=== PATIENT | female | born 1965 | race Caucasian/White ===

== ENCOUNTER → 2017-07-03 09:17 | Outpatient (CLI) | payer MEDICAID, SELFPAY ==
--- NOTE | 2017-07-03 09:23 | EKG12_ITS ---
Test Reason : PREOP Blood Pressure : / mmHG Vent. Rate : 060 BPM Atrial Rate : 060 BPM P-R Int : 128 ms QRS Dur : 088 ms QT Int : 454 ms P-R-T Axes : 060 060 057 degrees QTc Int : 454 ms Normal sinus rhythm Low voltage QRS Borderline ECG Confirmed by JIMENA GRAHAM, COLETTE ([id number]), associate editor JORDYN BAKER ([id number]) on 07/07/2017 2:48:17 PM Referred By: Mateo Caba Confirmed By:COLETTE HESS MD
== END ==
PROVIDERS: Family Provider Family Medicine; PCP Family Medicine; Visit Provider Podiatrist Foot & Ankle Surgery
DX: Z01.818 Encounter for other preprocedural examination (principal); F17.200 Nicotine dependence, unspecified, uncomplicated
CPT/HCPCS: 93005

== ENCOUNTER → 2017-08-28 07:38 | Outpatient (CLI) | payer MEDICAID, SELFPAY ==
--- NOTE | 2017-08-28 07:39 | US_ITS ---
STUDY: ABDOMINAL ULTRASOUND - RIGHT UPPER QUADRANT REASON FOR VISIT: Female, 52 years old. Epigastric pain. TECHNIQUE: Ultrasound evaluation of the right upper quadrant was performed with real-time and static rosas-scale imaging. TECHNICAL QUALITY: Adequate. COMPARISON: None. FINDINGS: Liver: The liver measures 17.6 cm. There is normal echogenicity of the liver. The bile ducts are within normal limits. There is hepatic color flow. The direction of portal flow is hepatopetal. There is no demonstrated mass lesion. Gallbladder: Normal distended gallbladder. The gallbladder wall measures 2.0 mm. There is a negative sonographic Meza's sign. There is no pericholecystic fluid. There are no gallstones. Common Bile Duct (C.B.D.): The common bile duct measures 5.7 mm. Pancreas: Normal size of the head, body and tail of the pancreas. There is normal echogenicity of the pancreas. There is no demonstrated pancreatic mass or cyst. Right Kidney: Normal size of the right kidney. The right kidney measures 10.8 x 5.7 x 4.3 cm. Normal renal cortex. The right cortex measures 1.2 cm. There is no demonstrated renal mass or cyst. There is no right hydronephrosis. US/Abdomen Limited IMPRESSION: Normal right upper quadrant ultrasound examination. Electronically Signed: Jose Peralta MD at 8:56 EDT , Service support ,
== END ==
PROVIDERS: Family Provider Family Medicine; PCP Family Medicine; Visit Provider Family Medicine
DX: R10.13 Epigastric pain (principal); G89.29 Other chronic pain
CPT/HCPCS: 76705

== ENCOUNTER → 2018-03-05 14:24 | Outpatient (CLI) | payer MEDICAID, SELFPAY ==
[2018-03-05 16:13] LABS: Absolute Lymphocyte Count 3.26 X10^3/ul (0.83-4.51); Absolute Neutrophil Count 3.6 X10^3/uL (2.0-7.7); Basophil# 0.04 X10^3/uL; Basophil% 0.5 % (0-1); Eosinophils% 2.7 % (0-5); Hematocrit 46.8 % (37-47); Hemoglobin 15.6 g/dl (12.0-15.0); Lymphocyte # 3.26 X10^3/ul (4.0); Lymphocyte % 44.1 % (19-41); Mean Corp Hgb Conc 33.3 g/gl (32-36); Mean Corpuscular Hgb 30.7 pg (27.0-32.0); Mean Corpuscular Volume 92.1 fL (81-99); Monocyte# 0.33 X10^3/uL; Monocyte% 4.5 % (0-10); Neutrophil # 3.56 X10^3/uL (2.7-7.7); Neutrophil % 48.1 % (47-70); Platelet Count 263 K/mm3 (150-450); RBC Distribution Width CV 14.4 % (11.6-14.6); RBC Distribution Width SD 47.2 fl (35.1-43.9); Red Blood Count 5.08 M/mm3 (4.2-5.4); White Blood Count 7.4 K/mm3 (4.4-11.0)
[2018-03-05 16:16] LABS: POSITIVE COUNT NO; POSITIVE DIFFERENTIAL NO; POSITIVE MORPHOLOGY NO
[2018-03-05 16:36] LABS: Vitamin D,25 Hydroxy 34.4 ng/mL (29.95-100.01)
[2018-03-05 16:44] LABS: ALB/GLOB Ratio 1.1 RATIO (0.9-2.4); AST(SGOT) 19 U/L (15-37); Alanine Aminotransfer ALT/SGPT 29 U/L (13-56); Albumin, Serum 4.1 g/dL (3.2-5.0); Alkaline Phosphatase 90 U/L (45-117); Anion Gap 7 (5-15); BUN 13 mg/dL (7-18); BUN/Creat Ratio 16.7 RATIO (10-20); Calcium,Total 9.1 mg/dL (8.5-10.1); Chloride 102 mmol/L (98-107); Creatinine, Serum 0.78 mg/dL (0.55-1.02); EST Glomerular Filtration Rate 83 mL/min (>60); Est Glom Filt Rate - Afr Amer 100 mL/min (>60); Globulin 3.9 g/dL (2.2-4.2); Glucose 71 mg/dL (74-106); Potassium 3.9 mmol/L (3.5-5.1); Sodium Level 136 mmol/L (136-145); Thyroid Stim Hormone (TSH) 2.82 uIU/mL (0.358-3.74)
[2018-03-08 14:19] LABS: Cholesterol 247 mg/dL (200); High Density Lipoprotein 32 mg/dL; Triglycerides 135 mg/dL; Very Low Density Lipoprotein 27 mg/dL (5-40)
== END ==
PROVIDERS: Family Provider Family Medicine; PCP Family Medicine; Visit Provider Family Medicine
DX: D35.02 Benign neoplasm of left adrenal gland (principal); E55.9 Vitamin D deficiency, unspecified; R10.13 Epigastric pain
CPT/HCPCS: 36415; 80053; 80061; 82306; 84443; 85025

== ENCOUNTER → 2018-07-30 11:33 | Outpatient (CLI) | payer MEDICAID, SELFPAY ==
[2016-11-03 08:01] VITALS: BMI 25.0
--- NOTE | 2018-07-30 11:36 | RAD_ITS ---
STUDY: X-RAY CHEST REASON FOR EXAM: Female, 53 years old. Dyspnea, sternal chest pain TECHNIQUE: PA and lateral views of the chest. COMPARISON: 08/04/2016 FINDINGS: The lungs are clear and expanded. There is no demonstrated pleural abnormality. Normal size heart. Normal mediastinum and wily. Normal visualized pulmonary arteries. Normal visualized aortic arch and descending thoracic aorta. Normal visualized thoracic spine. Normal visualized ribs, clavicles, and shoulders. There is no demonstrated abnormality of the visualized soft tissue structures of the upper abdomen. RAD/Chest PA and Lateral IMPRESSION: Stable, nonacute x-ray examination of the chest. Electronically Signed: Mainor Hernandez MD at 12:09 EDT , Service support ,
== END ==
PROVIDERS: Family Provider Family Medicine; PCP Family Medicine; Referring Provider Family Medicine; Visit Provider Family Medicine
DX: R06.00 Dyspnea, unspecified (principal)
CPT/HCPCS: 71046

== ENCOUNTER → 2019-04-14 09:38 | Outpatient (CLI) | payer MEDICAID, SELFPAY ==
[2016-11-03 08:01] VITALS: BMI 25.0
[2019-04-14 09:45] LABS: Bacteria 0 SEEN /hpf (None Seen); Mucous, Urine 0 SEEN /hpf (<or=2+); Red Blood Cells-Urine 0 SEEN /hpf (0-5); White Blood Cells 0 SEEN /hpf (0-5)
[2019-04-14 10:07] LABS: Color, Urine Yellow (Yellow); Glucose, Dipstick Normal (Normal); Ketone-Dipstick Negative (Negative); Leukocyte Esterase-Dipstick Negative /ul (Negative); Nitrite-Dipstick Negative (Negative); Occult Blood-Urine Negative /ul (Negative); Protein-Dipstick Negative (Negative); Specific Gravity, Urine 1.015 (1.002-1.030); Urine Bilirubin Dipstick Negative (Negative); Urine Clarity Clear (Clear); Urine Urobilinogen Normal (Normal)
[2019-04-14 10:09] LABS: Basophil# 0.04 X10^3/uL; Basophil% 0.5 % (0-1); Eosinophil# 0.17 X10^3/uL; Eosinophils% 2.3 % (0-5); Hemoglobin 15.9 g/dL (12.0-15.0); Lymphocyte % 38.7 % (19-41); Mean Corp Hgb Conc 33.1 g/dL (32-36); Mean Corpuscular Hgb 30.7 pg (27.0-32.0); Mean Corpuscular Volume 92.7 fL (81-99); Mean Platelet Vol. 10.3 fl (6.2-12.0); Monocyte# 0.34 X10^3/uL; Monocyte% 4.5 % (0-10); NRBC Flagged by Analyzer 0 % (0-5); Neutrophil # 4.04 X10^3/uL (2.7-7.7); Neutrophil % 53.9 % (47-70); Platelet Count 305 K/mm3 (150-450); RBC Distribution Width SD 44.5 fl (35.1-43.9); Red Blood Count 5.18 M/mm3 (4.2-5.4); White Blood Count 7.5 K/mm3 (4.4-11.0)
[2019-04-14 10:13] LABS: Squamous Epithelial Cells - UA 0-5 SEEN /hpf (5-10)
[2019-04-14 10:50] LABS: Vitamin B12 725 pg/mL (211-911); Vitamin D,25 Hydroxy 19.2 ng/mL (29.95-100.01)
[2019-04-14 11:04] LABS: ALB/GLOB Ratio 1.1 RATIO (0.9-2.4); AST(SGOT) 14 U/L (15-37); Alanine Aminotransfer ALT/SGPT 27 U/L (13-56); Albumin, Serum 4.3 g/dL (3.2-5.0); Alkaline Phosphatase 95 U/L (45-117); Anion Gap 5 (5-15); BUN 14 mg/dL (7-18); BUN/Creat Ratio 15.7 RATIO (10-20); Calcium,Total 9.4 mg/dL (8.5-10.1); Chloride 105 mmol/L (98-107); Cholesterol 278 mg/dL (200); Creatinine, Serum 0.89 mg/dL (0.55-1.02); EST Glomerular Filtration Rate 71 mL/min (>60); Est Glom Filt Rate - Afr Amer 85 mL/min (>60); Glucose 116 mg/dL (74-106); High Density Lipoprotein 28 mg/dL; Potassium 4.2 mmol/L (3.5-5.1); Protein, Total 8.3 g/dL (6.4-8.2); Sodium Level 138 mmol/L (136-145); Thyroid Stim Hormone (TSH) 2.41 uIU/mL (0.358-3.74); Triglycerides 181 mg/dL; Very Low Density Lipoprotein 36 mg/dL (5-40)
== END ==
PROVIDERS: Family Provider Family Medicine; PCP Family Medicine; Referring Provider Family Medicine; Visit Provider Family Medicine
DX: E78.00 Pure hypercholesterolemia, unspecified (principal); R53.83 Other fatigue; F17.200 Nicotine dependence, unspecified, uncomplicated; E55.9 Vitamin D deficiency, unspecified; E04.1 Nontoxic single thyroid nodule
CPT/HCPCS: 36415; 80053; 80061; 81001; 82306; 82607; 84439; 84443; 85025

== ENCOUNTER → 2019-04-25 16:38 | Outpatient (CLI) | payer MEDICAID, SELFPAY ==
[2016-11-03 08:01] VITALS: BMI 25.0
[2019-04-25 18:00] LABS: ALB/GLOB Ratio 0.9 RATIO (0.9-2.4); AST(SGOT) 20 U/L (15-37); Alanine Aminotransfer ALT/SGPT 23 U/L (13-56); Albumin, Serum 3.9 g/dL (3.2-5.0); Alkaline Phosphatase 87 U/L (45-117); Anion Gap 7 (5-15); BUN 13 mg/dL (7-18); BUN/Creat Ratio 12.4 RATIO (10-20); Calcium,Total 9.4 mg/dL (8.5-10.1); Chloride 102 mmol/L (98-107); Creatinine, Serum 1.05 mg/dL (0.55-1.02); EST Glomerular Filtration Rate 59 mL/min (>60); Est Glom Filt Rate - Afr Amer 71 mL/min (>60); Globulin 4.5 g/dL (2.2-4.2); Glucose 102 mg/dL (74-106); Magnesium 2.3 mg/dL (1.6-2.6); Potassium 3.9 mmol/L (3.5-5.1); Protein, Total 8.4 g/dL (6.4-8.2); Sodium Level 135 mmol/L (136-145)
== END ==
PROVIDERS: Family Provider Family Medicine; PCP Family Medicine; Referring Provider Family Medicine; Visit Provider Family Medicine
DX: R19.7 Diarrhea, unspecified (principal)
CPT/HCPCS: 36415; 80053; 83735; 87493; 87506

== ENCOUNTER 2019-04-26 10:16 | Emergency (ER) | payer MEDICAID, SELFPAY ==
[2019-04-26 10:17] VITALS: BP 103/79; PULSE 90; RESP 18; TEMP 36.6; O2SAT 97; BMI 27.1
--- NOTE | 2019-04-26 10:37 | ED.DCSUM_ITS ---
- ER Visit Summary Date of Service: 04/26/19 Chief Complaint: Nausea, vomiting, diarrhea and abdominal cramping History of Present Illness: The patient is a 53 F history of prior DVT. Patient states she has had nausea, vomiting, diarrhea abdominal cramping since Thursday. Is taking Zofran which is helping some but she still has nausea and intermittent vomiting. States abdominal discomfort is only cramping. She was seen by her primary care physician told she was dehydrated and was told to come to the ER for IV fluids. She is also concerned because she has pain in her distal hamstring and proximal calf and she is concerned she may have developed a DVT because she is in bed in bed and lying around the last several days. She is had a prior DVT in the right after having a child. She denies any chest pain or shortness of breath. She denies any leg swelling. Physical Examination: Middle-aged female no acute distress vital signs stable afebrile. H EENT exam unremarkable except dry mucous members. Neck nontender no lymphadenopathy. Lungs clear to auscultation bilaterally. Heart regular rhythm no murmur. Abdomen soft, nondistended, nontender. No peritoneal signs. Positive bowel sounds. Patient is moving all 4 extremities. Neurovascular intact. She describes discomfort in the proximal calf. There is no redness or warmth. There is no discoloration or bruising. Left foot is neurovascular intact with normal DP pulse. Normal range of motion of sensation. There is no edema. No cord. No swelling. Neurologically she is awake and alert. Test Results: BMP shows no acute acute abnormality. Normal normal. Normal BUN and creatinine. Normal gap. Clinically I do not feel she has a DVT and I think her risk is very low so we will obtain a d-dimer which landed 4.78. For that reason a left lower extremity noninvasive study was done which showed no DVT. Was normal. Emergency Department Course and Treatment: Treated with IV fluids, Zofran and a p.o. fluid challenge. Her history is consistent with viral gastroenteritis. Multiple repeat exams patient is doing well. She is feeling improved after the IV fluids and nausea medication. We went over all of her test results including her negative leg noninvasive study. She is comfortable being discharged home. Treatment Plan: Home nausea medications as needed. Follow-up with your doctor as needed. Disposition: Discharge Impression: Acute viral gastroenteritis Acute dehydration Left calf pain secondary to musculoskeletal etiology This note was generated with [employer] dictation software. It may contain incorrect words, spelling, and punctuation that were not noted in review of the chart prior to signing ED Disposition - Plan for ED Patient: Referrals: Julian Zendejas MD [Primary Care Provider] -
[2019-04-26] MEDS: Ondansetron 4 MG/2 ML Vial IV (10:46)
[2019-04-26] MEDS: 0.9% Normal Saline 1,000 ML 999 ML IV (10:46)
[2019-04-26 11:13] LABS: Anion Gap 6 (5-15); BUN 13 mg/dL (7-18); BUN/Creat Ratio 14.5 RATIO (10-20); Calcium,Total 9.2 mg/dL (8.5-10.1); Chloride 105 mmol/L (98-107); EST Glomerular Filtration Rate 70 mL/min (>60); Est Glom Filt Rate - Afr Amer 85 mL/min (>60); Estimated Creatinine Clearance 63.86 ml/min; Glucose 101 mg/dL (74-106); Potassium 3.6 mmol/L (3.5-5.1); Sodium Level 137 mmol/L (136-145)
[2019-04-26 11:29] LABS: D-Dimer Quantitative (DVT/PE) 4.78 FEU/ug/m (0.27-0.49)
--- NOTE | 2019-04-26 11:29 | ED.RN ---
dr aware of elevated d-dimer called from lab
--- NOTE | 2019-04-26 11:33 | VDLE_ITS ---
Reason For Study: Elevated D-dimer Procedure LEFT Exam performed portable in ED. GSV is normal. A preliminary report was called and/or faxed CFV is compressible, spontaneous, phasic, to Horace. competent, and demonstrates normal augmentation. FV is compressible, spontaneous, phasic, competent and demonstrates normal augmentation. POP V is compressible, spontaneous, phasic, competent and demonstrates normal augmentation. T/P Trunk is compressible. PTV is compressible. LT PerV is compressible. Interpretation Summary There is no evidence of left lower extremity deep vein thrombosis. Left great saphenous vein appears patent and compressible segmentally. Ordering Physician: Cameron Vu Referring Physician: Julian Zendejas Performed By: Kimberli Bedoya RVT
--- NOTE | 2019-04-26 12:21 | ED.DEP ---
ED Disposition - Plan for ED Patient: Disposition: Home or Assisted Living Instructions: GASTROENTERITIS, Viral (8y-Adult) Referrals: Julian Zendejas MD [Primary Care Provider] - 3-5 Days if not improving Additional Instructions: Money of fluids and rest. Home nausea medication as needed. Tylenol and/or Motrin for pain and body aches. Follow-up with your doctor if not improving.
[2019-04-26 12:38] VITALS: BP 106/63; PULSE 62; RESP 16; O2SAT 99
== END 2019-04-26 12:39 | disposition home or self-care (01) ==
PROVIDERS: Emergency Provider Emergency Medicine; Family Provider Family Medicine; PCP Family Medicine
DX: A08.4 Viral intestinal infection, unspecified (principal); E86.0 Dehydration; M79.662 Pain in left lower leg; Z86.718 Personal history of other venous thrombosis and embolism; Z72.0 Tobacco use
CPT/HCPCS: 80048; 85379; 93971; 96361; 96374; 99283; J7030; J2405

== ENCOUNTER → 2019-05-05 13:18 | Outpatient (CLI) | payer MEDICAID, SELFPAY ==
[2019-04-26 10:17] VITALS: BMI 27.1
--- NOTE | 2019-05-05 13:21 | CT_ITS ---
HISTORY: ELEV CORTISOL. Known adrenal mass. TECHNIQUE: CT images of the abdomen were obtained with IV contrast. A radiation dose optimization technique was used for this scan. IV Contrast dosage and agent: 75 mL [id number] Enteric contrast: None Number of images including paperwork: 387. COMPARISON: 09/20/2016 FINDINGS: LOWER THORAX: No consolidation or pleural effusion. Small amount of pericardial fluid, similar to previous. LIVER: Multiple subcentimeter well-defined low-density hepatic lesions compatible with cysts, grossly unchanged. GALLBLADDER AND BILIARY TREE: No calcified gallstones. No significant gallbladder distension or wall thickening. No significant biliary ductal dilation. KIDNEYS AND URETERS: Unremarkable. ADRENAL GLANDS: Unchanged 1.5 cm left adrenal nodule. SPLEEN: Unremarkable. PANCREAS: Unremarkable. BOWEL: No bowel obstruction. No bowel wall thickening. No localized inflammation LYMPH NODES: No pathologic-appearing adenopathy. PERITONEUM, RETROPERITONEUM AND MESENTERY: No free air. No significant free fluid. VESSELS: Mild aortic atherosclerotic plaque. ABDOMINAL WALL: Unremarkable. BONES AND SOFT TISSUES: No acute skeletal abnormality. CT/Abdomen WITH IV Contrast IMPRESSION: Unchanged 1.5 cm left adrenal nodule. Individualized dose optimization techniques were used for this CT. at 2221 Reported and signed by: Carolina Morrow MD Electronically Signed: Carolina Morrow MD at 22:21 EST Tel , Service support ,
--- NOTE | 2019-05-05 13:36 | US_ITS ---
HISTORY: NODULE FELT ON EXAM COMPARISON: None TECHNIQUE: Grayscale and color Doppler sonography of the thyroid gland. FINDINGS: RIGHT LOBE: 4.3 x 1.8 x 1.6 cm LEFT LOBE: 4.1 x 1.3 x 1.5 cm ISTHMUS: 3 mm Homogeneous echogenicity without distinct nodule. Normal vascularity. US/Thyroid IMPRESSION: Unremarkable thyroid ultrasound. at 2222 Reported and signed by: Carolina Morrow MD Electronically Signed: Carolina Morrow MD at 22:22 EST Tel , Service support ,
== END ==
PROVIDERS: Family Provider Family Medicine; PCP Family Medicine; Referring Provider Family Medicine; Visit Provider Family Medicine
DX: E27.8 Other specified disorders of adrenal gland (principal); E04.1 Nontoxic single thyroid nodule
CPT/HCPCS: 74160; 76536; Q9967

== ENCOUNTER → 2019-05-12 08:46 | Outpatient (CLI) | payer MEDICAID, SELFPAY ==
[2019-04-26 10:17] VITALS: BMI 27.1
--- NOTE | 2019-05-13 16:56 | PFTCOMP ---
COMPLETE PULMONARY FUNCTION TEST INTERPRETATION Brief HPI: Patient is a 53 year old female, currently under the care of Dr. Zendejas, who presents to [facility] for complete pulmonary function tests secondary to diagnosis of dyspnea. Respiratory therapist reports good effort and reproducible results. Interpretation: Forced expiration spirometry shows a mild large airways obstructive ventilatory defect with an FEV1 of 87% predicted. There is no significant bronchodilator response by strict ATS criteria. Spirograms are of good quality and plateau slowly, indicating slowly emptying areas of the lungs. The respiratory flow volume loop shows decreased expiratory flow rates at all lung volumes consistent with airway obstruction. Lung volumes by body plethysmography show a total lung capacity at the upper limit of normal at 5.69 L, 115% predicted. All other lung volumes are within normal limits. Diffusion capacity by carbon monoxide is decreased at 61% predicted. The airway resistance is normal. No previous pulmonary function tests were available for review. Impression: Irreversible mild large airways obstructive ventilatory defect with a symmetric reduction diffusing capacity and a pattern consistent with early COPD.
== END ==
PROVIDERS: Family Provider Family Medicine; PCP Family Medicine; Referring Provider Family Medicine; Visit Provider Family Medicine
DX: R06.02 Shortness of breath (principal)
CPT/HCPCS: 94060; 94726; 94729

== ENCOUNTER → 2019-05-13 09:09 | Outpatient (CLI) | payer MEDICAID, SELFPAY ==
[2019-04-26 10:17] VITALS: BMI 27.1
[2019-05-13 10:34] LABS: Absolute Lymphocyte Count 2.54 X10^3/uL (0.83-4.51); Absolute Neutrophil Count 3.1 X10^3/uL (2.0-7.7); Basophil# 0.06 X10^3/uL; Eosinophil# 0.13 X10^3/uL; Eosinophils% 2.1 % (0-5); Hematocrit 43.5 % (37-47); Hemoglobin 14.3 g/dL (12.0-15.0); Lymphocyte # 2.54 X10^3/ul (4.0); Lymphocyte % 40.6 % (19-41); Mean Corp Hgb Conc 32.9 g/dL (32-36); Mean Corpuscular Hgb 30.5 pg (27.0-32.0); Mean Corpuscular Volume 92.8 fL (81-99); Mean Platelet Vol. 10.6 fl (6.2-12.0); Monocyte# 0.39 X10^3/uL; Monocyte% 6.2 % (0-10); NRBC Flagged by Analyzer 0 % (0-5); Neutrophil # 3.13 X10^3/uL (2.7-7.7); Neutrophil % 49.9 % (47-70); Platelet Count 297 K/mm3 (150-450); RBC Distribution Width CV 13.2 % (11.6-14.6); RBC Distribution Width SD 44.9 fl (35.1-43.9); Red Blood Count 4.69 M/mm3 (4.2-5.4); White Blood Count 6.3 K/mm3 (4.4-11.0)
[2019-05-13 11:05] LABS: Hemoglobin A1c 5.9 % (4.2-6.3)
[2019-05-13 11:10] LABS: Anion Gap 5 (5-15); BUN 13 mg/dL (7-18); Calcium,Total 9.6 mg/dL (8.5-10.1); Chloride 107 mmol/L (98-107); Creatinine, Serum 0.87 mg/dL (0.55-1.02); EST Glomerular Filtration Rate 73 mL/min (>60); Est Glom Filt Rate - Afr Amer 88 mL/min (>60); Ferritin 150 ng/mL (8-252); Glucose 100 mg/dL (74-106); Iron 96 ug/dL (50-170); Iron Binding Capacity,Total 359 ug/dL (250-450); Potassium 3.8 mmol/L (3.5-5.1); Sodium Level 140 mmol/L (136-145)
[2019-05-14 15:32] LABS: Transferrin 268 mg/dL (200-370)
== END ==
PROVIDERS: Family Provider Family Medicine; PCP Family Medicine; Referring Provider Family Medicine; Visit Provider Family Medicine
DX: R94.4 Abnormal results of kidney function studies (principal); D75.1 Secondary polycythemia; R73.09 Other abnormal glucose
CPT/HCPCS: 36415; 80048; 82728; 83036; 83540; 83550; 84466; 85025

== ENCOUNTER → 2019-08-11 09:32 | Outpatient (CLI) | payer MEDICAID, SELFPAY ==
[2019-08-11 09:59] LABS: Bacteria 0 SEEN /hpf (None Seen); Mucous, Urine 0 SEEN /hpf (<or=2+); Red Blood Cells-Urine 0 SEEN /hpf (0-5); White Blood Cells 0 SEEN /hpf (0-5)
[2019-08-11 12:01] LABS: Absolute Lymphocyte Count 2.96 X10^3/uL (0.83-4.51); Absolute Neutrophil Count 3.1 X10^3/uL (2.0-7.7); Basophil# 0.06 X10^3/uL; Basophil% 0.9 % (0-1); Eosinophil# 0.19 X10^3/uL; Eosinophils% 2.8 % (0-5); Hematocrit 43.5 % (37-47); Hemoglobin 14.4 g/dL (12.0-15.0); Lymphocyte # 2.96 X10^3/ul (4.0); Lymphocyte % 43.9 % (19-41); Mean Corp Hgb Conc 33.1 g/dL (32-36); Mean Corpuscular Hgb 29.5 pg (27.0-32.0); Mean Corpuscular Volume 89.1 fL (81-99); Mean Platelet Vol. 10.4 fl (6.2-12.0); Monocyte# 0.39 X10^3/uL; Monocyte% 5.8 % (0-10); NRBC Flagged by Analyzer 0 % (0-5); Neutrophil # 3.14 X10^3/uL (2.7-7.7); Neutrophil % 46.5 % (47-70); Platelet Count 258 K/mm3 (150-450); RBC Distribution Width CV 13.2 % (11.6-14.6); RBC Distribution Width SD 43.5 fl (35.1-43.9); Red Blood Count 4.88 M/mm3 (4.2-5.4); White Blood Count 6.8 K/mm3 (4.4-11.0)
[2019-08-11 12:11] LABS: Color, Urine Yellow (Yellow); Glucose, Dipstick Normal (Normal); Ketone-Dipstick Negative (Negative); Leukocyte Esterase-Dipstick Negative /ul (Negative); Nitrite-Dipstick Negative (Negative); Occult Blood-Urine Negative /ul (Negative); Protein-Dipstick Negative (Negative); Urine Bilirubin Dipstick Negative (Negative); Urine Clarity Sl. Cloudy (Clear); Urine Urobilinogen Normal (Normal)
[2019-08-11 12:19] LABS: ALB/GLOB Ratio 1.1 RATIO (0.9-2.4); AST(SGOT) 23 U/L (15-37); Alanine Aminotransfer ALT/SGPT 28 U/L (13-56); Albumin, Serum 3.9 g/dL (3.2-5.0); Alkaline Phosphatase 81 U/L (45-117); Anion Gap 7 (5-15); BUN 15 mg/dL (7-18); BUN/Creat Ratio 16.1 RATIO (10-20); Chloride 106 mmol/L (98-107); Cholesterol 279 mg/dL (200); Creatinine, Serum 0.93 mg/dL (0.55-1.02); EST Glomerular Filtration Rate 67 mL/min (>60); Est Glom Filt Rate - Afr Amer 81 mL/min (>60); Globulin 3.7 g/dL (2.2-4.2); Glucose 104 mg/dL (74-106); High Density Lipoprotein 25 mg/dL; Potassium 3.9 mmol/L (3.5-5.1); Protein, Total 7.6 g/dL (6.4-8.2); Sodium Level 138 mmol/L (136-145); Triglycerides 261 mg/dL; Very Low Density Lipoprotein 52 mg/dL (5-40)
[2019-08-11 12:30] LABS: Hemoglobin A1c 6.4 % (4.2-6.3); Squamous Epithelial Cells - UA 0-5 SEEN /hpf (5-10)
== END ==
PROVIDERS: PCP Family Medicine; Referring Provider Family Medicine; Visit Provider Family Medicine
DX: E78.00 Pure hypercholesterolemia, unspecified (principal); F17.200 Nicotine dependence, unspecified, uncomplicated; R73.09 Other abnormal glucose
CPT/HCPCS: 80053; 80061; 81001; 83036; 85025

== ENCOUNTER → 2019-08-12 | Outpatient (CLI) | payer MEDICAID, SELFPAY ==
--- NOTE | 2019-08-12 09:17 | RAD_ITS ---
STUDY: X-RAY - LEFT KNEE REASON FOR EXAM: Female, 54 years old. Knee pain TECHNIQUE: 4 view(s) of the knee. COMPARISON: None. FINDINGS: Normal visualized distal femur. Normal visualized proximal tibia and fibula. Normal proximal tibiofibular articulation. Normal medial femorotibial compartment. Normal lateral femorotibial compartment. Normal patellofemoral articulation. The soft tissue structures are unremarkable. RAD/Knee 4 or More Views IMPRESSION: Normal x-ray examination of the knee. Electronically Signed: Luigi Atwood, at 9:52 EDT , Service support ,
--- NOTE | 2019-08-12 09:17 | RAD_ITS ---
STUDY: X-RAY - RIGHT KNEE REASON FOR EXAM: Female, 54 years old. Right knee pain TECHNIQUE: 4 view(s) of the knee. COMPARISON: None. FINDINGS: Normal visualized distal femur. Normal visualized proximal tibia and fibula. Normal proximal tibiofibular articulation. Normal medial femorotibial compartment. Normal lateral femorotibial compartment. Normal patellofemoral articulation. The soft tissue structures are unremarkable. RAD/Knee 4 or More Views IMPRESSION: Normal x-ray examination of the knee. Electronically Signed: Luigi Atwood, at 9:52 EDT , Service support ,
== END | disposition home or self-care (01) ==
PROVIDERS: PCP Family Medicine; Referring Provider Family Medicine; Visit Provider Family Medicine
DX: M25.561 Pain in right knee (principal); M25.562 Pain in left knee
CPT/HCPCS: 73564

== ENCOUNTER 2019-08-26 07:30 | Outpatient (RCR) | payer MEDICAID, SELFPAY ==
--- NOTE | 2019-08-17 09:36 | HP.PTEVAL_ITS ---
Patient's Visit Information NOEL PINEDO is a 54 year old F referred to Physical Therapy by Julian Zendejas MD with a diagnosis of R knee pain. Date of Evaluation: 08/17/19 Physical Therapist: Philip Gil, DPT, OCS, CSCS - Visit Plan Frequency: 3x /Week Duration: 4-6 Weeks Plan: 3x/week for 2-6 weeks for.. 1. US nonthermal to R medial knee. 2. IF with ice to R medial knee. 3. R knee ROM to full flexion. 4. NWB to WB strength R hip and knee to tolerance. 5. 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 - Subjective Subjective: R knee started hurting about one months ago. Started walking TM 45- 60 minutes for 3 miles and it gets unbearable. R knee has given problems in the past with dislocations etc. Last weeka dn a half has been hard to sleep. Ordered knee brace which did not help. Started tM due to weight gain. 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 Is off now due to covid19. Watches [employer] and knee holds her back here. 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 Has stopped walking on TM due to this. Getting out of bed in the am is tearful. Has stairs but avoids due to knee pain. - Pain R knee pain anteriorly. Pain Intensity (Out of 10): 5 Pain Intensity Range: 5, 10 - Objective Walks with arge right antalgia today but I. Steps are antalgic on Right side. AROM R knee 0-115 limtied by pain, passively to 128, L knee is 0-132. Tender to palpation R medial knee joint line, not in pes or ligamentous attachments. - bounce home. - patellar grind. - ant drawer and posterior sag. - varus and valgus. No excessive swelling. Patellar movement is symmetrical and without pain. strength R quad 3+ and hip ext and abd 3+ without pain. Others R LE 4 and L LE 4/5. reflexes 2/3 patella and achilles B. sensation WNL to gross light touch in LE. - Goals Goal 1:: Full aROM without pain R knee Goal Time Frame: 2-4 Weeks Goal 2:: Walk and steps without antalgia Goal Time Frame: 2-4 Weeks Goal 3:: Patient sleep without waking due to pain. Goal Time Frame: 4-6 Weeks Goal 4:: Patient I in appropriate calorie burning and LE strength exercises wihtout interruption from knee pain. Goal Time Frame: 4-6 Weeks - Rehabilitation Potential Physical Therapy Diagnosis: R knee pain/inflammation medial joint line. Rehabilitation Potential: Fair - Anticipated Interventions Patient/Client Instruction: Educate patient on: Condition, Plan of Care For the Purpose of:: To decrease pain, To decrease swelling/inflammation, To improve muscle performance and motor function, To increase tolerance to activity/condition/position, To improve ability of physical actions for home/community/work/leisure Therapeutic Exercise to Include: Strength training, Flexibilty training, Gait and locomotor training, Neuromotor development, Passive ROM, Active ROM For the Purpose of:: To decrease pain, To decrease swelling/inflammation, To increase ROM, To improve muscle performance and motor function, To increase tolerance to activity/condition/position, To improve ability of physical actions for home/community/work/leisure, To improve gait and locomotor functions Manual Therapy Techniques to Include: Mobilization, Passive ROM For the Purpose of:: To increase ROM IF ES: Yes Cryotherapy (ice pack, ice massage): Yes Ultrasound (thermal/non thermal): Yes For the Purpose of:: To decrease pain, To decrease swelling/inflammation Thank you for the opportunity to evaluate your patient. For Medicare and Medicare HMO plans, please review the plan of care and approve it. It will need to be FAXED BACK to us at [phone] for Medicare purposes. For Medicare only, by signing this I certify the plan of care. Please let me know if there are questions or concerns regarding this plan of care. Physician Signature: Date:
--- NOTE | 2019-11-16 11:11 | HP.PTDCNRP_ITS ---
NOEL PINEDO was seen in my office for initial evaluation on 08/17/19. The following Plan of Care was established for this patient: Initial Frequency: 3x /Week Initial Duration: 4-6 Weeks Patient/Client Instruction: Educate patient on: Condition, Plan of Care For the Purpose of:: To decrease pain, To decrease swelling/inflammation, To improve muscle performance and motor function, To increase tolerance to activity/condition/position, To improve ability of physical actions for home/community/work/leisure Therapeutic Exercise to Include: Strength training, Flexibilty training, Gait and locomotor training, Neuromotor development, Passive ROM, Active ROM For the Purpose of:: To decrease pain, To decrease swelling/inflammation, To increase ROM, To improve muscle performance and motor function, To increase tolerance to activity/condition/position, To improve ability of physical actions for home/community/work/leisure, To improve gait and locomotor functions Manual Therapy Techniques to Include: Mobilization, Passive ROM For the Purpose of:: To increase ROM IF ES: Yes Cryotherapy (ice pack, ice massage): Yes Ultrasound (thermal/non thermal): Yes For the Purpose of:: To decrease pain, To decrease swelling/inflammation This patient was last seen in our office 08/26/19. Pertinent comments regarding their Physical therapy will appear below: Pt seen 5 visits adn doing a lot better. she neglected to attend any further visits including cancelling her last session recheck. At this point, it has been over two months adn I will discontinue due to nonattendance. At this point I will be discontinuing this patient from physical therapy. I w ould be happy to see this patient again in the future if found appropriate by the physician. Thank you! Philip Gil, DPT, OCS, CSCS
== END 2019-08-26 19:00 | disposition home or self-care (01) ==
LOC: PT 07:30
PROVIDERS: PCP Family Medicine; Referring Provider Family Medicine; Visit Provider Family Medicine
DX: M25.569 Pain in unspecified knee (principal)
CPT/HCPCS: 97014; 97035; 97110; 97161; G0283

== ENCOUNTER 2019-10-19 10:56 | Outpatient (RCR) | payer MEDICAID, SELFPAY | END 2019-11-01 23:59 | LOC: NS 10:56 | PROVIDERS: PCP Family Medicine; Visit Provider Family Medicine | DX: Z71.3 Dietary counseling and surveillance (principal); E66.3 Overweight | CPT/HCPCS: 97802 ==

== ENCOUNTER → 2019-11-02 | Outpatient (CLI) | payer MEDICAID, SELFPAY ==
[2019-11-02 10:16] LABS: Absolute Lymphocyte Count 3.31 X10^3/uL (0.83-4.51); Absolute Neutrophil Count 4.5 X10^3/uL (2.0-7.7); Basophil# 0.07 X10^3/uL; Basophil% 0.8 % (0-1); Eosinophil# 0.24 X10^3/uL; Eosinophils% 2.8 % (0-5); Hematocrit 44.6 % (37-47); Hemoglobin 14.5 g/dL (12.0-15.0); Lymphocyte # 3.31 X10^3/ul (4.0); Lymphocyte % 38.3 % (19-41); Mean Corp Hgb Conc 32.5 g/dL (32-36); Mean Corpuscular Hgb 29.8 pg (27.0-32.0); Mean Corpuscular Volume 91.8 fL (81-99); Mean Platelet Vol. 11.1 fl (6.2-12.0); Monocyte# 0.49 X10^3/uL; Monocyte% 5.7 % (0-10); NRBC Flagged by Analyzer 0 % (0-5); Neutrophil # 4.53 X10^3/uL (2.7-7.7); Neutrophil % 52.3 % (47-70); Platelet Count 314 K/mm3 (150-450); RBC Distribution Width CV 13.2 % (11.6-14.6); RBC Distribution Width SD 44.7 fl (35.1-43.9); Red Blood Count 4.86 M/mm3 (4.2-5.4); White Blood Count 8.7 K/mm3 (4.4-11.0)
[2019-11-02 11:12] LABS: Vitamin D,25 Hydroxy 67.8 ng/mL
[2019-11-02 11:14] LABS: AST(SGOT) 13 U/L (15-37); Alanine Aminotransfer ALT/SGPT 28 U/L (13-56); Alkaline Phosphatase 83 U/L (45-117); Anion Gap 7 (5-15); BUN 14 mg/dL (7-18); BUN/Creat Ratio 15.9 RATIO (10-20); Calcium,Total 9.3 mg/dL (8.5-10.1); Chloride 103 mmol/L (98-107); Cholesterol 257 mg/dL (200); Creatinine, Serum 0.88 mg/dL (0.55-1.02); EST Glomerular Filtration Rate 72 mL/min (>60); Est Glom Filt Rate - Afr Amer 87 mL/min (>60); Glucose 96 mg/dL (74-106); High Density Lipoprotein 25 mg/dL; Potassium 3.9 mmol/L (3.5-5.1); Sodium Level 138 mmol/L (136-145); Triglycerides 170 mg/dL; Very Low Density Lipoprotein 34 mg/dL (5-40)
[2019-11-02 11:33] LABS: Hemoglobin A1c 5.8 % (3.8-5.6)
== END | disposition home or self-care (01) ==
LOC: MFPLAB 08:37
PROVIDERS: PCP Family Medicine; Visit Provider Family Medicine
DX: E55.9 Vitamin D deficiency, unspecified (principal); J44.9 Chronic obstructive pulmonary disease, unspecified; E78.00 Pure hypercholesterolemia, unspecified; R73.02 Impaired glucose tolerance (oral)
CPT/HCPCS: 36415; 80053; 80061; 82306; 83036; 85025; 97803

== ENCOUNTER 2019-11-16 09:30 | Outpatient (RCR) | payer MEDICAID, SELFPAY | END 2019-12-02 23:59 | LOC: NS 09:30 | PROVIDERS: PCP Family Medicine; Visit Provider Family Medicine | DX: Z71.3 Dietary counseling and surveillance (principal); E66.3 Overweight; Z68.29 Body mass index [BMI] 29.0-29.9, adult | CPT/HCPCS: 97803 ==

== ENCOUNTER 2019-12-19 12:17 | Outpatient (RCR) | payer MEDICAID, SELFPAY | END 2019-12-19 23:59 | disposition home or self-care (01) | LOC: NS 12:17 | PROVIDERS: PCP Family Medicine; Visit Provider Family Medicine | DX: Z71.3 Dietary counseling and surveillance (principal); E66.3 Overweight; Z68.29 Body mass index [BMI] 29.0-29.9, adult | CPT/HCPCS: 97803 ==

== ENCOUNTER → 2020-01-13 | Outpatient (CLI) | payer MEDICAID, SELFPAY ==
--- NOTE | 2020-01-13 07:47 | US_ITS ---
STUDY: ABDOMINAL ULTRASOUND - RIGHT UPPER QUADRANT REASON FOR VISIT: Female, 54 years old RUQ PAIN TECHNIQUE: Ultrasound evaluation of the right upper quadrant was performed with real-time and static rosas-scale imaging. TECHNICAL QUALITY: Adequate. COMPARISON: Comparison is made with prior study dated 08/28/2017. FINDINGS: Liver: The liver measures 13.2 cm. There is increased echogenicity consistent with fatty infiltration. The bile ducts are within normal limits. There is hepatic color flow. The direction of portal flow is hepatopetal. There is no demonstrated mass lesion. Gallbladder: Normal distended gallbladder. The gallbladder wall measures 1.6 mm. There is a negative sonographic Meza''s sign. There is no pericholecystic fluid. There are no gallstones. Common Bile Duct (C.B.D.): The common bile duct measures 4.1 mm. Pancreas: Normal size of the head, body and tail of the pancreas. There is normal echogenicity of the pancreas. There is no demonstrated pancreatic mass or cyst. Right Kidney: Normal size of the right kidney. The right kidney measures 9.7 cm x 7.1 cm x 3.9 cm. Normal renal cortex. The right cortex measures 1.0 cm. There is no demonstrated renal mass or cyst. There is no right hydronephrosis. US/Abdomen Limited IMPRESSION: Fatty infiltration of the liver. Electronically Signed: Luigi Atwood, at 12:40 EDT , Service support ,
== END | disposition home or self-care (01) ==
PROVIDERS: PCP Family Medicine; Referring Provider Family Medicine; Visit Provider Family Medicine
DX: R10.11 Right upper quadrant pain (principal)
CPT/HCPCS: 76705

== ENCOUNTER → 2020-01-25 | Outpatient (CLI) | payer MEDICAID, SELFPAY ==
--- NOTE | 2020-01-25 10:32 | NM_ITS ---
CLINICAL: 54-year-old female with reported history of right upper quadrant abdominal pain. RADIONUCLIDE HEPATOBILIARY SCINTIGRAPHY COMPARISON: Abdominal ultrasound report 01/13/2020 FINDINGS: Following the intravenous administration of 5.1 mCi of 99m Tc Mebrofenin, hepatobiliary images reveal: 1. Relatively prompt and homogeneous radiopharmaceutical concentration is noted by a normal sized liver. No parenchymal defects are identified. 2. Gallbladder activity is identified at 15 minutes post radiopharmaceutical administration. 3. Small intestinal tract is observed at 30 minutes following tracer injection. 4. Washout of the radiopharmaceutical by the hepatic parenchyma appears qualitatively normal. 5. There is scintigraphic evidence of pre-CCK duodenal gastric reflux. Cholecystokinin (0.02 ug/kg) was administered intravenously over a 30-minute period. The post CCK gallbladder ejection fraction calculated at 20 minutes following Cholecystokinin administration was noted to be < 5 % (normal greater than 35%). There is scintigraphic evidence of continued post CCK duodenal gastric reflux. NM/Hepatobilliary Img w/Pharm Int IMPRESSION: 1. ABNORMAL 99m Tc Mebrofenin hepatobiliary imaging examination with Cholecystokinin. A. A gallbladder ejection fraction calculated to be less than 35% following the administration of Cholecystokinin is consistent with the presence of functional hepatobiliary disease (gallbladder and/or sphincter of Oddi dyskinesia) and/or organic hepatobiliary disease (chronic acalculous cholecystitis and/or cystic duct syndrome) in patients with intermediate to high pretest likelihoods of hepatobiliary illness. (Benjamín Simon et al, Journal of Nuclear Medicine 32:1695, 1990). B. There is scintigraphic evidence of pre-post CCK duodenal-gastric reflux. (Arelis et al, Nucl Med [employer] pg. 35, 1980). Electronically Signed: Wang Bustos DO at 22:06 EDT Tel , Service support ,
== END | disposition home or self-care (01) ==
LOC: NM 10:28
PROVIDERS: PCP Family Medicine; Referring Provider Family Medicine; Visit Provider Family Medicine
DX: R10.11 Right upper quadrant pain (principal)
CPT/HCPCS: 78227; A9537; J2805

== ENCOUNTER → 2020-01-27 | Outpatient (CLI) | payer MEDICAID, SELFPAY ==
[2020-01-27 13:15] LABS: Absolute Lymphocyte Count 3.89 X10^3/uL (0.83-4.51); Absolute Neutrophil Count 4.4 X10^3/uL (2.0-7.7); Basophil# 0.05 X10^3/uL; Basophil% 0.6 % (0-1); Eosinophil# 0.17 X10^3/uL; Eosinophils% 1.9 % (0-5); Hematocrit 43.3 % (37-47); Hemoglobin 14.1 g/dL (12.0-15.0); Lymphocyte # 3.89 X10^3/ul (4.0); Lymphocyte % 43.6 % (19-41); Mean Corp Hgb Conc 32.6 g/dL (32-36); Mean Corpuscular Volume 92.1 fL (81-99); Mean Platelet Vol. 10.4 fl (6.2-12.0); Monocyte# 0.43 X10^3/uL; Monocyte% 4.8 % (0-10); NRBC Flagged by Analyzer 0 % (0-5); Neutrophil # 4.37 X10^3/uL (2.7-7.7); Neutrophil % 48.9 % (47-70); Platelet Count 291 K/mm3 (150-450); RBC Distribution Width CV 13.2 % (11.6-14.6); RBC Distribution Width SD 44.7 fl (35.1-43.9); White Blood Count 8.9 K/mm3 (4.4-11.0)
[2020-01-27 13:45] LABS: AST(SGOT) 19 U/L (15-37); Alanine Aminotransfer ALT/SGPT 31 U/L (13-56); Albumin, Serum 4.1 g/dL (3.2-5.0); Alkaline Phosphatase 79 U/L (45-117); Anion Gap 6 (5-15); BUN 13 mg/dL (7-18); BUN/Creat Ratio 13.8 RATIO (10-20); Calcium,Total 9.3 mg/dL (8.5-10.1); Chloride 104 mmol/L (98-107); Creatinine, Serum 0.94 mg/dL (0.55-1.02); EST Glomerular Filtration Rate 66 mL/min (>60); Est Glom Filt Rate - Afr Amer 80 mL/min (>60); Glucose 95 mg/dL (74-106); Lipase 86 U/L (73-393); Potassium 3.9 mmol/L (3.5-5.1); Protein, Total 8.1 g/dL (6.4-8.2); Sodium Level 137 mmol/L (136-145)
== END | disposition home or self-care (01) ==
PROVIDERS: PCP Family Medicine; Referring Provider Surgery; Visit Provider Surgery
DX: K82.8 Other specified diseases of gallbladder (principal)
CPT/HCPCS: 36415; 80053; 83690; 85025

== ENCOUNTER 2020-01-30 08:55 | Day surgery (SDC) | payer MEDICAID, SELFPAY ==
[2020-01-27 13:36] VITALS: BMI 27.1
[2020-01-30] VITALS (13 sets, daily range): BP systolic 98–115; BP diastolic 55–88; PULSE 49–76; RESP 16–18; TEMP 36–36.7; O2SAT 95–100; BMI 27.4
--- NOTE | 2020-01-30 09:05 | EKG12_ITS ---
Test Reason : PREOP Blood Pressure : / mmHG Vent. Rate : 063 BPM Atrial Rate : 063 BPM P-R Int : 128 ms QRS Dur : 090 ms QT Int : 442 ms P-R-T Axes : 055 052 056 degrees QTc Int : 452 ms Normal sinus rhythm Low voltage QRS Borderline ECG When compared with ECG of 03-JUL-2017 09:38, No significant change was found Confirmed by JIMENA GRAHAM, COLETTE ([id number]), mapping editor ALINA BYRNES ([id number]) on 01/31/2020 12:58:11 PM Referred By: Reginaldo Yost Confirmed By:COLETTE HESS MD
[2020-01-30 09:31] LABS: International Normalized Ratio 0.9; Partial Thromboplast Time 26.7 Seconds (24.1-36.2); Prothrombin Time (Protime)PT. 11.9 SECONDS (11.7-14.9)
[2020-01-30] MEDS: Lactated Ringers 1,000 ML 100 ML IV ×2 (10:18→13:32)
[2020-01-30 10:20] LABS: Bedside Glucose 120 mg/dL (70-110)
--- NOTE | 2020-01-30 11:05 | HP_ITS ---
Intake Vital Signs 01/27/20 Height 5 ft 4 in 01/27/20 Weight: 158 lb 2 oz 01/27/20 BMI 27.1 01/27/20 BP 118/83 H 01/27/20 Blood Pressure Location Rt brachial 01/27/20 Position Sitting 01/27/20 Respiration 18 01/27/20 Temp 97.5 F L 01/27/20 Temp Source Temporal Intake Visit Reasons: Gall Bladder Issues Chief Complaint: abn hida scan Clock Maker Required: No Is patient in pain?: Yes (epigastric and RUQ) Allergies oxycodone HCl [From Percocet] Allergy (Verified 01/27/20 14:00) Itching Medications albuterol sulfate 90 mcg/actuation aerosol inhaler 1 puff INHALATION PRN PRN 01/27/20 [History Confirmed 01/27/20] atorvastatin 10 mg tablet 10 mg PO DAILY 01/27/20 [History Confirmed 01/27/20] ergocalciferol (vitamin D2) 1,250 mcg (50,000 unit) capsule 1,250 cap PO DAILY 01/27/20 [History Confirmed 01/27/20] metformin 500 mg tablet 500 tab PO BID 01/27/20 [History Confirmed 01/27/20] multivitamin 1 cap PO DAILY 01/27/20 [History Confirmed 01/27/20] omega-3 fatty acids 1,000 mg capsule 1,000 mg PO DAILY 01/27/20 [History Confirmed 01/27/20] valacyclovir 1 gram tablet 1 % PO PRN PRN 01/27/20 [History Confirmed 01/27/20] PFS Medical History Asthma (Acute) High cholesterol (Acute) Pre-diabetes (Acute) Surgical History S/P appendectomy (Acute) S/P bilateral breast implants (Acute) S/P foot surgery (Acute) S/P hysterectomy (Acute) S/P tonsillectomy (Acute) s/p bladder sling (Acute) Family History Mother Asthma Diabetes Cancer skin Thyroid disorder Father CAD (coronary artery disease) Diabetes Social History (Updated 01/29/20 @ 10:[address] Reginaldo Yost MD) Smoking Status: Current every day smoker tobacco type: cigarettes alcohol intake: never HPI HPI Surgical H&P: Yes HPI: NOEL PINEDO, is a 54 F who presents to the office today for Evaluation of right upper quadrant abdominal pain. Patient has had several month history of increasing right upper quadrant abdominal pain. She has had a gallbladder ultrasound which was negative and a HIDA scan which showed an ejection fraction of less than 5%. She presents today for definitive evaluation and treatment. ROS General General: Yes weight change and fatigue; no appetite, colon cancer, breast cancer or weakness HEENT HEENT: No difficulty swallowing, eye injury, eye surgery, swollen glands or hoarseness Endo Endocrine: No thyroid disease, diabetes mellitus, thyroid cancer, Hair loss, heat intolerance or cold intolerance Skin Skin: No rash or changing moles Breast Breast: No left breast lump, right breast lump, nipple discharge, breast pain, abnormal mammogram, abnormal US or breast enlargement Musc Musculoskeletal: No back problems, arthritis, rheumatoid arthritis, gout or joint pain Cardio Cardiovascular: No murmur, pacemaker, heart disease, atrial fibrillation, high blood pressure, heart attack, heart stent, palpitations, shortness of breat with exertion or chest pain Psych Psychiatric: No depression, anxiety or hearing voices Resp Respiratory: No shortness of breath, No sleep apnea, No cough, Yes COPD, No asthma, No emphysema, No wheezing Gastro Gastrointestinal: Yes abdominal pain, Yes nausea or vomiting, No diarrhea, Yes constipation, No blood in stool, No acid reflux, Yes hemorrhoids, No ulcers, No gallbladder problem, No black,tarry stools Jose J Hematologic: No blood thinners, No blood disorders, No bleeding, No anemia, Yes blood clots Neuro Neurologic: No system reviewed and no additional complaints, except as docu, No as per HPI, No abnormal walking, No abnormal hearing, No abnormal movements, No abnormal speech, No behavioral changes, No burning sensations, No confusion, No seizure-like activity, No unsteadiness, No dizziness, No localized weakness, No frequent falls, No headache(s), No lack of coordination, No loss of vision, No memory loss, No numbness, No other visual disturbances, No radiating pain, No restless legs, No sensory deficit, No fainting, No tingling, No tremor(s), No weakness, No other Exam Const General: no acute distress, well developed, well hydrated Orientation: oriented to person, oriented to place, oriented to time [facility] Head: normocephalic, atraumatic Ears: external ears normal Mouth: moist mucous membranes Eyes Sclera: sclerae normal Pupils: normal by confrontation Neck Neck: no lymphadenopathy noted Neck mass: No Thyroid: thyroid normal, symmetrical Chest Chest palpation & inspection: normal inspection of the chest Breast Palpation: No nipple discharge Resp Effort & Inspection: normal respiratory effort Auscultation: clear to auscultation bilaterally Percussion: percussion normal Cardio Rate: regular rate Rhythm: regular rhythm Heart Sounds: no murmurs GI Palpation: soft, no hepatosplenomegaly, no masses, tender Auscultation: normal bowel sounds Rectal Exam: other Other: Rectal exam deferred. Extrem General: normal to inspection, no clubbing, cyanosis or edema Assessment & Plan Problems 1. Biliary dyskinesia K82.8 2. Right upper quadrant abdominal pain R10.11 Plan Reviewed the anatomy with the patient and discussed the procedure: laparoscopic cholecystectomy with possible cholangiograms, possible open. Review risks including but not limited to bleeding, infection, hernia, bile leak, retained gallstones requiring another procedure ERCP- Endoscopic Retrograde Cholangiopancreatography, injury to another organ (bile ducts, common bile duct, small bowel, etc.) and conversion to an open procedure. All questions were answered. Coding Level of Care Code Off vis,new,level 3 Diagnoses Biliary dyskinesia K82.8 Right upper quadrant abdominal pain R10.11 COVID (Procedure Consent) Procedure Criteria Procedure Criteria: Yes Elective The surgeon/proceduralist and patient have discussed in detail the risk of exposure to and/or potential harm posed by the COVID-19 virus with having a surgery/procedure at this time versus the risk of? delaying the surgery/procedure. It is not possible to know either the risk of delaying the surgery or procedure or chance of getting an infection with perfect accuracy, but a joint decision was made between the patient and the surgeon/proceduralist ?to proceed at this time with the scheduled surgery/procedure as indicated on the consent form. I have re-examined the patient. There are no clinical changes since date of exam.
--- NOTE | 2020-01-30 11:25 | GALL_PTH ---
PATIENT: NOEL PINEDO LOC: [facility] [place] U#:[id number] AGE/SX: 54/F ROOM: RE01/30/[address]: Dr. Reginaldo Yost MD : [id number] BED: DIS: 01/30/2020 SPEC #: [id number] RECD: 01/30/20 13:03 STATUS: SHEKHAR EDWIN #: [id number] THOMAS: 01/30/20 11:[address]: Reginaldo Yost DEPT: SURGICAL PATHOLOGY RECD BY: Lucia Mccarty ENTERED: 01/30/20 13:53 SP TYPE: CONCETTA LOCKE DR: Dr. Julian Zendejas MD Tissues: Gallbladder, NOS Procedures: Surgery Specimen Level III HEADER OPERATION: Laparoscopic cholecystectomy with IOC PRE-OP DIAGNOSIS: Biliary dyskinesia; right upper quadrant abdominal pain TISSUE SUBMITTED: Gallbladder MICROSCOPIC DIAGNOSIS Gallbladder, cholecystectomy: Chronic cholecystitis. AM:prem 02/01/20 MICROSCOPIC DESCRIPTION Slides are reviewed. GROSS DESCRIPTION Received is one container labeled with the patient's name and designated gallbladder. The specimen consists of a gallbladder measuring 7.5 x 3 x 3 cm. The external surface is smooth and glistening. Focally, it is granular, hemorrhagic and contains cautery artifact. The lumen of the gallbladder contains green mucoid bile and no calculi are identified. The mucosa is bile-stained and without any mass lesions. The gallbladder wall averages 0.1 cm in thickness and is free of mass lesions. Spray Worker sections of the gallbladder and the cystic duct at margin of resection are submitted in one cassette. / AM:prem 01/31/20 TC:3 CPT: 14019
[2020-01-30] MEDS: Cefazolin 2 GM in 0.9% Normal Saline 100 ML IV (11:33)
--- NOTE | 2020-01-30 11:40 | PCM.OPRPT ---
Problem List (1) Biliary dyskinesia Status: Acute (2) Right upper quadrant abdominal pain Status: Acute Report of Operation Date of Procedure: 01/30/20 Pre-Operative Diagnosis: Biliary dyskinesia. Right upper quadrant abdominal pain Post-Operative Diagnosis: Same Surgery/Procedure Performed:: Laparoscopic cholecystectomy Anesthesiologist: Marco Stroud Specimen's removed: Gallbladder Description of Procedure: Patient was brought into the operating room. Placed in the supine position. Under excellent general tracheal ovation the abdomen was sterilely prepped and draped in usual fashion. Local was injected infraumbilically. Dissection was carried down to the fascia. The fascia was grasped with a [place]. Veress needle was placed inside the abdomen. The abdomen was insufflated 15 torr. A 10/12 trocar was placed without difficulty. Patient was placed in the head up and rotated to the left position. Subxiphoid #5 trocar was placed, inferior to this another #5 trocar was placed, laterally a #5 trocar was placed. The fundus of the gallbladder was grasped and retracted in a cephalad direction.,Moderate amount of adhesions were taken down with electrocautery. There is a significant number of these in the gallbladder itself did not have that normal syeda's egg blue appearance and was more whitish. She is obviously been suffering from chronic gallbladder disease for quite some time. I grab the infundibulum dissected out the cystic duct and dissected out the cystic artery and dissected posteriorly.I placed hemoclips proximally and distally on the duct and ligated the duct I placed clips proximally distally on the artery and ligated the artery. I deliver the gallbladder from the gallbladder bed with the use of electrocautery. I had no spillage of bile. I had excellent hemostasis on the liver bed. I placed the specimen in a specimen bag and delivered through the umbilical port without difficulty.I reinflated the abdomen reinspected the liver bed good and the stasis was noted. I removed all the trochars under direct visualization good pneumostasis was noted. The fascia of the umbilical port was closed with a [id number] stitch of 0 Vicryl. Skin incisions were closed with the particular stitches of 4-0 Monocryl. Steri-Strips were applied sterile dressings were applied and the patient tolerated the procedure well. - Admit VTE Documentation VTE Present on Admission: No VTE Mechan Device Prophylaxis: SCD's VTE Pharm Prophylaxis ordered?: No Reason prophylaxis not ordered:: Treatment Not Indicated [id number]: [id number] Laparoscopic cholecystectomy
--- NOTE | 2020-01-30 11:42 | DCINST_ITS ---
Discharge Diet: Light diet - advance as tolerated Discharge Activity: May Not Drive - for 2-3 days or while taking narcotic pain medications., - - Do not drive, work heavy equipment or sign legal documents for 24 hours. May shower in (days): 1 - with the bandage in place. Additional Activity Instructions:: Pain medication may cause nausea. You should typically eat light foods as you take your pain medications. Pain medication may also cause constipation. If this is a problem for you, please discuss with your doctor. Call your doctor if your incision/area has: Continuous Slow Oozing, Sudden Increased Bleeding, Increased Pain/ Swelling, Increased Redness, Foul Smelling Discharge Call your doctor if you observe: Fever of 101 or Higher Suture Line Care: Avoid Pulling/Pushing, Avoid Pinching/Bending Additional Dressing/Incision Instructions:: Leave operative bandaids on for 2 days. When you remove dressing, leave Steri-Strips on until your follow-up appointment, or until the Steri-Strips fall off on their own. Allergies/Adverse Reactions: Allergies oxycodone HCl [From Percocet] Allergy (Verified 01/27/20 14:00) Itching Medications to take at Discharge albuterol sulfate 90 mcg/actuation aerosol inhaler 1 puff INHALATION PRN PRN 01/27/20 atorvastatin 10 mg tablet 10 mg PO DAILY 01/27/20 ergocalciferol (vitamin D2) 1,250 mcg (50,000 unit) capsule 1,250 cap PO DAILY 01/27/20 metformin 500 mg tablet 500 tab PO BID 01/27/20 multivitamin 1 cap PO DAILY 01/27/20 omega-3 fatty acids 1,000 mg capsule 1,000 mg PO DAILY 01/27/20 valacyclovir 1 gram tablet 1 % PO PRN PRN 01/27/20 Hydrocodone Bitart/Apap 5-325 [[place] 5MG-325MG] 1 - 2 tablet PO Q4H PRN PRN 6 Days #30 tablet 01/30/20 The following prescriptions were given: Hydrocodone Bitart/Apap 5-325 [[place] 5MG-325MG] 1 - 2 tablet PO Q4H PRN PRN 6 Days #30 tablet PRN Reason: Pain Transmission Status: Sent to [facility] Primary Care Physician: Julian Zendejas MD [Primary Care Provider] - Test Results: Test results from this visit will be discussed in further detail at your follow- up appointment, if applicable. Please Follow Up With: Reginaldo Yost MD - Please call [phone] to schedule an appointment. When: 7 days after your surgery.
[2020-01-30] MEDS: Bupivacaine Mpf 0.5% 30 ML VIAL (12:04)
--- NOTE | 2020-01-30 13:07 | EKG12_ITS ---
Test Reason : POST OP Blood Pressure : / mmHG Vent. Rate : 052 BPM Atrial Rate : 052 BPM P-R Int : 132 ms QRS Dur : 088 ms QT Int : 504 ms P-R-T Axes : 033 060 062 degrees QTc Int : 468 ms Sinus bradycardia Low voltage QRS Borderline ECG When compared with ECG of 30-JAN-2020 09:13, No significant change was found Confirmed by MISTY GRAHAM, ARI ([id number]), multimedia editor ALINA BYRNES ([id number]) on 02/07/2020 9:21:31 AM Referred By: Reginaldo Yost Confirmed By:GREGORIO JAY MD
== END 2020-01-30 15:52 | disposition home or self-care (01) ==
LOC: SDC 08:55 → AC 08:56
PROVIDERS: Anesthesiology; PCP Family Medicine; Referring Provider Surgery; Visit Provider Surgery
PROC: (CPT 47610; principal; 2020-01-30 11:05)
DX: K81.1 Chronic cholecystitis (principal); J45.909 Unspecified asthma, uncomplicated; E78.00 Pure hypercholesterolemia, unspecified; R73.03 Prediabetes; F17.210 Nicotine dependence, cigarettes, uncomplicated; Z86.718 Personal history of other venous thrombosis and embolism; Z79.84 Long term (current) use of oral hypoglycemic drugs; Z79.51 Long term (current) use of inhaled steroids; Z79.899 Other long term (current) drug therapy
CPT/HCPCS: 00790; 47562; 82962; 84484; 85610; 85730; 88304; 93005; J7120; J2405

== ENCOUNTER → 2020-03-12 10:30 | Outpatient (CLI) | payer MEDICAID, SELFPAY ==
[2020-01-30 10:05] VITALS: BMI 27.4
[2020-03-12 12:21] LABS: Absolute Lymphocyte Count 2.81 X10^3/uL (0.83-4.51); Absolute Neutrophil Count 6.2 X10^3/uL (2.0-7.7); Basophil# 0.06 X10^3/uL; Basophil% 0.6 % (0-1); Eosinophil# 0.03 X10^3/uL; Eosinophils% 0.3 % (0-5); Hematocrit 41.3 % (37-47); Hemoglobin 13.7 g/dL (12.0-15.0); Lymphocyte # 2.81 X10^3/ul (4.0); Lymphocyte % 29.6 % (19-41); Mean Corp Hgb Conc 33.2 g/dL (32-36); Mean Corpuscular Hgb 29.9 pg (27.0-32.0); Mean Corpuscular Volume 90.2 fL (81-99); Mean Platelet Vol. 10.9 fl (6.2-12.0); Monocyte# 0.41 X10^3/uL; Monocyte% 4.3 % (0-10); NRBC Flagged by Analyzer 0 % (0-5); Neutrophil # 6.16 X10^3/uL (2.7-7.7); Neutrophil % 64.9 % (47-70); Platelet Count 285 K/mm3 (150-450); RBC Distribution Width CV 13.2 % (11.6-14.6); RBC Distribution Width SD 43.9 fl (35.1-43.9); Red Blood Count 4.58 M/mm3 (4.2-5.4); White Blood Count 9.5 K/mm3 (4.4-11.0)
[2020-03-12 12:42] LABS: ALB/GLOB Ratio 1.1 RATIO (0.9-2.4); AST(SGOT) 23 U/L (15-37); Alanine Aminotransfer ALT/SGPT 30 U/L (13-56); Albumin, Serum 3.9 g/dL (3.2-5.0); Alkaline Phosphatase 79 U/L (45-117); Anion Gap 8 (5-15); BUN 7 mg/dL (7-18); BUN/Creat Ratio 9.3 RATIO (10-20); Calcium,Total 9.1 mg/dL (8.5-10.1); Chloride 108 mmol/L (98-107); Cholesterol 117 mg/dL (200); Creatinine, Serum 0.75 mg/dL (0.55-1.02); EST Glomerular Filtration Rate 86 mL/min (>60); Est Glom Filt Rate - Afr Amer 104 mL/min (>60); Globulin 3.6 g/dL (2.2-4.2); Glucose 100 mg/dL (74-106); High Density Lipoprotein 36 mg/dL; Potassium 3.7 mmol/L (3.5-5.1); Protein, Total 7.5 g/dL (6.4-8.2); Sodium Level 140 mmol/L (136-145); Triglycerides 83 mg/dL; Very Low Density Lipoprotein 17 mg/dL (5-40)
[2020-03-12 12:49] LABS: Hemoglobin A1c 5.7 % (3.8-5.6)
== END ==
PROVIDERS: PCP Family Medicine; Referring Provider Family Medicine; Visit Provider Family Medicine
DX: E78.00 Pure hypercholesterolemia, unspecified (principal); E55.9 Vitamin D deficiency, unspecified; F17.200 Nicotine dependence, unspecified, uncomplicated; R73.02 Impaired glucose tolerance (oral)
CPT/HCPCS: 36415; 80053; 80061; 82306; 83036; 85025

== ENCOUNTER → 2020-03-27 07:58 | Outpatient (CLI) | payer MEDICAID, SELFPAY ==
[2020-01-30 10:05] VITALS: BMI 27.4
--- NOTE | 2020-03-27 08:00 | CT_ITS ---
EXAMINATION: CT ABDOMEN AND PELVIS WITH CONTRAST - CT Abdomen And Pelvis W/ Contrast Injection CLINICAL HISTORY: 54 years Female, PAIN UNDERNEATH RIBS BILATERAL. PRIOR BREAST IMPLANTS. PRIOR HYSTERECTOMY (STILL HAS ONE OVARY),APPY,CARTER AND BLADDER SUSPENSION. KNOWN ADRENAL LESION COMPARISON: Previous CT scan of the abdomen and pelvis obtained on 05/05/2019 TECHNIQUE: A CT scan of the abdomen and pelvis was performed initially without than with IV contrast contrast administration. Oral contrast was also administered. Coronal and sagittal reconstruction images were reviewed. This exam was performed according to our departmental dose-optimization program, which includes automated exposure control, adjustment of the mA and/or kV according to patient size and/or use of iterative reconstruction technique. FINDINGS: The lung bases and the base of the heart are normal. The liver contains some tiny cyst which were previously identified and unchanged in the liver is otherwise normal..The spleen is normal. Again seen is 1.5 cm left adrenal adenoma which was previously noted and is unchanged. The right adrenal gland appears to be normal..The head, body, and tail of the pancreas are normal. The right and left kidneys were examined and appear to be normal. Both ureters appear to be normal, and no obstructive uropathy is identified. The abdominal aortal is normal along its course and distribution. No paraortic lymphadenopathy is seen. No abdominal masses or lesions are seen. The CT scan of the pelvis was then reviewed. The common iliac vessels, external iliac vessels, and common femoral vessels are normal along their course and distribution the patient has had a hysterectomy and appendectomy No pericecal inflammatory reaction is seen. Bone scanning windows of the lumbar spine and pelvis were reviewed in the coronal and sagittal planes and appear to be normal. CT/Abdomen/Pelvis WITH Contrast IMPRESSION: 1.Unchanged left 1.5 cm adrenal adenoma. 2. Status post hysterectomy and appendectomy and cholecystectomy, otherwise a CT scan of the abdomen and pelvis shows no acute pathology. Electronically Signed: Julian Mckeon, at 11:12 EST Tel , Service support ,
== END ==
PROVIDERS: PCP Family Medicine; Referring Provider Surgery; Visit Provider Surgery
DX: D35.02 Benign neoplasm of left adrenal gland (principal); Z90.710 Acquired absence of both cervix and uterus; Z90.49 Acquired absence of other specified parts of digestive tract
CPT/HCPCS: 74177; Q9967; A4216

== ENCOUNTER → 2020-05-18 08:47 | Outpatient (CLI) | payer MEDICAID, SELFPAY ==
--- NOTE | 2020-05-18 08:51 | US_ITS ---
STUDY: ULTRASOUND BREAST - RIGHT REASON FOR EXAM: Female, 54 years old. Pain in the right breast. TECHNIQUE: Axial and longitudinal images of the RIGHT breast were performed with a high resolution ultrasound transducer. # OF IMAGES: 93 COMPARISON: Comparison is made with prior mammogram done earlier in the day. FINDINGS: RIGHT Breast: A right-sided breast implant is seen. The implant is unremarkable. No mass lesions present. IMPRESSION: Unremarkable examination of the breast implant. ASSESSMENT CATEGORY: BIRADS Category 1: Negative. A letter regarding these results will be sent to the patient by the facility within 30 days. Electronically Signed: Luigi Atwood, at 10:53 EST , Service support , STUDY: ULTRASOUND BREAST - LEFT REASON FOR EXAM: Female, 54 years old. Pain in the left breast. TECHNIQUE: Axial and longitudinal images of the LEFT breast were performed with a high resolution ultrasound transducer. # OF IMAGES: 93 COMPARISON: Comparison is made with prior mammogram done earlier in the day. FINDINGS: LEFT Breast: A breast implant is seen. Along the anterior surface of the left breast implant, there is a thick layer of the increased echotexture. There is deformity of the left breast implant. US/Breast Limited Unilateral IMPRESSION: Deformity of the left breast implant with a thick layer of echogenic material along the anterior aspect of the left breast implant. Correlation with MRI is recommended. ASSESSMENT CATEGORY: BIRADS Category 2: Benign. A letter regarding these results will be sent to the patient by the facility within 30 days. Electronically Signed: Luigi Atwood, at 10:55 EST , Service support ,
--- NOTE | 2020-05-18 08:51 | BI_ITS ---
MAMMOGRAPHY - BILATERAL DIAGNOSTIC REASON FOR EXAM: Female, 54 years old. One-year history of bilateral breast pain. Bilateral breast implants. PERTINENT HISTORY: Personal history of breast cancer. TECHNIQUE: Digital bilateral breast ceasar (3D mammographic acquisition) in the CC and MLO projections. 2-D mediolateral oblique (MLO) and craniocaudad (CC) views of both breasts were obtained. CAD: Full Field Digital Mammography with Computer Added Detection was performed. COMPARISON: Comparison is made with prior outside examination dated 06/15/2019. FINDINGS: Breast Composition: There are scattered areas of fibroglandular density. There are no dominant masses or suspicious calcifications. Stable appearance of the bilateral breast implants. No other significant abnormalities are identified. There has been no significant change since the prior study. BI/DIAG MAMM W/CAD, BILAT IMPRESSION: Stable bilateral diagnostic mammogram. With the patient''s history of bilateral breast pain, correlation with ultrasound is recommended. ASSESSMENT CATEGORY: BIRADS Category 0: Incomplete. Need additional imaging evaluation. A letter regarding these results will be sent to the patient by the facility within 30 days. Approximately 10% of breast cancers are not detected by mammography. A normal mammogram should not delay biopsy of a clinically suspicious abnormality. Electronically Signed: Luigi Atwood, at 10:24 EST , Service support ,
== END ==
PROVIDERS: PCP Family Medicine; Referring Provider Family Medicine; Visit Provider Family Medicine
DX: N64.4 Mastodynia (principal)
CPT/HCPCS: 76642; 77062; 77066; G0279

== ENCOUNTER → 2020-06-11 15:54 | Outpatient (CLI) | payer MEDICAID, SELFPAY ==
[2020-06-11 18:50] LABS: Vitamin B12 565 pg/mL (211-911)
== END ==
PROVIDERS: PCP Family Medicine; Visit Provider Nurse Practitioner Adult Health
DX: K14.6 Glossodynia (principal)
CPT/HCPCS: 36415; 82607

== ENCOUNTER → 2020-08-09 08:56 | Outpatient (CLI) | payer MEDICAID, SELFPAY ==
[2020-08-09 10:09] LABS: Absolute Lymphocyte Count 2.88 X10^3/uL (0.83-4.51); Absolute Neutrophil Count 4.7 X10^3/uL (2.0-7.7); Basophil# 0.06 X10^3/uL; Basophil% 0.7 % (0-1); Eosinophil# 0.15 X10^3/uL; Eosinophils% 1.8 % (0-5); Hematocrit 44.1 % (37-47); Hemoglobin 14.5 g/dL (12.0-15.0); Lymphocyte # 2.88 X10^3/ul (4.0); Lymphocyte % 34.8 % (19-41); Mean Corp Hgb Conc 32.9 g/dL (32-36); Mean Corpuscular Hgb 30.1 pg (27.0-32.0); Mean Corpuscular Volume 91.7 fL (81-99); Mean Platelet Vol. 10.7 fl (6.2-12.0); Monocyte# 0.42 X10^3/uL; Monocyte% 5.1 % (0-10); NRBC Flagged by Analyzer 0 % (0-5); Neutrophil # 4.74 X10^3/uL (2.7-7.7); Neutrophil % 57.4 % (47-70); Platelet Count 297 K/mm3 (150-450); RBC Distribution Width CV 13.2 % (11.6-14.6); RBC Distribution Width SD 44.9 fl (35.1-43.9); Red Blood Count 4.81 M/mm3 (4.2-5.4); White Blood Count 8.3 K/mm3 (4.4-11.0)
[2020-08-09 10:33] LABS: Hemoglobin A1c 5.7 % (3.8-5.6)
[2020-08-09 10:38] LABS: ALB/GLOB Ratio 1.1 RATIO (0.9-2.4); AST(SGOT) 14 U/L (15-37); Alanine Aminotransfer ALT/SGPT 27 U/L (13-56); Albumin, Serum 4.1 g/dL (3.2-5.0); Alkaline Phosphatase 79 U/L (45-117); Anion Gap 4 (5-15); BUN 12 mg/dL (7-18); BUN/Creat Ratio 13.4 RATIO (10-20); Calcium,Total 9.4 mg/dL (8.5-10.1); Chloride 105 mmol/L (98-107); Cholesterol 136 mg/dL (200); Creatinine, Serum 0.89 mg/dL (0.55-1.02); EST Glomerular Filtration Rate 70 mL/min (>60); Est Glom Filt Rate - Afr Amer 85 mL/min (>60); Globulin 3.7 g/dL (2.2-4.2); Glucose 99 mg/dL (74-106); High Density Lipoprotein 38 mg/dL; Potassium 4.3 mmol/L (3.5-5.1); Protein, Total 7.8 g/dL (6.4-8.2); Sodium Level 135 mmol/L (136-145); Triglycerides 124 mg/dL; Very Low Density Lipoprotein 25 mg/dL (5-40)
[2020-08-09 10:46] LABS: Vitamin D,25 Hydroxy 50.9 ng/mL
== END ==
PROVIDERS: PCP Family Medicine; Referring Provider Family Medicine; Visit Provider Family Medicine
DX: E78.00 Pure hypercholesterolemia, unspecified (principal); R73.02 Impaired glucose tolerance (oral); E55.9 Vitamin D deficiency, unspecified; F17.200 Nicotine dependence, unspecified, uncomplicated
CPT/HCPCS: 36415; 80053; 80061; 82306; 83036; 85025

== ENCOUNTER → 2020-11-09 10:13 | Outpatient (CLI) | payer MEDICAID, SELFPAY ==
[2020-11-09 12:25] LABS: Hematocrit 46.8 % (37-47); Hemoglobin 15.7 g/dL (12.0-15.0); Mean Corp Hgb Conc 33.5 g/dL (32-36); Mean Corpuscular Hgb 29.7 pg (27.0-32.0); Mean Corpuscular Volume 88.5 fL (81-99); Mean Platelet Vol. 10.5 fl (6.2-12.0); Platelet Count 280 K/mm3 (150-450); RBC Distribution Width CV 13.2 % (11.6-14.6); RBC Distribution Width SD 43.1 fl (35.1-43.9); Red Blood Count 5.29 M/mm3 (4.2-5.4); White Blood Count 6.5 K/mm3 (4.4-11.0)
[2020-11-09 12:41] LABS: BUN 14 mg/dL (7-18); Creatinine, Serum 0.83 mg/dL (0.55-1.02); Glucose 120 mg/dL (74-106)
[2020-11-09 12:42] LABS: AST(SGOT) 16 U/L (15-37); Alanine Aminotransfer ALT/SGPT 25 U/L (13-56); Albumin, Serum 3.8 g/dL (3.2-5.0); Alkaline Phosphatase 101 U/L (45-117); Anion Gap 6 (5-15); BUN/Creat Ratio 16.8 RATIO (10-20); Calcium,Total 8.9 mg/dL (8.5-10.1); Chloride 106 mmol/L (98-107); EST Glomerular Filtration Rate 76 mL/min (>60); Est Glom Filt Rate - Afr Amer 92 mL/min (>60); Potassium 3.9 mmol/L (3.5-5.1); Protein, Total 7.8 g/dL (6.4-8.2); Sodium Level 137 mmol/L (136-145)
[2020-11-09 12:44] LABS: Vitamin B12 431 pg/mL (211-911)
[2020-11-12 13:44] LABS: Ferritin 136 ng/mL (8-252); Iron 96 ug/dL (50-170)
[2020-11-18 07:35] LABS: Vitamin B1, Thiamine 196.7 nmol/L (66.5-200.0)
== END ==
PROVIDERS: PCP Family Medicine; Visit Provider Family Medicine
DX: G62.9 Polyneuropathy, unspecified (principal); D75.1 Secondary polycythemia
CPT/HCPCS: 36415; 80053; 82607; 82728; 83540; 84207; 84425; 84466; 85027

== ENCOUNTER → 2020-11-12 15:53 | Outpatient (CLI) | payer MEDICAID, SELFPAY ==
--- NOTE | 2020-11-12 15:54 | VDLE_ITS ---
Reason For Study: RLE RIGHT GSV is normal. CFV is compressible, spontaneous, phasic, competent and demonstrates normal augmentation. FV is compressible, spontaneous, phasic, competent and demonstrates normal augmentation. POP V is compressible, spontaneous, phasic, competent and demonstrates normal augmentation. T/P Trunk is compressible. PTV is compressible. RT PerV is compressible. Procedure This is a venous duplex using B-mode, color flow and spectral Doppler. Exam performed in department. The exam was diagnostic. A preliminary report was called and/or faxed to Dr. Michaels @ [phone] @ 4:25 pm. VL/Venous Duplex US, Unilateral Interpretation Summary Deep veins of the right lower extremity are patent and compressible segmentally . There is no evidence of right lower extremity deep vein thrombosis. Valvular competence rob ears intact within the proximal deep venous system on the right . The right great saphenous vein a ppears patent and compressible segmentally. Ordering Physician: Tiffany Michaels Referring Physician: Julian Zendejas Performed By: Jada Jimenez RVT, RDCS and Student
== END ==
PROVIDERS: PCP Family Medicine; Referring Provider Family Medicine; Visit Provider Family Medicine
DX: M79.604 Pain in right leg (principal)
CPT/HCPCS: 93971

== ENCOUNTER → 2020-12-06 10:54 | Outpatient (CLI) | payer MEDICAID, SELFPAY ==
--- NOTE | 2020-12-06 11:00 | ART_ITS ---
Reason For Study: Decreased pedal pulses Procedure A bilateral lower extremity continuous wave Doppler with analog waveform analysis,segmental pressures,and ankle brachial indexes with exercise. Left Segmental Pressures Left brachial= 112mmHg. Left posterior tibial artery = 120mmHg. Left dorsalis pedis artery = 118mmHg. Left digit = 109 mmHg. The left dorsalis pedis waveforms are triphasic. The left posterior tibial artery waveforms are triphasic. Right Segmental Pressures Right brachial= 113mmHg. Right posterior tibial artery = 129mmHg. Right dorsalis pedis artery = 133mmHg. Right digit = 98 mmHg. The right dorsalis pedis waveforms are triphasic. The right posterior tibial artery waveforms are triphasic. Indices The right ankle brachial index by the dorsalis pedis is 1.18. The right ankle brachial index by the posterior tibial artery is 1.14. The right digital-brachial index is 0.87. The right post exercise ankle brachial index is 1.12. The left ankle brachial index by the dorsalis pedis is 1.04. The left ankle brachial index by the posterior tibial artery is 1.06. The left digital-brachial index is 0.96. The left post exercise ankle brachial index is 1.03. VL/Lower Ext Art Exam w/ Exercise Interpretation Summary Normal bilateral lower extremity resting ankle-brachial indices and digital bra chial indices. Normal bilateral posterior tibial and dorsalis pedis triphasic Doppler waveform s at rest Essentially normal bilateral extremity exercise ankle-brachial index response f rom a resting right DEMIAN at 1.18 to immediately after exercise at 1.12 in the left at rest from 1.06 to immediate after exercise at 1.03. Not clinically significant. Ordering Physician: Julian Zendejas Referring Physician: Julian Zendejas Performed By: Kimberli Bedoya RVT and Student
== END ==
PROVIDERS: PCP Family Medicine; Referring Provider Family Medicine; Visit Provider Family Medicine
DX: R09.89 Other specified symptoms and signs involving the circulatory and respiratory systems (principal)
CPT/HCPCS: 93924

== ENCOUNTER 2021-01-02 17:41 | Outpatient (RCR) | payer MEDICAID, SELFPAY ==
--- NOTE | 2021-01-02 18:53 | HP.PTEVAL_ITS ---
Patient's Visit Information NOEL PINEDO is a 55 year old F referred to Physical Therapy by Dr. Mateo Caba DPM with a diagnosis of R Tarsal Tunnel. Date of Evaluation: 01/02/21 Physical Therapist: Rex Limon DPT - Visit Plan Frequency: 2x /Week Duration: 4 Weeks Plan: At this point in time I believe this patient would benefit from an MRI to rule out/in tarsal tunnel. Pt. has signs of tarsal tunnel with median branch involvement/entrapment. Pt. has high amounts of pain and is not tolerating much interventions at this point in time. I would recommend an MRI with physician follow up. I will ask for some PT visits incase of denial of MRI, with focus on nerve glides, Post tib activation, desensitization techniques, plantar arch taping, and US. If she progresses with reduction of symptoms we can progress to further post tib strengthening. Recommending MRI at this point in time. - Subjective Pt. is here today for her initial evaluation with diagnosis of Tarsal Tunnel syndrome. Pt. reports having increased pain in R foot/ankle for ~6 weeks with no SONIA. Pt. reports. having multiple test done to rule out blood clots, and EMG study as well. Pt. ended up seeing stringed instrument repairer who wants to do surgery to improve. Pt. reports being denied an MRI and has to do PT prior. 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 Pt. reports having to skip vacation due to pain. Sleeping is also painful. Pt. reports having some N/T and pain at medial aspect of her foot that radiates up into her calf. Pt. does have orthotics, but is having too much pain to wear them. Pt. is used to walking recreationally 2 miles per day, but is unable to do so. She is mostly sitting at home and off loading. Pt. is hopeful to reduce symptoms to walk with increased tolerance and get back to all recreational activities without limitations. - Pain R ankle/foot Pain Intensity (Out of 10): 8 Pain Intensity Range: 4, 9 - Objective POSTURE: Pt. has decent arch height in sitting bilaterally, but has a large navicular drop bilaterally in stance resulting in pes planus positioning. PALPATION: Pt. has tenderness posterior to medial malleolus and along post tib tendon, nerve distribution to longitudinal arch and plantar surface of foot. Pt. pain at plantar fascia origin. Pt. pain with post tib muscle belly palpation. NEURO: Pt. has decreased sensation posterior to medial malleolus and to longitudinal arch region (plantar surface). Pt. reports tingling in same region. ROM: L ankle: DF 18deg, PF 48deg, INV 20deg, EVR 20deg. R ankle: DF 4deg, PF 32deg, INV 4deg, EVR 4 deg. Pt. reports pain limiting further ROM. Pt. has normal knee and hip ROM bilaterally. MMT: L foot: 5/5 foot flexor intrinsics, 5/5 flexor hallux longus, 5/5 throughout L ankle. R foot: 4+/5 foor flexor intrinsics, 4/5 flexor hallux longus. R ankle: PF 5-/5 increase NW, DF 5/5 NE, INV 4/5 increase NE, EVR 5-/5 NE. GAIT: Pt. ambulates without AD, but has i ncreased R hip ER positioning resulting in increased everted foot. Pt. walk with increased knee ext during stance to pre swing phase. She ambulates without any rocker moment throughout R foot. Pt. hikes her R hip as well to clear to floor. SPECIAL TESTING: + tinel's sign. Pt. did not tolerance dorsiflexion- everison testing secondary to pain. - Goals Goal 1:: LTG: Pt. to be I with HEP. Goal Time Frame: 2 Weeks Goal 2:: LTG: Pt. to be able to walk with normal gait pattern without increase in symptoms for 2 miles. Goal Time Frame: 6-8 Weeks Goal 3:: STG: Pt. to be educated in desensitization techniques and nerve glide techniques. Goal Time Frame: 2 Weeks Goal 4:: STG: Pt. to be able to walk throughout home with normal gait pattern and 0-1/10 pain in R foot/ankle. Goal 5:: LTG: Pt. to have increased dorsiflexion ROM to at least 15deg without increase in symptoms. Goal Time Frame: 2-4 Weeks Goal 6:: LTG: Pt. to have 5/5 strength throughout R ankle/foot. Goal Time Frame: 4-6 Weeks - Rehabilitation Potential Physical Therapy Diagnosis: Pt. has signs consistent with R tarsal Tunnel Syndrome. Pt. has marked paranesthesia of R medial ankle and medial aspect of her foot along medial branch of tibial nerve. Pt. has high amount of symptoms that are very irritable as well. She has been having pain for ~6 weeks making her issue sub acute in nature approaching chronic at this point in time. She could benefit from tibial nerve glides, desensitization techniques, but due to her high levels of pain and lack of tolerance to most movements, activities an MRI would be warranted at this point in time. Rehabilitation Potential: Fair - Anticipated Interventions Patient/Client Instruction: Educate patient on: Condition, Plan of Care, Risk Factors, Benefits of Fitness Program For the Purpose of:: To improve decision making, To facilitate caregiver knowledge, To improve self management, To prevent re-injury, To improve ability to perform tasks related to life management Therapeutic Exercise to Include: Strength training, Endurance training, Coordination, Postural training, Flexibilty training, Gait and locomotor training, Passive ROM, Active ROM For the Purpose of:: To decrease pain, To decrease swelling/inflammation, To increase ROM, To improve nutrient delivery to tissue, To increase oxygenation perfusion, To improve muscle performance and motor function, To improve ability to perform ADL's, To improve health of tissue, To decrease soft tissue restriction, To increase flexibility/ROM Ultrasound (thermal/non thermal): Yes For the Purpose of:: To decrease pain, To decrease swelling/inflammation, To increase ROM, To improve nutrient delivery to tissue, To increase oxygenation perfusion Thank you for the opportunity to evaluate your patient. For Medicare and Medicare HMO plans, please review the plan of care and approve it. It will need to be FAXED BACK to us at [phone] for Medicare purposes. For Medicare only, by signing this I certify the plan of care. Please let me know if there are questions or concerns regarding this plan of care. Physician Signature: Date:
--- NOTE | 2021-04-16 12:42 | HP.PT.NRP ---
NOEL PINEDO was seen in my office for initial evaluation on 01/02/21. The following Plan of Care was established for this patient: Initial Frequency: 2x /Week Initial Duration: 4 Weeks Patient/Client Instruction: Educate patient on: Condition, Plan of Care, Risk Factors, Benefits of Fitness Program For the Purpose of:: To improve decision making, To facilitate caregiver knowledge, To improve self management, To prevent re-injury, To improve ability to perform tasks related to life management Therapeutic Exercise to Include: Strength training, Endurance training, Coordination, Postural training, Flexibilty training, Gait and locomotor training, Passive ROM, Active ROM For the Purpose of:: To decrease pain, To decrease swelling/inflammation, To increase ROM, To improve nutrient delivery to tissue, To increase oxygenation perfusion, To improve muscle performance and motor function, To improve ability to perform ADL's, To improve health of tissue, To decrease soft tissue restriction, To increase flexibility/ROM Ultrasound (thermal/non thermal): Yes For the Purpose of:: To decrease pain, To decrease swelling/inflammation, To increase ROM, To improve nutrient delivery to tissue, To increase oxygenation perfusion This patient was last seen in our office 01/02/21. Pertinent comments regarding their Physical therapy will appear below: Pt. was seen for her tarsal tunnel syndrome. Pt. was evaluated, but never returned. Pt. has not been seen in several months and will be DC from PT at this point in time. At this point I will be discontinuing this patient from physical therapy. I would be happy to see this patient again in the future if found appropriate by the physician. Thank you! Rex Limon, DPT Balance/Gait/Functional tests - Balance/Special Test Scores Lower Extremity Functional Score: 0
== END 2021-01-02 19:00 | disposition home or self-care (01) ==
LOC: PT 17:41
PROVIDERS: PCP Family Medicine; Referring Provider Podiatrist Foot & Ankle Surgery; Visit Provider Podiatrist Foot & Ankle Surgery
DX: G57.51 Tarsal tunnel syndrome, right lower limb (principal)
CPT/HCPCS: 97161

== ENCOUNTER → 2021-03-06 09:43 | Outpatient (CLI) | payer MEDICAID, SELFPAY ==
--- NOTE | 2021-03-06 09:45 | RAD_ITS ---
STUDY: X-RAY CHEST REASON FOR EXAM: Female, 55 years old. CHEST PAIN TECHNIQUE: PA and lateral COMPARISON: 07/30/2018. FINDINGS: The lungs are clear and expanded. There is no demonstrated pleural abnormality. Normal size heart. Normal mediastinum and wily. Normal visualized pulmonary arteries. Normal visualized aortic arch and descending thoracic aorta. Normal visualized thoracic spine. Normal visualized ribs, clavicles, and shoulders. There is no demonstrated abnormality of the visualized soft tissue structures of the upper abdomen. No significant change since prior exam RAD/Chest PA and Lateral IMPRESSION: Normal x-ray examination of the chest. Electronically Signed: Nishant Nath MD at 16:47 EDT , Service support ,
[2021-03-06 12:25] LABS: Absolute Lymphocyte Count 2.79 X10^3/uL (0.83-4.51); Absolute Neutrophil Count 3.3 X10^3/uL (2.0-7.7); Basophil# 0.05 X10^3/uL; Basophil% 0.8 % (0-1); Eosinophil# 0.12 X10^3/uL; Eosinophils% 1.8 % (0-5); Hematocrit 44.3 % (37-47); Hemoglobin 14.6 g/dL (12.0-15.0); Lymphocyte # 2.79 X10^3/ul (0.83-4.51); Lymphocyte % 42.1 % (19-41); Mean Corpuscular Hgb 29.5 pg (27.0-32.0); Mean Corpuscular Volume 89.5 fL (81-99); Mean Platelet Vol. 10.7 fl (6.2-12.0); Monocyte# 0.39 X10^3/uL; Monocyte% 5.9 % (0-10); NRBC Flagged by Analyzer 0 % (0-5); Neutrophil # 3.27 X10^3/uL (2.7-7.7); Neutrophil % 49.2 % (47-70); Platelet Count 296 K/mm3 (150-450); RBC Distribution Width CV 13.1 % (11.6-14.6); RBC Distribution Width SD 42.9 fl (35.1-43.9); Red Blood Count 4.95 M/mm3 (4.2-5.4); White Blood Count 6.6 K/mm3 (4.4-11.0)
[2021-03-06 12:30] LABS: ALB/GLOB Ratio 0.9 RATIO (0.9-2.4); AST(SGOT) 15 U/L (15-37); Alanine Aminotransfer ALT/SGPT 24 U/L (13-56); Albumin, Serum 3.8 g/dL (3.2-5.0); Alkaline Phosphatase 102 U/L (45-117); Anion Gap 6 (5-15); BUN 14 mg/dL (7-18); BUN/Creat Ratio 16.8 RATIO (10-20); Calcium,Total 9.6 mg/dL (8.5-10.1); Chloride 105 mmol/L (98-107); Cholesterol 299 mg/dL (200); Creatinine, Serum 0.83 mg/dL (0.55-1.02); EST Glomerular Filtration Rate 76 mL/min (>60); Est Glom Filt Rate - Afr Amer 92 mL/min (>60); Globulin 4.1 g/dL (2.2-4.2); Glucose 100 mg/dL (74-106); High Density Lipoprotein 28 mg/dL; Protein, Total 7.9 g/dL (6.4-8.2); Sodium Level 137 mmol/L (136-145); Triglycerides 214 mg/dL; Very Low Density Lipoprotein 43 mg/dL (5-40)
== END ==
PROVIDERS: PCP Family Medicine; Referring Provider Family Medicine; Visit Provider Family Medicine
DX: R07.9 Chest pain, unspecified (principal)
CPT/HCPCS: 36415; 71046; 80053; 80061; 85025

== ENCOUNTER → 2021-03-08 | Outpatient (CLI) | payer MEDICAID, SELFPAY ==
--- NOTE | 2021-03-08 10:00 | LES_PTH ---
PATIENT: NOEL PINEDO [facility] U#:[id number] AGE/SX: 55/F ROOM: RE03/08/[address]: Dr. Tiffany Michaels MD : 1965 BED: DIS: 03/08/2021 SPEC #: [id number] RECD: 03/11/21 08:16 STATUS: SHEKHAR REQsaim #: [id number] THOMAS: 03/08/21 10:[address]: Tiffany Michaels DEPT: SURGICAL PATHOLOGY RECD BY: Karlee Prater ENTERED: 03/11/21 08:16 SP TYPE: Lesion OTHR DR: Dr. 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 See comment. AM:prem 03/12/2021 COMMENT The lesion extends to the deep margin of excision. Case has been reviewed in consultation with Dr. Coronel who concurs with the above diagnosis. IDC:SJ MICROSCOPIC DESCRIPTION Slides are reviewed. GROSS DESCRIPTION Received is one container labeled with the patient's name and not further designated. The specimen consists of a light flores shaved biopsy of skin measuring 1.5 x 1.2 x 0.2 cm. The specimen is inked, serially sectioned and totally submitted in one cassette. / AM:prem 03/11/21 TC:0 CPT: 88710
== END | disposition home or self-care (01) ==
LOC: LABSPEC 16:12
PROVIDERS: PCP Family Medicine; Visit Provider Family Medicine
DX: D48.7 Neoplasm of uncertain behavior of other specified sites (principal)
CPT/HCPCS: 88305

== ENCOUNTER → 2021-03-25 10:53 | Outpatient (CLI) | payer MEDICAID, SELFPAY ==
--- NOTE | 2021-03-25 13:51 | STRESSREP ---
Stress Test Report Exercise stress test. 55-year-old lady with a history of chest pain. Stress protocol: Resting EKG demonstrates normal sinus rhythm with rate of 60 bpm normal intervals are noted resting blood pressure is 102/80 mmHg. The patient exercised according to regular Tulio protocol for a total duration of 6 minutes and 15 seconds. The maximum heart rate attained was 150 bpm which was 89% of max impact at heart rate the maximum workload was 7.7 metabolic equivalents. At rest there were no ST or T wave changes noted suggest ischemia and at peak exercise upsloping ST changes were noted with did not meet the criteria for ischemia. No clinical angina was noted the test was terminated due to the target heart rate being achieved. The peak blood pressure was 130/84 mmHg. No arrhythmias were noted. Conclusion: Stress test with no EKG criteria for ischemia at a moderate workload. Good functional capacity. No clinical angina noted.
== END ==
PROVIDERS: PCP Family Medicine; Referring Provider Family Medicine; Visit Provider Family Medicine
DX: R07.9 Chest pain, unspecified (principal)
CPT/HCPCS: 93017

== ENCOUNTER 2021-06-19 09:04 | Outpatient (CLI) | payer MEDICAID, SELFPAY ==
[2021-06-19 09:08] LABS: Bacteria 0 SEEN /hpf (None Seen); Mucous, Urine 0 SEEN /hpf (<or=2+); Red Blood Cells-Urine 0 SEEN /hpf (0-5); White Blood Cells 0 SEEN /hpf (0-5)
[2021-06-19 10:34] LABS: Absolute Lymphocyte Count 2.93 X10^3/uL (0.83-4.51); Absolute Neutrophil Count 4.6 X10^3/uL (2.0-7.7); Basophil# 0.04 X10^3/uL; Basophil% 0.5 % (0-1); Color, Urine Yellow (Yellow); Eosinophil# 0.21 X10^3/uL; Eosinophils% 2.6 % (0-5); Glucose, Dipstick Normal (Normal); Hemoglobin 15.2 g/dL (12.0-15.0); Ketone-Dipstick Negative (Negative); Leukocyte Esterase-Dipstick Negative /ul (Negative); Lymphocyte # 2.93 X10^3/ul (0.83-4.51); Lymphocyte % 35.9 % (19-41); Mean Corp Hgb Conc 34.5 g/dL (32-36); Mean Corpuscular Volume 89.6 fL (81-99); Mean Platelet Vol. 10.7 fl (6.2-12.0); Monocyte# 0.41 X10^3/uL; NRBC Flagged by Analyzer 0 % (0-5); Neutrophil # 4.55 X10^3/uL (2.7-7.7); Neutrophil % 55.6 % (47-70); Nitrite-Dipstick Negative (Negative); Occult Blood-Urine Negative /ul (Negative); Platelet Count 294 K/mm3 (150-450); Protein-Dipstick Negative (Negative); RBC Distribution Width CV 13.2 % (11.6-14.6); RBC Distribution Width SD 43.2 fl (35.1-43.9); Red Blood Count 4.91 M/mm3 (4.2-5.4); Urine Bilirubin Dipstick Negative (Negative); Urine Clarity Clear (Clear); Urine Urobilinogen Normal (Normal); White Blood Count 8.2 K/mm3 (4.4-11.0)
[2021-06-19 10:48] LABS: Hemoglobin A1c 5.8 % (3.8-5.6)
[2021-06-19 10:51] LABS: Squamous Epithelial Cells - UA 0-5 SEEN /hpf (5-10)
[2021-06-19 11:05] LABS: AST(SGOT) 25 U/L (15-37); Alanine Aminotransfer ALT/SGPT 30 U/L (13-56); Alkaline Phosphatase 86 U/L (45-117); Anion Gap 7 (5-15); BUN 12 mg/dL (7-18); BUN/Creat Ratio 15.4 RATIO (10-20); Calcium,Total 9.3 mg/dL (8.5-10.1); Chloride 104 mmol/L (98-107); Cholesterol 149 mg/dL (200); Creatinine, Serum 0.78 mg/dL (0.55-1.02); EST Glomerular Filtration Rate 82 mL/min (>60); Est Glom Filt Rate - Afr Amer 99 mL/min (>60); Glucose 92 mg/dL (74-106); High Density Lipoprotein 31 mg/dL; Potassium 4.2 mmol/L (3.5-5.1); Sodium Level 136 mmol/L (136-145); Triglycerides 146 mg/dL; Very Low Density Lipoprotein 29 mg/dL (5-40)
[2021-06-19 11:07] LABS: Vitamin D,25 Hydroxy 60.1 ng/mL
== END 2021-06-19 23:59 | disposition home or self-care (01) ==
LOC: MFPLAB 09:05
PROVIDERS: PCP Family Medicine; Referring Provider Family Medicine; Visit Provider Family Medicine
DX: F17.200 Nicotine dependence, unspecified, uncomplicated (principal); E78.00 Pure hypercholesterolemia, unspecified; R73.02 Impaired glucose tolerance (oral); E55.9 Vitamin D deficiency, unspecified
CPT/HCPCS: 36415; 80053; 80061; 81001; 82306; 83036; 85025

== ENCOUNTER 2021-07-10 17:37 | Outpatient (CLI) | payer MEDICAID, SELFPAY ==
--- NOTE | 2021-07-10 17:40 | CT_ITS ---
EXAM: CT ABDOMEN WITH INTRAVENOUS CONTRAST : 1965 CLINICAL INDICATION: DISORDERS OF ADRENAL GLAND TECHNIQUE: Helically acquired images were obtained of the abdomen with intravenous contrast. This CT exam was performed using one or more of the following dose reduction techniques: automated exposure control, adjustment of the mA and/or kV according to patient size, and/or use of iterative reconstruction technique. This report was created using [employer] report generation technology. CONTRAST: IV 100mL Isovue-300 COMPARISON: 03/27/2020 FINDINGS: LOWER THORAX: Unremarkable. Lung bases are clear. No cardiomegaly. No significant pericardial effusion. LIVER: Unremarkable. Homogeneous. No focal mass. GALLBLADDER AND BILE DUCTS: Unremarkable. No calcified gallstones. No gallbladder distention or wall edema. No intra- or extrahepatic biliary ductal dilation. PANCREAS: Unremarkable. No focal cystic or solid mass. SPLEEN: Unremarkable. Normal size without focal cystic or solid mass. ADRENALS: There is again a stable mass in the left adrenal gland that measures 1.4 x 1.6 cm compatible with an adenoma. This is unchanged from the reference exam. KIDNEYS AND URETERS: Unremarkable. Normal renal size and position. No hydronephrosis. STOMACH AND BOWEL: Unremarkable. No stomach or bowel distention. No focal inflammatory change. INTRAPERITONEAL SPACE: Unremarkable. No ascites or other fluid collection. No free air. BONES/JOINTS: Unremarkable. No suspicious lytic or blastic abnormality. SOFT TISSUES: Unremarkable. No discrete abdominal wall hernia. VASCULATURE: Unremarkable. Abdominal aorta is non-dilated. LYMPH NODES: No enlarged lymph nodes. CT/Abdomen WITH IV Contrast IMPRESSION: Stable mass lesion in the left adrenal gland likely representing an adenoma. No acute abnormalities are identified. Individualized dose optimization techniques were used for this CT. at 0303 Reported and signed by: Nazario Powell MD Electronically Signed: Nazario Powell MD at 3:02 EST ,
== END 2021-07-10 23:59 | disposition home or self-care (01) ==
LOC: CT 17:38
PROVIDERS: PCP Family Medicine; Visit Provider Family Medicine
DX: E27.8 Other specified disorders of adrenal gland (principal)
CPT/HCPCS: 74160; Q9967

== ENCOUNTER → 2021-10-21 | Outpatient (CLI) | payer MEDICAID, SELFPAY ==
[2021-10-21 12:11] LABS: Mucous, Urine 0 SEEN /hpf (<or=2+); Red Blood Cells-Urine 0 SEEN /hpf (0-5)
[2021-10-21 15:20] LABS: Absolute Lymphocyte Count 2.98 X10^3/uL (0.83-4.51); Absolute Neutrophil Count 5.7 X10^3/uL (2.0-7.7); Basophil# 0.06 X10^3/uL; Basophil% 0.6 % (0-1); Eosinophil# 0.14 X10^3/uL; Eosinophils% 1.5 % (0-5); Hematocrit 41.8 % (37-47); Hemoglobin 13.9 g/dL (12.0-15.0); Lymphocyte # 2.98 X10^3/ul (0.83-4.51); Lymphocyte % 31.7 % (19-41); Mean Corp Hgb Conc 33.3 g/dL (32-36); Mean Corpuscular Hgb 30.8 pg (27.0-32.0); Mean Corpuscular Volume 92.7 fL (81-99); Mean Platelet Vol. 10.9 fl (6.2-12.0); Monocyte# 0.45 X10^3/uL; Monocyte% 4.8 % (0-10); NRBC Flagged by Analyzer 0 % (0-5); Neutrophil # 5.74 X10^3/uL (2.7-7.7); Platelet Count 278 K/mm3 (150-450); RBC Distribution Width CV 13.6 % (11.6-14.6); RBC Distribution Width SD 46.5 fl (35.1-43.9); Red Blood Count 4.51 M/mm3 (4.2-5.4); White Blood Count 9.4 K/mm3 (4.4-11.0)
[2021-10-21 16:01] LABS: ALB/GLOB Ratio 1.1 RATIO (0.9-2.4); AST(SGOT) 14 U/L (15-37); Alanine Aminotransfer ALT/SGPT 28 U/L (13-56); Albumin, Serum 3.8 g/dL (3.2-5.0); Alkaline Phosphatase 81 U/L (45-117); Anion Gap 4 (5-15); BUN 11 mg/dL (7-18); Calcium,Total 9.2 mg/dL (8.5-10.1); Chloride 107 mmol/L (98-107); Cholesterol 124 mg/dL (200); Creatinine, Serum 0.79 mg/dL (0.55-1.02); EST Glomerular Filtration Rate 81 mL/min (>60); Est Glom Filt Rate - Afr Amer 98 mL/min (>60); Globulin 3.6 g/dL (2.2-4.2); Glucose 107 mg/dL (74-106); High Density Lipoprotein 31 mg/dL; Potassium 3.8 mmol/L (3.5-5.1); Protein, Total 7.4 g/dL (6.4-8.2); Sodium Level 138 mmol/L (136-145); Triglycerides 117 mg/dL; Very Low Density Lipoprotein 23 mg/dL (5-40)
[2021-10-21 16:03] LABS: Hemoglobin A1c 5.7 % (3.8-5.6)
[2021-10-21 17:53] LABS: Color, Urine Straw (Yellow); Glucose, Dipstick Normal (Normal); Ketone-Dipstick Negative (Negative); Leukocyte Esterase-Dipstick Negative /ul (Negative); Nitrite-Dipstick Negative (Negative); Occult Blood-Urine Negative /ul (Negative); Protein-Dipstick Negative (Negative); Urine Bilirubin Dipstick Negative (Negative); Urine Clarity Sl. Cloudy (Clear); Urine Urobilinogen Normal (Normal)
[2021-10-21 18:12] LABS: Bacteria 3+ /hpf (None Seen); Squamous Epithelial Cells - UA 5-10 SEEN /hpf (5-10); White Blood Cells 0-5 SEEN /hpf (0-5)
[2021-10-21 22:32] LABS: Vitamin D,25 Hydroxy 58.8 ng/mL
== END | disposition home or self-care (01) ==
LOC: MFPLAB 12:07
PROVIDERS: PCP Family Medicine; Visit Provider Family Medicine
DX: F17.200 Nicotine dependence, unspecified, uncomplicated (principal); E78.00 Pure hypercholesterolemia, unspecified; R73.02 Impaired glucose tolerance (oral); E55.9 Vitamin D deficiency, unspecified
CPT/HCPCS: 36415; 80053; 80061; 81001; 82306; 83036; 85025

== ENCOUNTER 2021-12-27 10:07 | Emergency (ER) | payer MEDICAID, SELFPAY ==
[2021-12-27 10:09] VITALS: BP 111/74; PULSE 76; RESP 18; TEMP 36.2; O2SAT 98; BMI 26.4
--- NOTE | 2021-12-27 10:26 | EDS_ITS ---
HPI History of Present Illness Chief Complaint: Chest Pain Detail of Chief Complaint: Right-sided chest pain Informant: patient Onset/Context/Timing Onset: Today (Onset 0400 while sitting in bed) Activity at onset: sudden Timing: Continuous Quality: Positive for Aching Location: Right Chest (Behind right breast) Current Severity: Mild Maximum Severity: Moderate Worsened By: Movement of Arm, Movement of Torso, Breathing and Coughing Relieved By: Nothing Associated Symptoms: Positive for Nausea, Cough, Fever and Lightheadedness; Negative for Vomiting, Diaphoresis, Dyspnea, Acid Reflux or Palpitations Narrative Narrative: Patient is a 56-year-old woman with history of prediabetes, hypercholesterolemia, mild COPD who developed myalgias and arthralgias Thursday night. She also had sweats. She performed a COVID test Thursday morning that was positive. Patient had aches night with night sweats. This morning she developed the chest discomfort. There is a remote history of superficial DVT after bladder surgery. Patient appetite has been poor. She states has been drinking as much fluids as possible. Her cough is nonproductive. The cough started Thursday late morning. She states last evening she had bilateral leg pain which has resolved. Presently there is no pain. She denies swelling or discoloration. Prior Similar Symptoms: No Recent Illness/Hospitalization: No CVD Risk Factors: Positive for Diabetes, Hypercholesterolemia and Smoking; Negative for Hypertension or Family History 1' </=55 PE Risk Factors: Negative for Recent Travel/Surgery, Recent Immobilization, Prior DVT or PE, Cancer or OCP + Smoking + >/=35 TAD Risk Factors: Negative for Marfan's Syndrome, Hypertension or Family History [facility] Medical History Asthma High cholesterol Pre-diabetes Home Medications albuterol sulfate 90 mcg/actuation aerosol inhaler 1 puff inhalation PRN PRN Sob &/Or Wheezing 01/27/20 [History Last Taken Unknown] atorvastatin 10 mg tablet 10 mg PO DAILY 01/27/20 [History Last Taken Unknown] ergocalciferol (vitamin D2) 1,250 mcg (50,000 unit) capsule 1,250 cap PO DAILY 01/27/20 [History Last Taken Unknown] metformin 500 mg tablet 500 tab PO BID 01/27/20 [History Last Taken Unknown] multivitamin 1 cap PO DAILY 01/27/20 [History Last Taken Unknown] omega-3 fatty acids 1,000 mg capsule (Fish Oil Concentrate) 1,000 mg PO DAILY 01/27/20 [History Last Taken Unknown] valacyclovir 1 gram tablet 1 % PO PRN PRN cold sores 01/27/20 [History Last Taken Unknown] naproxen 500 mg tablet 500 mg PO BID #10 tabs 12/27/21 [Rx Last Taken Unknown] Allergy/AdvReac Type Severity Reaction Status Date / Time oxycodone HCl [From Percocet] Allergy Itching Verified 12/27/21 10:08 Family History Mother Asthma Diabetes Cancer skin Thyroid disorder Father CAD (coronary artery disease) Diabetes Surgical History S/P appendectomy S/P bilateral breast implants s/p bladder sling S/P foot surgery S/P hysterectomy S/P laparoscopic cholecystectomy S/P tonsillectomy Social History (Updated 12/27/21 @ 10:[address] Wyatt Motta MD) household members: spouse Smoking Status: Current every day smoker tobacco type: cigarettes alcohol intake: never substance use type: does not use ROS ROS ED Constitutional Constitutional ED: Reports chills, fever(s), subjective and sweats; Denies weight loss Eyes Eyes: Reports none ENT ENT ED: Reports rhinorrhea and sore throat; Denies ear pain Cardiovascular Cardiovascular: Reports as per HPI; Denies orthopnea or paroxysmal nocturnal dyspnea Respiratory/Chest Respiratory/Chest: Reports cough; Denies dyspnea, dyspnea on exertion, orthopnea, paroxysmal nocturnal dyspnea or sputum Gastrointestinal Gastrointestinal: Reports nausea; Denies abdominal pain, diarrhea or vomiting Genitourinary Genitourinary ED: Denies dysuria or hematuria Musculoskeletal Musculoskeletal: Reports arthralgias and myalgias; Denies back pain or neck pain Neurologic Neurologic: Reports headache(s); Denies paresthesias or weakness Hematologic/Lymphatic Hematologic/Lymphatic: Denies easy bleeding or easy bruising EXAM Physical Exam Const Vital Signs: 12/27/21 10:09 Temperature 97.2 F L Temperature Source Temporal Pulse Rate 76 Respiratory Rate 18 Blood Pressure 111/74 Blood Pressure Mean 86 Pulse Ox 98 Oxygen Delivery Method Room Air Positive well nourished and well developed; Negative for obese, cachectic, contractures or unkempt General Appearance ED: well developed and NAD; Negative for unkempt, cachectic, contractures or pallor Nutritional Appearance: Negative for cachectic or obese HEENT Reports TM's clear and moist mucous membranes HEENT Narrative: There is slight erythema the posterior pharynx. Uvula is midline. There is no angioedema. There is no exudate. There is no dysphonia. There is no tenderness with palpation over the frontal, ethmoid or maxillary sinuses. normocephalic and atraumatic Tympanic Membrane ED: Yes TM's clear Eyes PERRL and EOMs intact bilaterally General Eye ED: Negative for pale conjunctiva or scleral icterus Neck no lymphadenopathy, supple and no JVD Chest Wall inspection of chest normal and palpation of chest normal Chest Narrative: Patient complained of pain right costal margin fourth, fifth and sixth intercostal space. Resp normal respiratory effort and No clear to auscultation bilaterally Effort and Inspection: pain with movement; Negative for respiratory distress Auscultation: rales right base Cardio regular rate, regular rhythm, S1 normal heart sound, S2 normal heart sound and no murmurs Peripheral Pulses: pulses 2+ throughout GI normal to inspection, nondistended, normoactive bowel sounds, soft to palpation, non-tender and non-distended Extremity normal to inspection Extremity Narrative: There is no asymmetry, swelling, discoloration, leg vein distention, palpable cords or tenderness along the distribution of the deep venous system. Neuro oriented x3 and CN's II-XII intact bilaterally Sensorium / Orientation: awake and alert Psych mental status grossly normal Appearance: Negative for unkempt Skin no rashes or lesions noted and no wounds General Skin Exam: Negative for jaundice or pallor MDM MDM MDM Narrative Medical decision making narrative: With patient complaint of right-sided pain and rales concern patient has pleurisy due to COVID-pneumonia. Chest x-ray was ordered. Since patient is hemodynamically stable and not tachycardic or tachypneic or hypoxic no further studies were obtained. Patient's last creatinine and GFR were normal on October 2021. Patient was treated with NSAID for her pleuritic pain. She is presently on Paxlovid. Steroids are not indicated since she is not hypoxic. Radiography Chest X-Ray - ED: 1 View and Read by ED Physician (View chest x-ray was independently viewed and interpreted by me at 1058 as negative. Cardiac silhouette and size normal. There is no infiltrate noted. Osseous trucks unremarkable. Perihilar region/mediastinum is unremarkable.) Discharge Plan Triage Chief Complaint: Chest Pain ED Provider: Wyatt Motta Dx/Rx/DC Orders Clinical Impression: COVID-19 virus infection, Acute pleurisy without pleural effusion, Respiratory crackles at right lung base Instructions: Coronavirus Disease 2019 (COVID-19): Caring for Yourself or Others, ED Pleurisy Prescriptions: New naproxen 500 mg tablet 500 mg PO BID Qty: 10 0RF No Action atorvastatin 10 mg tablet 10 mg PO DAILY Label Comments: TAKE 1 TABLET BY MOUTH EVERY EVENING metformin 500 mg tablet 500 tab PO BID valacyclovir 1 gram tablet 1 % PO PRN PRN (Reason: cold sores) Label Comments: TAKE 1 TABLET TWICE DAILY ergocalciferol (vitamin D2) 1,250 mcg (50,000 unit) capsule 1,250 cap PO DAILY albuterol sulfate 90 mcg/actuation HFA aerosol inhaler 1 puff INHALATION PRN PRN (Reason: Sob &/Or Wheezing) Label Comments: inhale 1 to 2 Puffs every 4 to 6 hours as needed for wheeze/cough omega-3 fatty acids [Fish Oil Concentrate] 1,000 mg capsule 1,000 mg PO DAILY multivitamin capsule 1 cap PO DAILY Primary Care Provider: Julian Zendejas Referrals: Julian Zendejas MD [Primary Care Provider] - 1 Week if not improving Disposition Disposition: Home, Self Care
--- NOTE | 2021-12-27 10:35 | RAD_ITS ---
STUDY: X-RAY CHEST REASON FOR EXAM: Female, 56 years old. Right-sided chest pain, rales, positive COVID TECHNIQUE: Single AP portable view of the chest. COMPARISON: Comparison is made with prior study dated 03/06/2021. FINDINGS: Hyperinflation. The lungs are clear. There is no demonstrated pleural abnormality. Normal size heart. Normal mediastinum and wily. Normal visualized pulmonary arteries. Normal visualized aortic arch and descending thoracic aorta. Normal visualized thoracic spine. Normal visualized ribs, clavicles, and shoulders. There is no demonstrated abnormality of the visualized soft tissue structures of the upper abdomen. RAD/Chest 1 View (Portable) IMPRESSION: Hyperinflation. The lungs are clear. Electronically Signed: Luigi Atwood MD at 10:59 EDT ,
== END 2021-12-27 11:15 | disposition home or self-care (01) ==
PROVIDERS: Emergency Provider Emergency Medicine; PCP Family Medicine; Visit Provider Emergency Medicine
DX: U07.1 COVID-19 (principal); J44.9 Chronic obstructive pulmonary disease, unspecified; R73.03 Prediabetes; R07.81 Pleurodynia; R09.1 Pleurisy; E78.00 Pure hypercholesterolemia, unspecified; J12.82 Pneumonia due to coronavirus disease 2019; F17.210 Nicotine dependence, cigarettes, uncomplicated; Z79.84 Long term (current) use of oral hypoglycemic drugs; Z79.899 Other long term (current) drug therapy
CPT/HCPCS: 71045; 99281

== ENCOUNTER → 2022-02-21 | Outpatient (CLI) | payer MEDICAID, SELFPAY ==
[2022-02-21 09:57] LABS: Absolute Lymphocyte Count 2.72 X10^3/uL (0.83-4.51); Absolute Neutrophil Count 6.4 X10^3/uL (2.0-7.7); Basophil# 0.05 X10^3/uL; Basophil% 0.5 % (0-1); Eosinophil# 0.14 X10^3/uL; Eosinophils% 1.4 % (0-5); Hematocrit 43.5 % (37-47); Hemoglobin 14.6 g/dL (12.0-15.0); Lymphocyte # 2.72 X10^3/ul (0.83-4.51); Lymphocyte % 27.8 % (19-41); Mean Corp Hgb Conc 33.6 g/dL (32-36); Mean Corpuscular Hgb 30.7 pg (27.0-32.0); Mean Corpuscular Volume 91.6 fL (81-99); Mean Platelet Vol. 10.7 fl (6.2-12.0); Monocyte# 0.41 X10^3/uL; Monocyte% 4.2 % (0-10); NRBC Flagged by Analyzer 0 % (0-5); Neutrophil # 6.44 X10^3/uL (2.7-7.7); Neutrophil % 65.8 % (47-70); Platelet Count 293 K/mm3 (150-450); RBC Distribution Width CV 13.2 % (11.6-14.6); RBC Distribution Width SD 44.9 fl (35.1-43.9); Red Blood Count 4.75 M/mm3 (4.2-5.4); White Blood Count 9.8 K/mm3 (4.4-11.0)
[2022-02-21 10:27] LABS: Vitamin D,25 Hydroxy 47.3 ng/mL
[2022-02-21 10:35] LABS: ALB/GLOB Ratio 1.1 RATIO (0.9-2.4); AST(SGOT) 20 U/L (15-37); Alanine Aminotransfer ALT/SGPT 29 U/L (13-56); Albumin, Serum 4.1 g/dL (3.2-5.0); Alkaline Phosphatase 80 U/L (45-117); Anion Gap 8 (5-15); BUN 11 mg/dL (7-18); BUN/Creat Ratio 13.1 RATIO (10-20); Calcium,Total 9.3 mg/dL (8.5-10.1); Chloride 107 mmol/L (98-107); Cholesterol 165 mg/dL (200); Creatinine, Serum 0.84 mg/dL (0.55-1.02); EST Glomerular Filtration Rate 75 mL/min (>60); Est Glom Filt Rate - Afr Amer 91 mL/min (>60); Globulin 3.6 g/dL (2.2-4.2); Glucose 104 mg/dL (74-106); High Density Lipoprotein 29 mg/dL; Protein, Total 7.7 g/dL (6.4-8.2); Sodium Level 140 mmol/L (136-145); Triglycerides 167 mg/dL; Very Low Density Lipoprotein 33 mg/dL (5-40)
== END | disposition home or self-care (01) ==
LOC: MFPLAB 08:41
PROVIDERS: PCP Family Medicine; Referring Provider Family Medicine; Visit Provider Family Medicine
DX: R73.02 Impaired glucose tolerance (oral) (principal); F17.200 Nicotine dependence, unspecified, uncomplicated; E78.00 Pure hypercholesterolemia, unspecified; E55.9 Vitamin D deficiency, unspecified
CPT/HCPCS: 36415; 80053; 80061; 82306; 83036; 85025

== ENCOUNTER → 2022-04-18 | Outpatient (CLI) | payer MEDICAID, SELFPAY ==
--- NOTE | 2022-04-18 10:33 | RAD_ITS ---
STUDY: X-RAY CHEST REASON FOR EXAM: Female, 56 years old. COUGH TECHNIQUE: PA and lateral views of the chest. COMPARISON: 12/27/2021 FINDINGS: The lungs are clear and expanded. There is no demonstrated pleural abnormality. Normal size heart. Normal mediastinum and wliy. Normal visualized pulmonary arteries. Normal visualized aortic arch and descending thoracic aorta. Normal visualized thoracic spine. Normal visualized ribs, clavicles, and shoulders. There is no demonstrated abnormality of the visualized soft tissue structures of the upper abdomen. RAD/Chest PA and Lateral IMPRESSION: Normal x-ray examination of the chest. Electronically Signed: Damir Meadows MD at 11:34 EST ,
== END | disposition home or self-care (01) ==
LOC: MTRAD 10:29
PROVIDERS: PCP Family Medicine; Referring Provider Nurse Practitioner Family; Visit Provider Nurse Practitioner Family
DX: R05.9 Cough, unspecified (principal)
CPT/HCPCS: 71046

== ENCOUNTER → 2022-05-19 | Outpatient (CLI) | payer MEDICAID, SELFPAY ==
--- NOTE | 2022-05-19 09:40 | BI_ITS ---
MAMMOGRAPHY - BILATERAL SCREENING REASON FOR EXAM: Female, 56 years old. Routine annual screening examination. PERTINENT HISTORY: Non-contributory. Bilateral breast implants. TECHNIQUE: Digital bilateral breast romulo (3D mammographic acquisition) in the CC and MLO projections. 2-D mediolateral oblique (MLO) and craniocaudad (CC) views of both breasts were obtained. CAD: Full Field Digital Mammography with Computer Added Detection was performed. COMPARISON: Comparison is made with prior study dated 11/15/2020. FINDINGS: Breast Composition: There are scattered areas of fibroglandular density. There are no dominant masses or suspicious calcifications. Stable appearance of the bilateral breast implants. No other significant abnormalities are identified. There has been no significant change since the prior study. BI/SCRN MAMM (CAD)W/ROMULO BILAT IMPRESSION: Stable bilateral screening mammogram. Yearly follow-up mammogram recommended. (A) ASSESSMENT CATEGORY: BIRADS Category 2: Benign. A letter regarding these results will be sent to the patient by the facility within 30 days. Approximately 10% of breast cancers are not detected by mammography. A normal mammogram should not delay biopsy of a clinically suspicious abnormality. [id number] Electronically Signed: Luigi Atwood MD at 12:35 EST ,
== END | disposition home or self-care (01) ==
LOC: OPBI 09:38
PROVIDERS: PCP Family Medicine; Visit Provider Family Medicine
DX: Z12.31 Encounter for screening mammogram for malignant neoplasm of breast (principal); Z98.82 Breast implant status
CPT/HCPCS: 77063; 77067

== ENCOUNTER → 2022-07-24 | Outpatient (CLI) | payer MEDICAID, SELFPAY ==
[2022-07-24 08:50] LABS: Bacteria 0 SEEN /hpf (None Seen); Mucous, Urine 0 SEEN /hpf (<or=2+); Red Blood Cells-Urine 0 SEEN /hpf (0-5); White Blood Cells 0 SEEN /hpf (0-5)
[2022-07-24 09:52] LABS: Absolute Lymphocyte Count 2.51 X10^3/uL (0.83-4.51); Basophil# 0.05 X10^3/uL; Basophil% 0.5 % (0-1); Color, Urine Yellow (Yellow); Eosinophil# 0.13 X10^3/uL; Eosinophils% 1.4 % (0-5); Glucose, Dipstick Normal (Normal); Hematocrit 43.3 % (37-47); Hemoglobin 14.4 g/dL (12.0-15.0); Ketone-Dipstick Negative (Negative); Leukocyte Esterase-Dipstick Negative /ul (Negative); Lymphocyte # 2.51 X10^3/ul (0.83-4.51); Lymphocyte % 27.3 % (19-41); Mean Corp Hgb Conc 33.3 g/dL (32-36); Mean Corpuscular Hgb 30.4 pg (27.0-32.0); Mean Corpuscular Volume 91.5 fL (81-99); Mean Platelet Vol. 10.2 fl (6.2-12.0); Monocyte# 0.49 X10^3/uL; Monocyte% 5.3 % (0-10); NRBC Flagged by Analyzer 0 % (0-5); Neutrophil # 5.97 X10^3/uL (2.7-7.7); Neutrophil % 65.2 % (47-70); Nitrite-Dipstick Negative (Negative); Occult Blood-Urine Negative /ul (Negative); Platelet Count 290 K/mm3 (150-450); Protein-Dipstick Negative (Negative); RBC Distribution Width CV 13.8 % (11.6-14.6); RBC Distribution Width SD 46.7 fl (35.1-43.9); Red Blood Count 4.73 M/mm3 (4.2-5.4); Urine Bilirubin Dipstick Negative (Negative); Urine Clarity Clear (Clear); Urine Urobilinogen Normal (Normal); White Blood Count 9.2 K/mm3 (4.4-11.0)
[2022-07-24 10:12] LABS: Squamous Epithelial Cells - UA 0-5 SEEN /hpf (5-10)
[2022-07-24 10:30] LABS: Vitamin D,25 Hydroxy 55.6 ng/mL
[2022-07-24 10:31] LABS: ALB/GLOB Ratio 1.1 RATIO (0.9-2.4); AST(SGOT) 26 U/L (15-37); Alanine Aminotransfer ALT/SGPT 40 U/L (13-56); Albumin, Serum 3.8 g/dL (3.2-5.0); Alkaline Phosphatase 87 U/L (45-117); Anion Gap 8 (5-15); BUN 12 mg/dL (7-18); BUN/Creat Ratio 16.6 RATIO (10-20); Chloride 103 mmol/L (98-107); Cholesterol 155 mg/dL (200); Creatinine, Serum 0.72 mg/dL (0.55-1.02); EST Glomerular Filtration Rate 89 mL/min (>60); Est Glom Filt Rate - Afr Amer 107 mL/min (>60); Globulin 3.5 g/dL (2.2-4.2); Glucose 91 mg/dL (74-106); High Density Lipoprotein 27 mg/dL; Potassium 4.1 mmol/L (3.5-5.1); Protein, Total 7.3 g/dL (6.4-8.2); Sodium Level 137 mmol/L (136-145); Triglycerides 166 mg/dL; Very Low Density Lipoprotein 33 mg/dL (5-40)
[2022-07-24 16:40] LABS: Hemoglobin A1c 5.8 % (3.8-5.6)
== END | disposition home or self-care (01) ==
LOC: MFPLAB 08:45
PROVIDERS: PCP Family Medicine; Referring Provider Family Medicine; Visit Provider Family Medicine
DX: Z00.00 Encounter for general adult medical examination without abnormal findings (principal)
CPT/HCPCS: 36415; 80053; 80061; 81001; 82306; 83036; 85025

== ENCOUNTER → 2022-08-05 | Outpatient (CLI) | payer MEDICAID, SELFPAY ==
--- NOTE | 2022-08-06 10:05 | PFT ---
INTRODUCTION: The patient is a 57-year-old female that presents for pulmonary function studies secondary to a diagnosis of COPD. Respiratory therapy reported good patient effort. Bronchodilators were used during testing. INTERPRETATION: Forced expiration spirometry demonstrates the presence of a mild large airways obstructive ventilatory defect. There was a significant response to aerosolized bronchodilators noted. Spirograms are of good quality but do not plateau indicating slow emptying of the lungs. Body plethysmography was performed and revealed a decreased TLC to 4.16 L, 84% of predicted, indicative of a mild restrictive ventilatory impairment. Diffusing capacity by single breath CO was within normal limits. IMPRESSION: Partially reversible mild mixed ventilatory defect with preserved diffusing capacity.
== END | disposition home or self-care (01) ==
LOC: PSN 06:46
PROVIDERS: PCP Family Medicine; Referring Provider Family Medicine; Visit Provider Family Medicine
DX: J44.9 Chronic obstructive pulmonary disease, unspecified (principal)
CPT/HCPCS: 94060; 94726; 94729

== ENCOUNTER → 2022-08-14 | Outpatient (CLI) | payer MEDICAID, SELFPAY ==
--- NOTE | 2022-08-14 08:12 | CT_ITS ---
STUDY: LOW DOSE CT LUNG CANCER SCREENING REASON FOR EXAM: Female, 57 years old. One half pack per day smoker x25 years. RADIATION DOSAGE (If Supplied By Facility): CTDIvol = ( 2.39 ) mGy, DLP = ( 84.29 ) mGycm TECHNIQUE: No contrast was administered. Low dose technique was utilized (average mAS-38 and kVp 120). 1.25 mm axial source images with a slice interval of 1.25-mm were reconstructed in lung windows. 2.5 mm axial source images with a slice interval of 2.5-mm were reconstructed in lung windows. 5.0 mm axial source images with a slice interval of 5.0-mm were reconstructed in soft tissue windows. COMPARISON: Previous plain films Findings: Lung windows show underlying emphysema with bleb formation throughout both lung chatman and nonspecific pleural thickening in the apices. There is no organized infiltrate, or effusion. No suspicious noncalcified mass or nodule. Soft tissue windows show normal-appearing thyroid gland. Subpectoral breast implants free of complication. No pericardial effusion or calcified coronary vessels noted. Limited cuts through the upper abdomen do not show a suspicious abnormality. Bony structures show degenerative change CT/Low Dose CT Lung Screening IMPRESSION: Lung-RADS category 2 - Continue annual screening with LDCT in 12 months. IMPORTANT NOTES FOR USE: ACR Lung-RADS Version 1.1 Assessment Categories Release Date: 2018 Category: Coded 0-4 bases on nodule(s) with highest degree of suspicion. Negative screen is defined as categories 1 and 2; a positive screen is defined as categories 3 and 4. Category 3 and 4A nodules that are unchanged on interval CT should be coded as category 2, and individuals returned to screening in 12 months. Category 4X: Category 3 or 4 nodules with additional imaging findings that increase the suspicion of lung cancer, such as spiculation, GGN that doubles in size in 1 year, enlarged lymph notes, etc. Category Modifiers: S (significant finding unrelated to lung cancer) Electronically Signed: Damir Meadows MD at 8:59 EDT ,
== END | disposition home or self-care (01) ==
LOC: CT 08:05
PROVIDERS: PCP Family Medicine; Referring Provider Family Medicine; Visit Provider Family Medicine
DX: F17.200 Nicotine dependence, unspecified, uncomplicated (principal)
CPT/HCPCS: 71271

== ENCOUNTER → 2022-11-07 | Outpatient (CLI) | payer MEDICAID, SELFPAY ==
[2022-11-07 12:35] LABS: Absolute Lymphocyte Count 2.43 X10^3/uL (0.83-4.51); Absolute Neutrophil Count 5.1 X10^3/uL (2.0-7.7); Basophil# 0.05 X10^3/uL; Basophil% 0.6 % (0-1); Eosinophil# 0.07 X10^3/uL; Eosinophils% 0.9 % (0-5); Hematocrit 50.9 % (37-47); Hemoglobin 16.7 g/dL (12.0-15.0); Lymphocyte # 2.43 X10^3/ul (0.83-4.51); Lymphocyte % 30.4 % (19-41); Mean Corp Hgb Conc 32.8 g/dL (32-36); Mean Corpuscular Hgb 29.9 pg (27.0-32.0); Mean Corpuscular Volume 91.1 fL (81-99); Mean Platelet Vol. 10.4 fl (6.2-12.0); Monocyte# 0.34 X10^3/uL; Monocyte% 4.3 % (0-10); NRBC Flagged by Analyzer 0 % (0-5); Neutrophil % 63.7 % (47-70); Platelet Count 295 K/mm3 (150-450); RBC Distribution Width CV 13.3 % (11.6-14.6); RBC Distribution Width SD 45.4 fl (35.1-43.9); Red Blood Count 5.59 M/mm3 (4.2-5.4)
[2022-11-07 12:46] LABS: Hemoglobin A1c 5.6 % (3.8-5.6)
[2022-11-07 13:01] LABS: Vitamin D,25 Hydroxy 69.3 ng/mL
[2022-11-07 13:09] LABS: ALB/GLOB Ratio 1.1 RATIO (0.9-2.4); AST(SGOT) 19 U/L (15-37); Alanine Aminotransfer ALT/SGPT 25 U/L (13-56); Albumin, Serum 4.1 g/dL (3.2-5.0); Alkaline Phosphatase 77 U/L (45-117); Anion Gap 4 (5-15); BUN 10 mg/dL (7-18); BUN/Creat Ratio 12.1 RATIO (10-20); Chloride 108 mmol/L (98-107); Cholesterol 135 mg/dL (200); Creatinine, Serum 0.83 mg/dL (0.55-1.02); EST Glomerular Filtration Rate 76 mL/min (>60); Est Glom Filt Rate - Afr Amer 92 mL/min (>60); Globulin 3.7 g/dL (2.2-4.2); Glucose 88 mg/dL (74-106); High Density Lipoprotein 27 mg/dL; Magnesium 2.1 mg/dL (1.6-2.6); Protein, Total 7.8 g/dL (6.4-8.2); Sodium Level 138 mmol/L (136-145); Thyroid Stim Hormone (TSH) 1.92 uIU/mL (0.358-3.74); Triglycerides 175 mg/dL; Very Low Density Lipoprotein 35 mg/dL (5-40)
[2022-11-11 17:17] LABS: Ferritin 54 ng/mL (8-252); Iron 80 ug/dL (50-170); Iron Binding Capacity,Total 398 ug/dL (250-450); PERCENT IRON SATURATION 20.1 % (15.0-55.0)
[2022-11-13 04:07] LABS: Transferrin 292 mg/dL (192-364)
== END | disposition home or self-care (01) ==
LOC: MTLAB 11:10
PROVIDERS: PCP Family Medicine; Referring Provider Family Medicine; Visit Provider Family Medicine
DX: E78.00 Pure hypercholesterolemia, unspecified (principal); J44.9 Chronic obstructive pulmonary disease, unspecified; R00.2 Palpitations
CPT/HCPCS: 36415; 80053; 80061; 82306; 82728; 83036; 83540; 83550; 83735; 84443; 84466; 85025

== ENCOUNTER → 2022-12-03 | Outpatient (CLI) | payer MEDICAID, SELFPAY ==
[2022-12-03 12:24] LABS: Absolute Lymphocyte Count 2.16 X10^3/uL (0.83-4.51); Absolute Neutrophil Count 4.9 X10^3/uL (2.0-7.7); Basophil# 0.06 X10^3/uL; Basophil% 0.8 % (0-1); Eosinophil# 0.03 X10^3/uL; Eosinophils% 0.4 % (0-5); Hematocrit 48.5 % (37-47); Lymphocyte # 2.16 X10^3/ul (0.83-4.51); Lymphocyte % 28.4 % (19-41); Mean Corpuscular Hgb 30.4 pg (27.0-32.0); Mean Corpuscular Volume 92.2 fL (81-99); Mean Platelet Vol. 10.4 fl (6.2-12.0); Monocyte# 0.42 X10^3/uL; Monocyte% 5.5 % (0-10); NRBC Flagged by Analyzer 0 % (0-5); Neutrophil # 4.92 X10^3/uL (2.7-7.7); Neutrophil % 64.6 % (47-70); Platelet Count 323 K/mm3 (150-450); RBC Distribution Width CV 14.1 % (11.6-14.6); Red Blood Count 5.26 M/mm3 (4.2-5.4); White Blood Count 7.6 K/mm3 (4.4-11.0)
[2022-12-03 12:55] LABS: Vitamin D,25 Hydroxy 71.3 ng/mL
[2022-12-03 12:59] LABS: ALB/GLOB Ratio 1.1 RATIO (0.9-2.4); AST(SGOT) 20 U/L (15-37); Alanine Aminotransfer ALT/SGPT 24 U/L (13-56); Albumin, Serum 3.9 g/dL (3.2-5.0); Alkaline Phosphatase 70 U/L (45-117); Anion Gap 6 (5-15); BUN 8 mg/dL (7-18); Calcium,Total 8.9 mg/dL (8.5-10.1); Chloride 105 mmol/L (98-107); Cholesterol 126 mg/dL (200); Creatinine, Serum 0.89 mg/dL (0.55-1.02); EST Glomerular Filtration Rate 70 mL/min (>60); Est Glom Filt Rate - Afr Amer 85 mL/min (>60); Globulin 3.6 g/dL (2.2-4.2); Glucose 95 mg/dL (74-106); High Density Lipoprotein 31 mg/dL; Protein, Total 7.5 g/dL (6.4-8.2); Sodium Level 135 mmol/L (136-145); Triglycerides 124 mg/dL; Very Low Density Lipoprotein 25 mg/dL (5-40)
[2022-12-03 13:01] LABS: Hemoglobin A1c 5.6 % (3.8-5.6)
[2022-12-04 15:54] LABS: Magnesium 2.1 mg/dL (1.6-2.6)
== END | disposition home or self-care (01) ==
LOC: MFPLAB 10:07
PROVIDERS: PCP Family Medicine; Visit Provider Family Medicine
DX: R00.2 Palpitations (principal); E55.9 Vitamin D deficiency, unspecified
CPT/HCPCS: 36415; 80053; 80061; 82306; 83036; 83735; 85025

== ENCOUNTER → 2023-04-07 | Outpatient (CLI) | payer MEDICAID, SELFPAY ==
[2023-04-07 09:51] LABS: Bacteria 0 SEEN /hpf (None Seen); Mucous, Urine 0 SEEN /hpf (<or=2+); Red Blood Cells-Urine 0 SEEN /hpf (0-5); Squamous Epithelial Cells - UA 0 SEEN /hpf (5-10); White Blood Cells 0 SEEN /hpf (0-5)
[2023-04-07 12:04] LABS: Color, Urine Yellow (Yellow); Glucose, Dipstick Normal (Normal); Ketone-Dipstick Negative (Negative); Leukocyte Esterase-Dipstick Negative /ul (Negative); Nitrite-Dipstick Negative (Negative); Occult Blood-Urine Negative /ul (Negative); Protein-Dipstick Negative (Negative); Urine Bilirubin Dipstick Negative (Negative); Urine Clarity Clear (Clear); Urine Urobilinogen Normal (Normal); Urine pH 6.5 (5.0 - 8.0)
[2023-04-07 12:13] LABS: Absolute Lymphocyte Count 2.41 X10^3/uL (0.83-4.51); Absolute Neutrophil Count 4.6 X10^3/uL (2.0-7.7); Basophil# 0.05 X10^3/uL; Basophil% 0.7 % (0-1); Eosinophil# 0.02 X10^3/uL; Eosinophils% 0.3 % (0-5); Lymphocyte # 2.41 X10^3/ul (0.83-4.51); Lymphocyte % 31.9 % (19-41); Mean Corp Hgb Conc 32.7 g/dL (32-36); Mean Corpuscular Hgb 30.4 pg (27.0-32.0); Mean Platelet Vol. 10.2 fl (6.2-12.0); Monocyte# 0.44 X10^3/uL; Monocyte% 5.8 % (0-10); NRBC Flagged by Analyzer 0 % (0-5); Neutrophil # 4.62 X10^3/uL (2.7-7.7); Neutrophil % 61.2 % (47-70); Platelet Count 316 K/mm3 (150-450); RBC Distribution Width CV 13.2 % (11.6-14.6); RBC Distribution Width SD 45.9 fl (35.1-43.9); Red Blood Count 5.27 M/mm3 (4.2-5.4); White Blood Count 7.6 K/mm3 (4.4-11.0)
[2023-04-07 12:48] LABS: Vitamin D,25 Hydroxy 36.9 ng/mL
[2023-04-07 12:51] LABS: AST(SGOT) 16 U/L (15-37); Alanine Aminotransfer ALT/SGPT 25 U/L (13-56); Alkaline Phosphatase 71 U/L (45-117); Anion Gap 6 (5-15); BUN 11 mg/dL (7-18); BUN/Creat Ratio 11.9 RATIO (10-20); Calcium,Total 8.8 mg/dL (8.5-10.1); Chloride 104 mmol/L (98-107); Cholesterol 142 mg/dL (200); Creatinine, Serum 0.92 mg/dL (0.55-1.02); EST Glomerular Filtration Rate 67 mL/min (>60); Est Glom Filt Rate - Afr Amer 81 mL/min (>60); Globulin 3.9 g/dL (2.2-4.2); Glucose 86 mg/dL (74-106); High Density Lipoprotein 32 mg/dL; Potassium 4.3 mmol/L (3.5-5.1); Protein, Total 7.9 g/dL (6.4-8.2); Sodium Level 137 mmol/L (136-145); Triglycerides 131 mg/dL; Very Low Density Lipoprotein 26 mg/dL (5-40)
[2023-04-07 14:02] LABS: Erythrocyte Sedimentation Rate 18 mm/hr (0-30)
[2023-04-07 14:04] LABS: Hemoglobin A1c 5.6 % (3.8-5.6)
== END | disposition home or self-care (01) ==
LOC: MFPLAB 09:50
PROVIDERS: PCP Family Medicine; Visit Provider Family Medicine
DX: E55.9 Vitamin D deficiency, unspecified (principal); E78.00 Pure hypercholesterolemia, unspecified; R73.02 Impaired glucose tolerance (oral)
CPT/HCPCS: 36415; 80053; 80061; 81001; 82306; 83036; 85025; 85652

== ENCOUNTER → 2023-05-06 | Outpatient (CLI) | payer MEDICAID, SELFPAY ==
--- NOTE | 2023-05-06 07:56 | CT_ITS ---
INDICATION: adrenal mass EXAMINATION: CT ABDOMEN WITH IV CONTRAST CT Abdomen W/ Contrast Injection TECHNIQUE: Helically acquired images were obtained of the abdomen following IV contrast. A radiation dose optimization technique was used for this scan. IV Contrast dosage and agent: 100 cc of Isovue-370 Oral contrast: None. RADIATION DOSAGE (If Supplied By Facility): CTDIvol = ( 16.04 ) mGy, DLP = ( 278.05 ) mGycm COMPARISON: March 27, 2020 and September 09, 2021 FINDINGS: LOWER CHEST: Lung bases are clear. There is a stable small pericardial effusion. There are bilateral breast implants in place. LIVER: There are few stable too small to characterize low-attenuation foci within the liver which may reflect cysts and/or hemangiomas. GALLBLADDER AND BILIARY TREE: There is nonvisualization of the gallbladder. No intra- or extrahepatic biliary ductal dilation. PANCREAS: No focal cystic or solid mass. SPLEEN: Normal size without focal cystic or solid mass. ADRENAL GLANDS: There is a 2.3 x 3.2 x 1.9 cm mildly low in attenuation solid left adrenal nodule that has increased in size since the prior examination previously measuring 1.9 x 2.9 x 1.5 cm by my measurements. KIDNEYS AND URETERS: Normal renal size and position. No hydronephrosis. PERITONEUM: No ascites or free air. No other fluid collection. BOWEL: No stomach or bowel distension. No focal inflammatory change. There is nonvisualization of the appendix. LYMPH NODES: No enlarged mesenteric or retroperitoneal lymph nodes. VESSELS: Aorta is non-dilated. There are peripheral calcifications of the abdominal aorta. ABDOMINAL WALL: There is a fat-containing umbilical hernia. BONES: There is a stable sclerotic focus within the L1 vertebral body which may reflect a bone island. There are mild degenerative changes of the lumbar spine. CT/Abdomen WITH IV Contrast IMPRESSION: Interval enlargement of left adrenal mass may reflect an adenoma however cannot exclude a neoplastic process, recommend hormonal workup and/or endocrinology consult. Atherosclerosis. Electronically Signed: Irina Araujo MD at 10:52 EST ,
== END | disposition home or self-care (01) ==
LOC: CT 07:53
PROVIDERS: PCP Family Medicine; Referring Provider Family Medicine; Visit Provider Family Medicine
DX: E27.8 Other specified disorders of adrenal gland (principal)
CPT/HCPCS: 74160; Q9967

== ENCOUNTER → 2023-06-09 | Outpatient (CLI) | payer MEDICAID, SELFPAY ==
--- OUTSIDE RECORDS SUMMARY | 2023-06-09 08:10 | XMS RPT_ITS | CCD ---
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 Name Role Phone Nereida LUBIN, Lynette Guerrero Unavailable [phone] Unavailable Primary Care Provider UnavailLala Mathew MD Primary Care Provider CECY BRAXTON Admitting Unavailable LALA NOLEN Primary Care Unavailable CECY BRAXTON Referring Unavailable CECY BRAXTON Attending Unavailable LALA NOLEN Primary Care Unavailable CECY BRAXTON Referring Unavailable LALA NOLEN Primary Care Unavailable CECY BRAXTON Referring Unavailable LALA NOLEN Primary Care Unavailable LALA NOLEN Primary Care Unavailable TIFFANY GRAVES Attending Unavailable CECY BRAXTON Attending Unavailable LALA NOLEN Primary Care Unavailable Allergies Allergy Classification Reported Allergen(s) Allergy Type Date of Onset Reaction(s) Facility (4 sources) Acetaminophen / oxyCODONE; Translations: [OXYCODONE-ACETAMI NOPHEN] Drug Allergy 6 Itching, Swelling [facility] (3 sources) Amoxicillin / Clavulanate; Translations: [AMOXICILLIN-POT CLAVULANATE] Drug Allergy 3 Swelling [facility] Work Phone: Medications Current Medications Medication Drug Class(es) Dates Sig (Normalized) Sig (Original) acetaminophen 500 mg oral tablet (2 sources) Start: 12-10-2021 take 1 tablet by mouth four times daily as needed for pain acetaminophen (TYLENOL) 500 MG tablet Take 1 tablet by mouth 4 times daily as needed for Pain 120 tablet 1 12/10/2021 Active Completed/Discontinued Medications Medication Drug Class(es) Dates Sig (Normalized) Sig (Original) [id number] 200 actuat albuterol 0.09 mg/actuat metered dose inhaler (1 source) beta2-Adrenergic Agonist Start: 01-27-2020 albuterol HFA (PROVENTIL HFA, VENTOLIN HFA) 90 mcg/actuation inhaler Inhale as instructed. 0 01/27/2020 Active Problems Active Problems Problem Classification Problem Date Documented Date Episodic/Chronic Administrative/social admission (1 source) Problems related to education and literacy, unspecified; Translations: [Educational circumstances] Onset: 04-21-2023 Episodic Chronic obstructive pulmonary disease and bronchiectasis (1 source) Chronic obstructive pulmonary disease, unspecified; Translations: [Chronic obstructive pulmonary disease, unspecified COPD type (HCC)] Onset: 05-07-2023 Chronic Diabetes mellitus without complication (1 source) Prediabetes; Translations: [Prediabetes] Onset: 05-11-2023 Episodic Disorders of lipid metabolism (1 source) Hyperlipidemia, unspecified; Translations: [Hyperlipidemia, unspecified hyperlipidemia type] Onset: 05-07-2023 Chronic Immunizations and screening for infectious disease (2 sources) Patient encounter status; Translations: [Encounter for screening for infections with a predominantly sexual mode of transmission] 03-19-2023 Episodic Mood disorders (2 sources) Major depressive disorder, recurrent, moderate; Translations: [Major depressive disorder, recurrent, moderate] Onset: 07-21-2016 07-21-2016 Chronic Nutritional deficiencies (2 sources) Vitamin D deficiency; Translations: [Vitamin D deficiency, unspecified] Onset: 07-26-2016 07-26-2016 Chronic Other diseases of bladder and urethra (1 source) Overactive bladder; Translations: [Overactive bladder] Onset: 12-06-2014 12-06-2014 Chronic Other nervous system disorders (1 source) Other acute postprocedural pain; Translations: [Post-operative pain] Onset: 05-18-2023 Episodic Prolapse of female genital organs (6 sources) Midline cystocele; Translations: [Cystocele, midline] Onset: 04-13-2023 03-19-2023 Chronic Substance-related disorders (1 source) Nicotine dependence, cigarettes, uncomplicated; Translations: [Cigarette nicotine dependence without complication] Onset: 05-07-2023 Chronic Past or Other Problems Problem Classification Problem Date Documented Da te Episodic/Chronic Abdominal hernia (1 source) Umbilical hernia; Translations: [Umbilical hernia without obstruction or gangrene] Onset: 10-02-2014 10-02-2014 Episodic Abdominal pain (1 source) Left lower quadrant pain; Translations: [Left lower quadrant pain] Onset: 10-02-2014 10-02-2014 Episodic Malaise and fatigue (2 sources) Malaise and fatigue; Translations: [Other fatigue] Onset: 07-21-2016 07-21-2016 Episodic Other and unspecified benign neoplasm (2 sources) Benign neoplasm of unspecified adrenal gland; Translations: [Benign neoplasm of unspecified adrenal gland] Onset: 08-25-2016 08-25-2016 Episodic Other circulatory disease (2 sources) Vascular disorder; Translations: [Unspecified disorder of circulatory system] Onset: 07-26-2016 07-26-2016 Episodic Other female genital disorders (1 source) Pelvic congestion syndrome; Translations: [Other specified conditions associated with female genital organs and menstrual cycle] Onset: 12-06-2014 12-06-2014 Episodic Other nutritional; endocrine; and metabolic disorders (2 sources) Body mass index (BMI) 26.0-26.9, adult; Translations: [Body mass index (BMI) 26.0-26.9, adult] Onset: 07-21-2016 07-21-2016 Episodic Results Test Name Value Interpretation Reference Range Facil ity Vital Signs Date Time Vital Sign Value Performing Clinician Facility 03-19-2023 13:46-0500 Body height 162.6 cm Tiffany Graves APRN.CNP Work Phone: [facility] 03-19-2023 13:46-0500 Body weight 67.13 kg Tiffany Graves APRN.CNP Work Phone: [facility] 03-19-2023 13:46-0500 Diastolic blood pressure 62 mm[Hg] Tiffany Graves APRN.CNP Work Phone: [facility] 03-19-2023 13:46-0500 Systolic blood pressure 108 mm[Hg] Tiffany Graves APRN.CNP Work Phone: [facility] 12-10-2021 13:30-0400 Body temperature 97.2 [degF] Shb 6 [facility] 12-10-2021 13:30-0400 Diastolic blood pressure 70 mm[Hg] [address] 12-10-2021 13:30-0400 Heart rate 65 /min [address] 12-10-2021 13:30-0400 Respiratory rate 16 /min [address] 12-10-2021 13:30-0400 SaO2% (BldA) [Mass fraction] 98 % [address] 12-10-2021 13:30-0400 Systolic blood pressure 120 mm[Hg] [address] 12-10-2021 10:30-0400 Body height [address] 12-10-2021 10:30-0400 Body mass index (BMI) [Ratio] 28.34 kg/m2 [address] 12-10-2021 10:300400 Body weight 72.[address] 10-22-2016 10:01-0400 BMI (Body Mass Index) 24.89 kg/m2 Lynette Padron NP [facility] Work Phone: 10-22-2016 10:01-0400 Body Temperature 98 [degF] Lynette Padron NP [facility] Work Phone: 10-22-2016 10:01-0400 Body Temperature 98.01 [degF] Lynette Nereida LUBIN [facility] Work Phone: 10-22-2016 10:01-0400 BP Diastolic 83 mm[Hg] Lynette Padron NP [facility] Work Phone: 10-22-2016 10:01-0400 BP Systolic 130 mm[Hg] Lynette Padron NP [facility] Work Phone: 10-22-2016 10:01-0400 BSA (Body Surface Area) 1.71 m2 Lynette Padron NP [facility] Work Phone: 10-22-2016 10:01-0400 Height 162.56 cm Lynette Padron NP [facility] Work Phone: 10-22-2016 10:01-0400 Pulse (Heart Rate) 78 /min Lynette Padron NP [facility] Work Phone: 10-22-2016 10:0400 Pulse Oximetry 97 % Lynette Nereida LUBIN [facility] Work Phone: 10-22-2016 10:010400 Respiratory Rate 16 /min Lynette Botellomagdalena LUBIN [facility] Work Phone: 10-22-2016 10:040 Weight 65.77 kg Lynette Botellomagdalena LUBIN [facility] Work Phone: Encounters Encounter Date Encounter Type Care Provider Facility Start: 05-18-2023 End: 05-18-2023 ambulatory [facility] Facility:[facility] Start: 05-11-2023 End: 05-12-2023 ambulatory [facility] Facility:[facility] Start: 05-07-2023 Encounter for other preprocedural examination [facility] Start: 04-21-2023 End: 04-21-2023 ambulatory [facility] Facility:[facility] Start: 04-13-2023 End: 04-14-2023 ambulatory [facility] Facility:[facility] Start: 03-19-2023 End: 03-19-2023 ambulatory [facility] Facility:[facility] Start: 03-19-2023 End: 03-19-2023 Patient encounter procedure Tiffany Graves APRN.CALL OR CONTACT CENTRE TEAM LEADER Work Phone: OB/Gynecology Procedures Date Procedure Procedure Detail Performing Clinician Start: 12-10-2021 OPERATIVE REPORT Physic pablito Generic Start: 03-07-2021 Colonoscopy Tiffany yeh APRN.CALL OR CONTACT CENTRE TEAM LEADER Work Phone: Start: 10-22-2016 End: 11-03-2016 Acth stimulation panel Lynette Padron NP Work Phone: Start: 07-21-2016 End: 2016 Thyroid stimulating hormone (TSH) Lynette Padron NP Work Phone: Start: 07-21-2016 End: 07-24-2016 Thyroperoxidase antibody Lynette Padron NP Work Phone: Start: 07-21-2016 End: 2016 Thyroxine (T4) free Lynette Padron SOFT SHOE DANCER Work Phone: Start: 07-21-2016 End: 2016 Triiodothyronine (T3) free Lynette calixto SOFT SHOE DANCER Work Phone: Plan of Treatment Date Care Activity Detail Author Start: 03-07-2026 Colonoscopy Colonoscopy [facility] Start: 03-07-2026 Colorectal Cancer Screening Colorectal Cancer Screening [facility] Start: 10-24-2023 DTaP/Tdap/Td vaccine (3 - Td or Tdap) DTaP/Tdap/Td vaccine (3 - Td or Tdap) [facility] Start: 10-24-2023 Urine microalbumin profile DTaP,Tdap,Td Vaccine (3 - Td or Tdap) [facility] Start: 01-02-2023 Covid-19 Vaccine () Covid-19 Vaccine () [facility] Start: 01-02-2023 Influenza vaccination Influenza Vaccine (#1) [facility] Start: 05-04-2022 Depression Assessment Depression Assessment [facility] Start: 01-02-2022 Influenza vaccination Flu vaccine (#1) [facility] Start: 07-05-2021 COVID-19 Vaccine (3 - Booster for Pfizer series) COVID-19 Vaccine (3 - Booster for Pfizer series) [facility] Start: 06-15-2020 Mammography Mammogram Screening [facility] Start: 07-22-2017 Screening for malignant neoplasm of breast Breast cancer screen [facility] Start: 07-22-2017 Shingles vaccine (1 of 2) Shingles vaccine (1 of 2) [facility] Start: 07-22-2017 Shingrix Vaccine (1 of 2) Shingrix Vaccine (1 of 2) [facility] Start: 10-22-2016 End: 11-03-2016 Acth stimulation panel ACTH stimulation panel; for adrenal insufficiency. [facility] Work Phone: Start: 08-25-2016 End: 08-25-2016 Ct abdomen w/o & w/dye CT Abdomen [facility] Work Phone: Start: 07-21-2016 End: 2016 Thyroid stimulating hormone (TSH) *TSH [facility] Work Phone: Start: 07-21-2016 End: 07-24-2016 Thyroperoxidase antibody *TPO Thyroid Peroxidase Antibodies [facility] Work Phone: Start: 07-21-2016 End: 2016 Thyroxine (T4) free *T4 free [facility] Work Phone: Start: 07-21-2016 End: 2016 Triiodothyronine (T3) free *T3-Free [facility] Work Phone: Start: 01-01-2014 HPV Testing HPV Testing [facility] Start: 01-01-2014 Pap Testing Pap Testing [facility] Start: 07-22-2012 Cologuard (FIT-DNA) Cologuard (FIT-DNA) [facility] Start: 07-22-[address] Colonography [facility] Start: 07-22-2012 Diabetes Screening Diabetes Screening [facility] Start: 07-22-2012 Fecal Occult Blood Fecal Occult Blood [facility] Start: 07-22-2012 Lipid 1996 panel - Serum or Plasma Lipid Screening [facility] Start: 07-22-2012 Screening for malignant neoplasm of colon [facility] Start: 07-22-2012 Sigmoidoscopy Sigmoidoscopy [facility] Start: 07-22-2002 Diabetes screen Diabetes screen [facility] Start: 07-22-1985 Hepatitis C screening Hepatitis C screen [facility] Start: 07-22-1985 Hepatitis C Screening Hepatitis C Screening [facility] Start: 07-22-1985 HIV Screening HIV Screening [facility] Start: 07-22-1982 HIV screening HIV screen [facility] Start: 1979 Depression Screen Depression Screen [facility] Start: 07-22-1977 Lipid panel Lipids [facility] Start: 07-22-1973 Pneumococcal 0-64 years Vaccine (1 - PCV) Pneumococcal 0-64 years Vaccine (1 - PCV) [facility] Start: 07-22-1973 Pneumococcal vaccination Pneumococcal Vaccine (1 - PCV) [facility] Start: 1967 Hepatitis B Vaccine (1 of 3 - 3-dose series) Hepatitis B Vaccine (1 of 3 - 3-dose series) [facility] Chlamydia trachomatis+Neisseria gonorrhoeae DNA [Presence] in Unspecified specimen by JAMIE with probe detection GONORRHEA/CHLAMYDIA NAAT Lab Routine Screen for STD (sexually transmitted disease) 03/19/2023 2:55 PM EST [facility] Work Phone: End: 12-10-2021 INITIATE PACU OXYGEN THERAPY PROTOCOL Initiate PACU Oxygen Therapy Protocol Respiratory Care Routine Continuous until discontinued starting 12/10/2021 [facility] Work Phone: Immunizations Immunization Date Immunization Notes Care Provider Marely dubon 03-21-2021 influenza virus vacc ine, unspecified formulation Tiffany Graves APRN.CALL OR CONTACT CENTRE TEAM LEADER Work Phone: [facility] Payers Date Payer Category Payer Medicaid [employer] [facility] [id number] 2022-Present [phone] [address] [place] [address] Medicaid [id number] 2022 Medicaid [id number] 2021 Unknown [employer] [facility] MEDICAID [id number] 2021-Present [phone] [address] [place] [address] [id number] Social History Date Type Detail Facility Start: 12-10-2021 End: 03-19-2023 Tobacco smoking status MSIS Smokes tobacco daily [facility] Start: 05-04-2001 History of tobacco use Cigarette Smo ker [facility] Work Phone: Start: 12-10-2021 End: 03-04-2023 Cigarettes smoked current (pack per day) - Reported 0.5 [facility] Work Phone: Start: 12-10-2021 End: 03-19-2023 Tobacco use and exposure Smokeless tobacco non-user [facility] Work Phone: Start: 12-10-2021 Alcohol intake Ex-drinker (finding) [facility] Work Phone: Start: 12-10-2021 Tobacco Comment working on quitting [facility] Work Phone: Start: 1965 Sex Assigned At Not on file [facility] Work Phone: Start: 11-30-2021 End: 12-10-2021 Exposure to SARS-CoV-2 (event) Not sure [facility] Work Phone: Start: 03-19-2023 Alcohol intake Current drinke r of alcohol (finding) [facility] Start: 03-04-2023 End: 03-19-2023 Tobacco use panel [facility] National Score (1-10 0), lower number is lower risk 71 [facility] Start: 12-06-2014 Alcohol Comment Socially [facility] Start: 1965 Sex Assigned At Female [facility] Start: 03-21-2021 Gender identity Identifies as female gender (finding) [facility] Start: 03-21-2021 Sexual orientation Heterosexual (fin ding) [facility] Clinical Note 05-18-2023 Note Date & Type Note Facility 05-18-2023 Note HNO ID: [id number] Author: SABINO RABAGO APRN.DEMOGRAPHIC ANALYST Service: Anesthesiology Author Type: Nurse Machine I Trimmer Type: Anesthesia Procedure Notes Filed: 05/18/2023 09:08 Note Text: ANESTHESIOLOGY PROCEDURE NOTE Airway General Information Procedure Start Time/Medication Administration: 05/18/2023 8:16 AM Procedure End Time: 05/18/2023 8:17 AM Patient location during procedure: OR Timeout Performed Pre-procedure: timeout performed Consent Obtained: Yes Patient identity confirmed: arm band and patient Staffing Anesthesiologist: Dinh Jernigan MD DEMOGRAPHIC ANALYST: Sabino Rabago APRN.DEMOGRAPHIC ANALYST Performed by: other anesthesia staff Indications and Patient Condition Indications for airway management: anesthesia and airway protection Preoxygenated: yes anesthesia circuit Patient position: sniffing Method: asleep Cricoid Pressure: No Manual In-Line Stabilization: No Difficult Mask: No Final Airway Details Final airway type: endotracheal airway Final Endotracheal Airway: ETT Cuffed: yes Successful intubation technique: video laryngoscopy Devices used: Ingram and intubating stylet Endotracheal tube insertion site: oral Blade: Agustín Blade size: #3 ETT size (mm): 7.0 Measured from: lips Measurement (cm): 22 Placement verified by: chest auscultation and capnometry Cormack-Lehane Classification: grade I - full view of glottis Number of attempts at approach: 1 Failed airway: no Unrecognized esophageal intubation: no Airway not difficult Comments Sabino, medical student successfully intubated patient x1 attempt, atraumatic, lips and teeth intact SIGNATURE: Sabino Rabago APRN.CRNA PATIENT NAME: Noel Alegre DATE: May 18, 2023 TIME: 9:05 AM CSN: [id number] [facility] Progress note 04-15-2023 Note Date & Type Note Facility 04-15-2023 Note HNO ID: [id number] Author: Kristal Toth LPN Service: ? Author Type: LICENSED NURSE Type: Progress Notes Filed: 04/21/2023 2:11 PM Note Text: DATE OF SERVICE: 04/21/2023 PROBLEM: Noel Alegre presents for pre-op teaching. PRE-OP DIAGNOSIS: vaginal vault prolapse SCHEDULED SURGERY AND DATE: 05-18-23 [place] COLPOPEXY LAPAROSCOPIC, POSTERIOR COLPORRHAPHY W/ REPAIR RECTOCELE AND PERINEORRHAPHY, and INSERTION STENT URETERAL PRIMARY SURGEON: Dr. Cecy Braxton NURSING PREOP ASSESSMENT: Fevers, chills, cough, or nasal congestion: No Vaginal itching, burning, discharge, or odor: No Pain with urination, frequency, urgency, cloudy or foul smelling urine: No If yes to any of the above then MD notified: Not Applicable ADVANCED CARE PLANNING: Does the patient have an advanced directive: No Does [facility] have a copy of the patient's advanced directive: No Was advanced directive given to the patient: No PATIENT LEARNING ASSESSMENT: Individual patient/family learning needs evaluated and addressed: Yes Cognitive ability: Alert and oriented Motivation to learn: Interested Factors affecting learning: None Physical limitations affecting learning: None Patient learns best by: Multiple Methods Method of instruction: Individual instruction Instructions provided to: Patient via telephone. Written material provided prior to education appointment. Family support: High - Very involved in pt care PRE- AND POST-OPERATIVE TEACHING Pre-operative teaching and supplemental material provided and reviewed with patient: Written pre-op and post-op instructions Antibacterial soap: patient will buy Pre-operative instructions provided and reviewed with patient/family: No eating, drinking, or smoking after midnight prior to surgery unless otherwise directed No alcohol the day before surgery Medications as prescribed by anesthesia, internal medicine, surgeon, or SOFT SHOE DANCER Stop NSAIDs, Aspirin (ASA), vitamins, herbal supplements, herbal teas, and diet pills 7-10 days prior to surgery OK to take tylenol prn pain unless otherwise directed by physician Call surgery coordinators if any other questions about surgery date or pre-op appointments Bowel prep instructions: NPO after midnight Day of surgery instructions provided and reviewed with patient/family: Arrival time (call surgical coordinators on the office day prior to surgery for verification) No jewelry, body piercing, makeup, contacts, lotions, nail greek on fingers, or anything in hair on arrival to surgery Wear low healed shoes and loose fitting clothing Leave all valuables at home or with a family member Directions to [facility] [place] Parking/parking validation on the day prior to surgery Admission/check in Holding area Placement of IV Surgical positioning Family waiting area Surgical recovery room Post-operative instructions provided and reviewed with patient/family: SEE PATIENT INSTRUCTION SECTION FOR DETAILS. SYMPTOMS TO NOTIFY MD - Fever, chills, nausea, vomiting, increased or severe pain, heavy vaginal bleeding, foul smelling vaginal drainage, pain or swelling in extremities. URGENT SYMPTOMS - Call 911 or go to ER if any shortness of breath, difficulty breathing, or chest pain. HOW TO CONTACT PHYSICIAN - Physician's office phone number given to patient, if after hours patient instructed to call lead shop operator and ask for automation qa analyst wash mill operator resident. MELIV program offered to patient: Yes Additional teaching as indicated by patient/family learning needs. PATIENT LEARNING EVALUATION AND FOLLOW UP PLAN: Patient and/or family express understanding of upcoming surgery, pre-operative preparation, the operative process, and post-operative instructions. Follow up plan: Patient instructed to call with any further issues Patient has a post-op appointment scheduled: Yes 07-01-[address] Braxton Referral (recommentation): None Educator: Kristal Toth LPN [facility] Progress note 03-19-2023 Note Date & Type Note Facility 03-19-2023 Note HNO ID: [id number] Author: Tiffany Graves APRN.CALL OR CONTACT CENTRE TEAM LEADER Service: ? Author Type: Nurse Practitioner Type: Progress Notes Filed: 03/19/2023 2:34 PM Note Text: Psychiatric Technician offered: Patient declines. Noel is a 57 year old who presents for an annual gynecologic exam without complaints. Scheduled 05/15/2022 for repair of prolapse. Postmenopausal: Hysterectomy 2014 with LSO benign cause HRT use: Just started vaginal estrogen for surgery preparation. Had been using estrogen and testosterone pellet with last insertion 09/2022 History of abnormal pap: Yes LEEP 1997 Last mammogram: 2022 normal at [facility] History of abnormal mammogram: Sexually active: Yes History of STDS: HPV Patient concerns for STD exposure: No. 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 Pap smear (cervix) Adenoma of left adrenal gland Colon polyps COPD (chronic obstructive pulmonary disease) (HCC) Other and unspecified hyperlipidemia 05/04/2006 not on medication Skin cancer PAST SURGICAL HISTORY Procedure Laterality Date ABDOMINAL SURGERY HX APPENDECTOMY 11/2006 BREAST AUGMENTATION WITH IMPLANT 2006 BREAST SURGERY HX COLONOSCOPY 10/06/2014 COLONOSCOPY FLX DX W/COLLJ SPEC WHEN PFRMD 03/07/2021 nl biopsies. repeat in 5 years per DP based on family history COLPOSCOPY CERVIX UPPER/ADJACENT VAGINA 2000 Colposcopy CONIZATION CERVIX W/WO DANDC RPR ELTRD EXC 1997 [facility] LEEP-Cervix DILATION AND CURETTAGE DXAND/THER NONOBSTETRIC 1989 Dilation AND curettage LIG/TRNSXJ FLP TUBE ABDL/VAG APPR UNI/BI 1989 Tubal ligation PAST SURGICAL HISTORY OF 12/01/2006 Novasure PAST SURGICAL HISTORY OF 2007 bladder repair mesh [facility] COSMETIC SURGERY 2022 skin cancer removed SKIN BIOPSY HX TONSILLECTOMY PRIMARY/SECONDARY Tonsillectomy VAGINAL HYSTERECTOMY UTERUS 250 GM/< 02/01/2015 LSO VASCULAR SURGERY PROCEDURE 1993 vein stripping RLE, X 2 procedures FAMILY HISTORY Problem Relation Age of Onset other (graves disease) Mother other (rheumatoid arthritis) Mother Diabetes Father No Known Problems Sister No Known Problems Maternal Grandmother Lung Cancer Maternal Grandfather Dementia Paternal Grandmother No Known Problems Daughter No Known Problems Son Diabetes Maternal Aunt Diabetes Maternal Aunt Diabetes Maternal Uncle Diabetes Maternal Uncle Diabetes Maternal Uncle Diabetes Maternal Uncle SOCIAL HISTORY Social History Tobacco Use Smoking status: Every Day Packs/day: 0.50 Years: 18.00 Additional pack years: 0.00 Total pack years: 9.00 Types: Cigarettes Smokeless tobacco: Never Vaping Use Vaping Use: Never used Substance Use Topics Alcohol use: Yes Comment: Socially Drug use: No REVIEW OF SYSTEMS Abdomen: No abdominal pain, nausea, vomiting, diarrhea, or constipation. No bloating, early satiety, indigestion, or increased flatulence. Bladder: No dysuria, gross hematuria, urinary frequency, urinary urgency. Positive for stress incontinence Breast: No breast lumps, nipple d/c, overlying skin changes, redness or skin retraction Allergies and current medication updated:Yes EXAM: BP 108/62 Ht 5' 4 (1.63m) Wt 148 lb (67.1kg) LMP 11/30/2006 BMI 25.39 kg/(m2). GENERAL: pleasant, female in no apparent distress HEENT: Normocephalic, atraumatic, mucus membranes moist, and no lesions NECK: Supple, full range of motion, no adenopathy, and thyroid normal DERMATOLOGY: Normal, without lesions, non-icteric, and non-hirsute BREAST: soft, non-tender, symmetric, no dominant mass, normal nipple-areolar complex, no lymphadenopathy, no nipple discharge, +Bilateral implants CHEST: Normal inspiratory effort ABDOMEN: soft, non-tender, and no masses PELVIC: external genitalia normal, normal Bartholin's glands, urethra, [place]'s glands, no vulvar lesions, physiologic discharge present, normal appearing perineal body and perianal region, cystocele, rectocele BIMANUAL: no adnexal masses, non-tender, and uterus surgically absent RECTOVAGINAL: deferred. NEURO: alert and oriented x3,exam grossly non-focal EXTREMITIES: normal ASSESSMENT/PLAN: 1) Health maintenance: Pap/HPV screening no longer needed Mammogram up to date Nutrition, exercise and routine health maintenance exams reviewed. Calcium/Vitamin D supplementation information provided. Smoking cessation: Benefits of smoking cessation reviewed. Patient encouraged to avoid smoking. Colon cancer screeni (more content not included)... [facility] History of Present illness Narrative 03-19-2023 Tiffany Graves APRN.CALL OR CONTACT CENTRE TEAM LEADER - 03/19/2023 1:41 PM EST Note Date & Type Note Facility 03-19-2023 History of Presen t illness Narrative Psychiatric Technician offered: Patient declines. Noel is a 57 year old who presents for an annual gynecologic exam without complaints. Scheduled 05/15/2022 for repair of prolapse. Postmenopausal: Hysterectomy 2014 with LSO benign cause HRT use: Just started vaginal estrogen for surgery preparation. Had been using estrogen and testosterone pellet with last insertion 09/2022 History of abnormal pap: Yes LEEP 1997 Last mammogram: 2022 normal at [facility] History of abnormal mammogram: Sexually active: Yes History of STDS: HPV Patient concerns for STD exposure: No. 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 Pap smear (cervix) Adenoma of left adrenal gland Colon polyps COPD (chronic obstructive pulmonary disease) (HCC) Other and unspecified hyperlipidemia 05/04/2006 not on medication Skin cancer PAST SURGICAL HISTORY Procedure Laterality Date ABDOMINAL SURGERY HX APPENDECTOMY 11/2006 BREAST AUGMENTATION WITH IMPLANT 2006 BREAST SURGERY HX COLONOSCOPY 10/06/2014 COLONOSCOPY FLX DX W/COLLJ SPEC WHEN PFRMD 03/07/2021 nl biopsies. repeat in 5 years per DP based on family history COLPOSCOPY CERVIX UPPER/ADJACENT VAGINA 2000 Colposcopy CONIZATION CERVIX W/WO D&C RPR ELTRD EXC 1997 [facility] LEEP-Cervix DILATION & CURETTAGE DX&/THER NONOBSTETRIC 1989 Dilation & curettage LIG/TRNSXJ FLP TUBE ABDL/VAG APPR UNI/BI 1988 Tubal ligation PAST SURGICAL HISTORY OF 12/01/2006 [place] PAST SURGICAL HISTORY OF 2007 bladder repair mesh SHX COSMETIC SURGERY 2022 skin cancer removed SKIN BIOPSY HX TONSILLECTOMY PRIMARY/SECONDARY <AGE 14 Tonsillectomy VAGINAL HYSTERECTOMY UTERUS 250 GM/< 02/01/2015 LSO VASCULAR SURGERY PROCEDURE 1993 vein stripping RLE, X 2 procedures FAMILY HISTORY Problem Relation Age of Onset other (graves disease) Mother other (rheumatoid arthritis) Mother Diabetes Father No Known Problems Sister No Known Problems Maternal Grandmother Lung Cancer Maternal Grandfather Dementia Paternal Grandmother No Known Problems Daughter No Known Problems Son Diabetes Maternal Aunt Diabetes Maternal Aunt Diabetes Maternal Uncle Diabetes Maternal Uncle Diabetes Maternal Uncle Diabetes Maternal Uncle SOCIAL HISTORY Social History Tobacco Use Smoking status: Every Day Packs/day: 0.50 Years: 18.00 Additional pack years: 0.00 Total pack years: 9.00 Types: Cigarettes Smokeless tobacco: Never Vaping Use Vaping Use: Never used Substance Use Topics Alcohol use: Yes Comment: Socially Drug use: No REVIEW OF SYSTEMS Abdomen: No abdominal pain, nausea, vomiting, diarrhea, or constipation. No bloating, early satiety, indigestion, or increased flatulence. Bladder: No dysuria, gross hematuria, urinary frequency, urinary urgency. Positive for stress incontinence Breast: No breast lumps, nipple d/c, overlying skin changes, redness or skin retraction Allergies and current medication updated:Yes EXAM: BP 108/62 Ht 5' 4 (1.63m) Wt 148 lb (67.1kg) LMP 11/30/2006 BMI 25.39 kg/(m^2). GENERAL: pleasant, female in no apparent distress HEENT: Normocephalic, atraumatic, mucus membranes moist, and no lesions NECK: Supple, full range of motion, no adenopathy, and thyroid normal DERMATOLOGY: Normal, without lesions, non-icteric, and non-hirsute BREAST: soft, non-tender, symmetric, no dominant mass, normal nipple-areolar complex, no lymphadenopathy, no nipple discharge, +Bilateral implants CHEST: Normal inspiratory effort ABDOMEN: soft, non-tender, and no masses PELVIC: external genitalia normal, normal Bartholin's glands, urethra, [place]'s glands, no vulvar lesions, physiologic discharge present, normal appearing perineal body and perianal region, cystocele, rectocele BIMANUAL: no adnexal masses, non-tender, and uterus surgically absent RECTOVAGINAL: deferred. NEURO: alert and oriented x3,exam grossly non-focal EXTREMITIES: normal ASSESSMENT/PLAN: 1) Health maintenance: Pap/HPV screening no longer needed Mammogram up to date Nutrition, exercise and routine health maintenance exams reviewed. Calcium/Vitamin D supplementation information provided. Smoking cessation: Benefits of smoking cessation reviewed. Patient encouraged to avoid smoking. Colon cancer screening: up to date with screening Cystocele - rectocele - scheduled for repair 05/15/2023. Continue vaginal estrogen. 2) Follow up one year or sooner as needed Tiffany Graves APRN.CALL OR CONTACT CENTRE TEAM LEADER documented in this encounter [facility] Progress note 03-04-2023 Note Date & Type Note Facility 03-04-2023 Note HNO ID: [id number] Author: Cecy Braxton MD Service: ? Author Type: Physician Type: Progress Notes Filed: 03/04/2023 1:17 PM Note Text: Female Pelvic Medicine AND Reconstructive Surgery Consult CHIEF COMPLAINT: Noel Alegre is a 57 year old referred for consultation regarding prolapse. S/p anterior and posterior colporrhaphies, site specific rectocele repair, [place] [address] [place]. She has had a hysterectomy for prolapse years later for prolapse HISTORY OF PRESENT ILLNESS: She reports prolapse symptoms for at least 2 years. She denies noticed a vaginal bulge that she could see and feel. She denies having pelvic pressure symptoms. She does not manually reduce the bulge. She has not tried a pessary. She reports RICHAR with coughing, laughing, and sneezing. She reports UUI, UUI more bothersome. She does have symptoms of urinary urgency and frequency. She does feel that she empties her bladder completely. She has not tried overactive bladder medications . Daytime frequency: every hour Nocturia: 2-3 Fluid intake: 6-8 cups of coffee, and 5-6 bottles of water daily. She reports a history of UTIs. Once, just a few months ago. Today she denies any dysuria or hematuria. She denies constipation overactive bowel movements due to metformin. She denies fecal incontinence of gas/stool. She does not take fiber supplements to help with her constipation. She reports vaginal dryness better now with hormone pellets. She does not use vaginal estrogen. She is sexually active. She reports pain with intercourse. She denies a strong family history of breast and ovarian cancer. 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 Yes, somewhat bothersome (2) Usually experience heaviness or dullness in the pelvic area? Yes, moderately bothersome (3) Usually have a bulge or something falling out that you can see or feel in your vaginal area? Yes, not at all bothersome (1) Ever have to push on the vagina or around the rectum to have or complete a bowel movement? Yes, not at all bothersome (1) Usually experience a feeling of incomplete bladder emptying? Yes, moderately bothersome (3) Ever have to push up on a bulge in the vaginal area with your fingers to start or complete urination? Yes, not at all bothersome (1) Feel you need to strain too hard to have a bowel movement? No (0) Feel you have not completely emptied your bowels at the end of a bowel movement? Yes, not at all bothersome (1) Usually lose stool beyond your control if your stool is well formed? No (0) Usually lose stool beyond your control if your stool is loose? Yes, not at all bothersome (1) Usually lose gas from the rectum beyond your control? Yes, not at all bothersome (1) Usually have pain when you pass your stool? No (0) Experience a strong sense of urgency and have to dillon to the bathroom to have a bowel movement? Yes, somewhat bothersome (2) Does part of your bowel ever pass through the rectum and bulge outside during or after a bowel movement? No (0) Usually experience frequent urination? Yes, quite a bit bothersome (4) Usually experience urine leakage associated with a feeling of urgency, that is, a strong sensation of needing to go to the bathroom? Yes, quite a bit bothersome (4) Usually experience urine leakage related to coughing, sneezing or laughing? Yes, quite a bit bothersome (4) Usually experience small amounts of urine leakage (that is, drops)? Yes, quite a bit bothersome (4) Usually experience difficulty emptying your bladder? Yes, not at all bothersome (1) Usually experience pain or discomfort in the lower abdomen or genital region? No (0) PAST MEDICAL HISTORY Diagnosis Date Abnormal glandular Papanicolaou smear of cervix 05/04/2005 Abn. Pap smear (cervix) Adenoma of left adrenal gland Colon polyps COPD (chronic obstructive pulmonary disease) (HCC) Other and unspecified hyperlipidemia 05/04/2006 not on medication Skin cancer PAST SURGICAL HISTORY Procedure Laterality Date ABDOMINAL SURGERY HX APPENDECTOMY 11/2006 APPENDECTOMY HX BREAST SURGERY HX CERVIX UTERI CONIZA LP ELCTRO EXCI 1997 [facility] LEEP-Cervix COLONOSCOP W/ OR W/O [facility] SPEC 03/07/2021 nl biopsies. repeat in 5 years per DP based on family history COLONOSCOPY 10/06/2014 COLPOSCOPY (VAGINOSCOPY) 2000 Colposcopy DANDC, DIAG AND/OR THERAPEUTIC 1989 Dilation AND curettage LIGATE FALLOPIAN TUBE 1988 Tubal ligation PAST SURGICAL HISTORY OF 1992 vein stripping RLE PAST SURGICAL HISTORY OF 12/01/2006 Novasure PAST SURGICAL HISTORY OF 2006 Breast augmentation PAST SURGICAL HISTORY OF 2007 bladder repair mesh REMOVAL OF (more content not included)... [facility] History of Present illness Narrative 12-10-2021 Isabel Peterson RN - 12/10/2021 1:25 PM Frank Peterson RN - 12/10/2021 1:15 PM Frank Peterson RN - 12/10/2021 12:22 PM EDT Note Date & Type Note Facility 12-10-2021 History of Present illness Narrative Sister at bedside. Patient and sister state they do not want to wait to talk to Dr Lindsey who is in surgery. Patient and sister provided with discharge instructions including application of nitrobid, to wash hands and use gloves to avoid contact with other skin and to use amount shown by Dr Lindsey. Also instructed to wipe off prior to application and to continue aquaphor. Provided with supplies. Questions answered and she verbalizes understanding and states ready to go home. Nitrobid ointment applied to nasal flap by Dr Lindsey. Received patient from OR sleeping on oxygen.. Assessment completed. Belongings with her. documented in this encounter [facility] Work Phone: Hospital Discharge instructions 12-10-2021 Discharge Instructions Note Date & Type Note Facility 12-10-2021 Hospital Discharg e instructions María Elena Lindsey MD - 12/10/2021 12:23 PM EDT Please take 500 mg of Tylenol together with 400 mg of ibuprofen simultaneously every 6 hours for the first 24 hours. Take them regardless of your pain situation. Please apply Aquaphor to the incision every 4 hours. He can start taking a shower tomorrow. Please gently pat dry it. Kindly take your antibiotics as prescribed. documented in this encounter [facility] Work Phone: History of Past illness Narrative 03-07-2021 Note Date & Type Note Facility documented as of this encounter (statuses as of 03/19/2023) [facility] Evaluation note Note Date & Type Note Facility documented in this encounter [facility] Summary Purpose Family History No Family History Records FoundNo Family History Records FoundNo Family History Records Found Advance Directives No Advanced Directives Records FoundLatest Code Status on File Code Status Date Activated Date Inactivated Comments Full Code 12/10/2021 10:25 AM Additional Source Comments INFORMATION SOURCE (unrecogn ized section and content) DATE CREATED AUTHOR AUTHOR'S ORGANIZ ATION 05/19/2023 [facility] DATE CREATED AUTHOR AUTHOR'S ORGANIZ ATION 05/20/2023 [facility] Ordered Prescriptions (unrec ognized section and content) Scheduled Active and Recently Administ ered Medications (unrecognized section and content) Continuous Medication Order 12/08/2021 12/09/2021 12/10/2021 lactated ringers infusion IntraVENous, at 50 mL/hr, CONTINUOUS, Starting on Thu12/10/21 at 1045, Upon admission to sameday - please start iv if patient does not have iv access. Use 500ml NS for patients on dialysis., Pre-op (day of surgery) 1045 (Due) lactated ringers infusion IntraVENous, at 50 mL/hr, CONTINUOUS, Starting on Thu12/10/21 at 1245, PACU only 1245 (Due) PRN Medication Order 12/08/2021 12/09/2021 12/10/2021 0.9 % sodium chloride bolus 500 mL (6.89 mL/kg), IntraVENous, at 1,000 mL/hr, Administer over 0.5 Hours, PRN, Anti-nausea, Starting on Thu12/10/21 at 1227, PACU only 0.9 % sodium chloride infusion IntraVENous, at 5-250 mL/hr, PRN, if patient receiving piggyback infusions and maintenance fluids are not ordered OR KVO fluids to protect IV site / prevent frequent line interruptions/ long duration, Starting on Thu12/10/21 at 1025, For piggyback infusion, administer at same rate as piggyback for a total of 25 mL. Enter 25 mL into dose field and piggyback rate into rate field of order. If piggyback is infusing at a rate less than 100 mL/hr, enter 25 mL into dose field and 100 mL/hr into rate field of order. For KVO fluids, enter rate of 20 mL/hr or less into rate field of order., Pre-op (day of surgery) diphenhydrAMINE (BENADRYL) injection 12.5 mg 12.5 mg, IntraVENous, ONCE PRN, 1 dose, Starting on Thu12/10/21 at 1227, Until Thu12/10/21 at 2359, Itching, PACU only hydrALAZINE (APRESOLINE) injection 5 mg(Linked Group 1) 5 mg, IntraVENous, EVERY 10 MIN PRN, 2 doses, Starting on Thu12/10/21 at 1227, Until Discontinued, High Blood Pressure, for SBP greater than 160 mmHg for 2 consecutive measurements taken from different sites, PRN for SBP > 160 for 2 consecutive measurements, and if one of the following conditions is met: 1) If IV labetolol is ineffective. 2) If HR is under 60. 3) If patient has heart block, COPD or asthma. If both labetalol and hydralazine ineffective, notify 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, PACU only HYDROcodone-acetaminophen (NORCO) 5-325 MG per tablet 1 tablet 1 tablet, Oral, ONCE PRN, 1 dose, Starting on Thu12/10/21 at 1059, Until Thu12/10/21 at 2359, Pain Moderate (4-6), Maximum dose of acetaminophen is 4000 mg from all sources in 24 hours., PACU & Post-op HYDROmorphone (DILAUDID) injection 0.25 mg 0.25 mg, IntraVENous, EVERY 5 MIN PRN, 2 doses, Starting on Thu12/10/21 at 1227, Until Discontinued, Pain Moderate (4-6), For Phase I. If Phase II oral narcotics have been administered in the last 60 minutes, do not administer IV narcotics unless specifically approved by provider., PACU only HYDROmorphone (DILAUDID) injection 0.5 mg 0.5 mg, IntraVENous, EVERY 5 MIN PRN, 2 doses, Starting on Thu12/10/21 at 1227, Until Discontinued, Pain Severe (7-10), For Phase I. If Phase II oral narcotics have been administered in the last 60 minutes, do not administer IV narcotics unless specifically approved by provider., PACU only labetalol (NORMODYNE;TRANDATE) injection 5 mg(Linked Group 1) 5 mg, IntraVENous, EVERY 10 MIN PRN, 2 doses, Starting on Thu12/10/21 at 1227, Until Discontinued, High Blood Pressure, for SBP greater than 160 mmHg for 2 consecutive measurements taken from different sites., PRN for SBP >160 for 2 consecutive measurements, if HR is 60 or greater. If beta samantha is contraindicated (HR less than 60, heart block, COPD or asthma) use hydralazine IV order. for use Sameday and, PACU only lidocaine PF 1 % injection 1 mL 1 mL, IntraDERmal, ONCE PRN, 1 dose, Starting on Thu12/10/21 at 1025, Until Thu12/10/21 at 2359, IV start, Pre-op (day of surgery) LORazepam (ATIVAN) injection 0.5 mg 0.5 mg, IntraVENous, ONCE PRN, 1 dose, Starting on Thu12/10/21 at 1227, Until Thu12/10/21 at 2359, for anxiety or muscle spasm., PACU only ondansetron (ZOFRAN) injection 4 mg 4 mg, IntraVENous, ONCE PRN, 1 dose, Starting on Thu12/10/21 at 1227, Until Thu12/10/21 at 2359, Nausea, Initial antiemetic therapy., PACU only sodium chloride flush 0.9 % injection 5-40 mL 5-40 mL, IntraVENous, PRN, Starting on Thu12/10/21 at 1025, Until Discontinued, Line Care, After every IV line use, For Line Patency: Peripheral IV = 5 mL; Midline or Central Line = 10 mL/lumen. If following IV push medication, administer flush at same rate as the IV push. Flush volume is determined by type of infusion therapy being given. For non-viscous solutions use: Peripheral IV = 5 mL Midline or Central Line = 10 mL/lumen For viscous solutions (i.e. blood components, parenteral nutrition, contrast media, or after obtaining blood sample) use: Peripheral IV = 10 mL Midline or Central Line = 20 mL/lumen, Pre-op (day of surgery) sodium chloride flush 0.9 % injection 5-40 mL 5-40 mL, IntraVENous, PRN, Starting on Thu12/10/21 at 1227, Until Discontinued, Line Care, After every IV line use, For Line Patency: Peripheral IV = 5 mL; Midline or Central Line = 10 mL/lumen. If following IV push medication, administer flush at same rate as the IV push. Flush volume is determined by type of infusion therapy being given. For non-viscous solutions use: Peripheral IV = 5 mL Midline or Central Line = 10 mL/lumen For viscous solutions (i.e. blood components, parenteral nutrition, contrast media, or after obtaining blood sample) use: Peripheral IV = 10 mL Midline or Central Line = 20 mL/lumen, PACU only Linked Groups Order Group 1: labetalol (NORMODYNE;TRANDATE) injection 5 mgJump to med 5 mg, IntraVENous, EVERY 10 MIN PRN, 2 doses, Starting on Thu12/10/21 at 1227, Until Discontinued, High Blood Pressure, for SBP greater than 160 mmHg for 2 consecutive measurements taken from different sites.
PRN for SBP >160 for 2 consecutive measurements, if HR is 60 or greater. If beta samantha is contraindicated (HR less than 60, heart block, COPD or asthma) use hydralazine IV order. for use Sameday and
PACU only Or hydrALAZINE (APRESOLINE) injection 5 mgJump to med 5 mg, IntraVENous, EVERY 10 MIN PRN, 2 doses, Starting on Thu12/10/21 at 1227, Until Discontinued, High Blood Pressure, for SBP greater than 160 mmHg for 2 consecutive measurements taken from different sites
PRN for SBP > 160 for 2 consecutive measurements, and if one of the following conditions is met: 1) If IV labetolol is ineffective. 2) If HR is under 60. 3) If patient has heart block, COPD or asthma. If both labetalol and hydralazine ineffective, notify 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
PACU only Source Comments (unrecognize d section and content) In the event this informatio n is protected by the Federal Confidentiality of Alcohol and Drug Abuse Patient Records regulations: The Federal rules restrict any use of the information to criminally investigate or prosecute any alcohol or drug abuse patient.[facility] Reason for Visit (unrecogniz ed section and content) Care Teams (unrecognized sec tion and content) FOR RECORDS PERTAINING TO PATIENTS WHO ARE OR HAVE BEEN ENROLLED IN A CHEMICAL DEPENDENCY/SUBSTANCEABUSE PROGRAM, SOME INFORMATION MAY BE OMITTED. This clinical summary was aggregated from multiple sources. Caution should be exercised in using it in the provision of clinical care. This summary normalizes information from multiple sources, and as a consequence, information in this document may materially change the coding, format and clinical context of patient data. In addition, data may be omitted in some cases. CLINICAL DECISIONS SHOULD BE BASED ON THE PRIMARY CLINICAL RECORDS. [facility]. provides no warranty or guarantee of the accuracy or completeness of information in this document.
--- NOTE | 2023-06-09 08:23 | MRI_ITS ---
HISTORY: worse headache of life. TECHNIQUE: Multiplanar and multisequence MR images of the brain were obtained before and after the intravenous administration of 12 cc Clariscan. 338 images. COMPARISON: None. FINDINGS: BRAIN PARENCHYMA: No significant signal abnormality or enhancing mass in the brain parenchyma. Small developmental venous anomaly in the left occipital lobe. No abnormal focus of restricted diffusion. No acute intracranial hemorrhage identified. CSF SPACES: Cerebral ventricles, cortical sulci, and other extra-axial CSF spaces within normal limits in size for age. No significant midline shift or other mass effect.No extra-axial fluid collection. VASCULAR SYSTEM: Major intracranial flow voids are maintained. PARANASAL SINUSES AND MASTOID AIR CELLS: No significant air fluid levels. ORBITS: Symmetric contents. MRI/Brain W/WO Contrast IMPRESSION: No evidence for enhancing intracranial mass, acute infarct, or other significant signal abnormality in the brain. Small left occipital developmental venous anomaly. Electronically Signed: Savana Germain MD at 14:36 EST ,
== END | disposition home or self-care (01) ==
LOC: MRI 07:47
PROVIDERS: PCP Family Medicine; Referring Provider Family Medicine; Visit Provider Family Medicine
DX: R51.9 Headache, unspecified (principal)
CPT/HCPCS: 70553; A9575

== ENCOUNTER → 2023-07-14 | Outpatient (CLI) | payer MEDICAID, SELFPAY ==
--- OUTSIDE RECORDS SUMMARY | 2023-07-14 22:02 | XMS RPT_ITS | CCD ---
Author Name Unknown Address [address] [facility] [address] [place] [address] Organization [facility] Care Team Providers Care Repair Clerk Name Role Phone Nereida LUBIN, Lynette Guerrero Unavailable Unavailable Primary Care Provider UnavailLala Mathew MD [...] Allergy Type Date of Onset Reaction(s) Facility (5 sources) Acetaminophen / oxyCODONE; Translations: [OXYCODONE-ACETAMI NOPHEN] Drug Allergy 6 Itching, Swelling [facility] (4 sources) Amoxicillin / Clavulanate; Translations: [AMOXICILLIN-POT CLAVULANATE] Drug Allergy 3 Swelling [facility] Work Phone: Medications Current Medications Medication Drug [...] Drug Class(es) Dates Sig (Normalized) Sig (Original) [id number] 200 actuat albuterol 0.09 mg/actuat metered dose inhaler (2 sources) beta2-Adrenergic Agonist Start: 01-27-2020 take 2 puff(s) by inhalation every four hours as needed albuterol HFA (PROVENTIL HFA, VENTOLIN HFA) 90 mcg/actuation inhaler Inhale 2 Puffs as instructed every 4 hours as needed. 0 01/27/2020 Active Problems Active Problems Problem Classification Problem Date Documented Date Episodic/Chronic Administrative/social admission (1 source) Problems related to education and literacy, unspecified; Translations: [Educational circumstances] Onset: 04-21-2023 Episodic Chronic obstructive pulmonary disease and bronchiectasis (2 sources) Chronic obstructive pulmonary disease, unspecified; Translations: [Chronic obstructive lung disease] Onset: 08-12-2022 05-07-2023 Chronic Diabetes mellitus without complication (2 sources) Prediabetes; Translations: [Prediabetes] Onset: 05-11-2023 05-11-2023 Episodic Disorders of lipid metabolism (2 sources) Hyperlipidemia, unspecified; Translations: [Hyperlipidemia] Onset: 11-13-2022 05-07-2023 Chronic Genitourinary symptoms and ill-defined conditions (1 source) Mixed urinary incontinence; Translations: [Mixed incontinence] 07-01-2023 Chronic Immunizations and screening for infectious disease (2 sources) Patient encounter status; Translations: [Encounter for screening for infections with a predominantly sexual mode of transmission] 03-19-2023 Episodic Menopausal disorders (1 source) Atrophy of vagina; Translations: [Postmenopausal atrophic vaginitis] 07-01-2023 Chronic Mood disorders (2 sources) Major depressive disorder, recurrent, moderate; Translations: [Major depressive disorder, recurrent, moderate] Onset: 07-21-2016 07-21-2016 Chronic Nutritional deficiencies (2 sources) Vitamin D deficiency; Translations: [Vitamin D deficiency, unspecified] Onset: 07-26-2016 07-26-2016 Chronic Other diseases of bladder and urethra (2 sources) Overactive bladder; Translations: [Overactive bladder] Onset: 12-06-2014 12-06-2014 Chronic Other nervous system disorders (1 source) Other acute postprocedural pain; Translations: [Post-operative pain] Onset: 05-18-2023 Episodic Prolapse of female genital organs (10 sources) Midline cystocele; Translations: [Cystocele, midline] Onset: 04-13-2023 03-19-2023 Chronic Substance-related disorders (2 sources) Nicotine dependence, cigarettes, uncomplicated; Translations: [Nicotine dependence] Onset: 10-13-2022 05-07-2023 Chronic Past or Other Problems Problem Classification Problem Date Documented Da te Episodic/Chronic Abdominal hernia (2 sources) Umbilical hernia; Translations: [Umbilical hernia without obstruction or gangrene] Onset: 10-02-2014 10-02-2014 Episodic Abdominal pain (2 sources) Left lower quadrant pain; Translations: [Left lower quadrant pain] Onset: 10-02-2014 10-02-2014 Episodic Cardiac dysrhythmias (1 source) Palpitations; Translations: [Palpitations] Onset: 12-09-2022 05-07-2023 Episodic Malaise and fatigue (2 sources) Malaise and fatigue; Translations: [Other fatigue] Onset: 07-21-2016 07-21-2016 Episodic Other and unspecified benign neoplasm (2 sources) Benign neoplasm of unspecified adrenal gland; Translations: [Benign neoplasm of unspecified adrenal gland] Onset: 08-25-2016 08-25-2016 Episodic Other circulatory disease (2 sources) Vascular disorder; Translations: [Unspecified disorder of circulatory system] Onset: 07-26-2016 07-26-2016 Episodic Other female genital disorders (2 sources) Pelvic congestion syndrome; Translations: [Other specified conditions associated with female genital organs and menstrual cycle] Onset: 12-06-2014 12-06-2014 Episodic Other nutritional; endocrine; and metabolic disorders (2 sources) Body mass index (BMI) 26.0-26.9, adult; Translations: [Body mass index (BMI) 26.0-26.9, adult] Onset: 07-21-2016 07-21-2016 Episodic Results Test Name Value Interpretation Reference Range Facil ity Vital Signs Date Time Vital Sign Value Performing Clinician Facility 07-01-2023 10:42-0500 Body temperature 97.5 [degF] Cecy Braxton MD Work Phone: [facility] 07-01-2023 10:42-0500 Body weight 66.2 kg Cecy Braxton MD Work Phone: [facility] 07-01-2023 10:42-0500 Diastolic blood pressure 68 mm[Hg] Cecy Braxton MD Work Phone: [facility] 07-01-2023 10:42-0500 Heart rate 69 /min Cecy Braxton MD Work Phone: [facility] 07-01-2023 10:42-0500 SaO2% (BldA) [Mass fraction] 99 % Cecy Braxton MD Work Phone: [facility] 07-01-2023 10:42-0500 Systolic blood pressure 111 mm[Hg] Cecy Braxton MD Work Phone: [facility] 03-19-2023 13:46-0500 Body height 162.6 cm Tiffany Graevs APRN.RESIDENT SERVICES COORDINATOR Work Phone: [facility] 03-19-2023 13:46-0500 Body weight 67.13 kg Tiffany Graves APRN.RESIDENT SERVICES COORDINATOR Work Phone: [facility] 03-19-2023 13:46-0500 Diastolic blood pressure 62 mm[Hg] Tiffany Graves APRN.RESIDENT SERVICES COORDINATOR Work Phone: [facility] 03-19-2023 13:46-0500 Systolic blood pressure 108 mm[Hg] Tiffany Graves APRN.RESIDENT SERVICES COORDINATOR Work Phone: [facility] 12-10-2021 13:30-0400 Body temperature 97.2 [degF] b [address] [place] [address] 12-10-2021 13:30-0400 Diastolic blood pressure 70 mm[Hg] b 6 [facility] 12-10-2021 13:30-0400 Heart rate 65 /min b 6 [facility] 12-10-2021 13:30-0400 Respiratory rate 16 /min b [address] [place] [address] 12-10-2021 13:30-0400 SaO2% (BldA) [Mass fraction] 98 % b 6 [facility] 12-10-2021 13:30-0400 Systolic blood pressure 120 mm[Hg] b 6 [facility] 08-09-2022 10:30-0400 Body height 160 cm [facility] 6 [facility] 12-10-2021 10:30-0400 Body mass index (BMI) [Ratio] 28.34 kg/m2 [facility] 6 [facility] 12-10-2021 10:30-0400 Body weight 72.58 kg [facility] 6 [facility] 10-22-2016 10:01-0400 BMI (Body Mass Index) 24.89 kg/m2 Lynette Padron FISH TENDER [facility] Work Phone: 10-22-2016 10:01-0400 Body Temperature 98 [degF] Lynette Padron FISH TENDER [facility] Work Phone: 10-22-2016 10:01-0400 Body Temperature 98.01 [degF] Lynette Padron FISH TENDER [facility] Work Phone: 10-22-2016 10:01-0400 BP Diastolic 83 mm[Hg] Lynette Padron FISH TENDER [facility] Work Phone: 10-22-2016 10:01-0400 BP Systolic 130 mm[Hg] Lynette Padron FISH TENDER [facility] Work Phone: 10-22-2016 10:01-0400 BSA (Body Surface Area) 1.71 m2 Lynette Padron FISH TENDER [facility] Work Phone: 10-22-2016 10:01-0400 Height 162.56 cm Lynette Padron NP [facility] Work Phone: 10-22-2016 10:01-0400 Pulse (Heart Rate) 78 /min Lynette Padron FISH TENDER [facility] Work Phone: 10-22-2016 10:01-0400 Pulse Oximetry 97 % Lynette Padron NP [facility] Work Phone: 10-22-2016 10:01-0400 Respiratory Rate 16 /min Lynette Padron FISH TENDER [facility] Work Phone: 10-22-2016 10:01-0400 Weight 65.77 kg Lynette Padron FISH TENDER [facility] Work Phone: Encounters Encounter Date Encounter Type Care Provider Facility Start: 07-01-2023 End: 07-01-2023 Patient encounter procedure Cecy Braxton MD Work Phone: [facility] Procedures Date Procedure Procedure Detail Performing Clinician Start: 12-10-2021 OPERATIVE REPORT Physic pablito Generic Start: 03-07-2021 Colonoscopy Tiffany yeh APRN.RESIDENT SERVICES COORDINATOR Work Phone: Start: 10-22-2016 End: 11-03-2016 Acth stimulation panel Lynette Padron NP Work Phone: Start: 07-21-2016 End: 2016 Thyroid stimulating hormone (TSH) Lynette Padron NP Work Phone: Start: 07-21-2016 End: 07-24-2016 Thyroperoxidase antibody Lynette Padron NP Work Phone: Start: 07-21-2016 End: 2016 Thyroxine (T4) free Lynette Padron NP Work Phone: Start: 07-21-2016 End: 2016 Triiodothyronine (T3) free Lynette calixto FISH TENDER Work Phone: Plan of Treatment Date Care Activity Detail Author Start: 03-07-2026 Colonoscopy Colonoscopy [facility] Start: 03-07-2026 Colorectal Cancer Screening Colorectal Cancer Screening [facility] Start: 03-07-2026 Screening for malignant neoplasm of colon [facility] Start: 10-24-2023 DTaP/Tdap/Td vaccine (3 - Td or Tdap) DTaP/Tdap/Td vaccine (3 - Td or Tdap) [facility] Start: 10-24-2023 Urine microalbumin profile DTaP,Tdap,Td Vaccine (3 - Td or Tdap) [facility] Start: 05-04-2023 Depression Assessment Depression Assessment [facility] Start: 01-02-2023 Covid-19 Vaccine () Covid-19 Vaccine () [facility] Start: 01-02-2023 Influenza vaccination Influenza Vaccine (#1) [facility] Start: 05-04-2022 Depression Assessment Depression Assessment [facility] Start: 01-02-2022 Influenza vaccination Flu vaccine (#1) [facility] Start: 07-05-2021 COVID-19 Vaccine (3 - Booster for Pfizer series) COVID-19 Vaccine (3 - Booster for Pfizer series) [facility] Start: 06-15-2020 Mammography Mammogram Screening [facility] Start: 06-15-2020 Screening for malignant neoplasm of breast Mammogram Screening [facility] Start: 07-22-2017 Screening for malignant neoplasm of breast Breast cancer screen [facility] Start: 07-22-2017 Shingles vaccine (1 of 2) Shingles vaccine (1 of 2) [facility] Start: 07-22-2017 Shingrix Vaccine (1 of 2) Shingrix Vaccine (1 of 2) [facility] Start: 10-22-2016 End: 11-03-2016 Acth stimulation panel ACTH stimulation panel; for adrenal insufficiency. [facility] Work Phone: Start: 08-25-2016 End: 08-25-2016 Ct abdomen w/o & w/dye CT Abdomen [facility] Work Phone: Start: 07-21-2016 End: 2016 Thyroid stimulating hormone (TSH) *TSH [facility] Work Phone: Start: 07-21-2016 End: 07-24-2016 Thyroperoxidase antibody *TPO Thyroid Peroxidase Antibodies [facility] Work Phone: Start: 07-21-2016 End: 2016 Thyroxine (T4) free *T4 free [facility] Work Phone: Start: 07-21-2016 End: 2016 Triiodothyronine (T3) free *T3-Free [facility] Work Phone: Start: 01-01-2014 HPV Testing HPV Testing [facility] Start: 01-01-2014 Pap Testing Pap Testing [facility] Start: 01-01-2014 Screening for malignant neoplasm of cervix [facility] Start: 07-22-2012 Cologuard (FIT-DNA) Cologuard (FIT-DNA) [facility] Start: 07-22-[address] Colonography [facility] Start: 07-22-2012 Diabetes Screening Diabetes Screening [facility] Start: 07-22-2012 Fecal Occult Blood Fecal Occult Blood [facility] Start: 07-22-2012 Lipid 1996 panel - Serum or Plasma Lipid Screening [facility] Start: 07-22-2012 Lipid panel Lipid Screening [facility] Start: 07-22-2012 Screening for malignant neoplasm of colon [facility] Start: 07-22-2012 Sigmoidoscopy Sigmoidoscopy [facility] Start: 07-22-2002 Diabetes screen Diabetes screen [facility] Start: 07-22-1997 Zoledronic acid therapy Alpha-1 Antitrypsin Deficiency Screening [facility] Start: 07-22-1985 Annual PCP Team Chronic Disease Visit Annual PCP Team Chronic Disease Visit [facility] Start: 07-22-1985 Hepatitis C screening [facility] Start: 07-22-1985 Hepatitis C Screening Hepatitis C Screening [facility] Start: 07-22-1985 HIV Screening HIV Screening [facility] Start: 07-22-1985 HIV screening HIV Screening [facility] Start: 07-22-1985 Spirometry Spirometry [facility] Start: 07-22-1982 HIV screening HIV screen [facility] Start: 1979 Depression Screen Depression Screen [facility] Start: 07-22-1977 Lipid panel Lipids [facility] Start: 07-22-1973 Pneumococcal 0-64 years Vaccine (1 - PCV) Pneumococcal 0-64 years Vaccine (1 - PCV) [facility] Start: 07-22-1973 Pneumococcal vaccination [facility] Start: 1967 Hepatitis B Vaccine (1 of 3 - 3-dose series) Hepatitis B Vaccine (1 of 3 - 3-dose series) [facility] Chlamydia trachomatis+Neisseria gonorrhoeae DNA [Presence] in Unspecified specimen by JAMIE with probe detection GONORRHEA/CHLAMYDIA NAAT Lab Routine Screen for STD (sexually transmitted disease) 03/19/2023 2:55 PM EST [facility] Work Phone: End: 12-10-2021 INITIATE PACU OXYGEN THERAPY PROTOCOL Initiate PACU Oxygen Therapy Protocol Respiratory Care Routine Continuous until discontinued starting 12/10/2021 [facility] Work Phone: Immunizations Immunization Date Immunization Notes Care Provider Marely dubon 03-21-2021 influenza virus vacc ine, unspecified formulation Tiffany Graves APRN.CNP Work Phone: [facility] Payers Date Payer Category Payer Medicaid [employer] [id number] 2022-Present [phone] [address] [place] [address] Medicaid [id number] 2022 Medicaid [id number] 2021 Unknown [employer] [facility] MEDICAID [id number] 2021-Present [phone] [address] [place] [address] [id number] Social History Date Type Detail Facility Start: 12-10-2021 End: 05-11-2023 Tobacco smoking status COIS Smokes tobacco daily [facility] Start: 05-04-2001 History of tobacco use Cigarette Smo ker [facility] Work Phone: Start: 12-10-2021 End: 03-04-2023 Cigarettes smoked current (pack per day) - Reported 0.5 [facility] Work Phone: Start: 12-10-2021 End: 05-11-2023 Tobacco use and exposure Smokeless tobacco non-user [employer] Work Phone: Start: 12-10-2021 Alcohol intake Ex-drinker (finding) [employer] Work Phone: Start: 12-10-2021 Tobacco Comment working on quitting [facility] Work Phone: Start: 1965 Sex Assigned At Not on file [facility] [employer] Work Phone: Start: 11-30-2021 End: 12-10-2021 Exposure to SARS-CoV-2 (event) Not sure [employer] Work Phone: Start: 03-19-2023 End: 05-18-2023 Alcohol intake Current drinker of alcohol (finding) [facility] Start: 03-04-2023 End: 03-19-2023 Tobacco use panel [facility] National Score (1-10 0), lower number is lower risk 71 [facility] Start: 12-06-2014 Alcohol Comment Socially [facility] Start: 1965 Sex Assigned At Female C [facility] Start: 03-21-2021 Gender identity Identifies as female gender (finding) [facility] Start: 03-21-2021 Sexual orientation Heterosexual (ammy seymour) [facility] Start: 05-11-2023 Tobacco Comment Cut back to 1/ 2 to 1/4 packs per day [facility] Start: 05-08-2023 Alcohol Comment rare occassion [facility] Medical Equipment Procedure Code Equipment Code Equipment Origin al Text Equipment Identifier Dates Mesh Restorelle Y Smartmesh 1.8mm 24x4cm Surgical Large [employer] T[employer]ore - [id number] Start: 05-18-2023 Clinical Notes 03-07-2021 to 07-01-2023 Cecy Braxton MD - 07/01/2023 11:00 AM Tiffany Davis APRN.RESIDENT SERVICES COORDINATOR - 03/19/2023 1:41 PM Antwan Peterson RN - 12/10/2021 1:25 PM Frank Peterson RN - 12/10/2021 1:15 PM EDTDischarge Instructions Note Date & Type Note Facility 07-01-2023 History of Presen t illness Narrative Female Pelvic Medicine & Reconstructive Surgery Post-Op Visit Jessy Alegre is a 57 year old female who presents for a 6 Week post-op check s/p SURGERY/PROCEDURE(S): Laparoscopic Sacrocolpopexy with mesh Cystoscopy Lysis of adhesions Urethral dilation . Post-op complications: no Bleeding: no Pain: no If you had pain related to your prolapse before surgery, has your pain resolved? Not Applicable Abnormal vaginal discharge: no Pathology: n/a Patient states Vicodin caused constipation so she switched to leftover Tramadol. Her bowels are regular now. Overall doing very well! Excited to work out again. Did lots of walking during her recovery. Denies RICHAR or UUI. Bladder urgency significantly improved since prior to surgery. Does endorse drinking too much coffee, tea, and soda - reports she knows she does it, does it to herself. PFDI-20 Do you: Usually experience pressure in the lower abdomen? No (0) Usually experience heaviness or dullness in the pelvic area? No (0) Usually have a bulge or something falling out that you can see or feel in your vaginal area? No (0) Ever have to push on the vagina or around the rectum to have or complete a bowel movement? No (0) Usually experience a feeling of incomplete bladder emptying? No (0) Ever have to push up on a bulge in the vaginal area with your fingers to start or complete urination? No (0) Feel you need to strain too hard to have a bowel movement? No (0) Feel you have not completely emptied your bowels at the end of a bowel movement? Yes, not at all bothersome (1) Usually lose stool beyond your control if your stool is well formed? No (0) Usually lose stool beyond your control if your stool is loose? No (0) Usually lose gas from the rectum beyond your control? No (0) Usually have pain when you pass your stool? No (0) Experience a strong sense of urgency and have to dillon to the bathroom to have a bowel movement? Yes, somewhat bothersome (2) Does part of your bowel ever pass through the rectum and bulge outside during or after a bowel movement? No (0) Usually experience frequent urination? Yes, moderately bothersome (3) Usually experience urine leakage associated with a feeling of urgency, that is, a strong sensation of needing to go to the bathroom? No (0) Usually experience urine leakage related to coughing, sneezing or laughing? No (0) Usually experience small amounts of urine leakage (that is, drops)? No (0) Usually experience difficulty emptying your bladder? No (0) Usually experience pain or discomfort in the lower abdomen or genital region? No (0) Overall, how satisfied were you with your postoperative pain medication? Neither satisfied nor dissatisfied With regard to your expectations before surgery, did you have the amount of pain you expected, more pain, or less pain? About the amount of pain I expected Was the preoperative teaching you had about pain expectations helpful? Yes Were the discharge instructions you received about pain medications helpful? Yes Funeral Service Practitioner/Embalmer offered:Patient accepts, visit chaperoned by Kathleen Hansen RN OBJECTIVE: BP 111/68 Pulse 69 Temp (Src) 97.5 (Oral) Wt 145 lb 15.1 oz (66.2kg) SpO2 99% LMP 11/30/2006 General: Well appearing, alert, in no acute distress, well-hydrated, well nourished. Abdomen: Abdomen soft, non-tender, incisions healing well Pelvic: Ext. Genitalia, No lesions or other abnormalities Vagina: Good vaginal support Cervix: Absent Urethra: Normal Bimanual: No tenderness, No masses Rectovaginal: Deferred ASSESMENT: Jessy Alegre is a 57 year old female who is post-op; stable and doing well post-operative course uncomplicated PLAN: May resume normal activities. May resume intercourse. Follow up 3 months, then at 1 year. Then can return to primary OBGYN for exams annually for at least 5 years, then every 1-2 years after that. Continue vaginal estrogen. Cecy Braxton MD documented in this encounter [facility] 05-18-2023 Note HNO ID: [id number] Author: SABINO RABAGO APRN.CURTAINS AND DRAPERIES SALESPERSON Service: Anesthesiology Author Type: Nurse Forestry Farm Laborer Type: Anesthesia Procedure Notes Filed: 05/18/2023 09:08 Note Text: ANESTHESIOLOGY PROCEDURE NOTE Airway General Information Procedure Start Time/Medication Administration: 05/18/2023 8:16 AM Procedure End Time: 05/18/2023 8:17 AM Patient location during procedure: OR Timeout Performed Pre-procedure: timeout performed Consent Obtained: Yes Patient identity confirmed: arm band and patient Staffing Anesthesiologist: Dinh Jernigan MD CURTAINS AND DRAPERIES SALESPERSON: Sabion Rabago APRN.CURTAINS AND DRAPERIES SALESPERSON Performed by: other anesthesia staff Indications and [...] intact SIGNATURE: Sabino Rabago APRN.CRNA PATIENT NAME: Jessy Alegre DATE: May 18, 2023 TIME: 9:05 AM CSN: [id number] [facility] 04-15-2023 Note HNO ID: [id number] Author: Kristal Toth LPN Service: ? Author Type: LICENSED NURSE Type: Progress Notes Filed: 04/21/2023 2:11 PM Note Text: DATE OF SERVICE: 04/21/2023 PROBLEM: Jessy Alegre presents for pre-op teaching. PRE-OP DIAGNOSIS: vaginal vault prolapse SCHEDULED SURGERY AND DATE: 05-18-23 [place] COLPOPEXY LAPAROSCOPIC, POSTERIOR COLPORRHAPHY W/ REPAIR RECTOCELE [...] patient have an advanced directive: No Does [facility] have a copy of the patient's advanced [...] prescribed by anesthesia, internal medicine, surgeon, or FISH TENDER Stop NSAIDs, Aspirin (ASA), vitamins, herbal supplements, [...] jewelry, body piercing, makeup, contacts, lotions, nail serbian on fingers, or anything in hair on arrival to surgery Wear low healed shoes and loose fitting clothing Leave all valuables at home or with a family member Directions to [facility] Parking/parking validation on the day prior to [...] if after hours patient instructed to call maintainer operator and ask for concrete finishing machine operator holter technician resident. MELVI program offered to patient: Yes Additional teaching [...] None Educator: Kristal Toth LPN [facility] [facility] 03-19-2023 Note HNO ID: [id number] Author: Tiffnay Graves APRN.RESIDENT SERVICES COORDINATOR Service: ? Author Type: Nurse Practitioner Type: Progress Notes Filed: 03/19/2023 2:34 PM Note Text: Funeral Service Practitioner/Embalmer offered: Patient declines. Jessy is a 57 year old who presents for an annual gynecologic exam without complaints. Scheduled 05/15/2022 for repair of prolapse. Postmenopausal: Hysterectomy 2014 with LSO benign cause HRT use: Just started vaginal estrogen for surgery preparation. Had been using estrogen and testosterone pellet with last insertion 09/2022 History of abnormal pap: Yes LEEP 1997 Last mammogram: 2022 normal at [facility] History of abnormal mammogram: Sexually active: Yes History of STDS: HPV Patient concerns for STD exposure: No. Time with current partner: 4.5 years Pain with intercourse: No Postcoital bleeding: No Hot flashes: No Night sweats: No OB History T0 L2 SAB0 IAB0 Ectopic0 Multiple0 Live Births0 Electronic Bench Technician History LMP: 11/30/2006, Hysterectomy Age at Menarche: Age at First : Age at Menopause: Electronic Bench Technician History Comments: Sexual Activity: Never; No partner [...] CERVIX W/WO DANDC RPR ELTRD EXC 1997 [facility] LEEP-Cervix DILATION AND CURETTAGE DXAND/THER NONOBSTETRIC [...] external genitalia normal, normal Bartholin's glands, urethra, Cana's glands, no vulvar lesions, physiologic discharge present, [...] Colon cancer screeni (more content not included)... [facility] 03-19-2023 History of Presen t illness Narrative Funeral Service Practitioner/Embalmer offered: Patient declines. Jessy is a 57 year old who presents for an annual gynecologic exam without complaints. Scheduled 05/15/2022 for repair of prolapse. Postmenopausal: Hysterectomy 2014 with LSO benign cause HRT use: Just started vaginal estrogen for surgery preparation. Had been using estrogen and testosterone pellet with last insertion 09/2022 History of abnormal pap: Yes LEEP 1997 Last mammogram: 2022 normal at [facility] History of abnormal mammogram: Sexually active: Yes History of STDS: HPV Patient concerns for STD exposure: No. Time with current partner: 4.5 years Pain with intercourse: No Postcoital bleeding: No Hot flashes: No Night sweats: No OB History T0 L2 SAB0 IAB0 Ectopic0 Multiple0 Live Births0 Electronic Bench Technician History LMP: 11/30/2006, Hysterectomy Age at Menarche: Age at First : Age at Menopause: Electronic Bench Technician History Comments: Sexual Activity: Never; No partner [...] CERVIX W/WO D&C RPR ELTRD EXC 1997 [facility] LEEP-Cervix DILATION & CURETTAGE DX&/THER NONOBSTETRIC [...] external genitalia normal, normal Bartholin's glands, urethra, Cana's glands, no vulvar lesions, physiologic discharge present, [...] year or sooner as needed Tiffany Graves APRN.RESIDENT SERVICES COORDINATOR documented in this encounter [facility] 03-04-2023 Note HNO ID: [id number] Author: Cecy Braxton MD Service: ? Author Type: Physician Type: Progress Notes Filed: 03/04/2023 1:17 PM Note Text: Female Pelvic Medicine AND Reconstructive Surgery Consult CHIEF COMPLAINT: Jessy Alegre is a 57 year old referred for consultation regarding prolapse. S/p anterior and posterior colporrhaphies, site specific rectocele repair, [place] sling [place] [address] Gonzaels. She has had a hysterectomy for prolapse [...] and ovarian cancer. 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 repeat in 5 [...] mesh REMOVAL OF (more content not included)... [facility] 12-10-2021 History of Presen t illness Narrative Sister at bedside. Patient and [...] documented in this encounter [facility] Work Phone: 12-10-2021 Hospital Discharg e instructions María Elena [...] antibiotics as prescribed. documented in this encounter [employer] Work Phone: documented as of this encounter (statuses as of 03/19/2023) [facility] History of Past illness Narrative* Problem Noted Date Diagnosed Date Resolved Date Family history of colon cancer 03/07/2021 03/07/2021 Diarrhea 03/07/2021 03/07/2021 documented as of this encounter (statuses as of 07/01/2023) [facility] Encounter for gynecological examination with abnormal finding- Primary Routine gynecological examination Encounter for screening mammogram for breast cancer Screen for STD (sexually transmitted disease) Screening examination for venereal disease Cystocele, midline Rectocele Vaginal vault prolapse Unspecified prolapse of vaginal guerra Cystocele, midline Rectocele [facility] Cystocele, midline- Primary Rectocele Vaginal vault prolapse Unspecified prolapse of vaginal guerra Mixed stress and urge urinary incontinence Mixed incontinence urge and stress (male)(female) Vaginal atrophy Postmenopausal atrophic vaginitis documented in this encounter [facility] Summary Purpose Family History No Family History Records FoundNo Family History Records FoundNo Family History Records Found Advance Directives Latest Code Status on File Code Status Date Activated Date Inactivated Comments Full Code 12/10/2021 10:25 AM Additional Source Comments INFORMATION SOURCE (unrecogn ized section and content) DATE CREATED AUTHOR AUTHOR'S ORGANIZ ATION 05/19/2023 [facility] DATE CREATED AUTHOR AUTHOR'S ORGANIZ ATION 05/20/2023 [facility] Ordered Prescriptions (unrec ognized section and content) [...] or prosecute any alcohol or drug abuse patient.[facility] the event this information is protected by the Federal Confidentiality of Alcohol and Drug Abuse Patient Records regulations: The Federal rules restrict any use of the information to criminally investigate or prosecute any alcohol or drug abuse patient.[facility] Reason for Visit (unrecogniz ed section and content) Reason Comments Pre-Op Visit Care Teams (unrecognized sec tion and content) Repair Clerk Relationship Specialty Start Date End Date Lala Nolen MD [address] [facility] [address] [place] [address] PCP - General Family Medicine 01/09/21 FOR RECORDS PERTAINING TO PATIENTS WHO ARE [...] BE BASED ON THE PRIMARY CLINICAL RECORDS. [facility] [employer] [facility]. provides no warranty or guarantee of the accuracy or completeness of information in this document.
[2023-07-15 04:07] LABS: DHEA Sulfate 31.6 ug/dL (29.4-220.5)
== END | disposition home or self-care (01) ==
LOC: LAB 09:33
PROVIDERS: PCP Family Medicine; Referring Provider Internal Medicine Endocrinology, Diabetes & Metabolism; Visit Provider Internal Medicine Endocrinology, Diabetes & Metabolism
DX: D35.00 Benign neoplasm of unspecified adrenal gland (principal)
CPT/HCPCS: 36415; 82627; 82626

== ENCOUNTER → 2023-07-16 | Outpatient (CLI) | payer MEDICAID, SELFPAY ==
--- OUTSIDE RECORDS SUMMARY | 2023-07-16 12:00 | XMS RPT_ITS | CCD ---
Author Name Unknown Address [address] [place] [address] Organization [facility] Care Team Providers Care Closet Builder Name Role Phone Nereida LUBIN, Lynette Guerrero Unavailable [phone] Unavailable Primary Care Provider UnavailLala Mathew MD Primary Care Provider CECY BRAXTON Admitting Unavailable LALA NOLEN Primary Care Unavailable CECY BRAXTON Referring Unavailable CECY BRAXTON Attending Unavailable LALA NOLEN Primary Care Unavailable CECY BRAXTNO Referring Unavailable LALA NOLEN Primary Care Unavailable [...] Translations: [AMOXICILLIN-POT CLAVULANATE] Drug Allergy 3 Swelling [facility] Work Phone: Medications Current Medications Medication Drug [...] Drug Class(es) Dates Sig (Normalized) Sig (Original) [id number] 200 actuat albuterol 0.09 mg/actuat metered dose [...] 97.5 [degF] Cecy Braxton MD Work Phone: [facility] 07-01-2023 10:42-0500 Body weight 66.2 kg Cecy Braxton MD Work Phone: [facility] 07-01-2023 10:42-0500 Diastolic blood pressure 68 mm[Hg] Cecy Braxton MD Work Phone: [facility] 07-01-2023 10:42-0500 Heart rate 69 /min Cecy Braxton MD Work Phone: [facility] 07-01-2023 10:42-0500 SaO2% (BldA) [Mass fraction] 99 % Cecy Braxton MD Work Phone: [facility] 07-01-2023 10:42-0500 Systolic blood pressure 111 mm[Hg] Cecy Braxton MD Work Phone: [facility] 03-19-2023 13:46-0500 Body height 162.6 cm Tiffany Graves APRN.OPTOMETRIC TECHNICIAN Work Phone: [facility] 03-19-2023 13:46-0500 Body weight 67.13 kg Tiffany Graves APRN.OPTOMETRIC TECHNICIAN Work Phone: [facility] 03-19-2023 13:46-0500 Diastolic blood pressure 62 mm[Hg] Tiffany Graves APRN.OPTOMETRIC TECHNICIAN Work Phone: [facility] 03-19-2023 13:46-0500 Systolic blood pressure 108 mm[Hg] Tiffany Graves APRN.OPTOMETRIC TECHNICIAN Work Phone: [facility] 12-10-2021 13:30-0400 Body temperature 97.2 [degF] b [address] [place] [address] 12-10-2021 13:30-0400 Diastolic blood pressure 70 mm[Hg] b 6 [facility] 12-10-2021 13:30-0400 Heart rate 65 /min b 6 [facility] 12-10-2021 13:30-0400 Respiratory rate 16 /min b [address] [place] [address] 12-10-2021 13:30-0400 SaO2% (BldA) [Mass fraction] 98 % b 6 [facility] 12-10-2021 13:30-0400 Systolic blood pressure 120 mm[Hg] b 6 [facility] 08-09-2022 10:30-0400 Body height 160 cm [facility] 6 [facility] 12-10-2021 10:30-0400 Body mass index (BMI) [Ratio] 28.34 kg/m2 [facility] 6 [facility] 12-10-2021 10:30-0400 Body weight 72.58 kg [facility] 6 [facility] 10-22-2016 10:01-0400 BMI (Body Mass Index) 24.89 kg/m2 Lynette Padron ADMINISTRATIVE UNDERWRITER [facility] Work Phone: 10-22-2016 10:01-0400 Body Temperature 98 [degF] Lynette Padron ADMINISTRATIVE UNDERWRITER [facility] Work Phone: 10-22-2016 10:01-0400 Body Temperature 98.01 [degF] Lynette Padron ADMINISTRATIVE UNDERWRITER [facility] Work Phone: 10-22-2016 10:01-0400 BP Diastolic 83 mm[Hg] Lynette Padron ADMINISTRATIVE UNDERWRITER [facility] Work Phone: 10-22-2016 10:01-0400 BP Systolic 130 mm[Hg] Lynette Padron ADMINISTRATIVE UNDERWRITER [facility] Work Phone: 10-22-2016 10:01-0400 BSA (Body Surface Area) 1.71 m2 Lynette Padron ADMINISTRATIVE UNDERWRITER [facility] Work Phone: 10-22-2016 10:01-0400 Height 162.56 cm Lynette Padron NP [facility] Work Phone: 10-22-2016 10:01-0400 Pulse (Heart Rate) 78 /min Lynette Padron ADMINISTRATIVE UNDERWRITER [facility] Work Phone: 10-22-2016 10:01-0400 Pulse Oximetry 97 % Lynette Padron NP [facility] Work Phone: 10-22-2016 10:01-0400 Respiratory Rate 16 /min Lynette Padron ADMINISTRATIVE UNDERWRITER [facility] Work Phone: 10-22-2016 10:01-0400 Weight 65.77 kg Lynette Padron ADMINISTRATIVE UNDERWRITER [facility] Work Phone: Encounters Encounter Date Encounter Type Care Provider Facility Start: 07-01-2023 End: 07-01-2023 Patient encounter procedure Cecy Braxton MD Work Phone: SENIOR STATISTICAL PROGRAMMER [facility] Procedures Date Procedure Procedure Detail Performing Clinician Start: 12-10-2021 OPERATIVE REPORT Physic pablito Generic Start: 03-07-2021 Colonoscopy Tiffany yeh APRN.OPTOMETRIC TECHNICIAN Work Phone: Start: 10-22-2016 End: 11-03-2016 Acth stimulation panel Lynette Padron NP Work Phone: Start: 07-21-2016 End: 2016 Thyroid stimulating hormone (TSH) Lynette Padron NP Work Phone: Start: 07-21-2016 End: 07-24-2016 Thyroperoxidase antibody Lynette Padron NP Work Phone: Start: 07-21-2016 End: 2016 Thyroxine (T4) free Lynette Padron NP Work Phone: Start: 07-21-2016 End: 2016 Triiodothyronine (T3) free Lynette calixto ADMINISTRATIVE UNDERWRITER Work Phone: Plan of Treatment Date Care Activity Detail Author Start: 03-07-2026 Colonoscopy Colonoscopy [facility] Start: 03-07-2026 Colorectal Cancer Screening Colorectal Cancer Screening [facility] Start: 03-07-2026 Screening for malignant neoplasm of colon [facility] Start: 10-24-2023 DTaP/Tdap/Td vaccine (3 - Td or Tdap) DTaP/Tdap/Td vaccine (3 - Td or Tdap) [facility] Start: 10-24-2023 Urine microalbumin profile DTaP,Tdap,Td Vaccine (3 - Td or Tdap) [facility] Start: 05-04-2023 Depression Assessment Depression Assessment [facility] Start: 01-02-2023 Covid-19 Vaccine () Covid-19 Vaccine () [facility] Start: 01-02-2023 Influenza vaccination Influenza Vaccine (#1) [facility] Start: 05-04-2022 Depression Assessment Depression Assessment [facility] Start: 01-02-2022 Influenza vaccination Flu vaccine (#1) [facility] Start: 07-05-2021 COVID-19 Vaccine (3 - Booster for Pfizer series) COVID-19 Vaccine (3 - Booster for Pfizer series) [facility] Start: 06-15-2020 Mammography Mammogram Screening [facility] Start: 06-15-2020 Screening for malignant neoplasm of breast Mammogram Screening [facility] Start: 07-22-2017 Screening for malignant neoplasm of breast Breast cancer screen [facility] Start: 07-22-2017 Shingles vaccine (1 of 2) Shingles vaccine (1 of 2) [facility] Start: 07-22-2017 Shingrix Vaccine (1 of 2) Shingrix Vaccine (1 of 2) [facility] Start: 10-22-2016 End: 11-03-2016 Acth stimulation panel ACTH stimulation panel; for adrenal insufficiency. [facility] Work Phone: Start: 08-25-2016 End: 08-25-2016 Ct abdomen w/o & w/dye CT Abdomen [facility] Work Phone: Start: 07-21-2016 End: 2016 Thyroid stimulating hormone (TSH) *TSH [facility] Work Phone: Start: 07-21-2016 End: 07-24-2016 Thyroperoxidase antibody *TPO Thyroid Peroxidase Antibodies [facility] Work Phone: Start: 07-21-2016 End: 2016 Thyroxine (T4) free *T4 free [facility] Work Phone: Start: 07-21-2016 End: 2016 Triiodothyronine (T3) free *T3-Free [facility] Work Phone: Start: 01-01-2014 HPV Testing HPV Testing [facility] Start: 01-01-2014 Pap Testing Pap Testing [facility] Start: 01-01-2014 Screening for malignant neoplasm of cervix [facility] Start: 07-22-2012 Cologuard (FIT-DNA) Cologuard (FIT-DNA) [facility] Start: 07-22-[address] Colonography [facility] Start: 07-22-2012 Diabetes Screening Diabetes Screening [facility] Start: 07-22-2012 Fecal Occult Blood Fecal Occult Blood [facility] Start: 07-22-2012 Lipid 1996 panel - Serum or Plasma Lipid Screening [facility] Start: 07-22-2012 Lipid panel Lipid Screening [facility] Start: 07-22-2012 Screening for malignant neoplasm of colon [facility] Start: 07-22-2012 Sigmoidoscopy Sigmoidoscopy [facility] Start: 07-22-2002 Diabetes screen Diabetes screen [facility] Start: 07-22-1997 Zoledronic acid therapy Alpha-1 Antitrypsin Deficiency Screening [facility] Start: 07-22-1985 Annual PCP Team Chronic Disease Visit Annual PCP Team Chronic Disease Visit [facility] Start: 07-22-1985 Hepatitis C screening [facility] Start: 07-22-1985 Hepatitis C Screening Hepatitis C Screening [facility] Start: 07-22-1985 HIV Screening HIV Screening [facility] Start: 07-22-1985 HIV screening HIV Screening [facility] Start: 07-22-1985 Spirometry Spirometry [facility] Start: 07-22-1982 HIV screening HIV screen [facility] Start: 1979 Depression Screen Depression Screen [facility] Start: 07-22-1977 Lipid panel Lipids [facility] Start: 07-22-1973 Pneumococcal 0-64 years Vaccine (1 - PCV) Pneumococcal 0-64 years Vaccine (1 - PCV) [facility] Start: 07-22-1973 Pneumococcal vaccination [facility] Start: 1967 Hepatitis B Vaccine (1 of 3 - 3-dose series) Hepatitis B Vaccine (1 of 3 - 3-dose series) [facility] Chlamydia trachomatis+Neisseria gonorrhoeae DNA [Presence] in Unspecified specimen by JAMIE with probe detection GONORRHEA/CHLAMYDIA NAAT Lab Routine Screen for STD (sexually transmitted disease) 03/19/2023 2:55 PM EST [facility] Work Phone: End: 12-10-2021 INITIATE PACU OXYGEN THERAPY PROTOCOL Initiate PACU Oxygen Therapy Protocol Respiratory Care Routine Continuous until discontinued starting 12/10/2021 [facility] Work Phone: Immunizations Immunization Date Immunization Notes Care Provider Marely dubon 03-21-2021 influenza virus vacc ine, unspecified formulation Tiffany Graves APRN.CNP Work Phone: [facility] Payers Date Payer Category Payer Medicaid [employer] [id number] 2022-Present [phone] [address] [place] [address] Medicaid [id number] 2022 Medicaid [id number] 2021 Unknown [employer] [facility] MEDICAID [id number] 2021-Present [phone] [address] [place] [address] [id number] Social History Date Type Detail Facility Start: 12-10-2021 End: 05-11-2023 Tobacco smoking status OHIS Smokes tobacco daily [employer] Start: 05-04-2001 History of tobacco use Cigarette Smo ker [employer] Work Phone: Start: 12-10-2021 End: 03-04-2023 Cigarettes smoked current (pack per day) - Reported 0.5 [employer] Work Phone: Start: 12-10-2021 End: 05-11-2023 Tobacco use and exposure Smokeless tobacco non-user [employer] Work Phone: Start: 12-10-2021 Alcohol intake Ex-drinker (finding) [employer] Work Phone: Start: 12-10-2021 Tobacco Comment working on quitting [employer] Work Phone: Start: 1965 Sex Assigned At Not on file S [facility] Work Phone: Start: 11-30-2021 End: 12-10-2021 Exposure to SARS-CoV-2 (event) Not sure [employer] Work Phone: Start: 03-19-2023 End: 05-18-2023 Alcohol intake Current drinker of alcohol (finding) [facility] Start: 03-04-2023 End: 03-19-2023 Tobacco use panel [facility] National Score (1-10 0), lower number is lower risk 71 [facility] Start: 12-06-2014 Alcohol Comment Socially [facility] Start: 1965 Sex Assigned At Female [facility] Start: 03-21-2021 Gender identity Identifies as female gender (finding) [facility] Start: 03-21-2021 Sexual orientation Heterosexual (ammy seymour) [facility] Start: 05-11-2023 Tobacco Comment Cut back to 1/ 2 to 1/4 packs per day [facility] Start: 05-08-2023 Alcohol Comment rare occassion [facility] Medical Equipment Procedure Code Equipment Code Equipment Origin al Text Equipment Identifier Dates Mesh Restorelle Y Smartmesh 1.8mm 24x4cm Surgical Large Macropore Tailore - [id number] Start: 05-18-2023 Clinical Notes 03-07-2021 to 07-01-2023 Cecy Braxton MD - 07/01/2023 11:00 AM Tiffany Davis APRN.OPTOMETRIC TECHNICIAN - 03/19/2023 1:41 PM Antwan Peterson RN [...] you received about pain medications helpful? Yes Co Supervisor Grounds And Landscape offered:Patient accepts, visit chaperoned by Kathleen Hansen [...] Cecy Braxton MD documented in this encounter [facility] 05-18-2023 Note HNO ID: [id number] Author: SABINO RABAGO APRN.PROCESS EXCELLENCE MANAGER Service: Anesthesiology Author Type: Nurse Iridologist Type: Anesthesia Procedure Notes Filed: 05/18/2023 09:08 Note Text: ANESTHESIOLOGY PROCEDURE NOTE Airway General Information Procedure Start Time/Medication Administration: 05/18/2023 8:16 AM Procedure End Time: 05/18/2023 8:17 AM Patient location during procedure: OR Timeout Performed Pre-procedure: timeout performed Consent Obtained: Yes Patient identity confirmed: arm band and patient Staffing Anesthesiologist: Dinh Jernigan MD PROCESS EXCELLENCE MANAGER: Sabino Rabago APRN.PROCESS EXCELLENCE MANAGER Performed by: other anesthesia staff Indications and [...] May 18, 2023 TIME: 9:05 AM CSN: [id number] [facility] 04-15-2023 Note HNO ID: [id number] Author: Kristal Toth LPN Service: ? Author Type: LICENSED NURSE Type: Progress Notes Filed: 04/21/2023 2:11 PM Note Text: DATE OF SERVICE: 04/21/2023 PROBLEM: Jessy Alegre presents for pre-op teaching. PRE-OP DIAGNOSIS: vaginal vault prolapse SCHEDULED SURGERY AND DATE: 05-18-23 [place] COLPOPEXY LAPAROSCOPIC, POSTERIOR COLPORRHAPHY W/ REPAIR RECTOCELE [...] patient have an advanced directive: No Does [facility] have a copy of the patient's advanced [...] prescribed by anesthesia, internal medicine, surgeon, or ADMINISTRATIVE UNDERWRITER Stop NSAIDs, Aspirin (ASA), vitamins, herbal supplements, [...] jewelry, body piercing, makeup, contacts, lotions, nail cayman islander on fingers, or anything in hair on arrival to surgery Wear low healed shoes and loose fitting clothing Leave all valuables at home or with a family member Directions to [facility] [place] Parking/parking validation on the day prior to [...] if after hours patient instructed to call band saw operator and ask for mortuary operations manager audit clerk resident. MELVI program offered to patient: Yes [...] None Educator: Kristal Toth LPN [facility] 03-19-2023 Note HNO ID: [id number] Author: Tiffany Graves APRN.OPTOMETRIC TECHNICIAN Service: ? Author Type: Nurse Practitioner Type: Progress Notes Filed: 03/19/2023 2:34 PM Note Text: Co Supervisor Grounds And Landscape offered: Patient declines. Jessy is a 57 year old who presents for an annual gynecologic exam without complaints. Scheduled 05/15/2022 for repair of prolapse. Postmenopausal: Hysterectomy 2014 with LSO benign cause HRT use: Just started vaginal estrogen for surgery preparation. Had been using estrogen and testosterone pellet with last insertion 09/2022 History of abnormal pap: Yes LEEP 1997 Last mammogram: 2022 normal at [facility] History of abnormal mammogram: Sexually active: Yes History of STDS: HPV Patient concerns for STD exposure: No. Time with current partner: 4.5 years Pain with intercourse: No Postcoital bleeding: No Hot flashes: No Night sweats: No OB History T0 L2 SAB0 IAB0 Ectopic0 Multiple0 Live Births0 Watch Assembly Inspector History LMP: 11/30/2006, Hysterectomy Age at Menarche: Age at First : Age at Menopause: Watch Assembly Inspector History Comments: Sexual Activity: Never; No partner [...] CERVIX W/WO DANDC RPR ELTRD EXC 1997 [facility] LEEP-Cervix DILATION AND CURETTAGE DXAND/THER NONOBSTETRIC 1989 [...] external genitalia normal, normal Bartholin's glands, urethra, Brainards's glands, no vulvar lesions, physiologic discharge present, [...] Colon cancer screeni (more content not included)... [facility] 03-19-2023 History of Presen t illness Narrative Co Supervisor Grounds And Landscape offered: Patient declines. Jessy is a 57 year old who presents for an annual gynecologic exam without complaints. Scheduled 05/15/2022 for repair of prolapse. Postmenopausal: Hysterectomy 2014 with LSO benign cause HRT use: Just started vaginal estrogen for surgery preparation. Had been using estrogen and testosterone pellet with last insertion 09/2022 History of abnormal pap: Yes LEEP 1997 Last mammogram: 2022 normal at [facility] History of abnormal mammogram: Sexually active: Yes History of STDS: HPV Patient concerns for STD exposure: No. Time with current partner: 4.5 years Pain with intercourse: No Postcoital bleeding: No Hot flashes: No Night sweats: No OB History T0 L2 SAB0 IAB0 Ectopic0 Multiple0 Live Births0 Watch Assembly Inspector History LMP: 11/30/2006, Hysterectomy Age at Menarche: Age at First : Age at Menopause: Watch Assembly Inspector History Comments: Sexual Activity: Never; No partner [...] CERVIX W/WO D&C RPR ELTRD EXC 1997 [facility] LEEP-Cervix DILATION & CURETTAGE DX&/THER NONOBSTETRIC 1989 [...] external genitalia normal, normal Bartholin's glands, urethra, Brainards's glands, no vulvar lesions, physiologic discharge present, [...] year or sooner as needed Tiffany Graves APRN.OPTOMETRIC TECHNICIAN documented in this encounter [facility] 03-04-2023 Note HNO ID: [id number] Author: Cecy Braxton MD Service: ? Author Type: Physician Type: Progress Notes Filed: 03/04/2023 1:17 PM Note Text: Female Pelvic Medicine AND Reconstructive Surgery Consult CHIEF COMPLAINT: Jessy Alegre is a 57 year old referred for consultation regarding prolapse. S/p anterior and posterior colporrhaphies, site specific rectocele repair, [place] sling [place] [address] [place]. She [...] and ovarian cancer. 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 repeat in 5 [...] mesh REMOVAL OF (more content not included)... [facility] 12-10-2021 History of Presen t illness Narrative [...] antibiotics as prescribed. documented in this encounter [employer] Work Phone: documented as of this encounter (statuses as of 03/19/2023) [facility]11-04-[facility] History of Past illness Narrative* Problem Noted Date Diagnosed Date Resolved Date Family history of colon cancer 03/07/2021 03/07/2021 Diarrhea 03/07/2021 03/07/2021 documented as of this encounter (statuses as of 07/01/2023) [facility] Encounter for gynecological examination with abnormal finding- Primary Routine gynecological examination Encounter for screening mammogram for breast cancer Screen for STD (sexually transmitted disease) Screening examination for venereal disease Cystocele, midline Rectocele Vaginal vault prolapse Unspecified prolapse of vaginal guerra Cystocele, midline Rectocele documented [facility] Cystocele, midline- Primary Rectocele Vaginal vault prolapse Unspecified prolapse of vaginal guerra Mixed stress and urge urinary incontinence Mixed incontinence urge and stress (male)(female) Vaginal atrophy Postmenopausal atrophic vaginitis documented in this encounter [facility] Summary Purpose Family History No Family History Records FoundNo Family History Records FoundNo Family History Records Found Advance Directives Latest Code Status on File Code Status Date Activated Date Inactivated Comments Full Code 12/10/2021 10:25 AM Additional Source Comments INFORMATION SOURCE (unrecogn ized section and content) DATE CREATED AUTHOR AUTHOR'S ORGANIZ ATION 05/19/2023 [facility] DATE CREATED AUTHOR AUTHOR'S ORGANIZ ATION 05/20/2023 [facility] Ordered Prescriptions (unrec ognized section and content) [...] or prosecute any alcohol or drug abuse patient.[facility] the event this information is protected by the Federal Confidentiality of Alcohol and Drug Abuse Patient Records regulations: The Federal rules restrict any use of the information to criminally investigate or prosecute any alcohol or drug abuse patient.[facility] Reason for Visit (unrecogniz ed section and content) Reason Comments Pre-Op Visit Care Teams (unrecognized sec tion and content) Closet Builder Relationship Specialty Start Date End Date Lala Nolen MD [address] [facility] [facility] [address] [place] [address] PCP - General Family Medicine 01/09/21 FOR [...] BE BASED ON THE PRIMARY CLINICAL RECORDS. [facility] [employer] [facility]. provides no warranty or guarantee of the accuracy or completeness of information in this document.
[2023-07-24 17:07] LABS: Cortisol, Free 24Ur 25 ug/24 hr (6-42); Cortisol, Urinary Free 10 ug/L (Undefined); Dopamine, 24Ur 223 ug/24 hr (0-510); Dopamine, UR 89 ug/L (Undefined); Epinephrine, 24Ur < 8 ug/24 hr (0-20); Epinephrine, Ur < 3 ug/L (Undefined); Metanephrine, Ur 56 ug/L (Undefined); Metanephrines, 24Ur 140 ug/24 hr (36-209); Norepinephrine, 24Ur 60 ug/24 hr (0-135); Norepinephrine, Ur 24 ug/L (Undefined); Normetanephrines, 24Ur 365 ug/24 hr (131-612); Normetanephrines, Ur 146 ug/L (Undefined)
== END | disposition home or self-care (01) ==
LOC: LABSPEC 09:33
PROVIDERS: PCP Family Medicine; Visit Provider Internal Medicine Endocrinology, Diabetes & Metabolism
DX: D35.00 Benign neoplasm of unspecified adrenal gland (principal)
CPT/HCPCS: 81050; 82384; 82530; 83835

== ENCOUNTER → 2023-09-09 | Outpatient (CLI) | payer MEDICAID, SELFPAY ==
[2023-09-09 12:33] LABS: Absolute Lymphocyte Count 2.26 X10^3/uL (0.83-4.51); Basophil# 0.05 X10^3/uL; Basophil% 0.7 % (0-1); Eosinophil# 0.07 X10^3/uL; Hematocrit 45.8 % (37-47); Lymphocyte # 2.26 X10^3/ul (0.83-4.51); Lymphocyte % 33.2 % (19-41); Mean Corp Hgb Conc 32.8 g/dL (32-36); Mean Corpuscular Hgb 30.3 pg (27.0-32.0); Mean Corpuscular Volume 92.5 fL (81-99); Mean Platelet Vol. 10.8 fl (6.2-12.0); Monocyte# 0.37 X10^3/uL; Monocyte% 5.4 % (0-10); NRBC Flagged by Analyzer 0 % (0-5); Neutrophil # 4.04 X10^3/uL (2.7-7.7); Neutrophil % 59.4 % (47-70); Platelet Count 298 K/mm3 (150-450); RBC Distribution Width CV 13.5 % (11.6-14.6); RBC Distribution Width SD 45.9 fl (35.1-43.9); Red Blood Count 4.95 M/mm3 (4.2-5.4); White Blood Count 6.8 K/mm3 (4.4-11.0)
[2023-09-09 13:10] LABS: ALB/GLOB Ratio 1.1 RATIO (0.9-2.4); AST(SGOT) 17 U/L (15-37); Alanine Aminotransfer ALT/SGPT 24 U/L (13-56); Albumin, Serum 3.9 g/dL (3.2-5.0); Alkaline Phosphatase 57 U/L (45-117); Anion Gap 6 (5-15); BUN 12 mg/dL (7-18); Calcium,Total 9.5 mg/dL (8.5-10.1); Chloride 104 mmol/L (98-107); Cholesterol 121 mg/dL (200); Creatinine, Serum 0.93 mg/dL (0.55-1.02); EST Glomerular Filtration Rate 67 mL/min (>60); Est Glom Filt Rate - Afr Amer 81 mL/min (>60); Globulin 3.7 g/dL (2.2-4.2); Glucose 104 mg/dL (74-106); High Density Lipoprotein 31 mg/dL; Potassium 4.3 mmol/L (3.5-5.1); Protein, Total 7.6 g/dL (6.4-8.2); Sodium Level 137 mmol/L (136-145); Triglycerides 129 mg/dL; Very Low Density Lipoprotein 26 mg/dL (5-40)
[2023-09-09 14:35] LABS: Vitamin D,25 Hydroxy 62.1 ng/mL
[2023-09-09 14:40] LABS: Hemoglobin A1c 5.5 % (3.8-5.6)
== END | disposition home or self-care (01) ==
LOC: MFPLAB 09:39
PROVIDERS: PCP Family Medicine; Visit Provider Family Medicine
DX: E55.9 Vitamin D deficiency, unspecified (principal); R73.02 Impaired glucose tolerance (oral)
CPT/HCPCS: 36415; 80053; 80061; 82306; 83036; 85025

== ENCOUNTER → 2023-10-13 | Outpatient (CLI) | payer MEDICAID, SELFPAY ==
[2023-10-13 15:57] LABS: Absolute Lymphocyte Count 3.01 X10^3/uL (0.83-4.51); Absolute Neutrophil Count 5.2 X10^3/uL (2.0-7.7); Basophil# 0.05 X10^3/uL; Basophil% 0.6 % (0-1); Eosinophil# 0.07 X10^3/uL; Eosinophils% 0.8 % (0-5); Hematocrit 49.1 % (37-47); Hemoglobin 16.2 g/dL (12.0-15.0); Lymphocyte # 3.01 X10^3/ul (0.83-4.51); Lymphocyte % 34.3 % (19-41); Mean Corpuscular Hgb 30.3 pg (27.0-32.0); Mean Corpuscular Volume 91.8 fL (81-99); Mean Platelet Vol. 10.9 fl (6.2-12.0); Monocyte% 4.6 % (0-10); NRBC Flagged by Analyzer 0 % (0-5); Neutrophil # 5.22 X10^3/uL (2.7-7.7); Neutrophil % 59.5 % (47-70); Platelet Count 301 K/mm3 (150-450); RBC Distribution Width CV 13.2 % (11.6-14.6); RBC Distribution Width SD 44.2 fl (35.1-43.9); Red Blood Count 5.35 M/mm3 (4.2-5.4); White Blood Count 8.8 K/mm3 (4.4-11.0)
[2023-10-13 16:16] LABS: Vitamin D,25 Hydroxy 55.8 ng/mL
[2023-10-13 16:23] LABS: AST(SGOT) 20 U/L (15-37); Alanine Aminotransfer ALT/SGPT 20 U/L (13-56); Albumin, Serum 4.2 g/dL (3.2-5.0); Alkaline Phosphatase 72 U/L (45-117); Anion Gap 5 (5-15); BUN 14 mg/dL (7-18); BUN/Creat Ratio 14.6 RATIO (10-20); Calcium,Total 9.5 mg/dL (8.5-10.1); Chloride 105 mmol/L (98-107); Cholesterol 140 mg/dL (200); Creatinine, Serum 0.96 mg/dL (0.55-1.02); EST Glomerular Filtration Rate 64 mL/min (>60); Est Glom Filt Rate - Afr Amer 77 mL/min (>60); Globulin 4.2 g/dL (2.2-4.2); Glucose 89 mg/dL (74-106); High Density Lipoprotein 32 mg/dL; Potassium 4.1 mmol/L (3.5-5.1); Protein, Total 8.4 g/dL (6.4-8.2); Sodium Level 135 mmol/L (136-145); Triglycerides 137 mg/dL; Very Low Density Lipoprotein 27 mg/dL (5-40)
[2023-10-13 17:53] LABS: Hemoglobin A1c 5.6 % (3.8-5.6)
== END | disposition home or self-care (01) ==
LOC: MTLAB 12:36
PROVIDERS: PCP Family Medicine; Referring Provider Family Medicine; Visit Provider Family Medicine
DX: R73.02 Impaired glucose tolerance (oral) (principal); E78.00 Pure hypercholesterolemia, unspecified; E55.9 Vitamin D deficiency, unspecified
CPT/HCPCS: 36415; 80053; 80061; 82306; 83036; 85025

== ENCOUNTER 2023-11-07 19:53 | Emergency (ER) | payer MEDICAID, SELFPAY ==
[2023-11-07 19:54] VITALS: BP 126/83; PULSE 87; RESP 16; TEMP 36.1; O2SAT 96; BMI 24.5
--- NOTE | 2023-11-07 20:13 | ED.VIS.GI ---
HPI HPI - GI History of Present Illness Chief Complaint: Wound Check Informant: patient Abdominal Pain/Flank Pain Onset: Days Context: Gradual Onset Timing: Continuous Location: Left Flank Current Severity: Mild Maximum Severity: Mild Worsened by: Nothing Relieved by: Nothing Nausea/Vomiting/Emesis GI Symptom: Negative for Nausea or Vomiting Diarrhea/Melena/Hematochezia GI Symptom: Positive for Diarrhea (Chronic.) Stool Quality: Positive for Loose Severity: Mild Associated Symptoms Associated Symptoms: Negative for Dysuria, Frequency, Hematuria or Urgency Narrative Narrative: 58-year-old female history of prediabetes. Had recent surgery for an adrenal gland benign tumor done on October 29 at [facility]. Patient had surgery on a Thursday and was discharged on Thursday. Had been doing well send there are some mild discoloration left side of her abdomen and she is having discomfort. Denies any dysuria or trouble urinating. No hematuria. Denies any fever. She has chronic loose stools it is not new. Denies any fever or vomiting. Called the surgeon on-call for who did her case. They want her to come in to be evaluated. Prior similar symptoms: No Recent Illness/Hospitalization: [facility] Medical History Adrenal adenoma Asthma High cholesterol Pre-diabetes Home Medications ?Medication ?Instructions ?Recorded ?Last Taken ?Type ergocalciferol (vitamin D2) 1,250 1,250 cap PO DAILY 01/27/20 Unknown History mcg (50,000 unit) capsule multivitamin 1 cap PO DAILY 01/27/20 Unknown History ascorbic acid (vitamin C) 500 mg 500 mg PO DAILY 06/25/23 Unknown History capsule rosuvastatin 10 mg tablet 10 mg PO DAILY 06/25/23 Unknown History metformin 500 mg tablet 500 mg PO BID 07/14/23 Unknown History Allergy/AdvReac Type Severity Reaction Status Date / Time amoxicillin (From Augmentin) Allergy Intermediate Rash Verified 11/07/23 19:53 clavulanic acid (From Allergy Intermediate Rash Verified 11/07/23 19:53 Augmentin) oxycodone HCl (From Percocet) Allergy Itching Verified 11/07/23 19:53 Family History Mother Asthma Diabetes Cancer skin Thyroid disorder Father CAD (coronary artery disease) Diabetes Surgical History S/P laparoscopic cholecystectomy S/P tonsillectomy S/P bilateral breast implants S/P hysterectomy s/p bladder sling S/P appendectomy S/P foot surgery Social History household members: spouse Smoking Status: Current every day smoker tobacco type: cigarettes alcohol intake: never substance use type: does not use what type of physical activity do you participate in: walking ROS ROS ED ROS Narrative Left-sided abdominal pain postop. No fever. No vomiting. No dysuria. Chronic loose stool Review of Systems ROS Unobtainable: Denies due to encephalopathy Constitutional Constitutional ED: Denies chills or fever(s) ENT ENT ED: Denies ear pain Cardiovascular Cardiovascular: Denies chest pain Respiratory/Chest Respiratory/Chest: Denies cough or dyspnea Gastrointestinal Gastrointestinal: Reports abdominal pain and diarrhea; Denies constipation, melena, nausea or vomiting Genitourinary Genitourinary ED: Denies dysuria, hematuria or urinary frequency Musculoskeletal Musculoskeletal: Denies arthralgias or back pain Integumentary Denies abscess or Abrasions Neurologic Neurologic: Denies headache(s) Psychiatric Psychiatric: Denies anxiety or depression Endocrine Endocrinology: Denies polydipsia or polyphagia Hematologic/Lymphatic Hematologic/Lymphatic: Denies easy bleeding Allergic/Immunologic Allergic/Immunologic ED: Denies mouth swelling, tongue swelling or urticaria EXAM Physical Exam Narrative Exam Narrative: Well-appearing 58-year-old female. Vital signs stable afebrile. Blood pressure 126/83. H EENT exam unremarkable. Moist extremities. Neck nontender. Lungs clear to auscultation bilaterally. Heart regular rhythm rate about 85 no murmur. Chest wall and ribs nontender. Abdomen soft nondistended normal bowel sounds no peritoneal signs. Well-healing laparoscopic incisions. There is minimal discoloration left side of her abdomen just lateral to her umbilicus. Not warm to touch really does not look cellulitic. There is a small bruise to the left about 1 inch in circumference by one of the left upper lateral laparoscopic incisions. There is no large hematomas. She does have tenderness primarily in the left side of her abdomen. No peritoneal signs. No distention. No obstruction or hernia. Back nontender. Moving all 4 extremities. Nontender no edema. Neurologically she is awake and alert no focal motor deficits. Const Vital Signs: 11/07/23 19:54 11/07/23 21:53 Temperature 97 F L Temperature Source Temporal Pulse Rate 87 68 Respiratory Rate 16 17 Blood Pressure 126/83 H 104/64 Blood Pressure Mean 97 77 Pulse Ox 96 95 Oxygen Delivery Method Room Air Room Air Positive well nourished and well developed; Negative for cachectic, contractures or unkempt General Appearance ED: well developed and NAD; Negative for unkempt, cachectic, contractures or pallor Nutritional Appearance: Negative for cachectic HEENT Reports moist mucous membranes normocephalic and atraumatic; Negative for trauma or tenderness Eyes PERRL and EOMs intact bilaterally General Eye ED: Negative for pale conjunctiva or scleral icterus Neck no lymphadenopathy, supple and no JVD General: Negative for tenderness Carotids: Negative for other Lymph Lymphatic: Negative for other Resp normal respiratory effort and clear to auscultation bilaterally Effort and Inspection: Negative for respiratory distress Auscultation: Negative for rales, rhonchi, wheezes or diminished lung sounds Cardio regular rate, regular rhythm, S1 normal heart sound, S2 normal heart sound and no murmurs Rate: Negative for tachycardic Rhythm: Negative for abnormal rhythm GI non-distended and no masses; Negative for non-tender Inspection: Negative for abdominal distention Auscultation: normoactive bowel sounds Palpation: soft and tender; Negative for guarding or rebound tenderness present Back/Spine no CVA tenderness Extremity full ROM General Extremety ED: Negative for edema or tenderness General Extremity: Negative for edema Neuro moves all extremities Sensorium / Orientation: alert, oriented to person, oriented to place and oriented to time; Negative for orientation impaired, confused, lethargic or stuporous Motor Exam: strength 5/5 throughout Psych mental status grossly normal and thought process normal Appearance: Negative for unkempt Attitude: No agitated Mood & Affect: Negative for depressed, anxious or tearful Skin no wounds Skin Narrative: Very mild discoloration just to the left side of her umbilicus. It is not warm is nontender to touch. General Skin Exam: Negative for jaundice or pallor Lesions: no lesions Rashes: rashes noted Trauma: Negative for abrasion MDM MDM MDM Narrative Medical decision making narrative: 58-year-old female status post adrenal adenoma surgery at [facility] on October 29. Presents with abdominal discomfort and discoloration of her left side of her abdomen. CAT scan labs are being obtained. Repeat exam patient is doing well at 10 PM. Abdomen is benign. The discoloration of her abdomen is very benign appearing. At best it is slightly red. Is not warm to the touch does not look infected. Incisions are dry and clean. I told her so far her blood work looks good. We are awaiting the CT of the abdomen pelvis read by the radiologist. I have reviewed the film. Repeat exam patient doing well at 1050. Again no change in her exam. No change in the discoloration of her abdominal wall. We discussed her CAT scan results. I did speak to the radiologist and he and I both think these are normal postop changes. She is Benji being discharged home with follow-up with her surgeon this coming week. She knows return if worse. History & Record Review Discussion w/independent historian: Patient and Family Additional record(s) reviewed:: Prior inpatient record, Prior outpatient record and Prior labs Lab Data Attestation: I reviewed the patient's lab results. Lab results narrative: CBC shows white count 8 H&H of 15 and 47. Electrolytes are unremarkable. Gap 7. Normal BUN and creatinine 17 and 0.8. Liver enzymes normal. Lipase normal at 31. Labs are unremarkable. Labs: Laboratory Results - last 24 hr 11/07/23 20:40 WBC 8.7 RBC 5.23 Hgb 15.8 H Hct 47.4 H MCV 90.6 MCH 30.2 MCHC 33.3 RDW Std Deviation 43.5 RDW Coeff of Colton 13.2 Plt Count 278 MPV 9.7 Immature Gran % (Auto) 0.300 Neut % (Auto) 52.6 Lymph % (Auto) 36.2 Sauk % (Auto) 6.4 Eos % (Auto) 3.8 Baso % (Auto) 0.7 Absolute Neuts (auto) 4.6 Absolute Lymphs (auto) 3.15 Nucleated RBC % 0 Sodium 136 Potassium 4.1 Chloride 104 Carbon Dioxide 25.0 Anion Gap 7 BUN 17 Creatinine 0.86 Estim Creat Clear Calc 63.07 Est GFR (MDRD) Af Amer 88 Est GFR (MDRD) Non-Af 73 BUN/Creatinine Ratio 19.9 Glucose 86 Calcium 9.6 Total Bilirubin 0.30 AST 27 ALT 38 Alkaline Phosphatase 87 Total Protein 7.8 Albumin 3.6 Globulin 4.2 Albumin/Globulin Ratio 0.9 Lipase 31 Radiography Diagnostic Testing: Clinical Impression(s) from Imaging Studies Abdomen/Pelvis CT 11/07/23 21:10 IMPRESSION: 1. Postoperative changes involving the LEFT adrenal, and postoperative subcutaneous/soft tissue emphysema along the LEFT lateral aspect of the abdominal wall and lower chest. No fluid collections or abscess. 2. Mild soft tissue stranding adjacent to the descending colon in the region of the soft tissue emphysema. 3. No bowel obstruction abscess or free air. No evidence of griselda diverticulitis. 4. Status post hysterectomy, appendectomy, and cholecystectomy. 5. No evidence of obstructive uropathy. 6. Small pericardial effusion. Electronically Signed: Wang Chaney MD at 22:17 EDT , Discharge Plan Triage Chief Complaint: Wound Check ED Provider: Cameron Vu Dx/Rx/DC Orders Clinical Impression: Abdominal pain, History of adrenal surgery Instructions: Abdominal Pain Prescriptions: No Action ergocalciferol (vitamin D2) 1,250 mcg (50,000 unit) capsule 1,250 cap PO DAILY multivitamin Capsule 1 cap PO DAILY metformin 500 mg tablet 500 mg PO BID rosuvastatin 10 mg tablet 10 mg PO DAILY ascorbic acid (vitamin C) 500 mg capsule 500 mg PO DAILY Primary Care Provider: Julian Zendejas Referrals: Julian Zendejas MD [Primary Care Provider] - Activity Restrictions/Additional Instructions: Keep your scheduled appointment with your surgeon this coming week. Tylenol and or Motrin for pain. Return if feeling a lot worse or develop a fever. Print Language: Portuguese Disposition Disposition: Home, Self Care
[2023-11-07 20:50] LABS: Absolute Lymphocyte Count 3.15 X10^3/uL (0.83-4.51); Absolute Neutrophil Count 4.6 X10^3/uL (2.0-7.7); Basophil# 0.06 X10^3/uL; Basophil% 0.7 % (0-1); Eosinophil# 0.33 X10^3/uL; Eosinophils% 3.8 % (0-5); Hematocrit 47.4 % (37-47); Hemoglobin 15.8 g/dL (12.0-15.0); Lymphocyte # 3.15 X10^3/ul (0.83-4.51); Lymphocyte % 36.2 % (19-41); Mean Corp Hgb Conc 33.3 g/dL (32-36); Mean Corpuscular Hgb 30.2 pg (27.0-32.0); Mean Corpuscular Volume 90.6 fL (81-99); Mean Platelet Vol. 9.7 fl (6.2-12.0); Monocyte# 0.56 X10^3/uL; Monocyte% 6.4 % (0-10); NRBC Flagged by Analyzer 0 % (0-5); Neutrophil # 4.56 X10^3/uL (2.7-7.7); Neutrophil % 52.6 % (47-70); POSITIVE COUNT YES; Platelet Count 278 K/mm3 (150-450); RBC Distribution Width CV 13.2 % (11.6-14.6); RBC Distribution Width SD 43.5 fl (35.1-43.9); Red Blood Count 5.23 M/mm3 (4.2-5.4); White Blood Count 8.7 K/mm3 (4.4-11.0)
[2023-11-07 21:08] LABS: ALB/GLOB Ratio 0.9 RATIO (0.9-2.4); AST(SGOT) 27 U/L (15-37); Alanine Aminotransfer ALT/SGPT 38 U/L (13-56); Albumin, Serum 3.6 g/dL (3.2-5.0); Alkaline Phosphatase 87 U/L (45-117); Anion Gap 7 (5-15); BUN 17 mg/dL (7-18); BUN/Creat Ratio 19.9 RATIO (10-20); Calcium,Total 9.6 mg/dL (8.5-10.1); Chloride 104 mmol/L (98-107); Creatinine, Serum 0.86 mg/dL (0.55-1.02); EST Glomerular Filtration Rate 73 mL/min (>60); Est Glom Filt Rate - Afr Amer 88 mL/min (>60); Estimated Creatinine Clearance 63.07 ml/min; Globulin 4.2 g/dL (2.2-4.2); Glucose 86 mg/dL (74-106); Lipase 31 U/L (13-75); Potassium 4.1 mmol/L (3.5-5.1); Protein, Total 7.8 g/dL (6.4-8.2); Sodium Level 136 mmol/L (136-145)
--- NOTE | 2023-11-07 21:10 | CT_ITS ---
INDICATION: left sided abd pain post op adrenal surgery. Additional history:Post Op Lt Adrenal Surgery 10-30-23,Increased Pain Hx:Asthma,Hld Surg:Appy,Homa,Hysterectomy,Bladder Sling,Breast Implants EXAMINATION: CT ABDOMEN AND PELVIS with CONTRAST - CT Abdomen And Pelvis W/ Contrast Injection TECHNIQUE: Multiple axial images were obtained of the abdomen and pelvis following administration of IV contrast. Planar reconstructions obtained. A radiation dose optimization technique was used for this scan. RADIATION DOSAGE (If Supplied By Facility): CTDIvol = ( 10.51 ) mGy, DLP = ( 521.82 ) mGycm IV Contrast dosage and agent: 100 mL Isovue-370 Oral contrast: None. COMPARISON: 05/06/2023 FINDINGS: LOWER THORAX: Lungs are clear. Cardiac contour is normal, there is a small pericardial effusion. No coronary vascular calcifications noted. HEPATOBILIARY: Liver: The liver is homogeneous and shows no evidence of focal lesion. Gallbladder: Surgically absent. No ductal dilatation. Pancreas: Pancreas is normal size configuration and density. No mass is noted. Spleen: The spleen is homogeneous and normal in size. . BOWEL: Stomach: The stomach is normal in size configuration, no evidence of focal masses, abnormal calcifications. No hiatal hernia noted. Bowel: Small and large have normal configuration, no masses or bowel obstruction noted. Mild soft tissue stranding along the lateral aspect of the descending colon. Postoperative subcutaneous emphysema is also present within the overlying muscular abdominal wall. No abscess collection noted. No free intraperitoneal air. Appendix: Surgically absent, no ductal dilatation. GENITOURINARY: Adrenals: Postoperative changes in the region of the LEFT adrenal. RIGHT adrenal has normal appearance.. Kidneys: Kidneys appear symmetric in size. No calcifications are seen in the collecting system. There is no hydronephrosis or surrounding fluid. Bladder: Normal Pelvic organs: Postoperative changes of prior hysterectomy. RETROPERITONEUM: There is normal appearance of the abdominal aorta and inferior vena cava. LYMPH NODES: No evidence of retroperitoneal or para-aortic masses fluid collections or adenopathy. PERITONEAL CAVITY: Trace nonspecific fluid is present in the cul-de-sac. ANTERIOR ABDOMINAL WALL: Normal, no hernia identified. Trace soft tissue emphysema extending along lateral aspect of the abdominal wall and lower chest. No abscess collection noted. BONES AND SOFT TISSUES: The skeleton shows no evidence for fractures or destructive lesions. OTHER: None CT/Abdomen/Pelvis W IV Cont ONLY IMPRESSION: 1. Postoperative changes involving the LEFT adrenal, and postoperative subcutaneous/soft tissue emphysema along the LEFT lateral aspect of the abdominal wall and lower chest. No fluid collections or abscess. 2. Mild soft tissue stranding adjacent to the descending colon in the region of the soft tissue emphysema. 3. No bowel obstruction abscess or free air. No evidence of griselda diverticulitis. 4. Status post hysterectomy, appendectomy, and cholecystectomy. 5. No evidence of obstructive uropathy. 6. Small pericardial effusion. Electronically Signed: Wang Chaney MD at 22:17 EDT ,
[2023-11-07 21:53] VITALS: BP 104/64; PULSE 68; RESP 17; O2SAT 95
[2023-11-07 23:00] VITALS: BP 112/80; PULSE 69; RESP 18; TEMP 36.6; O2SAT 99
== END 2023-11-07 23:06 | disposition home or self-care (01) ==
PROVIDERS: Emergency Provider Emergency Medicine; PCP Family Medicine; Visit Provider Emergency Medicine
DX: R10.9 Unspecified abdominal pain (principal); E78.00 Pure hypercholesterolemia, unspecified; K52.9 Noninfective gastroenteritis and colitis, unspecified; J45.909 Unspecified asthma, uncomplicated; F17.210 Nicotine dependence, cigarettes, uncomplicated; Z98.890 Other specified postprocedural states
CPT/HCPCS: 74177; 80053; 83690; 85025; 99282; Q9967; A4216

== ENCOUNTER → 2024-01-21 | Outpatient (CLI) | payer MEDICAID, SELFPAY ==
--- NOTE | 2024-01-21 08:21 | BI_ITS ---
MAMMOGRAPHY - BILATERAL SCREENING REASON FOR EXAM: Female, 58 years old. Routine annual screening examination. PERTINENT HISTORY: Non-contributory. Bilateral breast implants. TECHNIQUE: Digital bilateral breast romulo (3D mammographic acquisition) in the CC and MLO projections. 2-D mediolateral oblique (MLO) and craniocaudad (CC) views of both breasts were obtained. CAD: Full Field Digital Mammography with Computer Added Detection was performed. COMPARISON: Comparison is made with prior study dated May 19, 2022 and May 18, 2020. FINDINGS: Breast Composition: There are scattered areas of fibroglandular density. There are no dominant masses or suspicious calcifications. Stable bilateral appearance of the breast implants. No other significant abnormalities are identified. There has been no significant change since the prior study. BI/SCRN MAMM (CAD)W/ROMULO BILAT IMPRESSION: Stable bilateral screening mammogram. Yearly follow-up mammogram recommended. (A) ASSESSMENT CATEGORY: BIRADS Category 2: Benign. A letter regarding these results will be sent to the patient by the facility within 30 days. Approximately 10% of breast cancers are not detected by mammography. A normal mammogram should not delay biopsy of a clinically suspicious abnormality. [id number] Electronically Signed: Luigi Atwood MD at 9:28 EDT ,
== END | disposition home or self-care (01) ==
LOC: OPBI 08:21
PROVIDERS: PCP Family Medicine; Referring Provider Family Medicine; Visit Provider Family Medicine
DX: Z12.31 Encounter for screening mammogram for malignant neoplasm of breast (principal)
CPT/HCPCS: 77063; 77067

== ENCOUNTER → 2024-01-30 | Outpatient (CLI) | payer MEDICAID, SELFPAY ==
--- NOTE | 2024-01-30 07:40 | CT_ITS ---
HISTORY: SMOKER. TECHNIQUE: Helically acquired images were obtained of the chest without contrast. A radiation dose optimization technique was used for this scan. 799 images. COMPARISON: 08/14/2022. FINDINGS: LARGE AIRWAYS: Patent. LUNGS: Mild emphysema with chronic very mild biapical scarring. No new suspicious nodule or acute alveolar consolidation. PLEURA: No pneumothorax or significant pleural effusion. HEART/PERICARDIUM: Heart within normal limits in size. No significant coronary artery calcification. No pericardial effusion. VESSELS: Thoracic aorta nondilated. Mild atherosclerosis. MEDIASTINUM/PACO: No pathologically enlarged adenopathy. CHEST WALL: Intact osseous structures. Breast implants again seen. CT/Low Dose CT Lung Screening IMPRESSION: Lung-RADS category 1: Continue annual screening with low dose CT. Electronically Signed: Savana Germain MD at 8:38 EDT ,
== END | disposition home or self-care (01) ==
LOC: CT 07:38
PROVIDERS: PCP Family Medicine; Referring Provider Family Medicine; Visit Provider Family Medicine
DX: R13.10 Dysphagia, unspecified (principal); F17.200 Nicotine dependence, unspecified, uncomplicated
CPT/HCPCS: 71271

== ENCOUNTER → 2024-02-02 | Outpatient (CLI) | payer MEDICAID, SELFPAY ==
--- NOTE | 2024-02-02 08:44 | RAD_ITS ---
STUDY: X-RAY - ESOPHAGUS (BARIUM SWALLOW) WITH FLUOROSCOPY REASON FOR EXAM: Female, 58 years old. Dysphagia TECHNIQUE: 63 fluoroscopic view(s) of the esophagus were obtained following swallowing of barium. FLUOROSCOPY TIME (if supplied): (31 seconds) minutes/seconds. 2.8 mGy. COMPARISON: None. FINDINGS: There is no demonstrated esophageal foreign body. There is no demonstrated stricture or mucosal abnormality. Normal gastroesophageal junction, without a demonstrated hiatal hernia. The patient ingested a 12 mm tablet of barium without any difficulty. Normal visualized aortic arch and descending thoracic aorta. Normal visualized pulmonary parenchyma. Normal visualized osseous structures of the thorax. RAD/Esophagus Dual Contrast IMPRESSION: Normal plain film x-ray examination (barium swallow) of the esophagus. Electronically Signed: Luigi Atwood MD at 13:43 EDT ,
== END | disposition home or self-care (01) ==
LOC: RAD 08:42
PROVIDERS: PCP Family Medicine; Referring Provider Family Medicine; Visit Provider Family Medicine
DX: R13.10 Dysphagia, unspecified (principal); F17.200 Nicotine dependence, unspecified, uncomplicated
CPT/HCPCS: 74221

== ENCOUNTER → 2024-05-11 | Outpatient (CLI) | payer MEDICAID, SELFPAY ==
[2024-05-11 13:09] LABS: Absolute Lymphocyte Count 2.82 X10^3/uL (0.83-4.51); Basophil# 0.06 X10^3/uL; Basophil% 0.8 % (0-1); Eosinophil# 0.12 X10^3/uL; Eosinophils% 1.6 % (0-5); Hematocrit 43.3 % (37-47); Hemoglobin 13.9 g/dL (12.0-15.0); Lymphocyte # 2.82 X10^3/ul (0.83-4.51); Lymphocyte % 37.9 % (19-41); Mean Corp Hgb Conc 32.1 g/dL (32-36); Mean Corpuscular Hgb 29.4 pg (27.0-32.0); Mean Corpuscular Volume 91.5 fL (81-99); Mean Platelet Vol. 10.6 fl (6.2-12.0); Monocyte# 0.44 X10^3/uL; Monocyte% 5.9 % (0-10); NRBC Flagged by Analyzer 0 % (0-5); Neutrophil # 3.99 X10^3/uL (2.7-7.7); Neutrophil % 53.7 % (47-70); Platelet Count 292 K/mm3 (150-450); RBC Distribution Width CV 13.3 % (11.6-14.6); RBC Distribution Width SD 45.5 fl (35.1-43.9); Red Blood Count 4.73 M/mm3 (4.2-5.4); White Blood Count 7.4 K/mm3 (4.4-11.0)
[2024-05-11 13:16] LABS: AST(SGOT) 18 U/L (15-37); Alanine Aminotransfer ALT/SGPT 25 U/L (13-56); Albumin, Serum 3.9 g/dL (3.2-5.0); Alkaline Phosphatase 67 U/L (45-117); Anion Gap 6 (5-15); BUN 14 mg/dL (7-18); Calcium,Total 9.6 mg/dL (8.5-10.1); Chloride 104 mmol/L (98-107); Cholesterol 155 mg/dL (200); Creatinine, Serum 0.93 mg/dL (0.55-1.02); EST Glomerular Filtration Rate 66 mL/min (>60); Est Glom Filt Rate - Afr Amer 80 mL/min (>60); Globulin 3.8 g/dL (2.2-4.2); Glucose 77 mg/dL (74-106); High Density Lipoprotein 36 mg/dL; Potassium 4.1 mmol/L (3.5-5.1); Protein, Total 7.7 g/dL (6.4-8.2); Sodium Level 138 mmol/L (136-145); Triglycerides 153 mg/dL; Very Low Density Lipoprotein 31 mg/dL (5-40)
[2024-05-11 13:53] LABS: Hemoglobin A1c 5.6 % (3.8-5.6)
== END | disposition home or self-care (01) ==
LOC: MFPLAB 09:50
PROVIDERS: PCP Family Medicine; Referring Provider Family Medicine; Visit Provider Family Medicine
DX: R73.02 Impaired glucose tolerance (oral) (principal); E78.00 Pure hypercholesterolemia, unspecified
CPT/HCPCS: 36415; 80053; 80061; 83036; 85025

== ENCOUNTER → 2024-05-12 | Outpatient (CLI) | payer MEDICAID, SELFPAY ==
[2024-05-12 12:52] LABS: AST(SGOT) 16 U/L (15-37); Alanine Aminotransfer ALT/SGPT 23 U/L (13-56); Alkaline Phosphatase 67 U/L (45-117); Bilirubin, Direct 0.12 mg/dL (0.00-0.30); Globulin 3.7 g/dL (2.2-4.2); Protein, Total 7.7 g/dL (6.4-8.2)
== END | disposition home or self-care (01) ==
LOC: MFPLAB 09:13
PROVIDERS: PCP Family Medicine; Referring Provider Family Medicine; Visit Provider Family Medicine
DX: E80.6 Other disorders of bilirubin metabolism (principal)
CPT/HCPCS: 36415; 80076

== ENCOUNTER → 2024-09-07 | Outpatient (CLI) | payer MEDICAID, SELFPAY ==
--- NOTE | 2024-09-07 14:19 | VDLE_ITS ---
Reason For Study Reason For Study: Leg Swelling RIGHT LEFT HX of GSV Ablation. Acute superficial vein thrombosis is noted in the GSV. CFV is compressible, spontaneous, phasic, competent It is dilated and NONCOMPRESSIBLE. and demonstrates normal augmentation. CFV is compressible, spontaneous, phasic, competent, FV is compressible, spontaneous, phasic, competent and demonstrates normal augmentation. and demonstrates normal augmentation. FV is compressible, spontaneous, phasic, competent and POP V is compressible, spontaneous, phasic, competent demonstrates normal augmentation. and demonstrates normal augmentation. POP V is compressible, spontaneous, phasic, competent T/P Trunk is compressible. and demonstrates normal augmentation. PTV is compressible. T/P Trunk is compressible. RT PerV is compressible. PTV is compressible. Procedure LT PerV is compressible. This is a venous duplex using B-mode, color flow and spectral Doppler. Exam performed in department. A preliminary report was called and/or faxed to Shashi Kimbrough NP. VL/Venous Duplex US - Wenceslao Extrem Interpretation Summary Acute superficial vein thrombosis noted in the left great saphenous vein. Deep veins of the bilateral lower extremities are patent and compressible segme ntally. There is no evidence of bilateral lower extremity deep vein thrombosis. Ordering Physician: Shashi Kimbrough Referring Physician: Julian Zendejas Performed By: Mali Devlin RVT
== END | disposition home or self-care (01) ==
PROVIDERS: PCP Family Medicine
DX: M79.89 Other specified soft tissue disorders (principal)
CPT/HCPCS: 93970

== ENCOUNTER 2024-10-25 13:00 | Outpatient (RCR) | payer MEDICAID, SELFPAY ==
--- NOTE | 2024-09-27 09:33 | HP.PTEVAL ---
Patient's Visit Information Visit Information Visit Information: NOEL PINEDO is a 59 year old F referred to Physical Therapy by CLOTILDE Johnson with a diagnosis of Mixed incontinence urge and stress N39.46, Cystocele, midline N81.11. Date of Evaluation: 09/27/24 Physical Therapist: Page Vargas Visit Plan Frequency: 1x/Week Duration: 2 Months Plan: Continue 1 x week. Add week 2 next visit. Please continue pelvic floor releases 1-2 sessions to address mild tightness left side layer 1-2 and superiorly at urethral sphincter. Gave her list of bladder irritants. Has she tried to lessen coffee intake in mornings (she was doing 2-3 cups in morning). May need to do bladder diary at some point if frequency continues? Currently voiding once an hour. Check low back, pelvic alignment next visit. Subjective Subjective: She has had 2 bladder surgeries and after the last surgery (2023) her leaking worsened. She can't walk to the bathroom without urinating. First bladder surgery worked great. The OB that said the bladder was slanted and prescribed pelvic floor PT. She panics going anywhere as her whole life is surrounding being close to the restroom. She drinks a lot of water and 2-3 cups of coffee a day. When she knows she has to go somewhere she will dehydrate herself. She leaks with a cough or sneeze. She can have urge incontinence. She doesn't wear pads. She has to change her clothes 2-3 x day. She can experience a sudden urge and cannot make it to the bathroom. She cannot wait when she feels the urge or she will leak. The moment she feels a slight pressure she is in the bathroom. No other symptoms. No bulging. No pelvic pain. No low back pain. She wakes up 1-2 x night. She feels like she is urinating once an hour during the day. She drinks 2-3 cups of coffee in the morning. 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 Objective Objective: POPDI-6 6, CRAD-8 11 DELGADO-6 16 LAYCOCK 3/5/3/3- DIFFICULTY RELAXING BETWEEN CONTRACTIONS MILD PELVIC FLOOR TIGHTNESS LEFT SIDE LAYER 1-2 AND RIGHT SIDE SUPERIORLY AT URETHRAL SPHINCTER Cystocele 1, Rectocele 1 Goals Goal 1:: Noel will be able to delay using the restroom by 5 minutes to avoid any incontinence episodes. Goal Time Frame: 8-12 Weeks Goal 2:: Noel will be on a more normal voiding schedule of voiding 5-7 times a day to allow for less disruption during day to day activities. Goal Time Frame: 8-12 Weeks Goal 3:: Noel will be able to cough or sneeze without leaking. Rehabilitation Potential Physical Therapy Diagnosis: N39.46, N81.11, frequency of micturition Rehabilitation Potential: Good Anticipated Interventions Patient/Client Instruction: Educate patient on: Condition and Plan of Care For the Purpose of:: To improve muscle performance and motor function, To improve health and function and To improve self management Therapeutic Exercise to Include: Strength training, Coordination and Neuromotor development For the Purpose of:: To improve muscle performance and motor function and To improve self management Manual Therapy Techniques to Include: Trigger point massage For the Purpose of:: To improve muscle performance and motor function, To improve health and function and To improve self management Text: Thank you for the opportunity to evaluate your patient. For Medicare and Medicare HMO plans, please review the plan of care and approve it. It will need to be FAXED BACK to us at [phone] for Medicare purposes. For Medicare only, by signing this I certify the plan of care. Please let me know if there are questions or concerns regarding this plan of care. Physician Signature: Date:
--- NOTE | 2024-12-14 12:36 | HP.PT.NRP ---
Patient Information Patient Information: NOEL PINEDO was seen in my office for initial evaluation on 09/27/24. The following Plan of Care was established for this patient: POC Established Initial Frequency: 1x/Week Initial Duration: 2 Months Anticipated Interventions Patient/Client Instruction: Educate patient on: Condition and Plan of Care For the Purpose of:: To improve muscle performance and motor function, To improve health and function and To improve self management Therapeutic Exercise to Include: Strength training, Coordination and Neuromotor development For the Purpose of:: To improve muscle performance and motor function and To improve self management Manual Therapy Techniques to Include: Trigger point massage For the Purpose of:: To improve muscle performance and motor function, To improve health and function and To improve self management Last Seen Last Seen: This patient was last seen in our office 10/25/24. Pertinent comments regarding their Physical therapy will appear below: Spoke with patient by phone. She was was last seen 10/25/24. She has a lot going on now and unable to continue with PT services. She states she is still noticing improvement and is able to hold her urine better than before. She is being discharged from PT. At this point I will be discontinuing this patient from physical therapy. I would be happy to see this patient again in the future if found appropriate by the physician. Thank you! Page Vargas
== END 2024-10-25 19:00 | disposition home or self-care (01) ==
LOC: PT 13:00
PROVIDERS: PCP Family Medicine; Referring Provider Nurse Practitioner Family; Visit Provider Nurse Practitioner Family
DX: N39.46 Mixed incontinence (principal); N81.11 Cystocele, midline; Z98.890 Other specified postprocedural states; Z87.448 Personal history of other diseases of urinary system
CPT/HCPCS: 97112; 97140; 97162; 97530

== ENCOUNTER → 2024-11-08 | Outpatient (CLI) | payer MEDICAID, SELFPAY ==
[2024-11-08 09:54] LABS: Hematocrit 43.2 % (37-47); Hemoglobin 14.4 g/dL (12.0-15.0); Immature Granulocytes Count 0.030 X10^3/uL (0.0-0.0); Mean Corp Hgb Conc 33.3 g/dL (32-36); Mean Corpuscular Volume 92.3 fL (81-99); Mean Platelet Vol. 10.4 fl (6.2-12.0); NRBC Flagged by Analyzer 0 % (0-5); Platelet Count 269 K/mm3 (150-450); RBC Distribution Width CV 13.3 % (11.6-14.6); RBC Distribution Width SD 45.2 fl (35.1-43.9); Red Blood Count 4.68 M/mm3 (4.2-5.4); White Blood Count 8.3 K/mm3 (4.4-11.0)
[2024-11-08 12:56] LABS: AST(SGOT) 22 U/L (<=31); Alanine Aminotransfer ALT/SGPT 20 U/L (<=34); Albumin, Serum 4.4 g/dL (3.5-5.0); Alkaline Phosphatase 64 U/L (35-104); Anion Gap 12 (5-15); BUN 14 mg/dL (4-19); BUN/Creat Ratio 17.1 RATIO (10-20); Calcium,Total 9.5 mg/dL (7.6-11.0); Carbon Dioxide 22.4 mmol/L (21.0-32.0); Chloride 103 mmol/L (98-108); Cholesterol 133 mg/dL (<=200); Globulin 3.0 g/dL (2.2-4.2); Glucose 94 mg/dL (70-99); Low Density Lipoprotein Calc. 76 mg/dL; Potassium 4.5 mmol/L (3.3-5.1); Triglycerides 135 mg/dL; Very Low Density Lipoprotein 27 mg/dL (5-40); Vitamin D,25 Hydroxy 53.1 ng/mL (30-100); cholesterol:hdl ratio screen 4.49
== END | disposition home or self-care (01) ==
LOC: MFPLAB 08:32
PROVIDERS: PCP Family Medicine; Referring Provider Family Medicine; Visit Provider Family Medicine
DX: R73.02 Impaired glucose tolerance (oral) (principal); E78.00 Pure hypercholesterolemia, unspecified
CPT/HCPCS: 36415; 80053; 80061; 82306; 83036; 85025

== ENCOUNTER → 2024-12-02 | Outpatient (CLI) | payer MEDICAID, SELFPAY | END | disposition home or self-care (01) | LOC: CT 08:32 | PROVIDERS: PCP Family Medicine; Referring Provider Surgery; Visit Provider Surgery | DX: R10.9 Unspecified abdominal pain (principal) | CPT/HCPCS: 74176 ==

== ENCOUNTER → 2025-02-24 | Outpatient (CLI) | payer MEDICAID, SELFPAY ==
--- NOTE | 2025-02-24 06:21 | CT_ITS ---
PROCEDURE: LOW DOSE CT LUNG SCREENING 02/24/2025 REASON FOR EXAM: TOBACCO ABUSE TECHNIQUE: Procedure Code: [id number] Modality: CT Procedure: LOW DOSE CT LUNG SCREENING Coronal and Sagittal reconstruction series were provided. One or more dose reduction techniques were used (e.g., Automated exposure control, adjustment of the mA and/or kV according to patient size, use of iterative reconstruction technique). REFERENCE LINK: [facility] Lung-RADS RADIATION DOSE SUMMARY: CTDlvol: 2.01 mGy DLP: 74.74 mGycm COMPARISON: CT lung screening, 01/30/2024. FINDINGS: PULMONARY NODULES: (Only nodules >3mm are reported) Lower neck:The thyroid gland is grossly unremarkable. There is no supraclavicular lymphadenopathy. Mediastinum:No abnormal masses or lymphadenopathy. Heart and Aorta:The heart size is normal. There is a small pericardial effusion. There is no calcific vascular disease of the coronary arteries identified. There is mild calcific vascular disease of the thoracic aorta. Esophagus:Normal. Upper Abdomen:There is calcific vascular disease of the visualized abdominal aorta. Chest wall:There are bilateral breast prostheses. There is no axillary lymphadenopathy. There are no significant bony abnormalities of the chest. Lungs, airways and pleura: There is pleural-parenchymal scarring in both lung apices. There is moderate upper lobe predominant emphysema with both centrilobular and paraseptal components. There are no pulmonary nodules or masses. There is a left lower lobe pulmonary lymph node in the interlobar fissure (image 140). There are no pleural effusions. CT/Low Dose CT Lung Screening IMPRESSION: 1. Emphysema. 2. There are no new pulmonary nodules. 3. Mild calcific vascular disease. 4. Other findings as noted. No significant change. Lung-RADS Category: 1 S: Negative. Emphysema. Calcific vascular disease. Recommendation: Follow up low-dose chest CT in 12 months. Reading Location: [id number]
--- OUTSIDE RECORDS SUMMARY | 2025-02-24 06:24 | XMS RPT_ITS | CCD ---
Author Organization [facility] Care Team Providers Care Band Singer Name Role Phone Nereida LUBIN, Lynette Cesar Unavailable Unavailable Primary Care Provider UnavailDr. Lala Mathew Primary Care Provider [phone] Dr. Lala Zendejas Referring Provider Dr. Lala Zendejas Other Provider Dr. Ramón Berger Attending Provider Lala Zendejas MD Primary Care Provider Dr. Lala Zendejas Primary Care Provider Dr. Lala eZndejas Referring Provider BARBRA Calvin Attending Provider Dr. Lala Zendejas Primary Care Provider Dr. Lala Zendejas Referring Provider Dr. Bar Mendoza Attending Provider Lala Zendejas MD Primary Care Provider Bar Mendoza MD Unavailable Cecy Braxton MD Unavailable LALA ZENDEJAS Primary Care Unavailable TRAN PORTER Referring Unavailable LALA ZENDEJAS Primary Care Unavailable ALLIE BRAXTONNDRA Admitting Unavailable FOX CECY Attending Unavailable FOX CECY Referring Unavailable TRAN PORTER Admitting Unavailable DIANNE TORIBIO Consulting Unavail able TRAN PORTER Attending Unavailable TRAN PORTER Referring Unavailable SCHINNER, LALA E Primary Care Unavailable TRAN PORTER Referring Unavailable SCHINNER, LALA E Primary Care Unavailable TRAN PORTER Attending Unavailable SCHINNER, LALA E Primary Care Unavailable SCHINNER, LALA E Primary Care Unavailable CECY BRAXTON Referring Unavailable BAR MENDOZA Referring Unavailable SCHINNER, LALA E Primary Care Unavailable TRAN PORTER Attending Unavailable Aashish GRAHAM, Dr. Llaa Shepard Primary Care Provider [phone] [facility] GEOSPATIAL SYSTEMS INTEGRATOR-C, Shashi Attending Provider [phone] Isidroorrow GEOSPATIAL SYSTEMS INTEGRATOR-C, Shashi Referring Provider [phone] Kassy GRAHAM, Dr. Palacios Attending Provider Star GEOSPATIAL SYSTEMS INTEGRATOR-C, Tiffany Attending Provider Star GEOSPATIAL SYSTEMS INTEGRATOR-C, Tiffany Referring Provider Aashish GRAHAM, Dr. Lala Shepard Attending Provider Dr. Lala Zendejas MD Referring Provider Dr. Joan Bass MD Attending Provider REGINALDO ESPAÑA Attending Unavailable AASHISH, LALA E Primary Care Unavailable REGINALDO ESPAÑA Attending Unavailable REGINALDO ESPAÑA Referring Unavailable SCHAAKASH, LALA E Primary Care Unavailable TIFFANY OWUSU Attending Unavailable LALA ZENDEJAS E Primary Care Unavailable Kali GRAHAM, Dr. Franco Referring Provider Aashish, Lala E Primary Care Unavailable Joan Bass Attending Unavailable Joan Bass Referring Unavailable SchLala alvarenga Referring Unavailable Schinner, Lala E Primary Care Unavailable Schinner, Lala E Attending Unavailable Schindeysi, Lala E Primary Care Unavailable Schaakash, Lala E Attending Unavailable Schaakash, Lala E Referring Unavailable Schnellaner, Lala E Primary Care Unavailable Star GEOSPATIAL SYSTEMS INTEGRATORTiffany Attending Unavailable Star GEOSPATIAL SYSTEMS INTEGRATORTiffany Referring Unavailable Isidroorrow GEOSPATIAL SYSTEMS INTEGRATOR, Shashi Attending Unavailable Isidroorrow GEOSPATIAL SYSTEMS INTEGRATOR, Shashi Referring Unavailable Schinner, Lala E Primary Care Unavailable Schinner, Lala E Primary Care Unavailable Schnellaner, Lala E Attending Unavailable Lala Zendejas E Referring Unavailable SchLala alvarenga E Primary Care Unavailable McMorrow GEOSPATIAL SYSTEMS INTEGRATORShashi Referring Unavailable McMorrow GEOSPATIAL SYSTEMS INTEGRATORShashi Attending Unavailable McMorrow GEOSPATIAL SYSTEMS INTEGRATORShashi Referring Unavailable Schinner, Lala E Primary Care Unavailable Philip Elena Attending Unavailable Lala Zendejas Primary Care Unavailable Joan Bass Attending Unavailable Lala Zendejas Referring Unavailable Laal Zendejas Primary Care Unavailable Lala Zendejas Attending Unavailable Lala Zendejas Referring Unavailable Allergies Allergy Classification Reported Allergen(s) Allergy Type Date of Onset Reaction(s) Facility Acetaminophen / oxyCODONE (2 sources) Acetaminophen / oxyCODONE Drug Allergy 6 Swelling, Itching [facility] Amoxicillin / Clavulanate (2 sources) Amoxicillin / Clavulanate Drug Allergy 3 Swelling [facility] (15 sources) oxyCODONE; Translations: [oxycodone HCl] Drug Allergy 0 Itching [facility] (15 sources) Acetaminophen / oxyCODONE; Translations: [OXYCODONE-ACETAM INOPHEN] Drug Allergy 6 Itching, Swelling [facility] (14 sources) Amoxicillin / Clavulanate; Translations: [AMOXICILLIN-POT CLAVULANATE] Drug Allergy 3 Swelling [facility] Work Phone: (7 sources) Amoxicillin Drug Allergy 4 Rash [facility] Comment on above: And Swelling (7 sources) Clavulanate Drug Allergy 4 [facility] Comment on above: And Swelling (4 sources) Adhesive agent; Translations: [adhesive] Allergy to substance 5 [facility] Comment on above: swelling redness due to holtor monitor adhesive (3 sources) Citalopram Drug Allergy 5 Other [facility] Comment on above: mood swings (1 source) Amoxicillin Drug Allergy 5 [facility] (1 source) Citalopram Drug Allergy 5 [facility] (1 source) Clavulanate Drug Allergy 5 [facility] Medications Current Medications Medication Drug Class(es) Dates Sig (Normalized) Sig (Original) acetaminophen 500 mg oral tablet (2 sources) Start: 12-10-2021 take 1 tablet by mouth four times daily as needed for pain acetaminophen (TYLENOL) 500 MG tablet Take 1 tablet by mouth 4 times daily as needed for Pain 120 tablet 1 12/10/2021 Active Start: 12-10-2021 acetaminophen (TYLENOL) tablet 1,000 mg acetaminophen 325 mg / HYDROcodone bitartrate 5 mg oral tablet (19 sources) Opioid Agonist Start: 12-10-2021 End: 12-10-2021 HYDROcodone-acetaminophen (NORCO) 5-325 MG per tablet 1 tablet Start: 01-30-2020 End: 02-05-2020 Hydrocodone-Acetaminophen 1 TABLET tablet Discontinued 1 - 2 {tbl} PO EVERY 4 HOURS NEEDED as needed for Pain 30 6 0 January 30, 2020 February 04, 2020 12:00am February 05, 2020 12:02am Biliary dyskinesia Other specified diseases of gallbladder Start: 01-30-2020 End: 02-05-2020 take 1 tablet by mouth every four hours as needed Hydrocodone-Acetaminophen Discontinued 1 - 2 TABLET PO EVERY 4 HOURS NEEDED 30 6 January 30, 2020 February 04, 2020 11:02pm [id number] 200 actuat albuterol 0.09 mg/actuat metered dose inhaler (20 sources) beta2-Adrenergic Agonist Start: 11-16-2024 Albut jason Sulfate (Ventolin Hfa) 90 mcg/actuation HFA aerosol inhaler Active 2 NMA INHALATION EVERY 6 HOURS as needed November 16, 2024 12:00am Start: 01-27-2020 take 2 puff(s) by in halation every four hours as needed albuterol HFA (PROVENTIL HFA, VENTOLIN HFA) 90 mcg/actuation inhaler Inhale 2 Puffs as instructed every 4 hours as needed. 01/27/2020 Active Start: 01-27-2020 albuterol HFA (PROVENTIL HFA, VENTOLIN HFA) 90 mcg/actuation inhaler Inhale as instructed. 0 01/27/2020 Active Start: 01-27-2020 End: 06-25-2023 Albuterol Sulfate 90 mcg/act uation HFA aerosol inhaler Discontinued 1 NMA INHALATION NEEDED as needed for Sob &/Or Wheezing January 27, 2020 12:00am June 25, 2023 12:26pm Start: 01-27-2020 End: 06-25-2023 Albuterol Sulfate Discontinu ed 1 PUFF INHALATION NEEDED January 27, 2020 12:00am June 25, 2023 12:26pm Comment on above: Inhale as instructed . Inhale 2 Puffs as in structed every 4 hours as needed. ascorbic acid 500 mg oral capsule (20 sources) Vitamin C Start: 06-25-2023 take 1 capsule by mouth once daily Ascorbic Acid (Vitamin C) 500 mg capsule Active 500 mg PO DAILY June 25, 2023 1:00am Start: 05-29-2020 take 1 tablet by dayana th once daily Ascorbic Acid (VITAMIN C) 1,000 mg tablet Take 1,000 mg by mouth once daily. 05/29/2020 Active Comment on above: qDay, 0 Refill(s) Take 1,000 mg by dayana th once daily. BIOTIN, BULK, MISC (14 sources) take 1 tablet by mouth once daily BIOTIN, BULK, MISC Take 1 tablet by mouth once daily. Active take 1 tablet by mouth once diana y BIOTIN, BULK, MISC Take 1 tablet by mouth once daily. 0 Suspended take 1 tablet by mouth once diana y BIOTIN, BULK, MISC Take 1 tablet by mouth once daily. 0 Active BIOTIN, BULK, [place] Comment on above: Take 1 tablet by dayana th once daily. cholecalciferol 0.05 mg oral capsule (17 sources) Vitamin D Cholecalciferol, Vitamin D3, 2,000 unit cap EQL VITAMIN D3 2000 UNIT CAPS Active Cholecalciferol 50 MCG (2000 UT) CAPS EQL VITAMIN D3 2000 UNIT CAPS 0 Active take 1 tablet by mouth once diana y EQL VITAMIN D3 2000 UNIT CAPS One tablet by mouth daily CHOLECALCIFEROL [id number] Lynette Padron NP Comment on above: EQL VITAMIN D3 2000 UNIT CAPS cyclobenzaprine hydrochloride 5 mg oral tablet (1 source) Muscle Relaxant Start: 11-13-19 End: 11-28-19 take 1 tablet by mouth every twenty-four hours as needed cyclobenzaprine (FLEXERIL) 5 mg tablet Take 1 tablet by mouth at bedtime as needed for up to 15 days. 15 tablet 0 11/13/2023 11/28/2023 Active doxycycline hyclate 100 mg oral tablet (1 source) Tetracycline-class Drug Start: 12-11-19 End: 12-16-19 22 take 1 tablet by mouth in the morning doxycycline hyclate (VIBRA-TABS) 100 MG tablet Take 1 tablet by mouth in the morning and 1 tablet before bedtime. Do all this for 5 days. 10 tablet 0 12/10/2021 12/15/2021 Active ergocalciferol 1.25 mg oral capsule (18 sources) Provitamin D2 Compound Start: 01-27-20 Ergocalciferol (Vitamin D2) 1,250 mcg (50,000 unit) capsule Active 1250 NMA PO DAILY January 27, 2020 12:00am Start: 01-27-2020 take 1 capsule by mo [facility] once daily Ergocalciferol (Vitamin D2) Active 1250 CAP PO DAILY January 27, 2020 12:00am estradiol 0.1 mg/ml vaginal cream (15 sources) Estrogen Start: 01-03-2024 estradiol (EST RACE) 0.01 % (0.1 mg/gram) vaginal cream Use 1 (ONE) gram vaginally TWICE A WEEK 42.5 g 3 01/03/2024 Active Start: 03-04-2023 End: 01-03-2024 estradiol (ESTRACE) 0.01 % ( 0.1 mg/gram) vaginal cream Use 1 g vaginally two times a week. Apply twice weekly to the vaginal opening. 42.5 g 3 03/04/2023 01/03/2024 Discontinued Comment on above: Use 1 g vaginally tw o times a week. Apply twice weekly to the vaginal opening. fluticasone propionate 0.05 mg/actuat metered dose nasal spray (3 sources) Corticosteroid Start: 11-16-2024 Fluticasone Propionate 50 mcg/actuation spray,suspension Active 1 NMA INTRANASAL TWICE A DAY as needed November 16, 2024 12:00am 1 ml HYDROmorphone hydrochloride 1 mg/ml cartridge (2 sources) Opioid Agonist Start: 12-10-2021 HYDROmorphone (DILAUDID) injection 0.5 mg Start: 12-10-2021 HYDROmorphone (DILAUDID) injection 0.25 mg ibuprofen 600 mg oral tablet (14 sources) Nonsteroidal Anti-inflammatory Drug Start: 05-18-2023 take 1 tablet by mouth every six hours as needed ibuprofen (MOTRIN) 600 mg tablet Take 1 tablet by mouth every 6 hours as needed for pain. 30 tablet 1 05/18/2023 Active Start: 12-10-2021 take 1 tablet by dayana th every six hours as needed for pain ibuprofen (ADVIL;MOTRIN) 400 MG tablet Take 1 tablet by mouth every 6 hours as needed for Pain 60 tablet 1 12/10/2021 Active Comment on above: Take 1 tablet by dayana th every 6 hours as needed for pain. labetalol (NORMODYNE;TRANDATE) injection 5 mg (1 source) Start: 2 labetalol (NORMODYNE;TRANDA TE) injection 5 mg 10 ml lidocaine hydrochloride 10 mg/ml injection (1 source) Antiarrhythmic, Amide Local Anesthetic Start: 2 End: 2 lidocaine PF 1 % injection 1 mL 1 ml LORazepam 2 mg/ml injection (1 source) Benzodiazepine Start: 2 End: 2 LORazepam (ATIVAN) injection 0.5 mg metFORMIN hydrochloride 500 mg oral tablet (20 sources) Biguanide Start: 0 End: 4 take 1 tablet by mouth twice daily Metformin 500 mg tablet Active 500 mg PO TWICE A DAY July 14, 2023 9:03am Start: 01-27-2020 End: 07-14-2023 Metformin 500 mg tablet Disc ontinued 500 {tbl} PO TWICE A DAY January 27, 2020 12:00am July 14, 2023 9:03am Comment on above: Take 500 mg by mouth twice daily with meals. Multiple Vitamins-Minerals (HAIR SKIN AND NAILS FORMULA PO) (1 source) Multiple Vitamins-Minerals (HAIR SKIN AND NAILS FORMULA PO) Take by mouth 0 Active multivit with minerals/lutein (MULTIVITAMIN 50 PLUS ORAL) (14 sources) Start: 01-27-2020 take 1 tablet by mouth once daily multivit with minerals/lutein (MULTIVITAMIN 50 PLUS ORAL) Take 1 tablet by mouth once daily. 01/27/2020 Active Start: 01-27-2020 take 1 tablet by dayana th once daily multivit with minerals/lutein (MULTIVITAMIN 50 PLUS ORAL) Take 1 tablet by mouth once daily. 0 01/27/2020 Suspended Start: 01-27-2020 take 1 tablet by dayana th once daily multivit with minerals/lutein (MULTIVITAMIN 50 PLUS ORAL) Take 1 tablet by mouth once daily. 0 01/27/2020 Active Start: 01-27-2020 multivit with minerals/lutein (MULTIVITAMIN 50 PLUS ORAL) Take by mouth. 0 01/27/2020 Active Comment on above: Take by mouth. [facility] Multivitamin capsule (5 sources) Start: 01-27-2020 Multivitamin capsule Active 1 NMA PO DAILY January 27, 2020 12:00am Multivitamin preparation (13 sources) Start: 01-27-2020 take 1 capsule by mouth once daily multivitamin Active 1 CAP PO DAILY January 27, 2020 1:36pm Start: 01-27-2020 take 1 capsule by [facility] once daily multivitamin Active 1 CAP PO DAILY January 26, 2020 11:00pm Start: 01-27-2020 take 1 capsule by [facility] once daily multivitamin Active 1 CAP PO DAILY January 27, 2020 12:00am nitroglycerin 0.02 mg/mg topical ointment (3 sources) Nitrate Vasodilator Start: 12-10-2021 nitroglyce rin (NITRO-BID) 2 % ointment Place 0.5 inches onto the skin in the morning and 0.5 inches at noon and 0.5 inches in the evening and 0.5 inches before bedtime. 30 g 3 12/10/2021 Active Start: 12-10-2021 nitroglycerin (NITRO-BID) 2 % ointment 0.5 inch Start: 12-10-2021 nitroglycerin (NITRO-BID) 2 % ointment [place]-3 Fatty Acids (Fish Oil Concentrate) 1,000 mg capsule (18 sources) Start: 01-27-2020 take 1 capsule by mouth once daily [place]-3 Fatty Acids (Fish Oil Concentrate) 1,000 mg capsule Active 1000 MG PO DAILY January 27, 2020 1:36pm Start: 01-27-2020 End: 06-25-2023 take 1 capsule by mouth once daily [place]-3 Fatty Acids (Fish Oil Concentrate) 1,000 mg capsule Discontinued 1000 mg PO DAILY January 27, 2020 12:00am June 25, 2023 12:26pm Start: 01-27-2020 End: 06-25-2023 take 1 capsule by mouth once daily [place]-3 Fatty Acids (Fish Oil Concentrate) 1,000 mg capsule Discontinued 1000 MG PO DAILY January 27, 2020 12:00am June 25, 2023 12:26pm Start: 01-27-2020 take 1 capsule by [facility] once daily [place]-3 Fatty Acids (Fish Oil Concentrate) 1,000 mg capsule Active 1000 MG PO DAILY January 26, 2020 11:00pm Start: 01-27-2020 take 1 capsule by [facility] once daily [place]-3 Fatty Acids (Fish Oil Concentrate) 1,000 mg capsule Active 1000 MG PO DAILY January 27, 2020 12:00am omeprazole 20 mg delayed release oral capsule (4 sources) Proton Pump Inhibitor Start: 01-12-2024 take 1 capsule by mouth once daily omeprazole (PRILOSEC) 20 mg capsule Take 20 mg by mouth once daily. 01/12/2024 Active 2 ml ondansetron 2 mg/ml injection (1 source) Serotonin-3 Receptor Antagonist Start: 12-10-2021 End: 12-10-2021 ondansetron (ZOFRAN) injection 4 mg rosuvastatin calcium 5 mg oral tablet (20 sources) HMG-CoA Reductase Inhibitor Start: 01-12-2024 take 1 tablet by mouth once daily rosuvastatin (CRESTOR) 5 mg tablet Take 5 mg by mouth once daily. 01/12/2024 Active Start: 06-25-2023 take 1 tablet by dayana once daily Rosuvastatin 10 mg tablet Active 10 mg PO DAILY June 25, 2023 1:00am Start: 10-07-2021 take 1 tablet by dayana once daily rosuvastatin (CRESTOR) 5 MG tablet Take 1 tablet by mouth daily 0 10/07/2021 Active End: 01-13-2024 take 5 mg by mouth once daily at bedtime rosuvastatin calcium (CRESTOR ORAL) Take 5 mg by mouth daily at bedtime. 01/13/2024 Discontinued (Course of therapy completed) rosuvastatin nilesh cium (CRESTOR ORAL) Take by mouth. 1 tablet every 3 days 0 Active Comment on above: Take by mouth. 1 tab let every 3 days Take 5 mg by mouth d aily at bedtime. 5 ml sodium chloride 9 mg/ml injection (9 sources) Start: 12-10-2021 sodium chloride flush 0.9 % injection 5-40 mL Start: 12-10-2021 0.9 % sodium c hloride bolus Start: 12-10-2021 0.9 % sodium c hloride infusion Start: 12-10-2021 sodium chlorid e flush 0.9 % injection 5-40 mL valACYclovir 500 mg oral tablet (20 sources) Herpesvirus Nucleoside Analog DNA Polymerase Inhibitor, Herpes Simplex Virus Nucleoside Analog DNA Polymerase Inhibitor, Herpes Zoster Virus Nucleoside Analog DNA Polymerase Inhibitor Start: 11-16-2024 take 1 tablet by mouth once daily as needed Valacyclovir 500 mg tablet Active 500 mg PO daily as needed November 16, 2024 12:00am Start: 09-19-2021 take 2 tablets by mo uth every twelve hours valACYclovir (VALTREX) 1 g tablet take 2 tablets by mouth every 12 hours for 1 day 0 09/19/2021 Active Start: 01-27-2020 End: 06-25-2023 Valacyclovir 1 gram tablet Discontinued 1 % PO NEEDED as needed for cold sores January 27, 2020 12:00am June 25, 2023 12:26pm Start: 01-27-2020 End: 06-25-2023 Valacyclovir Discontinued 1 % PO NEEDED January 27, 2020 12:00am June 25, 2023 12:26pm Completed/Discontinued Medications Medication Drug Class(es) Dates Sig (Normalized) Sig (Original) albuterol 0.833 mg/ml / ipratropium bromide 0.167 mg/ml inhalation solution (10 sources) Anticholinergic, beta2-Adrenergic Agonist Start: 02-27-2023 End: 03-04-2023 take 1 mL by inhalation every four hours Ipratropium-Albuter ol 0.5 mg-3 mg(2.5 mg base)/3 mL solution for nebulization Discontinued 3 mL INHALATION Q4H 90 5 0 February 27, 2023 12:00am March 03, 2023 12:00am March 04, 2023 12:05am Start: 02-27-2023 End: 03-04-2023 take 1 mL by inhalation every four hours Ipratropium-Albuterol Discontinued 3 ML INHALATION Q4H 90 5 February 27, 2023 12:00am March 04, 2023 12:05am ALBUTEROL, BULK, MISC (1 source) Start: 01-27-2020 ALBUTEROL, BULK, MISC Inhale as instructed. 0 01/27/2020 Active Comment on above: Inhale as instructed . amitriptyline hydrochloride 25 mg oral tablet (1 source) Tricyclic Antidepressant Start: 05-07-2023 End: 07-01-2023 take 1 tablet by mouth once daily at bedtime amitriptyline (ELAVIL) 25 mg tablet Take 25 mg by mouth daily at bedtime. 0 05/07/2023 07/01/2023 Discontinued (Course of therapy completed) Comment on above: Take 25 mg by mouth daily at bedtime. amoxicillin 875 mg / clavulanate 125 mg oral tablet (10 sources) Penicillin-class Antibacterial Start: 02-27-2023 End: 03-09-2023 Amoxicillin-Pot Clavulanate 875-125 mg tablet Discontinued 1 {tbl} PO Q12H 20 10 February 27, 2023 12:00am March 08, 2023 12:00am March 09, 2023 1:04am Acute sinusitis, unspecified Start: 02-27-2023 End: 03-09-2023 take 1 tablet by mouth every twelve hours Amoxicillin-Pot Clavulanate Discontinued 1 TABLET PO Q12H 20 02February 27, 2023 12:00am March 09, 2023 1:04am atorvastatin 10 mg oral tablet (18 sources) HMG-CoA Reductase Inhibitor Start: 01-27-2020 End: 06-25-2023 take 1 tablet by mouth once daily Atorvastatin 10 mg tablet Discontinued 10 mg PO DAILY January 27, 2020 12:00am June 25, 2023 12:25pm Benzocaine (1 source) Standardized Chemical Allergen Start: 01-18-2024 End: 01-18-2024 1 Sassafras, TOPICAL, DIRECTED, Starting on Thu01/18/24 at 1100, Until Thu01/18/24 at 1459, Dosing as directed for intraprocedural use only - Pharmaceutical Waste: Aerosol -, Intraprocedure calcium chloride 0.0014 meq/ml / potassium chloride 0.004 meq/ml / sodium chloride 0.103 meq/ml / sodium lactate 0.028 meq/ml injectable solution (3 sources) Start: 01-18-2024 End: 01-18-2024 take 30 mL intravenously every hour 30 mL/hr, INTRAVENOUS, CONTINUOUS, Starting on Thu01/18/24 at 1000, Until Thu01/18/24 at 1101, Preprocedure Start: 12-10-2021 lactated valeriae rs infusion ceFAZolin 2000 mg injection (1 source) Cephalosporin Antibacterial Start: 12-10-2021 End: 12-10-2021 ceFAZolin (ANCEF) 2000 mg in dextrose 4 % 100 mL IVPB (premix) Creatine (1 source) take 1 scoop(s) by mouth once daily creatine monohydrate (CREATINE ORAL) Take 1 Scoop by mouth once daily. powder 0 Active Comment on above: Take 1 Scoop by mout h once daily. powder Creatinine, Bulk, 100 % powd (1 source) Creatinine, Bulk , 100 % powd Take by mouth once daily. 1 scoop once daily 0 Active Comment on above: Take by mouth once d aily. 1 scoop once daily diphenhydrAMINE (2 sources) Histamine-1 Receptor Antagonist Start: 01-18-2024 End: 01-18-2024 12.5-50 mg, INTRAVENOUS, DIRECTED, Starting on Thu01/18/24 at 1100, Until Thu01/18/24 at 1459, DOSING DIRECTED BY PHYSICIAN FOR PROCEDURAL SEDATION ONLY, Intraprocedure Start: 12-10-2021 End: 12-10-2021 diphenhydrAMINE (BENADRYL) i njection 12.5 mg famotidine 20 mg oral tablet (1 source) Histamine-2 Receptor Antagonist Start: 12-10-2021 End: 12-10-2021 famotidine (PEPCID) tablet 20 mg Start: 12-10-2021 End: 12-10-2021 famotidine (PEPCID) tablet 2 0 mg 1 ml fentaNYL 0.05 mg/ml injection (1 source) Opioid Agonist Start: 01-18-2024 End: 01-18-2024 25-100 mcg, INTRAVENOUS, DIRECTED, Starting on Thu01/18/24 at 1100, Until Thu01/18/24 at 1459, DOSING DIRECTED BY PHYSICIAN FOR PROCEDURAL SEDATION ONLY, Intraprocedure hydrocortisone 10 mg oral tablet (5 sources) Corticosteroid Start: 11-01-2023 End: 01-13-2024 hydrocortisone (CORTEF) 10 mg tablet Indications: Adrenal insufficiency (HCC) Take 20 mg (two tablets) BID for 2 days then reduce to 10 mg (one tablet) BID after that 60 tablet 1 11/01/2023 01/13/2024 Discontinued (Course of therapy completed) imiquimod 50 mg/ml topical cream (8 sources) Start: 09-23-2023 End: 03-22-2024 imiquimod (ALDARA) 5 % cream Apply to affected areas twice daily for 4 weeks 09/23/2023 03/22/2024 Discontinued methylPREDNISolone 4 mg oral tablet (10 sources) Corticosteroid Start: 02-27-2023 End: 03-05-2023 take 1 tablet by mouth once Methylprednisolone (Medrol (Richard)) 4 mg tablets,dose pack Discontinued 4 mg PO per package directions 21 6 February 27, 2023 12:00am March 04, 2023 12:00am March 05, 2023 12:05am 5 ml midazolam 1 mg/ml injection (1 source) Benzodiazepine Start: 01-18-2024 End: 01-18-2024 1-5 mg, INTRAVENOUS, DIRECTED, Starting on Thu01/18/24 at 1100, Until Thu01/18/24 at 1459, DOSING DIRECTED BY PHYSICIAN FOR PROCEDURAL SEDATION ONLY, Intraprocedure naproxen 500 mg oral tablet (16 sources) Nonsteroidal Anti-inflammatory Drug Start: 12-27-2021 End: 06-25-2023 take 1 tablet by mouth twice daily Naproxen 500 mg tablet Discontinued 500 mg PO TWICE A DAY December 27, 2021 12:00am June 25, 2023 12:26pm 24 hr nicotine 0.875 mg/hr transdermal system (1 source) Cholinergic Nicotinic Agonist End: 07-01-2023 apply 1 dose transdermal route every twenty-four hours nicotine (NICODERM) 21 mg/24 hr apply 1 (ONE) patch EVERY 24 HOURS, do not smoke with the patch 0 07/01/2023 Discontinued (Course of therapy completed) Comment on above: apply 1 (ONE) patch EVERY 24 HOURS, do not smoke with the patch omega-3 DHA-EPA (FISH OIL) 1,200 (144-216) mg capsule (1 source) End: 03-19-2023 take 1 capsule by mouth once daily at breakfast omega-3 DHA-EPA (FISH OIL) 1,200 (144-216) mg capsule Take 1 capsule by mouth daily with breakfast. 0 03/19/2023 Discontinued Comment on above: Take 1 capsule by [facility] daily with breakfast. polyethylene glycol 3350 02595 mg powder for oral solution (1 source) Osmotic Laxative Start: 05-18-2023 End: 07-01-2023 polyethylene glycol 3350 (MIRALAX) 17 gram/dose powder Take 17 g by mouth as directed. Dissolve dose in 4 - 8 ounces of liquid and take as directed. 289 g 0 05/18/2023 07/01/2023 Discontinued (Course of therapy completed) Comment on above: Take 17 g by mouth a s directed. Dissolve dose in 4 - 8 ounces of liquid and take as directed. bemsqly-twze-wabxu-or eg-capryl 100 mg-150 mg- 50 mg-150 mg cap (1 source) Start: 05-29-2020 End: 03-19-2023 hvlqrpp-cyxe-lbebg-o reg-capryl 100 mg-150 mg- 50 mg-150 mg cap 0 Refill(s) 0 05/29/2020 03/19/2023 Discontinued Comment on above: 0 Refill(s) Zinc Acetate (1 source) End: 03-19-2023 ZINC ACETATE ORAL Take by mouth. 0 03/19/2023 Discontinued Comment on above: Take by mouth. Problems Active Problems Problem Classification Problem Date Documented Da te Episodic/Chronic Abdominal pain (20 sources) Right upper quadrant pain; Translations: [Right upper quadrant pain] Onset: 10-02-2014 01-30-2020 Episodic Biliary tract disease (18 sources) Biliary dyskinesia; Translations: [Other specified diseases of gallbladder] 01-30-2020 Episodic Chronic obstructive pulmonary disease and bronchiectasis (20 sources) Acute exacerbation of chronic obstructive airways disease with asthma; Translations: [Chronic obstructive pulmonary disease with (acute) exacerbation] Onset: 08-12-2022 02-27-2023 Chronic Disorders of lipid metabolism (15 sources) Hyperlipidemia; Translations: [Hyperlipidemia, unspecified] Onset: 11-13-2022 05-07-2023 Chronic Genitourinary symptoms and ill-defined conditions (4 sources) Mixed urinary incontinence; Translations: [Mixed incontinence] Onset: 12-15-2024 07-01-2023 Chronic Genitourinary symptoms and ill-defined conditions (2 sources) Retention of urine, unspecified; Translations: [Personal history of other diseases of urinary system] Onset: 11-10-2024 Episodic Headache; including migraine (11 sources) Migraine without aura, not refractory ; Translations: [Migraine without aura, not intractable, without status migrainosus] Onset: 06-23-2023 10-23-2023 Chronic Immunizations and screening for infectious disease [...] deficiency, unspecified] Onset: 07-26-2016 07-26-2016 Chronic Other and unspecified benign neoplasm (11 sources) Benign neoplasm of unspecified adrenal gland; Translations: [Adrenal adenoma] Onset: 08-25-2016 08-25-2016 Episodic Other and unspecified benign neoplasm (1 source) Benign neoplasm of left adrenal gland; Translations: [Adrenal adenoma, left] Onset: 10-30-2023 Episodic Other circulatory disease (16 sources) Respiratory crackles; Translations: [Other specified symptoms and signs involving the circulatory and respiratory systems] 01-04-2022 Episodic Other diseases of bladder and urethra (14 sources) Overactive bladder; Translations: [Overactive bladder] Onset: 12-06-2014 12-06-2014 Chronic Other endocrine disorders (1 source) Disorder of adrenal gland; Translations: [Disorder of adrenal gland, unspecified] 09-07-2023 Chronic Other endocrine disorders (14 sources) Adrenal mass; Translations: [Other specified disorders of adrenal gland] Onset: 10-30-2023 09-07-2023 Chronic Comment on above: benign Other endocrine disorders (1 source) Hypoadrenalism; Translations: [Unspecified adrenocortical insufficiency] 11-01-2023 Chronic Other endocrine disorders (1 source) Other specified disorders of adrenal gland; Translations: [Adrenal mass (HCC)] Onset: 11-01-2023 Chronic Other endocrine disorders (1 source) Disorder of adrenal gland, unspecified; Translations: [Disorder of adrenal gland (HCC)] Onset: 08-28-2023 Chronic Other gastrointestinal disorders (1 source) Heartburn; Translations: [Heartburn] 01-18-2024 Episodic Other lower respiratory disease (10 sources) Dyspnea; Translations: [Shortness of breath] 02-27-2023 Episodic Other nutritional; endocrine; and metabolic disorders (1 source) Other disorders of bilirubin metabolism; Translations: [Other disorders of bilirubin metabolism] Onset: 06-02-2024 Chronic Other screening for suspected conditions (not mental disorders or infectious disease) (1 source) Encounter for screening mammogram for malignant neoplasm of breast; Translations: [Encounter for screening mammogram for malignant neoplasm of breast] Onset: 02-15-2025 Episodic Pleurisy; pneumothorax; pulmonary collapse (16 sources) Acute dry pleurisy; Translations: [Pleurisy] 01-04-2022 Episodic Prolapse of female genital organs (20 sources) Midline cystocele; Translations: [Cystocele, midline] Onset: 05-07-2023 03-19-2023 Chronic Residual codes; unclassified (1 source) Other specified postprocedural states; Translations: [Other specified postprocedural states] Onset: 12-15-2024 Episodic Substance-related disorders (16 sources) Nicotine dependence; Translations: [Nicotine dependence, unspecified, uncomplicated] Onset: 10-13-2022 05-07-2023 Chronic Unclassified (1 source) Post Op Onset: 11-13-2023 Viral infection (16 sources) Disease caused by 2019-nCoV; Translations: [COVID-19] 12-27-2021 Episodic Past or Other Problems Problem Classification Problem Date Documented Da te Episodic/Chronic Abdominal hernia (14 sources) Umbilical hernia; Translations: [Umbilical hernia without obstruction or gangrene] Onset: 10-02-2014 10-02-2014 Episodic Allergic reactions (11 sources) Contact dermatitis due to poison cordelia; Translations: [Allergic contact dermatitis due to plants, except food] Onset: 10-23-2023 10-23-2023 Episodic Cardiac dysrhythmias (13 sources) Palpitations; Translations: [Palpitations] Onset: 12-09-2022 05-07-2023 Episodic Diabetes mellitus without complication (16 sources) Prediabetes; Translations: [Prediabetes] Onset: 05-11-2023 05-11-2023 Episodic Malaise and fatigue (2 sources) Malaise and fatigue; Translations: [Other fatigue] Onset: 07-21-2016 07-21-2016 Episodic Other and unspecified benign neoplasm (8 sources) Adenoma of left adrenal gland; Translations: [Benign neoplasm of left adrenal gland] Onset: 10-30-2023 10-30-2023 Episodic Other circulatory disease (2 sources) Vascular disorder; Translations: [Unspecified disorder of circulatory system] Onset: 07-26-2016 07-26-2016 Episodic Other circulatory disease (8 sources) Low blood pressure; Translations: [Hypotension, unspecified] Onset: 11-01-2023 11-01-2023 Episodic Other connective tissue disease (1 source) Other specified soft tissue disorders; Translations: [Other specified soft tissue disorders] Onset: 09-13-2024 Episodic Other female genital disorders (14 sources) Pelvic congestion syndrome; Translations: [Other specified conditions associated with female genital organs and menstrual cycle] Onset: 12-06-2014 12-06-2014 Episodic Other gastrointestinal disorders (12 sources) Diarrhea; Translations: [Diarrhea, unspecified] Onset: 03-07-2021 Resolved: 03-07-2021 03-07-2021 Episodic Other gastrointestinal disorders (5 sources) Esophageal dysphagia; Translations: [Other dysphagia] Onset: 01-18-2024 01-13-2024 Episodic Other gastrointestinal disorders (1 source) Heartburn; Translations: [Heartburn] Onset: 01-18-2024 Episodic Other gastrointestinal disorders (1 source) Other dysphagia; Translations: [Esophageal dysphagia] Onset: 01-18-2024 Episodic Other lower respiratory disease (3 sources) Shortness of breath; Translations: [Shortness of breath] 02-27-2023 Episodic Other nervous system disorders (1 source) Other acute postprocedural pain; Translations: [Post-operative pain] Onset: 05-18-2023 Episodic Other nutritional; endocrine; and metabolic disorders (2 sources) Body mass index (BMI) 26.0-26.9, adult; Translations: [Body mass index (BMI) 26.0-26.9, adult] Onset: 07-21-2016 07-21-2016 Episodic Residual codes; unclassified (12 sources) Family history of cancer of colon; Translations: [Family history of malignant neoplasm of digestive organs] Onset: 03-07-2021 Resolved: 03-07-2021 03-07-2021 Episodic Unclassified (16 sources) s/p bladder sling 11-21-2021 Results Test Name Value Interpretation Reference Range Facility Abdomen/Pelvis without Conto n 12-02-2024 Abdomen/Pelvis without Cont [facility] [address] [place] [address] Abdomen/Pelvis without Cont MR#: [id number] Acct: [id number] Name: JESSY ALEGRE Rep #: [id number] : 1965 F 59 From: Luigi kruse MD PCP: Dr. Lala Zendejas MD Status: REG CLI Study: Abdomen/Pelvis without Cont Date of Exam: 05/28 Exam# [id number] Ordering Dr: Joan Bass MD PROCEDURE: ABDOMEN/PELVIS WITHOUT CONT 12/02/2024 REASON FOR EXAM: LEFT SIDE ABDOMINAL PAIN Prior cholecystectomy and appendectomy. Prior adrenal resection. TECHNIQUE: ABDOMEN/PELVIS WITHOUT CONT Noncontrast technique limits evaluation of the abdominal and pelvic viscera. Coronal and Sagittal reconstruction series were provided. One or more dose reduction techniques were used (e.g., Automated exposure control, adjustment of the mA and/or kV according to patient size, use of iterative reconstruction technique). RADIATION DOSE SUMMARY: CTDlvol: 6.33 mGy DLP: 299.09 mGycm COMPARISON: Prior study dated November 07, 2023. FINDINGS: Lung bases: Unremarkable. Bilateral breast implants. Minimal anterior pericardial thickening. Liver: Normal size. No obvious mass. Gallbladder: Surgically absent. Spleen: Normal size. Pancreas: Normal size. No surrounding inflammation. Adrenals: Prior left adrenal resection. Kidneys: No urolithiasis. No hydronephrosis. Bladder: Unremarkable Reproductive Organs: Prior hysterectomy. Adnexal regions are unremarkable. Bowel: Unremarkable Appendix: Prior appendectomy. Lymph nodes: Unremarkable. Vasculature: Mild diffuse atherosclerotic calcifications are noted. Peritoneum / Retroperitoneum: Unremarkable Bones: No acute abnormality is seen. CT/Abdomen/Pelvis without Cont IMPRESSION: Stable examination. No acute abnormality is present. Minimal anterior pericardial thickening. Reading Location: [id number] CC: Dr. Lala Zendejas MD; Dr. 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 [place] [address] OFFICE VISIT Date of Service: 11/16/24 MR#: [id number] Acct: [id number] Name: JESSY ALEGRE Rep #: [id number] : 1965 Provider: Dr. Joan christensen MD Age/Sex: 59/F Location: [facility] Status: Signed Intake Vital Signs 11/07/23 19:54 11/16/24 13:45 Height 5 ft 4 in 5 ft 4 in Weight: 135 lb BMI 23.1 BP 112/69 Blood Pressure Location Rt brachial Position Sitting Respiration 16 Intake Visit Reasons: SPIGELIAN HERNIA Chief Complaint: spigelian hernia Fence Repairman Required: No Is patient in pain?: Yes (left side) Allergies amoxicillin (From Augmentin) Allergy (Intermediate, Verified 11/16/24 13:47) Rash clavulanic acid (From Augmentin) Allergy (Intermediate, Verified 11/16/24 13:47) Rash adhesive Allergy (Mild, Verified 11/16/24 13:47) Rash citalopram Allergy (Mild, Verified 11/16/24 13:47) Other oxycodone HCl (From Percocet) Allergy (Verified 11/16/24 13:47) Itching Medications ???Medication ???Instructions ???Recorded ???Confirmed ???Type ergocalciferol (vitamin D2) 1,250 1,250 cap PO DAILY 01/27/2011/16 History mcg (50,000 unit) capsule multivitamin 1 cap PO DAILY 01/27/20 11/16/24 H istory ascorbic acid (vitamin C) 500 mg 500 mg PO DAILY 06/25/23 11/16/24 History capsule rosuvastatin 10 mg tablet 10 mg PO DAILY 06/25/23 11/16/24 H istory metformin 500 mg tablet 500 mg PO BID 07/14/23 11/16/24 Hi story albuterol sulfate 90 mcg/actuation 2 puff inhalation Q6H PRN 11/16/24 History aerosol inhaler (Ventolin HFA) fluticasone propionate 50 1 spray intranasal BID PRN 2 5 11/16/24 History mcg/actuation nasal spray,suspension valacyclovir 500 mg tablet 500 mg PO QDAY PRN 11/16/24 History Have you fallen in the past year?: No PFSH Medical History (Updated 11/16/24 @ 14:11 by Sabino Hdz) Left sided abdominal pain Adrenal adenoma Asthma High cholesterol Pre-diabetes Surgical History (Updated 11/21/24 @ 12:[address] Joan Bass MD) History of bladder surgery Mass of adrenal gland S/P laparoscopic cholecystectomy S/P tonsillectomy S/P bilateral breast implants S/P hysterectomy s/p bladder sling S/P appendectomy S/P foot surgery Family History (Updated 11/16/24 @ 13:45 by Sabino Hdz) Mother Asthma Diabetes Cancer skin Thyroid disorder Father CAD (coronary artery disease) Diabetes CVA (cerebral vascular accident) Uncle Colon cancer Aunt Colon cancer Social History household members: spouse Smoking Status: Current every day smoker tobacco type: cigarettes alcohol intake: never substance use type: does not use what type of physical activity do you participate in: walking HPI HPI HPI: 59-year-old female presents due to left-sided bulge and pain. Patient states she had an episode about 3 months ago she was doing sit ups but did not go away. Patient states last week had another episode but had been doing sit ups in the meantime without any issues as well as lifting weights. Patient saw her PCP and she was referred over for spigelian hernia. Patient did have adrenalectomy done in June 2024 [facility]. Patient is unable to localize exactly where the pain or bulge was at. ROS General General: No weight change, appetite, fatigue, colon cancer, breast cancer or weakness HEENT HEENT: No difficulty swallowing, eye injury, eye surgery, swollen glands or hoarseness Endo Endocrine: No thyroid disease, diabetes mellitus, thyroid cancer, Hair loss, heat intolerance or cold intolerance Skin Skin: No rash or changing moles Breast Breast: No left breast lump, right breast lump, nipple discharge, breast pain, abnormal mammogram, abnormal US or breast enlargement Musc Musculoskeletal: No back problems, arthritis, rheumatoid arthritis, gout or joint pain Cardio Cardiovascular: No murmur, pacemaker, heart disease, atrial fibrillation, high blood pressure, heart attack, heart stent, palpitations, shortness of breath with exertion or chest pain Psych Psychiatric: No depression, anxiety or hearing voices Resp Respiratory: No shortness of breath, No sleep apnea, No cough, Yes COPD, No asthma, No emphysema and No wheezing Gastro Gastrointestinal: No abdominal pain, No nausea or vomiting, No diarrhea, No constipation, No blood in stool, No acid reflux, No hemorrhoids, No ulcers, No gallbladder problem and No black,tarry stool s Jose J Hematologic: No blood thinners, No blood disorders, No bleeding, No anemia and No blood clots Neuro Neurologic: No system reviewed and no additional complaints, except as documented, No as per HPI, No abnormal gait (more content not included)... Normal [facility] Pathology biopsy report Jcarlos (Tiss)on 11-10-2024 AP DISCLAIMER Normal [facility] Comment on above: Order Comment: Speci men Type: TISSUE SPECIMEN Ordering Facility: [facility] Address: [address] [place], [place] [id number] Result Comment: Cristiana sethi Developed Test (LDT) Disclaimer: Performance characteristics of immunohistochemical, immunofluorescent, and chromogenic in-situ hybridization tests have been determined by the performing laboratory within [facility] Pathology and Laboratory Medicine Department ([facility], [facility], [facility], [facility], [facility], [facility], [facility], or [facility]) in a manner consistent with CLIA requirements. One or more of these tests may not have been cleared or approved by the FDA. [facility] is regulated under CLIA as qualified to perform high-complexity testing. These tests are used for clinical purposes. These should not be regarded as investigational or for research. Positive and negative controls stain appropriately. Performed By: #### 6 6121-5 #### [facility] CLIA [id number] [address] [place] [address] [place] CASE REPORT Normal [facility] Comment on above: Order Comment: Speci men Type: TISSUE SPECIMEN Ordering Facility: [facility] Address: [address] [place], [place] [id number] Result Comment: Surg ical Pathology Report Case: [id number] Authorizing Provider: Magdalena Bryant PA-C Collected: 11/10/2024 12:00 PM Ordering Location: [facility] Received: 11/14/2024 11:19 PM [facility] Pathologist: Lauryn Galvan MD Specimen: Skin, Shave Biopsy, LEFT DISTAL CALF Performed By: #### 6 6121-5 #### [facility] CLIA [id number] [address] [place] [address] CLINICAL HISTORY MORPHOLOGY: SMOOTH PINK PAPULE. DDX: NEOPLASM OF UNCERTAIN BEHAVIOR VS. BASAL CELL CARCINOMA VS. VERRUCA VULGARIS Normal [facility] Comment on above: Order Comment: Speci men Type: TISSUE SPECIMEN Ordering Facility: [facility] Address: [address] [place] [address] Performed By: #### 6 6121-5 #### [facility] CLIA [id number] [address] [place] [address] FINAL DIAGNOSIS Normal [facility] Comment on above: Order Comment: Speci men Type: TISSUE SPECIMEN Ordering Facility: [facility] Address: [address] [place] [address] Result Comment: Skin , left distal calf, shave biopsy: - Squamous cell carcinoma in situ. at 1405 EDT Performed By: #### 6 6121-5 #### [facility] CLIA [id number] [address] [place] [address] FIN[address]FORMING LAB Normal [facility] Comment on above: Order Comment: Speci men Type: TISSUE SPECIMEN Ordering Facility: [facility] Address: [address] [place] [address] Result Comment: Diag nostic interpretation performed at: [facility], [address] [place] [address] [place] [address] CLIA# [id number] [employer] Operator: Ceferino Bae MD Performed By: #### 6 6121-5 #### [facility] CLIA [id number] [address] [place] [address] [place] GROSS DESCRIPTION Normal [facility] Comment on above: Order Comment: Speci men Type: TISSUE SPECIMEN Ordering Facility: [facility] Address: [address] [place] [address], [place] [address] Result Comment: A. S kin, Shave Biopsy Received in formalin is a 0.7 x 0.5 x <0.1 cm shave of skin. The specimen is bisected. Totally submitted in one cassette. MLG 11/15/24 8:36 AM Gross examination performed at [facility], [address] [place] [address] Performed By: #### 6 6121-5 #### [facility] [place] [id number] [address] [place] [address] [place] Absolute lymphocyte countOrd ered By: Lala Zendejas on 11-08-2024 Lymphocytes Auto (Unsp spec) [#/Vol] 2.46 10*3/uL 0.83-4.51 [facility] Absolute neutrophil countOrd ered By: Lala Zendejas on 11-08-2024 Neutrophils (Bld) [#/Vol] 5.1 10*3/uL 2.0-7.7 [facility] Anion gap in Serum or Plasma Ordered By: Lala Zendejas on 11-08-2024 Anion gap [Moles/Vol] 12 mmol/L 5-15 [facility] Automated lymphocyte count a s percentage of total leukocytesOrdered By: Lala Zendejas on 11-08-2024 Lymphocytes/100 WBC Auto (Unsp spec) 29.8 % 19-41 [facility] BUN/creatinine ratioOrdered By: Lala Zendejas on 11-08-2024 Urea nitrogen/Creatinine [Mass ratio] 17.1 mg/mg 10-20 [facility] Basophil percentageOrdered B y: Lala Zendejas on 11-08-2024 Basophils/100 WBC (Bld) 0.8 % 0-1 [facility] Bilirubin, totalOrdered By: Lala Zendejas on 11-08-2024 Bilirubin [Mass/Vol] 0.51 mg/dL 0.00-1.30 [facility] CBC W/Diff, Automatedon 07-0 8-2025 Absolute Lymph 2.46 X10 3/uL Normal 0.83-4.51 [facility] Comment on above: Order Comment: Order Date: 05/12/24 Order Info: 0184-1 - CBCD Performed By: #### L 501.9985, L100.0100, L500.4050, L500.4100 #### [facility] [address] [place], [address] Absolute Neut 5.1 X10 3/uL Normal 2.0-7.7 [facility] Comment on above: Order Comment: Order Date: 05/12/24 Order Info: 0184-1 - CBCD Performed By: #### L 501.9985, L100.0100, L500.4050, L500.4100 #### [facility] [address] [place], [address] Basophils/100 WBC (Bld) 0.8 % Normal 0-1 [facility] Comment on above: Order Comment: Order Date: 05/12/24 Order Info: 0184-1 - CBCD Performed By: #### L 501.9985, L100.0100, L500.4050, L500.4100 #### [facility] [address] [place], [address] Eosinophils/100 WBC (Bld) 1.3 % Normal 0-5 [facility] Comment on above: Order Comment: Order Date: 05/12/24 Order Info: 0184-1 - CBCD Performed By: #### L 501.9985, L100.0100, L500.4050, L500.4100 #### [facility] [address] [place], [address] Erythrocyte distribution width (RBC) [Ratio] 13.3 % Normal 11.6-14.6 [facility] Comment on above: Order Comment: Order Date: 05/12/24 Order Info: 0184-1 - CBCD Performed By: #### L 501.9985, L100.0100, L500.4050, L500.4100 #### [facility] [address] [place], [address] Hematocrit (Bld) [Volume fraction] 43.2 % Normal 37-47 [facility] Comment on above: Order Comment: Order Date: 05/12/24 Order Info: 0184-1 - CBCD Performed By: #### L 501.9985, L100.0100, L500.4050, L500.4100 #### [facility] [address] [place], [address] Hemoglobin (Bld) [Mass/Vol] 14.4 g/dL Normal 12.0-15.0 [facility] Comment on above: Order Comment: Order Date: 05/12/24 Order Info: 0184-1 - CBCD Performed By: #### L 501.9985, L100.0100, L500.4050, L500.4100 #### [facility] [address] [place], [address] IG% 0.400 Normal 0.0-0.9 [facility] Comment on above: Order Comment: Order Date: 05/12/24 Order Info: 0184-1 - CBCD Result Comment: IG% - Immature Granulocytes (promyelocytes, myelocytes and metamyelocytes) > 1% indicates that a LEFT SHIFT is Present. Performed By: #### L 501.9985, L100.0100, L500.4050, L500.4100 #### [facility] [address] [place], [address] Lymphocytes/100 WBC (Bld) 29.8 % Normal 19-41 [facility] Comment on above: Order Comment: Order Date: 05/12/24 Order Info: 0184-1 - CBCD Performed By: #### L 501.9985, L100.0100, L500.4050, L500.4100 #### [facility] [address] [place], [address] MCH (RBC) [Entitic mass] 30.8 pg Normal 27.0-32.0 [facility] Comment on above: Order Comment: Order Date: 05/12/24 Order Info: 0184-1 - CBCD Performed By: #### L 501.9985, L100.0100, L500.4050, L500.4100 #### [facility] [address] [place], [address] MCHC (RBC) [Mass/Vol] 33.3 g/dL Normal 32-36 [facility] Comment on above: Order Comment: Order Date: 05/12/24 Order Info: 0184-1 - CBCD Performed By: #### L 501.9985, L100.0100, L500.4050, L500.4100 #### [facility] [address] [place], [address] MCV (RBC) [Entitic vol] 92.3 fL Normal 81-99 [facility] Comment on above: Order Comment: Order Date: 05/12/24 Order Info: 0184-1 - CBCD Performed By: #### L 501.9985, L100.0100, L500.4050, L500.4100 #### [facility] [address] [place], [address] Monocytes/100 WBC (Bld) 6.2 % Normal 0-10 [facility] Comment on above: Order Comment: Order Date: 05/12/24 Order Info: 0184-1 - CBCD Performed By: #### L 501.9985, L100.0100, L500.4050, L500.4100 #### [facility] [address] [place], [address] Neutrophils/100 WBC (Bld) 61.5 % Normal 47-70 [facility] Comment on above: Order Comment: Order Date: 05/12/24 Order Info: 0184-1 - CBCD Performed By: #### L 501.9985, L100.0100, L500.4050, L500.4100 #### [facility] [address] [place], [address] Nucleated RBC (Bld) [#/Vol] 0 10*3/uL Normal 0-5 [facility] Comment on above: Order Comment: Order Date: 05/12/24 Order Info: 0184-1 - CBCD Performed By: #### L 501.9985, L100.0100, L500.4050, L500.4100 #### [facility] [address] [place], [address] Platelet mean volume (Bld) [Entitic vol] 10.4 fL Normal 6.2-12.0 [facility] Comment on above: Order Comment: Order Date: 05/12/24 Order Info: 0184-1 - CBCD Performed By: #### L 501.9985, L100.0100, L500.4050, L500.4100 #### [facility] [address] [place], [address] Platelets (Bld) [#/Vol] 269 10*3/uL Normal 150-450 [facility] Comment on above: Order Comment: Order Date: 05/12/24 Order Info: 0184-1 - CBCD Performed By: #### L 501.9985, L100.0100, L500.4050, L500.4100 #### [facility] [address] [place], [address] RBC (Bld) [#/Vol] 4.68 10*6/uL Normal 4.2-5.4 [facility] Comment on above: Order Comment: Order Date: 05/12/24 Order Info: 0184-1 - CBCD Performed By: #### L 501.9985, L100.0100, L500.4050, L500.4100 #### [facility] [address] [place], [address] RDW SD 45.2 fl High 35.1-43.9 [facility] Comment on above: Order Comment: Order Date: 05/12/24 Order Info: [id number] - CBCD Performed By: #### L 501.9985, L100.0100, L500.4050, L500.4100 #### [facility] [address] [place], [address] WBC (Bld) [#/Vol] 8.3 10*3/uL Normal 4.4-11.0 [facility] Comment on above: Order Comment: Order Date: 05/12/24 Order Info: [id number] - CBCD Performed By: #### L 501.9985, L100.0100, L500.4050, L500.4100 #### [facility] [address] [place], [address] Calculated very low density lipoprotein (VLDL) cholesterol measurementOrdered By: Lala Zendejas on 11-08-2024 Calculated very low density lipoprotein (VLDL) cholesterol measurement 27 mg/dL 5-40 [facility] Carbon dioxide, total [Moles /volume] in Central venous bloodOrdered By: Lala Zendejas on 11-08-2024 CO2 [Moles/Vol] 22.4 mmol/L 21.0-32.0 [facility] Chloride assayOrdered By: Megan Zendejas on 11-08-2024 Chloride [Moles/Vol] 103 mmol/L 98-108 [facility] Comprehensive Metabolic Prof ilon 11-08-2024 Albumin [Mass/Vol] 4.4 g/dL Normal 3.5-5.0 [facility] Comment on above: Order Comment: Order Date: 05/12/24 Order Info: [id number] - CMP Order Info: [id number] - LIPID Performed By: #### L 501.9985, L100.0100, L500.4050, L500.4100 #### [facility] [address] [place], [address] Albumin/Globulin [Mass ratio] 1.5 {ratio} Normal 0.9-2.4 [facility] Comment on above: Order Comment: Order Date: 05/12/24 Order Info: [id number] - CMP Order Info: [id number] - LIPID Performed By: #### L 501.9985, L100.0100, L500.4050, L500.4100 #### [facility] [address] [place], [address] ALK PHOS 64 U/L Normal 35-104 [facility] Comment on above: Order Comment: Order Date: 05/12/24 Order Info: [id number] - CMP Order Info: [id number] - LIPID Performed By: #### L 501.9985, L100.0100, L500.4050, L500.4100 #### [facility] [address] [place], [address] ALT [Catalytic activity/Vol] 20 U/L Normal <=34 [facility] Comment on above: Order Comment: Order Date: 05/12/24 Order Info: [id number] - CMP Order Info: [id number] - LIPID Performed By: #### L 501.9985, L100.0100, L500.4050, L500.4100 #### [facility] [address] [place], [address] AST [Catalytic activity/Vol] 22 U/L Normal <=31 [facility] Comment on above: Order Comment: Order Date: 05/12/24 Order Info: [id number] - CMP Order Info: [id number] - LIPID Performed By: #### L 501.9985, L100.0100, L500.4050, L500.4100 #### [facility] [address] [place], [address] Bilirubin [Mass/Vol] 0.51 mg/dL Normal 0.00-1.30 [facility] Comment on above: Order Comment: Order Date: 05/12/24 Order Info: [id number] - CMP Order Info: [id number] - LIPID Performed By: #### L 501.9985, L100.0100, L500.4050, L500.4100 #### [facility] [address] [place], [address] BUN/CRE 17.1 RATIO Normal 10-20 [facility] Comment on above: Order Comment: Order Date: 05/12/24 Order Info: [id number] - CMP Order Info: [id number] - LIPID Performed By: #### L 501.9985, L100.0100, L500.4050, L500.4100 #### [facility] [address] [place], [address] Calcium [Mass/Vol] 9.5 mg/dL Normal 7.6-11.0 [facility] Comment on above: Order Comment: Order Date: 05/12/24 Order Info: [id number] - CMP Order Info: [id number] - LIPID Performed By: #### L 501.9985, L100.0100, L500.4050, L500.4100 #### [facility] [address] [place], [address] Chloride [Moles/Vol] 103 mmol/L Normal 98-108 [facility] Comment on above: Order Comment: Order Date: 05/12/24 Order Info: [id number] - CMP Order Info: [id number] - LIPID Performed By: #### L 501.9985, L100.0100, L500.4050, L500.4100 #### [facility] [address] [place], [address] CO2 [Moles/Vol] 22.4 mmol/L Normal 21.0-32.0 [facility] Comment on above: Order Comment: Order Date: 05/12/24 Order Info: [id number] - CMP Order Info: [id number] - LIPID Performed By: #### L 501.9985, L100.0100, L500.4050, L500.4100 #### [facility] [address] [place], [address] Creatinine [Mass/Vol] 0.84 mg/dL Normal 0.70-1.20 [facility] Comment on above: Order Comment: Order Date: 05/12/24 Order Info: [id number] - CMP Order Info: [id number] - LIPID Performed By: #### L 501.9985, L100.0100, L500.4050, L500.4100 #### [facility] [address] [place], [address] GAP 12 Normal 5-15 [facility] Comment on above: Order Comment: Order Date: 05/12/24 Order Info: [id number] - CMP Order Info: [id number] - LIPID Performed By: #### L 501.9985, L100.0100, L500.4050, L500.4100 #### [facility] [address] [place], [address] GFR/1.73 sq M.predicted among non-blacks MDRD (S/P/Bld) [Vol rate/Area] 81 mL/min/{1.73_m2} Normal >60 [facility] Comment on above: Order Comment: Order Date: 05/12/24 Order Info: [id number] - CMP Order Info: [id number] - LIPID Result Comment: mL/m in/1.73m2 CKD-EPI Creatinine Equation (2020) Performed By: #### L 501.9985, L100.0100, L500.4050, L500.4100 #### [facility] [address] [place], [address] Globulin (S) [Mass/Vol] 3.0 g/dL Normal 2.2-4.2 [facility] Comment on above: Order Comment: Order Date: 05/12/24 Order Info: [id number] - CMP Order Info: [id number] - LIPID Performed By: #### L 501.9985, L100.0100, L500.4050, L500.4100 #### [facility] [address] [place], [address] Glucose [Mass/Vol] 94 mg/dL Normal 70-99 [facility] Comment on above: Order Comment: Order Date: 05/12/24 Order Info: [id number] - CMP Order Info: [id number] - LIPID Performed By: #### L 501.9985, L100.0100, L500.4050, L500.4100 #### [facility] [address] [place], [address] Potassium [Moles/Vol] 4.5 mmol/L Normal 3.3-5.1 [facility] Comment on above: Order Comment: Order Date: 05/12/24 Order Info: [id number]- - CMP Order Info: [id number] - LIPID Performed By: #### L 501.9985, L100.0100, L500.4050, L500.4100 #### [facility] [address] [place], [address] Sodium [Moles/Vol] 138 mmol/L Normal 133-145 [facility] Comment on above: Order Comment: Order Date: 05/12/24 Order Info: [id number]- - CMP Order Info: [id number] - LIPID Performed By: #### L 501.9985, L100.0100, L500.4050, L500.4100 #### [facility] [address] [place], [address] T PROT 7.5 g/dL Normal 5.9-8.4 [facility] Comment on above: Order Comment: Order Date: 05/12/24 Order Info: [id number] - CMP Order Info: [id number] - LIPID Performed By: #### L 501.9985, L100.0100, L500.4050, L500.4100 #### [facility] [address] [place], [place], [address] Urea nitrogen [Mass/Vol] 14 mg/dL Normal 4-19 [facility] Comment on above: Order Comment: Order Date: 05/12/24 Order Info: [id number] - CMP Order Info: [id number] - LIPID Performed By: #### L 501.9985, L100.0100, L500.4050, L500.4100 #### [facility] [address] [place], [place], [address] Eosinophil percentageOrdered By: Lala Zendejas on 11-08-2024 Eosinophils/100 WBC (Bld) 1.3 % 0-5 [facility] Erythrocyte distribution wid th ratioOrdered By: Lala Zendejas on 11-08-2024 Erythrocyte distribution width (RBC) [Ratio] 13.3 % 11.6-14.6 [facility] Erythrocyte distribution wid th standard deviationOrdered By: Lala Zendejas on 11-08-2024 Erythrocyte distribution width (RBC) [Ratio] 45.2 fl High 35.1-43.9 [facility] Glomerular filtration rate ( GFR) estimation/1.73 sq m using serum, plasma, or whole bOrdered By: Lala Zendejas on 11-08-2024 GFR/1.73 sq M.predicted among non-blacks MDRD (S/P/Bld) [Vol rate/Area] 81 mL/min/{1.73_m2} >60 [facility] Comment on above: mL/min/1.73m2 CKD-EP I Creatinine Equation (2020) Hematocrit Auto (Bld) [Volum e fraction]Ordered By: Lala Zendejas on 11-08-2024 Hematocrit (Bld) [Volume fraction] 43.2 % 37-47 [facility] Hemoglobin A1con 11-08-2024 HbA1c (Bld) [Mass fraction] 5.6 % Normal <=5.6 [facility] Comment on above: Order Comment: Order Date: 05/12/24 Order Info: [id number] - A1C Result Comment: Norm al < 5.7 % Prediabetic 5.7 - 6.4 % Diabetic >or= 6.5 % Please note range changes. Performed By: #### L 5019985, L100.0100, L500.4050, L500.4100 #### [facility] [address] [place], [place], [address] Hemoglobin A1c percentageOrd ered By: Lala Zendejas on 11-08-2024 HbA1c (Bld) [Mass fraction] 5.6 % <5.7 [facility] Comment on above: Normal < 5.7 % Predi abetic 5.7 - 6.4 % Diabetic >or= 6.5 % Please note range changes. Hemoglobin measurementOrdere d By: Lala Zendejas on 11-08-2024 Hemoglobin (Bld) [Mass/Vol] 14.4 g/dL 12.0-15.0 [facility] Immature granulocytes/100 WB C Auto (Bld)Ordered By: Lala Zendejas on 11-08-2024 Immature granulocytes/100 WBC (Bld) 0.400 % 0.0-0.9 [facility] Comment on above: IG% - Immature Granu locytes (promyelocytes, myelocytes and metamyelocytes) > 1% indicates that a LEFT SHIFT is Present. LDL calc ser/plasOrdered By: Lala Zendejas on 11-08-2024 Cholesterol in LDL [Mass/Vol] 76 mg/dL [facility] Comment on above: Fajwodhwvf=292-848 m g/dL & Higher Kjcq=073 mg/dL or greater Laboratory - Chemistry and C hemistry - challengeOrdered By: Lala Zendejas on 11-08-2024 AST [Catalytic activity/Vol] 22 U/L <32 [facility] Lipid Profileon 11-08-2024 CHOL:HDL 4.49 Normal [facility] Comment on above: Order Comment: Order Date: 05/12/24Order Info: [id number] - CMPOrder Info: [id number] - LIPID Performed By: #### L 501.9985, L100.0100, L500.4050, L500.4100 ####[facility] [address] [place], [address] Cholesterol [Mass/Vol] 133 mg/dL Normal <=200 [facility] Comment on above: Order Comment: Order Date: 05/12/24Order Info: [id number] - CMPOrder Info: [id number] - LIPID Result Comment: Chol esterol level, Desirable <200 mg/dL Borderline high cholesterol 200-239 mg/dL High cholesterol >=240 mg/dL Recommendations of the NCEP Adult Treatment Panel for the following risk-cutoff thresholds for the [place] population. Performed By: #### L 501.9985, L100.0100, L500.4050, L500.4100 ####[facility] [address] [place], [address] Cholesterol in HDL [Mass/Vol] 30 mg/dL Low [facility] Comment on above: Order Comment: Order Date: 05/12/24Order Info: [id number] - CMPOrder Info: [id number] - LIPID Result Comment: Beatriz onal Cholesterol Education Program (NCEP) guidelines: <40 mg/dL: Low HDL-cholesterol (major risk factor for CHD) >= 60 mg/dL: High HDL-cholesterol (negative risk factor for CHD) HDL-cholesterol is affected by a number of factors, e.g. smoking, exercise, hormones, sex and age. Performed By: #### L 501.9985, L100.0100, L500.4050, L500.4100 ####[facility] [address] [place], [address] Cholesterol in LDL [Mass/Vol] 76 mg/dL Normal [facility] Comment on above: Order Comment: Order Date: 05/12/24Order Info: [id number] - CMPOrder Info: [id number] - LIPID Result Comment: Bord hwxcyx=642-585 mg/dL Higher Ohto=585 mg/dL or greater Performed By: #### L 501.9985, L100.0100, L500.4050, L500.4100 ####[facility] [address] [place], [address] Cholesterol in VLDL [Mass/Vol] 27 mg/dL Normal 5-40 [facility] Comment on above: Order Comment: Order Date: 05/12/24Order Info: [id number] - CMPOrder Info: [id number] - LIPID Performed By: #### L 501.9985, L100.0100, L500.4050, L500.4100 ####[facility] [address] [place], [place], [address] Triglyceride [Mass/Vol] 135 mg/dL Normal [facility] Comment on above: Order Comment: Order Date: 05/12/24Order Info: [id number] - CMPOrder Info: [id number] - LIPID Result Comment: The drugs N-Acetylcysteine and Metamizole may falsely depress this assay. Normal range: <150 mg/dL Borderline High: 150-199 mg/dL High: 200-499 mg/dL Very High: >500 mg/dL Performed By: #### L 501.9985, L100.0100, L500.4050, L500.4100 ####[facility] [address] [place], [place], [address] MCV (mean corpuscular volume ) determinationOrdered By: Lala Zendejas on 11-08-2024 MCV (RBC) [Entitic vol] 92.3 fL 81-99 [facility] Mean corpuscular hemoglobin (MCH) determinationOrdered By: Lala Zendejas on 11-08-2024 MCH (RBC) [Entitic mass] 30.8 pg 27.0-32.0 [facility] Mean corpuscular hemoglobin concentration (MCHC) determinationOrdered By: Lala Znedejas on 11-08-2024 MCHC (RBC) [Mass/Vol] 33.3 g/dL 32-36 [facility] Mean platelet volume determi nationOrdered By: Lala Zendejas on 11-08-2024 Platelet mean volume (Bld) [Entitic vol] 10.4 fL 6.2-12.0 [facility] Monocyte percentageOrdered B y: Lala Zendejas on 11-08-2024 Monocytes/100 WBC (Bld) 6.2 % 0-10 [facility] Neutrophil percentageOrdered By: Lala Zendejas on 11-08-2024 Neutrophils/100 WBC (Bld) 61.5 % 47-70 [facility] Nucleated red blood cell per centageOrdered By: Lala Zendejas on 11-08-2024 Nucleated RBC/100 WBC (Bld) [Ratio] 0 % 0-5 [facility] Platelet countOrdered By: Megan Zendejas on 11-08-2024 Platelets (Bld) [#/Vol] 269 10*3/uL 150-450 [facility] Potassium measurement (mass/ volume)Ordered By: Lala Zendejas on 11-08-2024 Potassium (Unsp spec) [Mass/Vol] 4.5 mmol/L 3.3-5.1 [facility] RBC Auto (Bld) [#/Vol]Ordere d By: Lala Zendejas on 11-08-2024 RBC (Bld) [#/Vol] 4.68 10*6/uL 4.2-5.4 [facility] Screening total cholesterol/ high density lipoprotein (HDL) cholesterol ratioOrdered By: Lala Zendejas on 11-08-2024 Cholesterol.total/Choles terol in HDL [Mass ratio] 4.49 {ratio} [facility] Serum creatinine measurement (mass/volume)Ordered By: Lala Zendejas on 11-08-2024 Creatinine [Mass/Vol] 0.84 mg/dL 0.70-1.20 [facility] Serum globulin measurementOr dered By: Lala Zendejas on 11-08-2024 Globulin (S) [Mass/Vol] 3.0 g/dL 2.2-4.2 [facility] Serum glucose measurement (m ass/volume)Ordered By: Lala Zendejas on 11-08-2024 Glucose [Mass/Vol] 94 mg/dL 70-99 [facility] Serum or plasma alanine marx otransferase (ALT) measurementOrdered By: Lala Zendejas on 11-08-2024 ALT [Catalytic activity/Vol] 20 U/L <35 [facility] Serum or plasma albumin vitor urement (mass/volume)Ordered By: Lala Zendejas on 11-08-2024 Albumin [Mass/Vol] 4.4 g/dL 3.5-5.0 [facility] Serum or plasma albumin/glob ulin mass ratioOrdered By: Lala Zendejas on 11-08-2024 Albumin/Globulin [Mass ratio] 1.5 {ratio} 0.9-2.4 [facility] Serum or plasma alkaline guillermo sphatase measurementOrdered By: Lala Zendejas on 11-08-2024 ALP [Catalytic activity/Vol] 64 U/L 35-104 [facility] Serum or plasma calcium vitor urement (mass/volume)Ordered By: Lala Zendejas on 11-08-2024 Calcium [Mass/Vol] 9.5 mg/dL 7.6-11.0 [facility] Serum or plasma cholesterol in HDL measurement (mass/volume)Ordered By: Lala Zendejas on 11-08-2024 Cholesterol in HDL [Mass/Vol] 30 mg/dL Low >40 [facility] Comment on above: National Cholesterol Education Program (NCEP) guidelines:<40 mg/dL: Low HDL-cholesterol (major risk factor for CHD)>= 60 mg/dL: High HDL-cholesterol (negative risk factor for CHD)HDL-cholesterol is affected by a number of factors, e.g. smoking, exercise, hormones, sex and age. Serum or plasma cholesterol measurement (mass/volume)Ordered By: Lala Zendejas on 11-08-2024 Cholesterol [Mass/Vol] 133 mg/dL <201 [facility] Comment on above: Cholesterol level, D esirable <200 mg/dLBorderline high cholesterol 200-239 mg/dLHigh cholesterol >=240 mg/dLRecommendations of the NCEP Adult Treatment Panel for the following risk-cutoff thresholds for the [place] population. Serum or plasma urea nitroge n measurement (mass/volume)Ordered By: Lala Zendejas on 11-08-2024 Urea nitrogen [Mass/Vol] 14 mg/dL 4-19 [facility] Sodium levelOrdered By: Lala Zendejas on 11-08-2024 Sodium [Moles/Vol] 138 mmol/L 133-145 [facility] Total proteinOrdered By: Alpesh Zendejas on 11-08-2024 Protein [Mass/Vol] 7.5 g/dL 5.9-8.4 [facility] Triglycerides measurementOrd ered By: Lala Zendejas on 11-08-2024 Triglyceride [Mass/Vol] 135 mg/dL <199 [facility] Comment on above: The drugs N-Acetylcy steine and Metamizole may falsely depress this assay. Normal range: <150 mg/dLBorderline High: 150-199 mg/dLHigh: 200-499 mg/dLVery High: >500 mg/dL Vitamin D,25 Hydroxyon 11-08 Vitamin D 25-OH 53.1 ng/mL Normal 30-100 [facility] Comment on above: Order Comment: Order Date: 05/12/24Order Info: [id number] - CMPOrder Info: [id number] - LIPID Result Comment: Nahomy min D Status Deficiency: <20 ng/mL (50nmol/L) Insufficiency: 20-30 ng/mL (50-75 nmol/L) Sufficiency: 30-100 ng/mL (75-250 nmol/L) Toxicity: >100 ng/mL (>250 nmol/L) Performed By: #### L 506.1001 ####[facility] [address] [place], [address] White blood cell (WBC) count Ordered By: Lala Zendejas on 11-08-2024 WBC (Bld) [#/Vol] 8.3 10*3/uL 4.4-11.0 [facility] CNPN Telephone (OBGYWM) JESSY ALEGRE ([id number]) 1965 F Date Time Provider Department 09/27/24 TIFFANY OWUSU During your visit today, we recorded the following information about you: Karma Rodriguez RN 09/27/2024 10:30 AM Signed Scan on 09/27/2024 by Provider, External, PAYrnC: Consultation - PT/OT/Speech See attached pelvic floor PT initial evaluation from [facility]. ADRIENNE Urban RN Allergies As of Date: 09/27/2024 Noted Allergy Reaction AUGMENTIN (AMOXICILLIN-POT CLAVUL*03/04/2023 7 - Swelling Comments: Allergy to potassium clavulanate PERCOCET (OXYCODONE-ACETAMINOP HEN)09/01/2005 7 - Swelling 9 - Itching Comments: Swells all over. Date Reviewed: 03/22/2024 Reviewed by: Tiffany Owusu APRN.RADIO OPERATOR GROUND - Fully Assessed Prescriptions as of 10/18/2024 - omeprazole (PRILOSEC) 20 mg capsule Take 20 mg by mouth once daily. - rosuvastatin (CRESTOR) 5 mg tablet Take 5 mg by mouth once daily. - estradiol (ESTRACE) 0.01 % (0.1 mg/gram) vaginal cream Use 1 (ONE) gram vaginally TWICE A WEEK - ibuprofen (MOTRIN) 600 mg tablet Take 1 tablet by mouth every 6 hours as needed for pain. - albuterol HFA (PROVENTIL HFA, VENTOLIN HFA) 90 mcg/actuation inhaler Inhale 2 Puffs as instructed every 4 hours as needed. - BIOTIN, BULK, MISC Take 1 tablet by mouth once daily. - multivit with minerals/lutein (MULTIVITAMIN 50 PLUS ORAL) Take 1 tablet by mouth once daily. - Ascorbic Acid (VITAMIN C) 1,000 mg tablet Take 1,000 mg by mouth once daily. - metFORMIN (GLUCOPHAGE) 500 mg tablet Take 500 mg by mouth twice daily with meals. 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] 05/07/2023 Preop examination [Z01.818] 05/07/2023 Chronic obstructive pulmonary disease (HCC) [J4*08/12/2022 Diagnosed: 05/07/2023 Nicotine dependence, uncomplicated [F17.200] 10/13/2022 Diagnosed: 05/07/2023 Hyperlipidemia, unspecified [E78.5] 11/13/2022 Diagnosed: 05/07/2023 Palpitations [R00.2] 12/09/2022 Diagnosed: 05/07/2023 Prediabetes [R73.03] 05/11/2023 Migraine headache [G43.909] 06/23/2023 Poison cordelia [L23.7] 10/23/2023 Adrenal mass (HCC) [E27.8] 10/30/2023 Adrenal adenoma, left [D35.02] 10/30/2023 Hypotension [I95.9] 11/01/2023 Esophageal dysphagia [R13.19] 01/18/2024 Encounter Status:Closed by KARMA RODRIGUEZ on 10/18/[address] [facility] Inital Evaluation (1) - PTon 09-27-2024 Inital Evaluation (1) - PT [facility] [address] [place] [address]. [address] [place] [address] / REHABILITATION SERVICES INITIAL EVALUATION MR#: [id number] Acct: [id number] Name: JESSY ALEGRE Rep #: [id number] : 1965 59 From: Page Vargas Referring Dr.: CLOTILDE Johnson Status: REG RC R Insurance: [facility] SELF PAY INSURANCE Patient's Visit Information Visit Information Visit Information: JESSY ALEGRE is a 59 year old F referred to Physical Therapy by CLOTILDE Johnson with a diagnosis of Mixed incontinence urge and stress N39.46, Cystocele, midline N81.11. Date of Evaluation: 09/27/24 Physical Therapist: Page Vargas Visit Plan Frequency: 1x/Week Duration: 2 Months Plan: Continue 1 x week. Add week 2 next visit. Please continue pelvic floor releases 1-2 sessions to address mild tightness left side layer 1-2 and superiorly at urethral sphincter. Gave her list of bladder irritants. Has she tried to lessen coffee intake in mornings (she was doing 2-3 cups in morning). May need to do bladder diary at some point if frequency continues? Currently voiding once an hour. Check low back, pelvic alignment next visit. Subjective Subjective: She has had 2 bladder surgeries and after the last surgery (2023) her leaking worsened. She can't walk to the bathroom without urinating. First bladder surgery worked great. The OB that said the bladder was slanted and prescribed pelvic floor PT. She panics going anywhere as her whole life is surrounding being close to the restroom. She drinks a lot of water and 2-3 cups of coffee a day. When she knows she has to go somewhere she will dehydrate herself. She leaks with a cough or sneeze. She can have urge incontinence. She doesn't wear pads. She has to change her clothes 2-3 x day. She can experience a sudden urge and cannot make it to the bathroom. She cannot wait when she feels the urge or she will leak. The moment she feels a slight pressure she is in the bathroom. No other symptoms. No bulging. No pelvic pain. No low back pain. She wakes up 1-2 x night. She feels like she is urinating once an hour during the day. She drinks 2-3 cups of coffee in the morning. 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 Objective Objective: POPDI-6 6, CRAD-8 11 DELGADO-6 16 LAYCOCK 3/5/3/3- DIFFICULTY RELAXING BETWEEN CONTRACTIONS MILD PELVIC FLOOR TIGHTNESS LEFT SIDE LAYER 1-2 AND RIGHT SIDE SUPERIORLY AT URETHRAL SPHINCTER Cystocele 1, Rectocele 1 Goals Goal 1:: Jessy will be able to delay using the restroom by 5 minutes to avoid any incontinence episodes. Goal Time Frame: 8-12 Weeks Goal 2:: Jessy will be on a more normal voiding schedule of voiding 5-7 times a day to allow for less disruption during day to day activities. Goal Time Frame: 8-12 Weeks Goal 3:: Jessy will be able to cough or sneeze without leaking. Rehabilitation Potential Physical Therapy Diagnosis: N39.46, N81.11, frequency of micturition Rehabilitation Potential: Good Anticipated Interventions Patient/Client Instruction: Educate patient on: Condition and Plan of Care For the Purpose of:: To improve muscle performance and motor function, To improve health and function and To improve self management Therapeutic Exercise to Include: Strength training, Coordination and Neuromotor development For the Purpose of:: To improve muscle performance and motor function and To improve self management Manual Therapy Techniques to Include: Trigger point massage For the Purpose of:: To improve muscle performance and motor function, To improve health and function and To improve self management Text: Thank you for the opportunity to evaluate your patient. For Medicare and Medicare HMO plans, please review the plan of care and approve it. It will need to be FAXED BACK to us at [phone] for Medicare purposes. For Medicare only, by signing this I certify the plan of care. Please let me know if there are questions or concerns regarding this plan of care. Physician Signature: Date : 09/27/24 0933 CC: CLOTILDE Owusu; Dr. Lala Zendejas MD MG Signed Normal [facility] Venous Duplex US - [facility] 09-07-2024 Venous Duplex US - [place] [address] [place] [address] Venous Duplex US - [place] 09/07/24 1423 MR#: [id number] Acct: [id number] Name: JESSY ALEGRE Rep #: [id number] : 1965 59 From: Philip Elena MD Attending Dr: Shashi Kimbrough NP GEOSPATIAL SYSTEMS INTEGRATOR-C Status: RE G CLI Ordering Dr: Shashi Kimbrough NP GEOSPATIAL SYSTEMS INTEGRATOR-C Date: 09/07/24 Location: [facility] Sex: F C Admitted: Reason For Study Reason For Study: Leg Swelling RIGHT LEFT HX of GSV Ablation. Acute superficial vein thrombosis is noted in the GSV. CFV is compressible, spontaneous, phasic, competent It is dilated and NONCOMPRESSIBLE. and demonstrates normal augmentation. CFV is compressible, spontaneous, phasic, competent, FV is compressible, spontaneous, phasic, competent and demonstrates normal augmentation. and demonstrates normal augmentation. FV is compressible, spontaneous, phasic, competent and POP V is compressible, spontaneous, phasic, competent demonstrates normal augmentation. and demonstrates normal augmentation. POP V is compressible, spontaneous, phasic, competent T/P Trunk is compressible. and demonstrates normal augmentation. PTV is compressible. T/P Trunk is compressible. RT PerV is compressible. PTV is compressible. Procedure LT PerV is compressible. This is a venous duplex using B-mode, color flow and spectral Doppler. Exam performed in department. A preliminary report was called and/or faxed to Shashi Kimbrough NP. VL/Venous Duplex US - Wenceslao Extrem Interpretation Summary Acute superficial vein thrombosis noted in the left great saphenous vein. Deep veins of the bilateral lower extremities are patent and compressible segmentally. There is no evidence of bilateral lower extremity deep vein thrombosis. Ordering Physician: Shashi Kimbrough Referring Physician: Lala Zendejas Performed By: Mali Devlin RVT 09/07/24 1705 Date Philip Elena MD CC: Shashi LUBIN NP-C Kaylan; Dr. Lala Zendejas MD Date Dictated: 09/07/24 142 Date Transcribed: 09/07/241704 Electrician Control Equipment: Signed Normal [facility] Venous duplex ultrasound rep ortOrdered By: Philip Elena on 09-07-2024 [facility] [address] [place] [address] Venous Duplex US - Wenceslao Extrem 09/07/24 142 MR#: [id number] Acct: [id number] Name: JESSY ALEGRE Rep #:[id number] 2 : 1965 59 From: Philip Santana Attending Dr: Shashi Kimbrough GEOSPATIAL SYSTEMS INTEGRATOR GEOSPATIAL SYSTEMS INTEGRATOR-C Status: REG CLI Ordering Dr: Shashi Kimbrough GEOSPATIAL SYSTEMS INTEGRATOR GEOSPATIAL SYSTEMS INTEGRATOR-C Alexandr te: 09/07/24 Location: [facility] Sex: F C Admitted: Reason For Study Reason For Study: Leg Swelling RIGHT LEFT HX of GSV Ablation. Acute superficial vein thrombosis is noted in the GSV. CFV is compressible, spontaneous, phasic, competent It is dilated and NONCOMPRESSIBLE. and demonstrates normal augmentation. CFV is compressible, spontaneous, phasic, competent, FV is compressible, spontaneous, phasic, competent and demonstrates normal augmentation. and demonstrates normal augmentation. FV is compressible, spontaneous, phasic, competent and POP V is compressible, spontaneous, phasic, competent demonstrates normal augmentation. and demonstrates normal augmentation. POP V is compressible, spontaneous, phasic, competent T/P Trunk is compressible. and demonstrates normal augmentation. PTV is compressible. T/P Trunk is compressible. RT PerV is compressible. PTV is compressible. Procedure LT PerV is compressible. This is a venous duplex using B-mode, color flow and spectral Doppler. Exam performed in department. A preliminary report was called and/or faxed to Shashi Kimbrough NP. VL/Venous Duplex US - Wenceslao Extrem Interpretation Summary Acute superficial vein thrombosis noted in the left great saphenous vein. Deep veins of the bilateral lower extremities are patent and compressible segmentally. There is no evidence of bilateral lower extremity deep vein thrombosis. Ordering Physician: Shashi Kimbrough Referring Physician: Lala Zendejas Performed By: Mali Devlin, RVT 09/07/24 0325 Date _ Philip Elena MD CC: Shashi MABRY McMorrow; Dr. Lala Zendejas MD ~ Date Dictated: 09/07/241422 Date Transcribed: 09/07/241704 Electrician Control Equipment: Signed [facility] Work Phone: Liver Profileon 05-12-2024 Albumin [Mass/Vol] 4.0 g/dL Normal 3.2-5.0 [facility] Comment on above: Order Comment: Order Date: 05/12/24Order Info: 0788-1 - LIVER Performed By: #### L 500.3400 ####[facility] [address] [place], [address] ALK P 67 U/L Normal 45-117 [facility] Comment on above: Order Comment: Order Date: 05/12/24Order Info: 0788-1 - LIVER Performed By: #### L 500.3400 ####[facility] [address] [place], [address] ALT [Catalytic activity/Vol] 23 U/L Normal 13-56 [facility] Comment on above: Order Comment: Order Date: 05/12/24Order Info: 0788-1 - LIVER Performed By: #### L 500.3400 ####[facility] [address] [place], [address] AST [Catalytic activity/Vol] 16 U/L Normal 15-37 [facility] Comment on above: Order Comment: Order Date: 05/12/24Order Info: 0788-1 - LIVER Performed By: #### L 500.3400 ####[facility] [address] [place], [address] Bilirubin [Mass/Vol] 0.70 mg/dL Normal 0.20-1.00 [facility] Comment on above: Order Comment: Order Date: 05/12/24Order Info: 0788-1 - LIVER Result Comment: For patients on eltrombopag therapy, use of Dimension Edelstein TBIL is not recommended. Performed By: #### L 500.3400 ####[facility] [address] [place], [address] Bilirubin.direct [Mass/Vol] 0.12 mg/dL Normal 0.00-0.30 [facility] Comment on above: Order Comment: Order Date: 05/12/24Order Info: 0788-1 - LIVER Performed By: #### L 500.3400 ####[facility] [address] [place], [address] Globulin (S) [Mass/Vol] 3.7 g/dL Normal 2.2-4.2 [facility] Comment on above: Order Comment: Order Date: 05/12/24Order Info: 0788-1 - LIVER Performed By: #### L 500.3400 ####[facility] [address] [place], [address] T PROT 7.7 g/dL Normal 6.4-8.2 [facility] Comment on above: Order Comment: Order Date: 05/12/24Order Info: 0788-1 - LIVER Performed By: #### L 500.3400 ####[facility] [address] [place], [address] CBC W/Diff, Automatedon 01-0 8-2024 Absolute Lymph 2.82 X10 3/uL Normal 0.83-4.51 [facility] Comment on above: Order Comment: Order Date: 01/12/24 Order Info: 0184-1 - CBCD Performed By: #### L 500.4050, L501.9985, L100.0100, L500.4100 #### [facility] [address] [place], [address] Absolute Neut 4.0 X10 3/uL Normal 2.0-7.7 [facility] Comment on above: Order Comment: Order Date: 01/12/24 Order Info: 0184-1 - CBCD Performed By: #### L 500.4050, L501.9985, L100.0100, L500.4100 #### [facility] [address] [place], [address] Basophils/100 WBC (Bld) 0.8 % Normal 0-1 [facility] Comment on above: Order Comment: Order Date: 01/12/24 Order Info: 0184-1 - CBCD Performed By: #### L 500.4050, L501.9985, L100.0100, L500.4100 #### [facility] [address] [place], [address] Eosinophils/100 WBC (Bld) 1.6 % Normal 0-5 [facility] Comment on above: Order Comment: Order Date: 01/12/24 Order Info: 0184-1 - CBCD Performed By: #### L 500.4050, L501.9985, L100.0100, L500.4100 #### [facility] [address] [place], [address] Erythrocyte distribution width (RBC) [Ratio] 13.3 % Normal 11.6-14.6 [facility] Comment on above: Order Comment: Order Date: 01/12/24 Order Info: 0184-1 - CBCD Performed By: #### L 500.4050, L501.9985, L100.0100, L500.4100 #### [facility] [address] [place], [address] Hematocrit (Bld) [Volume fraction] 43.3 % Normal 37-47 [facility] Comment on above: Order Comment: Order Date: 01/12/24 Order Info: 0184-1 - CBCD Performed By: #### L 500.4050, L501.9985, L100.0100, L500.4100 #### [facility] [address] [place], [address] Hemoglobin (Bld) [Mass/Vol] 13.9 g/dL Normal 12.0-15.0 [facility] Comment on above: Order Comment: Order Date: 01/12/24 Order Info: 0184-1 - CBCD Performed By: #### L 500.4050, L501.9985, L100.0100, L500.4100 #### [facility] [address] [place], [address] IG% 0.100 Normal 0.0-0.9 [facility] Comment on above: Order Comment: Order Date: 01/12/24 Order Info: 0184- - CBCD Result Comment: IG% - Immature Granulocytes (promyelocytes, myelocytes and metamyelocytes) > 1% indicates that a LEFT SHIFT is Present. Performed By: #### L 500.4050, L501.9985, L100.0100, L500.4100 #### [facility] [address] [place], [address] Lymphocytes/100 WBC (Bld) 37.9 % Normal 19-41 [facility] Comment on above: Order Comment: Order Date: 01/12/24 Order Info: 0184-1 - CBCD Performed By: #### L 500.4050, L501.9985, L100.0100, L500.4100 #### [facility] [address] [place], [address] MCH (RBC) [Entitic mass] 29.4 pg Normal 27.0-32.0 [facility] Comment on above: Order Comment: Order Date: 01/12/24 Order Info: 0184-1 - CBCD Performed By: #### L 500.4050, L501.9985, L100.0100, L500.4100 #### [facility] [address] [place], [address] MCHC (RBC) [Mass/Vol] 32.1 g/dL Normal 32-36 [facility] Comment on above: Order Comment: Order Date: 01/12/24 Order Info: 0184-1 - CBCD Performed By: #### L 500.4050, L501.9985, L100.0100, L500.4100 #### [facility] [address] [place], [address] MCV (RBC) [Entitic vol] 91.5 fL Normal 81-99 [facility] Comment on above: Order Comment: Order Date: 01/12/24 Order Info: 0184-1 - CBCD Performed By: #### L 500.4050, L501.9985, L100.0100, L500.4100 #### [facility] [address] [place], [address] Monocytes/100 WBC (Bld) 5.9 % Normal 0-10 [facility] Comment on above: Order Comment: Order Date: 01/12/24 Order Info: 0184-1 - CBCD Performed By: #### L 500.4050, L501.9985, L100.0100, L500.4100 #### [facility] [address] [place], [address] Neutrophils/100 WBC (Bld) 53.7 % Normal 47-70 [facility] Comment on above: Order Comment: Order Date: 01/12/24 Order Info: 0184-1 - CBCD Performed By: #### L 500.4050, L501.9985, L100.0100, L500.4100 #### [facility] [address] [place], [address] Nucleated RBC (Bld) [#/Vol] 0 10*3/uL Normal 0-5 [facility] Comment on above: Order Comment: Order Date: 01/12/24 Order Info: 0184-1 - CBCD Performed By: #### L 500.4050, L501.9985, L100.0100, L500.4100 #### [facility] [address] [place], [address] Platelet mean volume (Bld) [Entitic vol] 10.6 fL Normal 6.2-12.0 [facility] Comment on above: Order Comment: Order Date: 01/12/24 Order Info: 0184-1 - CBCD Performed By: #### L 500.4050, L501.9985, L100.0100, L500.4100 #### [facility] [address] [place], [address] Platelets (Bld) [#/Vol] 292 10*3/uL Normal 150-450 [facility] Comment on above: Order Comment: Order Date: 01/12/24 Order Info: 0184-1 - CBCD Performed By: #### L 500.4050, L501.9985, L100.0100, L500.4100 #### [facility] [address] [place], [address] RBC (Bld) [#/Vol] 4.73 10*6/uL Normal 4.2-5.4 [facility] Comment on above: Order Comment: Order Date: 01/12/24 Order Info: 0184-1 - CBCD Performed By: #### L 500.4050, L501.9985, L100.0100, L500.4100 #### [facility] [address] [place], [address] RDW SD 45.5 fl High 35.1-43.9 [facility] Comment on above: Order Comment: Order Date: 01/12/24 Order Info: 0184-1 - CBCD Performed By: #### L 500.4050, L501.9985, L100.0100, L500.4100 #### [facility] [address] [place], [address] WBC (Bld) [#/Vol] 7.4 10*3/uL Normal 4.4-11.0 [facility] Comment on above: Order Comment: Order Date: 01/12/24 Order Info: 0184-1 - CBCD Performed By: #### L 500.4050, L501.9985, L100.0100, L500.4100 #### [facility] [address] [place], [address] Comprehensive Metabolic Prof ilon 05-11-2024 Albumin [Mass/Vol] 3.9 g/dL Normal 3.2-5.0 [facility] Comment on above: Order Comment: Order Date: 01/12/24 Order Info: 0786-1 - CMP Order Info: [id number] - LIPID Performed By: #### L 500.4050, L501.9985, L100.0100, L500.4100 #### [facility] [address] [place], [address] Albumin/Globulin [Mass ratio] 1.0 {ratio} Normal 0.9-2.4 [facility] Comment on above: Order Comment: Order Date: 01/12/24 Order Info: 0786-1 - CMP Order Info: [id number] - LIPID Performed By: #### L 500.4050, L501.9985, L100.0100, L500.4100 #### [facility] [address] [place], [address] ALK P 67 U/L Normal 45-117 [facility] Comment on above: Order Comment: Order Date: 01/12/24 Order Info: 0786-1 - CMP Order Info: [id number] - LIPID Performed By: #### L 500.4050, L501.9985, L100.0100, L500.4100 #### [facility] [address] [place], [address] ALT [Catalytic activity/Vol] 25 U/L Normal 13-56 [facility] Comment on above: Order Comment: Order Date: 01/12/24 Order Info: 0786-1 - CMP Order Info: [id number] - LIPID Performed By: #### L 500.4050, L501.9985, L100.0100, L500.4100 #### [facility] [address] [place], [address] AST [Catalytic activity/Vol] 18 U/L Normal 15-37 [facility] Comment on above: Order Comment: Order Date: 01/12/24 Order Info: 785-05 - CMP Order Info: [id number] - LIPID Performed By: #### L 500.4050, L501.9985, L100.0100, L500.4100 #### [facility] [address] [place], [address] Bilirubin [Mass/Vol] 1.60 mg/dL High 0.20-1.00 [facility] Comment on above: Order Comment: Order Date: 01/12/24 Order Info: 785-05 - CMP Order Info: [id number] - LIPID Result Comment: For patients on eltrombopag therapy, use of Dimension Edelstein TBIL is not recommended. Performed By: #### L 500.4050, L501.9985, L100.0100, L500.4100 #### [facility] [address] [place], [address] BUN/CRE 15.0 RATIO Normal 10-20 [facility] Comment on above: Order Comment: Order Date: 01/12/24 Order Info: 07 - CMP Order Info: [id number] - LIPID Performed By: #### L 500.4050, L501.9985, L100.0100, L500.4100 #### [facility] [address] [place], [address] CA,Total 9.6 mg/dL Normal 8.5-10.1 [facility] Comment on above: Order Comment: Order Date: 01/12/24 Order Info: 785-05 - CMP Order Info: [id number] - LIPID Performed By: #### L 500.4050, L501.9985, L100.0100, L500.4100 #### [facility] [address] [place], [address] Chloride [Moles/Vol] 104 mmol/L Normal 98-107 [facility] Comment on above: Order Comment: Order Date: 01/12/24 Order Info: 0786-1 - CMP Order Info: [id number] - LIPID Performed By: #### L 500.4050, L501.9985, L100.0100, L500.4100 #### [facility] [address] [place], [address] CO2 [Moles/Vol] 28.0 mmol/L Normal 21.0-32.0 [facility] Comment on above: Order Comment: Order Date: 01/12/24 Order Info: 0786- - CMP Order Info: [id number] - LIPID Performed By: #### L 500.4050, L501.9985, L100.0100, L500.4100 #### [facility] [address] [place], [address] Creatinine [Mass/Vol] 0.93 mg/dL Normal 0.55-1.02 [facility] Comment on above: Order Comment: Order Date: 01/12/24 Order Info: 0786-1 - CMP Order Info: [id number] - LIPID Result Comment: The validity of the calculated GFR GFRAA in patients over 70 years has not been determined. Clinical correlation is essential. Performed By: #### L 500.4050, L501.9985, L100.0100, L500.4100 #### [facility] [address] [place], [address] EST GFR - AA 80 mL/min Normal >60 [facility] Comment on above: Order Comment: Order Date: 01/12/24 Order Info: 0786-1 - CMP Order Info: [id number] - LIPID Result Comment: Afri can [place] GFR Calc Performed By: #### L 500.4050, L501.9985, L100.0100, L500.4100 #### [facility] [address] [place], [address] GAP 6 Normal 5-15 [facility] Comment on above: Order Comment: Order Date: 01/12/24 Order Info: 0786- - CMP Order Info: [id number] - LIPID Performed By: #### L 500.4050, L501.9985, L100.0100, L500.4100 #### [facility] [address] [place], [address] GFR/1.73 sq M.predicted among non-blacks MDRD (S/P/Bld) [Vol rate/Area] 66 mL/min/{1.73_m2} Normal >60 [facility] Comment on above: Order Comment: Order Date: 01/12/24 Order Info: 07 - CMP Order Info: [id number] - LIPID Result Comment: Non- GFR Calc Performed By: #### L 500.4050, L501.9985, L100.0100, L500.4100 #### [facility] [address] [place], [address] Globulin (S) [Mass/Vol] 3.8 g/dL Normal 2.2-4.2 [facility] Comment on above: Order Comment: Order Date: 01/12/24 Order Info: 0786- - CMP Order Info: [id number] - LIPID Performed By: #### L 500.4050, L501.9985, L100.0100, L500.4100 #### [facility] [address] [place], [address] Glucose [Mass/Vol] 77 mg/dL Normal 74-106 [facility] Comment on above: Order Comment: Order Date: 01/12/24 Order Info: 0786- - CMP Order Info: [id number] - LIPID Performed By: #### L 500.4050, L501.9985, L100.0100, L500.4100 #### [facility] [address] [place], [address] Potassium [Moles/Vol] 4.1 mmol/L Normal 3.5-5.1 [facility] Comment on above: Order Comment: Order Date: 01/12/24 Order Info: 0786-1 - CMP Order Info: [id number] - LIPID Performed By: #### L 500.4050, L501.9985, L100.0100, L500.4100 #### [facility] [address] [place], [address] Sodium [Moles/Vol] 138 mmol/L Normal 136-145 [facility] Comment on above: Order Comment: Order Date: 01/12/24 Order Info: 0786- - CMP Order Info: [id number] - LIPID Performed By: #### L 500.4050, L501.9985, L100.0100, L500.4100 #### [facility] [address] [place], [address] T PROT 7.7 g/dL Normal 6.4-8.2 [facility] Comment on above: Order Comment: Order Date: 01/12/24 Order Info: 0786-1 - CMP Order Info: [id number] - LIPID Performed By: #### L 500.4050, L501.9985, L100.0100, L500.4100 #### [facility] [address] [place], [address] Urea nitrogen [Mass/Vol] 14 mg/dL Normal 7-18 [facility] Comment on above: Order Comment: Order Date: 01/12/24 Order Info: 0786-1 - CMP Order Info: [id number] - LIPID Performed By: #### L 500.4050, L501.9985, L100.0100, L500.4100 #### [facility] [address] [place], [address] Hemoglobin A1con 05-11-2024 HbA1c (Bld) [Mass fraction] 5.6 % Normal 3.8-5.6 [facility] Comment on above: Order Comment: Order Date: 01/12/24 Order Info: [id number] - A1C Result Comment: Norm al < 5.7 % Prediabetic 5.7 - 6.4 % Diabetic >or= 6.5 % Please note range changes. Performed By: #### L 500.4050, L501.9985, L100.0100, L500.4100 #### [facility] [address] [place], [address] Lipid Profileon 05-11-2024 Cholesterol [Mass/Vol] 155 mg/dL Normal 200 [facility] Comment on above: Order Comment: Order Date: 01/12/24 Order Info: 0786-1 - CMP Order Info: [id number] - LIPID Result Comment: <200 mg/dL Desirable 200-240 mg/dL Borderline >240 mg/dL High Risk Performed By: #### L 500.4050, L501.9985, L100.0100, L500.4100 #### [facility] [address] [place], [address] Cholesterol in HDL [Mass/Vol] 36 mg/dL Low [facility] Comment on above: Order Comment: Order Date: 01/12/24 Order Info: 0786-1 - CMP Order Info: [id number] - LIPID Result Comment: The drugs N-Acetylcysteine and Metamizole may falsely depress this assay. Reference Range HDL <40 mg/dL Low HDL Cholesterol HDL >or= 60 mg/dL High HDL Cholesterol Performed By: #### L 500.4050, L501.9985, L100.0100, L500.4100 #### [facility] [address] [place], [address] Cholesterol in LDL [Mass/Vol] 88 mg/dL Normal 0-130 [facility] Comment on above: Order Comment: Order Date: 01/12/24 Order Info: 0786-1 - CMP Order Info: [id number] - LIPID Performed By: #### L 500.4050, L501.9985, L100.0100, L500.4100 #### [facility] [address] [place], [address] Cholesterol in VLDL [Mass/Vol] 31 mg/dL Normal 5-40 [facility] Comment on above: Order Comment: Order Date: 01/12/24 Order Info: 0786-1 - CMP Order Info: [id number] - LIPID Performed By: #### L 500.4050, L501.9985, L100.0100, L500.4100 #### [facility] [address] [place], [address] Triglyceride [Mass/Vol] 153 mg/dL Normal [facility] Comment on above: Order Comment: Order Date: 01/12/24 Order Info: 0786-1 - CMP Order Info: [id number] - LIPID Result Comment: The drugs N-Acetylcysteine and Metamizole may falsely depress this assay. Serum Triglycerides Reference Interval Normal <150 mg/dL Borderline high 150 - 199 mg/dL High 200 - 499 mg/dL Very High > or = 500 mg/dL Performed By: #### L 500.4050, L501.9985, L100.0100, L500.4100 #### [facility] [address] [place], [address] CNOVon 03-22-2024 CNOV Office Visit (LIZA ) JESSY ALEGRE ([id number]) 1965 F Date Time Provider Department 03/22/24 2:00 PM TIFFANY OWUSU During your visit today, we recorded the following information about you: Blood pressure Weight Height 120/64 62 kg 1.62 m Tiffany Owusu APRN.CNP 03/22/2024 2:50 PM Signed Candlemaker offered: Patient declines. Jiménez is a 58 year old who presents for an annual gynecologic exam with complaint of continued stress and urge incontinence. 09/30/2023 Lap sacraocolpopexy with mesh Dr Ervin. Defecation improved but RICHAR continues. Dr. Ervin recommended PFT but she is unable to travel the distance to therapy. Postmenopausal: Hysterectomy, right ovary sparing HRT use: No oral. 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 Pap smear (cervix) Adenoma of left adrenal gland Anesthesia complication hypotension Colon polyps COPD (chronic obstructive pulmonary disease) (HCC) Cystocele, midline HLD (hyperlipidemia) Other and unspecified hyperlipidemia 05/04/2006 not on medication Prediabetes Skin cancer Vaginal vault prolapse PAST SURGICAL HISTORY Procedure Laterality Date ABDOMINAL SURGERY HX ADRENALECTOMY Left 10/30/2023 APPENDECTOMY 11/2006 BREAST AUGMENTATION WITH IMPLANT Bilateral 2007 BREAST SURGERY HX COLONOSCOPY 10/06/2014 COLONOSCOPY FLX DX W/COLLJ SPEC WHEN PFRMD 03/07/2021 nl biopsies. repeat in 5 years per DP based on family history COLPOSCOPY CERVIX UPPER/ADJACENT VAGINA 2000 Colposcopy CONIZATION CERVIX W/WO DANDC RPR ELTRD EXC 1997 LEEP-Cervix DILATION AND CURETTAGE DXAND/THER NONOBSTETRIC 1989 Dilation AND curettage FOOT SURGERY HX Left 2018 FOOT SURGERY HX Left 2020 LAPAROSCOPIC COLPOPEXY 05/2023 lysis of adhesions LIG/TRNSXJ FLP TUBE ABDL/VAG APPR UNI/BI 1988 Tubal ligation PAST SURGICAL HISTORY OF 12/01/2006 Novasure PAST SURGICAL HISTORY OF 2007 bladder repair mesh PAST SURGICAL HISTORY OF 2021 reconstruction right nasal defect with a modified rhomboid flap REMOVAL GALLBLADDER 2019 [facility] COSMETIC SURGERY 2022 skin cancer removed SKIN BIOPSY HX TONSILLECTOMY HX 1988 VAGINAL HYSTERECTOMY UTERUS 250 GM/< 02/01/2015 LSO [...] History Tobacco Use Smoking status: Every Day Current packs/day: 0.50 Average packs/day: 0.5 packs/day for 18.0 years (9.0 ttl pk-yrs) Types: Cigarettes Smokeless tobacco: Never Tobacco comments: Cut back to 1/2 to 1/4 packs per day Vaping Use Vaping status: Never Used Substance Use Topics Alcohol use: Yes Comment: rare occassion Drug use: No REVIEW OF SYSTEMS Abdomen: No abdominal pain, nausea, vomiting, diarrhea, or constipation. No bloating, early satiety, indigestion, or increased flatulence. Bladder: No dysuria, gross hematuria, urinary frequency, urinary urgency. Continues to have stress and urge incontinence after surgery 09/2023. Breast: No breast lumps, nipple d/c, overlying skin changes, redness or skin retraction Allergies and current medication updated:Yes SENSITIVE EXAM: The sensitive examination was discussed with the Patient or Patient's Authorized Roundsman. As applicable, any other physician, advance practice provider, medical student, or other health professional student that will be observing or involved in the sensitive examination for educational or training purposes was discussed with the Patient or Authorized Roundsman. The Patient or Authorized Roundsman has agreed to proceed with the sensitive examination. (Sensitive examination includes inspection and/or palpation of the breasts, pelvis, prostate and anorectal regions). EXAM: BP 120/64 Ht 5' 3.78 (1.62m) Wt 136 lb 9 (more content not included)... Normal [facility] [id number] 01-18-2024 [id number] HNO ID: [id number] Author: SAVANA PAPPAS RN Service: ? Author Type: Registered Nurse Type: [id number] Filed: 01/18/2024 11:03 Note Text: The patient received a copy of EGD discharge instructions that contain information for how to contact the physician who performed the procedure and when to seek medical care. Normal [facility] EGD Study observation Juan F jacques 01-18-2024 Kurtis [facility] Gastrointestinal Endoscopy Patient Name: Jessy Alegre Procedure Date: 01/18/2024 10:40 AM Date of : 1965 Admit Type: Outpatient Age: 58 Gender: Female Note Status: Finalized Procedure: Upper GI endoscopy Indications: Dysphagia Providers: Reginaldo España MD Patient Profile: This is a 58 year old female. Refer to note in patient chart for documentation of history and physical. Referring Physician: Reginaldo España MD (Referring MD), Lala Zendejas (Referring ) Medicines: Fentanyl 50 micrograms IV, Midazolam 3 mg IV, Diphenhydramine 50 mg IV Complications: No immediate complications. Estimated blood loss: Minimal. Requesting Provider: Procedure: Pre-Anesthesia Assessment: - Prior to the procedure, a History and Physical was performed, and patient medications and allergies were reviewed. The patient's tolerance of previous anesthesia was also reviewed. The risks and benefits of the procedure and the sedation options and risks were discussed with the patient. All questions were answered, and informed consent was obtained. Prior Anticoagulants: The patient has taken no anticoagulant or antiplatelet agents. ASA Grade Assessment: II - A patient with mild systemic disease. After reviewing the risks and benefits, the patient was deemed in satisfactory condition to undergo the procedure. After obtaining informed consent, the endoscope was passed under direct vision. Throughout the procedure, the patient's blood pressure, pulse, and oxygen saturations were monitored continuously. The Endosonoscope was introduced through the mouth, and advanced to the second part of duodenum. The upper GI endoscopy was accomplished without difficulty. The patient tolerated the procedure well. Moderate Sedation: The administration of moderate sedation was initiated at 10:44 AM. Moderate (conscious) sedation was personally administered by the endoscopist. The following parameters were monitored: oxygen saturation, heart rate, blood pressure, respiratory rate, EKG, adequacy of pulmonary ventilation, and response to care. Total physician intraservice time was 7 minutes. Findings: The Z-line was regular and was found 40 cm from the incisors. Biopsies were taken with a cold forceps for histology. The entire examined stomach was normal. Biopsies were taken with a cold forceps for Helicobacter pylori testing. The examined duodenum was normal. Biopsies for histology were taken with a cold forceps for evaluation of celiac disease. Impression: - Z-line regular, 40 cm from the incisors. Biopsied. - Normal stomach. Biopsied. - Normal examined duodenum. Biopsied. Recommendation: - Patient has a contact number available for emergencies. The signs and symptoms of potential delayed complications were discussed with the patient. Return to normal activities tomorrow. Written discharge instructions were provided to the patient. - Resume previous diet. - Continue present medications. - Await pathology results. - Repeat upper endoscopy PRN for surveillance. - Return to my office in 1 week. Procedure Code(s): --- Professional --- 39018, Esophagogastroduodeno scopy, flexible, transoral; with biopsy, single or multiple Diagnosis Code(s): --- Professional --- R13.10, Dysphagia, unspecified CPT copyright 2020 [employer]. All rights reserved. The codes documented in this report are preliminary and upon assessment services manager review may be revised to meet current compliance requirements. Attending Participation: I personally performed the entire procedure. Scope In: 10:47:37 AM Scope Out: 10:51:16 AM MD Reginaldo Keith MD 01/18/2024 10:55:01 AM This report has been signed electronically by Reginaldo España MD Number of Addenda: 0 Note Initiated On: 01/18/2024 10:40 AM Estimated Blood Loss: (more content not included)... [facility] Radiology Study observation (narrative) [facility] HISTORY PHYSICALon HISTORY PHYSICAL HNO ID: [id number] Author: REGINALDO ESPAÑA MD Service: General Surgery Author Type: Physician Type: H&P Filed: 01/18/2024 10:43 Note Text: HISTORY AND PHYSICAL Jessy S Spanish 1965 REFERRING PHYSICIAN: Lala Zendejas MD, MD CHIEF COMPLAINT: Consult (Dysphagia - months) HPI: The patient is a 58 year old female referred for endoscopy. Jessy notes no history of colon complaints. The patient notes the following upper complaints: Jessy denies abdominal pain.. Jessy denies heartburn. Jessy notes dysphagia. Jessy denies a history of ulcers/ peptic ulcer disease. Jessy has undergone prior endoscopy. The patient is being seen by me today at the request of Dr. Lala Zendejas MD, MD for my opinion and advice regarding Esophageal dysphagia (primary encounter diagnosis). PAST MEDICAL HISTORY PAST MEDICAL HISTORY 05/04/2005: Abnormal glandular Papanicolaou smear of cervix Comment: Abn. Pap smear (cervix) No date: Adenoma of left adrenal gland No date: Anesthesia complication Comment: hypotension No date: Colon polyps No date: COPD (chronic obstructive pulmonary disease) (HCC) No date: Cystocele, midline No date: HLD (hyperlipidemia) 05/04/2006: Other and unspecified hyperlipidemia Comment: not on medication No date: Prediabetes No date: Skin cancer No date: Vaginal vault prolapse PAST SURGICAL HISTORY PAST SURGICAL HISTORY No date: ABDOMINAL SURGERY HX 10/30/2023: ADRENALECTOMY; Left 11/2006: APPENDECTOMY 2007: BREAST AUGMENTATION WITH IMPLANT; Bilateral No date: BREAST SURGERY HX 10/06/2014: COLONOSCOPY 03/07/2021: COLONOSCOPY FLX DX W/COLLJ SPEC WHEN PFRMD Comment: nl biopsies. repeat in 5 years per DP based on family history 2001: COLPOSCOPY CERVIX UPPER/ADJACENT VAGINA Comment: Colposcopy 1997: CONIZATION CERVIX W/WO DANDC RPR ELTRD EXC Comment: LEEP-Cervix 1989: DILATION AND CURETTAGE DXAND/THER NONOBSTETRIC Comment: Dilation AND curettage 2018: FOOT SURGERY HX; Left 2020: FOOT SURGERY HX; Left 05/2023: LAPAROSCOPIC COLPOPEXY Comment: lysis of adhesions 1988: LIG/TRNSXJ FLP TUBE ABDL/VAG APPR UNI/BI Comment: Tubal ligation 12/01/2006: PAST SURGICAL HISTORY OF Comment: Laureano 2007: PAST SURGICAL HISTORY OF Comment: bladder repair mesh 2021: PAST SURGICAL HISTORY OF Comment: reconstruction right nasal defect with a modified rhomboid flap 2020: REMOVAL GALLBLADDER 2022: SHX COSMETIC SURGERY Comment: skin cancer removed No date: SKIN BIOPSY HX 1988: TONSILLECTOMY HX 02/01/2015: VAGINAL HYSTERECTOMY UTERUS 250 GM/< Comment: LSO 1992: VASCULAR SURGERY PROCEDURE Comment: vein stripping RLE, X 2 procedures CURRENT MEDICATIONS Current Outpatient Medications Medication Sig omeprazole (PRILOSEC) 20 mg capsule Take 20 mg by mouth once daily. rosuvastatin (CRESTOR) 5 mg tablet Take 5 mg by mouth once daily. estradiol (ESTRACE) 0.01 % (0.1 mg/gram) vaginal cream Use 1 (ONE) gram vaginally TWICE A WEEK imiquimod (ALDARA) 5 % cream Apply to affected areas twice daily for 4 weeks ibuprofen (MOTRIN) 600 mg tablet Take 1 tablet by mouth every 6 hours as needed for pain. albuterol HFA (PROVENTIL HFA, VENTOLIN HFA) 90 mcg/actuation inhaler Inhale 2 Puffs as instructed every 4 hours as needed. BIOTIN, BULK, MISC Take 1 tablet by mouth once daily. multivit with minerals/lutein (MULTIVITAMIN 50 PLUS ORAL) Take 1 tablet by mouth once daily. Ascorbic Acid (VITAMIN C) 1,000 mg tablet Take 1,000 mg by mouth once daily. metFORMIN (GLUCOPHAGE) 500 mg tablet Take 500 mg by mouth twice daily with meals. Cholecalciferol, Vitamin D3, 2,000 unit cap EQL VITAMIN D3 2000 UNIT CAPS No current facility-administered medications for this visit. ALLERGIES: Augmentin [Amoxicillin-Pot Clavulanate] and Percocet [Oxycodone-Acetaminop hen] PERSONAL HISTORY: SOCIAL HISTORY Social History Tobacco Use Smoking status: Every Day Current packs/day: 0.50 Average packs/day: 0.5 packs/day for 18.0 years (9.0 ttl pk-yrs) Types: Cigarettes Smokeless tobacco: Never Tobacco comments: Cut back to 1/2 to 1/4 packs per day Vaping Use Vaping status: Never Used Substance Use Topics Alcohol use: Yes Comment: rare occassion Drug use: No FAMILY HISTORY: FAMILY HISTORY FAMILY HISTORY Problem Relation Age of Onset other (graves disease) Mother other (rheumatoid arthritis) Mother Diabetes Father No Known Problems Sister No Known Problems Maternal Grandmother Lung Cancer Maternal Grandfather Dementia Paternal Grandmother No Known Problems Daughter No Known Problems Son Diabetes Maternal Aunt Diabetes Maternal Aunt Diabetes Maternal Uncle Diabetes Maternal Uncle Diabetes Maternal Uncle Diabetes Maternal Uncle REVIEW OF SYMPTOMS: negative except as noted above PHYSICAL EXAMINATION: General: The patient is 58 year old female, well nourished, well hydrated in no acute distress. The patient is oriented to rosa (more content not included)... Normal [facility] NURSING PROGon 01-18-2024 NURSING PROG HNO ID: [id number] Author: SAVANA PAPPAS, RN Service: ? Author Type: Registered Nurse Type: Nursing Progress Note Filed: 01/18/2024 11:07 Note Text: pt arrived to phase 2 awake/ resting on left side. Sister at bedside. SR up x 2, call light in reach. Savana Pappas RN Normal [facility] SURGICAL PATHOLOGYon 024 CASE REPORT Normal [facility] Comment on above: Order Comment: Jeovany ballard Type: TISSUE SPECIMEN Ordering Facility: [facility] Address: [address] [place] [address] Result Comment: Surg ica Pathology Report Case: [id number] Authorizing Provider: Reginaldo España MD Collected: 01/18/2024 10:48 AM Ordering Location: Ambulatory Surgery Received: 01/18/2024 12:45 PM Pathologist: Kimberly Vega MD Specimens: A) - Small Bowel, Duodenum, Biopsy, This order replaces the incorrect order placed for Specimen A B) - Stomach, Antrum, Biopsy, Antral bx for H/H C) - Esophagus, Distal, Biopsy D) - Esophagus, Mid, Biopsy Performed By: #### S #### [facility] CLIA [id number] [address] [place] [address] [place] FINAL DIAGNOSIS Normal [facility] Comment on above: Order Comment: Jeovany ballard Type: TISSUE SPECIMEN Ordering Facility: [facility] Address: [address] [place] [address] Result Comment: A. S mall bowel, duodenum, biopsy -Duodenal mucosa with normal villous architecture and no significant histopathologic changes B. Stomach, antrum, biopsy -Minute fragment of gastric oxyntic mucosa with mild reactive changes, negative for Helicobacter pylori type organisms C. Esophagus, distal, biopsy -Squamous mucosa with mild reactive changes D. Esophagus, mid, biopsy -Squamous mucosa with mild reactive changes Performed By: #### S #### [facility] CLIA [id number] [address] [place], [place] [address] [place] FINAL PERFORMING LAB Normal [facility] Comment on above: Order Comment: Speci men Type: TISSUE SPECIMEN Ordering Facility: [facility] Address: [address] [place] [address] Result Comment: Diag nostic interpretation performed at [facility], [address] [place] [address] CLIA# [id number] [employer] Operator: Ceferino Bae M.D. Performed By: #### S #### [facility] CLIA [id number] [address] [place] [address] [place] GROSS DESCRIPTION [facility] Comment on above: Order Comment: Speci men Type: TISSUE SPECIMEN Ordering Facility: [facility] Address: [address] [place] [address] Result Comment: A. S mall Bowel, Duodenum, Biopsy Received in formalin are two pieces of flores, soft tissue aggregating to 0.6 x 0.3 x 0.2 cm. Totally submitted in one cassette. B. Stomach, Antrum, Biopsy Received in formalin is one piece of flores, soft tissue measuring 0.4 x 0.3 x 0.1 cm. Totally submitted in one cassette. C. Esophagus, Distal, Biopsy Received in formalin are multiple pieces of flores-white, soft tissue aggregating to 1.4 x 0.4 x 0.1 cm. Totally submitted in one cassette. D. Esophagus, Mid, Biopsy Received in formalin is one piece of flores-white, soft tissue measuring 0.7 x 0.3 x 0.1 cm. Totally submitted in one cassette. Gross examination performed at [facility], [address] [place] [address] January 21, 2024 11:45 AM Performed By: #### S #### [facility] CLIA [id number] [address] [place] [address] [place] Upper GI endoscopyon 024 Upper GI endoscopy [facility] Gastrointestinal Endoscopy Patient Name: Jessy Alegre Procedure Date: 01/18/2024 10:40 AM Date of : 1965 Admit Type: Outpatient Age: 58 Gender: Female Note Status: Finalized Procedure: Upper GI endoscopy Indications: Dysphagia Providers: Reginaldo España MD Patient Profile: This is a 58 year old female. Refer to note in patient chart for documentation of history and physical. Referring Physician: Reginaldo España MD (Referring MD), Lala Zendejas (Referring ) Medicines: Fentanyl 50 micrograms IV, Midazolam 3 mg IV, Diphenhydramine 50 mg IV Complications: No immediate complications. Estimated blood loss: Minimal. Requesting Provider: Procedure: Pre-Anesthesia Assessment: - Prior to the procedure, a History and Physical was performed, and patient medications and allergies were reviewed. The patient's tolerance of previous anesthesia was also reviewed. The risks and benefits of the procedure and the sedation options and risks were discussed with the patient. All questions were answered, and informed consent was obtained. Prior Anticoagulants: The patient has taken no anticoagulant or antiplatelet agents. ASA Grade Assessment: II - A patient with mild systemic disease. After reviewing the risks and benefits, the patient was deemed in satisfactory condition to undergo the procedure. After obtaining informed consent, the endoscope was passed under direct vision. Throughout the procedure, the patient's blood pressure, pulse, and oxygen saturations were monitored continuously. The Endosonoscope was introduced through the mouth, and advanced to the second part of duodenum. The upper GI endoscopy was accomplished without difficulty. The patient tolerated the procedure well. Moderate Sedation: The administration of moderate sedation was initiated at 10:44 AM. Moderate (conscious) sedation was personally administered by the endoscopist. The following parameters were monitored: oxygen saturation, heart rate, blood pressure, respiratory rate, EKG, adequacy of pulmonary ventilation, and response to care. Total physician intraservice time was 7 minutes. Findings: The Z-line was regular and was found 40 cm from the incisors. Biopsies were taken with a cold forceps for histology. The entire examined stomach was normal. Biopsies were taken with a cold forceps for Helicobacter pylori testing. The examined duodenum was normal. Biopsies for histology were taken with a cold forceps for evaluation of celiac disease. Impression: - Z-line regular, 40 cm from the incisors. Biopsied. - Normal stomach. Biopsied. - Normal examined duodenum. Biopsied. Recommendation: - Patient has a contact number available for emergencies. The signs and symptoms of potential delayed complications were discussed with the patient. Return to normal activities tomorrow. Written discharge instructions were provided to the patient. - Resume previous diet. - Continue present medications. - Await pathology results. - Repeat upper endoscopy PRN for surveillance. - Return to my office in 1 week. Procedure Code(s): --- Professional --- 28764, Esophagogastroduodeno scopy, flexible, transoral; with biopsy, single or multiple Diagnosis Code(s): --- Professional --- R13.10, Dysphagia, unspecified CPT copyright 2020 [employer]. All rights reserved. The codes documented in this report are preliminary and upon assessment services manager review may be revised to meet current compliance requirements. Attending Participation: I personally performed the entire procedure. Scope In: 10:47:37 AM Scope Out: 10:51:16 AM MD Reginaldo Keith MD 01/18/2024 10:55:01 AM This report has been signed electronically by Reginaldo España MD Number of Addenda: 0 Note Initiated On: 01/18/2024 10:40 AM Estimated Blood Loss: Estimated blood loss was minimal. Normal [facility] CNOVon 01-13-2024 CNOV Office Visit (WHITNEY ) JESSY ALEGRE ([id number]) 1965 F Date Time Provider Department 01/13/24 9:15 AM REGINALDO ESPAÑA During your visit today, we recorded the following information about you: Pulse Blood pressure Weight Height 63/minute 94/65 59.9 kg 1.626 m Reginaldo España MD 01/13/2024 9:46 AM Signed HISTORY AND PHYSICAL Jessy Alegre 1965 REFERRING PHYSICIAN: Lala Zendejas MD, MD CHIEF COMPLAINT: Consult (Dysphagia - months) HPI: The patient is a 58 year old female referred for endoscopy. Jessy notes no history of colon complaints. The patient notes the following upper complaints: Jessy denies abdominal pain.. Jessy denies heartburn. Jessy notes dysphagia. Jessy denies a history of ulcers/ peptic ulcer disease. Jessy has undergone prior endoscopy. The patient is being seen by me today at the request of Dr. Lala Zendejas MD, MD for my opinion and advice regarding Esophageal dysphagia (primary encounter diagnosis). PAST MEDICAL HISTORY 05/04/2005: Abnormal glandular Papanicolaou smear of cervix Comment: Abn. Pap smear (cervix) No date: Adenoma of left adrenal gland No date: Anesthesia complication Comment: hypotension No date: Colon polyps No date: COPD (chronic obstructive pulmonary disease) (HCC) No date: Cystocele, midline No date: HLD (hyperlipidemia) 05/04/2006: Other and unspecified hyperlipidemia Comment: not on medication No date: Prediabetes No date: Skin cancer No date: Vaginal vault prolapse PAST SURGICAL HISTORY No date: ABDOMINAL SURGERY HX 10/30/2023: ADRENALECTOMY; Left 11/2006: APPENDECTOMY 2007: BREAST AUGMENTATION WITH IMPLANT; Bilateral No date: BREAST SURGERY HX 10/06/2014: COLONOSCOPY 03/07/2021: COLONOSCOPY FLX DX W/COLLJ SPEC WHEN PFRMD Comment: nl biopsies. repeat in 5 years per DP based on family history 2001: COLPOSCOPY CERVIX UPPER/ADJACENT VAGINA Comment: Colposcopy 1997: CONIZATION CERVIX W/WO DANDC RPR ELTRD EXC Comment: LEEP-Cervix 1989: DILATION AND CURETTAGE DXAND/THER NONOBSTETRIC Comment: Dilation AND curettage 2018: FOOT SURGERY HX; Left 2020: FOOT SURGERY HX; Left 05/2023: LAPAROSCOPIC COLPOPEXY Comment: lysis of adhesions 1988: LIG/TRNSXJ FLP TUBE ABDL/VAG APPR UNI/BI Comment: Tubal ligation 12/01/2006: PAST SURGICAL HISTORY OF Comment: Janiaasure 2008: PAST SURGICAL HISTORY OF Comment: bladder repair mesh 2021: PAST SURGICAL HISTORY OF Comment: reconstruction right nasal defect with a modified rhomboid flap 2020: REMOVAL GALLBLADDER 2022: SHX COSMETIC SURGERY Comment: skin cancer removed No date: SKIN BIOPSY HX 1988: TONSILLECTOMY HX 02/01/2015: VAGINAL HYSTERECTOMY UTERUS 250 GM/< Comment: LSO 1993: VASCULAR SURGERY PROCEDURE Comment: vein stripping RLE, X 2 procedures Current Outpatient Medications Medication Sig omeprazole (PRILOSEC) 20 mg capsule Take 20 mg by mouth once daily. rosuvastatin (CRESTOR) 5 mg tablet Take 5 mg by mouth once daily. estradiol (ESTRACE) 0.01 % (0.1 mg/gram) vaginal cream Use 1 (ONE) gram vaginally TWICE A WEEK imiquimod (ALDARA) 5 % cream Apply to affected areas twice daily for 4 weeks ibuprofen (MOTRIN) 600 mg tablet Take 1 tablet by mouth every 6 hours as needed for pain. albuterol HFA (PROVENTIL HFA, VENTOLIN HFA) 90 mcg/actuation inhaler Inhale 2 Puffs as instructed every 4 hours as needed. BIOTIN, BULK, MISC Take 1 tablet by mouth once daily. multivit with minerals/lutein (MULTIVITAMIN 50 PLUS ORAL) Take 1 tablet by mouth once daily. Ascorbic Acid (VITAMIN C) 1,000 mg tablet Take 1,000 mg by mouth once daily. metFORMIN (GLUCOPHAGE) 500 mg tablet Take 500 mg by mouth twice daily with meals. Cholecalciferol, Vitamin D3, 2,000 unit cap EQL VITAMIN D3 2000 UNIT CAPS No current facility-administered medications for this visit. ALLERGIES: Augmentin [Amoxicillin-Pot Clavulanate] and Percocet [Oxycodone-Acetaminop hen] PERSONAL HISTORY: Social History Tobacco Use Smoking status: Every Day Current packs/day: 0.50 Average packs/day: 0.5 packs/day for 18.0 years (9.0 ttl pk-yrs) Types: Cigarettes Smokeless tobacco: Never Tobacco comments: Cut back to 1/2 to 1/4 packs per day Vaping Use Vaping status: Never Used Substance Use Topics Alcohol use: Yes Comment: rare occassion Drug use: No FAMILY HISTORY: FAMILY HISTORY Problem Relation Age of Onset other (graves disease) Mother other (rheumatoid arthritis) Mother Diabetes Father No Known Problems Sister No Known Problems Maternal Grandmother Lung Cancer Maternal Grandfather Dementia Paternal Grandmother No Known Problems Daughter No Known Problems Son Diabetes Maternal Aunt Diabetes Maternal Aunt Diabetes Maternal Uncle Diabetes Maternal Uncle Diabetes Maternal Uncle Diabetes Maternal Uncle REVIEW OF SYMPTOMS: negative except as note (more content not included)... Normal [facility] CNOVon 11-13-2023 CNOV Office Visit (AGGENS3) JESSY ALEGRE ([id number]) 1965 F Date Time Provider Department 11/13/23 10:30 AM TRAN PORTER A[facility] During your visit today, we recorded the following information about you: Pulse Blood pressure Weight Height 87/minute 120/82 64 kg 1.626 m Minnie Brice MA 11/13/2023 10:19 AM Signed We sincerely appreciate the opportunity to participate in your care. If there are any opportunities for us to improve your experience please let us know. Many patients receive surveys after their surgical care is completed with our office and we understand our patients have a choice in selecting their healthcare. Thank you for taking the time and effort to complete your survey (if you receive one.) All of us strive to ALWAYS provide the best care possible in ALL WAYS. Thank you! Tran Fernandez MD, MD 11/23/2023 8:00 AM Signed Postoperative Follow Up Visit November 13, 2023 HPI: This is a post operative visit. This is a 58 yo female with PMH s/f: left sided adrenal adenoma, asthma, prediabetes, and COPD. Presents today s/p: Laparoscopic left adrenalectomy on 10/30/23. FINAL DIAGNOSIS A. Adrenal gland, left, adrenalectomy: - Compatible with adrenocortical adenoma, (see comment). No malignant features are identified. Postoperative course: patient had some hypotension and bradycardia inpatient and was seen by inpatient endocrinology. She was started on empiric steroids, but had to discontinue early in course due to reactive symptoms. BP wnl today. Denies dizziness/lightheaded ness episodes. Feeling well, but having incisional pain/costal pain. She reports pain at surgical sites - states that this mostly started last week. She presented to OSH ER and underwent CT - was told everything looked okay, had some residual postoperative pneumoperitoneum. Tolerating diet and having bowel function. Also notes some numbness along left periumbilical hemiabdomen. PAST MEDICAL HISTORY Diagnosis Date Abnormal glandular Papanicolaou smear of cervix 05/04/2005 Abn. Pap smear (cervix) Adenoma of left adrenal gland Anesthesia complication hypotension Colon polyps COPD (chronic obstructive pulmonary disease) (HCC) Cystocele, midline HLD (hyperlipidemia) Other and unspecified hyperlipidemia 05/04/2006 not on medication Prediabetes Skin cancer Vaginal vault prolapse PAST SURGICAL HISTORY Procedure Laterality Date ABDOMINAL SURGERY HX APPENDECTOMY 11/2006 BREAST AUGMENTATION WITH IMPLANT Bilateral 2007 BREAST SURGERY HX COLONOSCOPY 10/06/2014 COLONOSCOPY FLX DX W/COLLJ SPEC WHEN PFRMD 03/07/2021 nl biopsies. repeat in 5 years per DP based on family history COLPOSCOPY CERVIX UPPER/ADJACENT VAGINA 2000 Colposcopy CONIZATION CERVIX W/WO DANDC RPR ELTRD EXC 1997 LEEP-Cervix DILATION AND CURETTAGE DXAND/THER NONOBSTETRIC 1989 Dilation AND curettage FOOT SURGERY HX Left 2018 FOOT SURGERY HX Left 2019 LAPAROSCOPIC COLPOPEXY 05/2023 lysis of adhesions LIG/TRNSXJ FLP TUBE ABDL/VAG APPR UNI/BI 1988 Tubal ligation PAST SURGICAL HISTORY OF 12/01/2006 Novasure PAST SURGICAL HISTORY OF 2007 bladder repair mesh PAST SURGICAL HISTORY OF 2021 reconstruction right nasal defect with a modified rhomboid flap REMOVAL GALLBLADDER 2019 [facility]MET[facility] SURGERY 2022 skin cancer removed SKIN BIOPSY HX TONSILLECTOMY HX 1988 VAGINAL HYSTERECTOMY UTERUS 250 GM/< 02/01/2015 LSO [...] Uncle Diabetes Maternal Uncle Diabetes Maternal Uncle Social History Tobacco Use Smoking status: Every Day Packs/day: 0.50 Years: 18.00 Additional pack years: 0.00 Total pack years: 9.00 Types: Cigarettes Smokeless tobacco: Never Tobacco comments: Cut back to 1/2 to 1/4 packs per day Vaping Use Vaping Use: Never used Substance Use Topics Alcohol use: Yes Comment: rare occassion Drug use: No Current Outpatient Medications Medication Sig hydrocortisone (CORTEF) 10 mg tablet Take 20 mg (two tablets) BID for 2 days then reduce to 10 mg (one tablet) BID after that imiquimod (ALDARA) 5 % cream Apply to affected areas twice daily for 4 weeks ibuprofen (MOTRIN) 600 mg tablet Take 1 tablet by mouth every 6 hours as needed for pain. albuterol HFA (PROVENTIL HFA, VENTOLIN HFA) 90 mcg/actuation inhaler Inhale 2 Puffs as instructed every 4 hours as needed. estradiol (ESTRACE) 0.01 % (0.1 m (more content not included)... Normal [facility] 11-02-2023 CNPN Telephone (AGGENS3) JESSY ALEGRE ([id number]) 1965 F Date Time Provider Department 11/02/23 TRAN PORTER AGGENS3 During your visit today, we recorded the following information about you: Carolynn Fraga 11/02/2023 2:45 PM Signed The patient called states her body is swelling up, she is light headed, and dizzy wanted to know if this was normal after Surgery. The patient just want to her PCP and her vitals were ok but her blood pressure is 108/72. Carolynn Fraga Allergies As of Date: 11/02/2023 Noted Allergy Reaction AUGMENTIN (AMOXICILLIN-POT CLAVUL*03/04/2023 7 - Swelling Comments: Allergy to potassium clavulanate PERCOCET (OXYCODONE-ACETAMINOP HEN)09/01/2005 7 - Swelling 9 - Itching Comments: Swells all over. Date Reviewed: 10/30/2023 Reviewed by: Emily Liz, RN - Fully Assessed Reason for Visit: Patient Update [1234] Prescriptions as of 11/09/2023 - hydrocortisone (CORTEF) 10 mg tablet Take 20 mg (two tablets) BID for 2 days then reduce to 10 mg (one tablet) BID after that - imiquimod (ALDARA) 5 % cream Apply to affected areas twice daily for 4 weeks - ibuprofen (MOTRIN) 600 mg tablet Take 1 tablet by mouth every 6 hours as needed for pain. - albuterol HFA (PROVENTIL HFA, VENTOLIN HFA) 90 mcg/actuation inhaler Inhale 2 Puffs as instructed every 4 hours as needed. - estradiol (ESTRACE) 0.01 % (0.1 mg/gram) vaginal cream Use 1 g vaginally two times a week. Apply twice weekly to the vaginal opening. - BIOTIN, BULK, MISC Take 1 tablet by mouth once daily. - multivit with minerals/lutein (MULTIVITAMIN 50 PLUS ORAL) Take 1 tablet by mouth once daily. - Ascorbic Acid (VITAMIN C) 1,000 mg tablet Take 1,000 mg by mouth once daily. - metFORMIN (GLUCOPHAGE) 500 mg tablet Take 500 mg by mouth twice daily with meals. - rosuvastatin calcium (CRESTOR ORAL) Take 5 mg by mouth daily at bedtime. - Cholecalciferol, Vitamin D3, 2,000 unit cap EQL VITAMIN D3 2000 UNIT CAPS Problem List As Of Date 11/02/2023 Noted Resolved Umbilical hernia without mention of obstruction* 5 LLQ pain [R10.32] 10/02/2014 Overactive bladder [N32.81] 12/06/2014 Pelvic congestion syndrome [N94.89] 12/06/2014 Family history of colon cancer [Z80.0] 03/07/2021 03/07/2021 Diarrhea [R19.7] 03/07/2021 03/07/2021 Vaginal vault prolapse [N81.9] 05/07/2023 Preop examination [Z01.818] 05/07/2023 Chronic obstructive pulmonary disease (HCC) [J4*08/12/2022 Nicotine dependence, uncomplicated [F17.200] 10/13/2022 Hyperlipidemia, unspecified [E78.5] 11/13/2022 Palpitations [R00.2] 12/09/2022 Prediabetes [R73.03] 05/11/2023 Migraine headache [G43.909] 06/23/2023 Poison cordelia [L23.7] 10/23/2023 Adrenal mass (HCC) [E27.8] 10/30/2023 Adrenal adenoma, left [D35.02] 10/30/2023 Hypotension [I95.9] 11/01/2023 Encounter Status:Closed by CAROLYNN FRAGA on 11/09/23 Normal [facility] ACTH Plas-mCncon 11-01-2023 Corticotropin (P) [Mass/Vol] 24.5 pg/mL Normal 7.2-63.3 [facility] Comment on above: Order Comment: Speci men Type: BLOOD SPECIMEN Ordering Facility: [facility] Address: [address] [place] [address] Result Comment: ACTH Reference Range: 7-10 am: 7.2 - 63.3 pg/mL Performed By: #### 2 141-0 #### [facility] CLIA [id number] [address] [place] [address] [place] [address] [place] Basic metabolic 2000 panelon 11-01-2023 Anion gap [Moles/Vol] 9 mmol/L Normal 8-15 [facility] Comment on above: Order Comment: Speci men Type: BLOOD SPECIMEN Ordering Facility: [facility] Address: [address] [place] [address] Performed By: #### 2 4321-2 #### [facility] CLIA [id number] [address] [place] [address] [place] Calcium [Mass/Vol] 8.3 mg/dL Low 8.5-10.2 [facility] Comment on above: Order Comment: Speci men Type: BLOOD SPECIMEN Ordering Facility: [facility] Address: [address] [place] [address] Performed By: #### 2 4321-2 #### [facility] CLIA [id number] [address] [place] [address] [place] Chloride [Moles/Vol] 107 mmol/L Normal 98-107 [facility] Comment on above: Order Comment: Speci men Type: BLOOD SPECIMEN Ordering Facility: [facility] Address: [address] [place] [address] Performed By: #### 2 4321-2 #### [facility] CLIA [id number] 1 [place] [address] [place] CO2 [Moles/Vol] 23 mmol/L Normal 22-30 [facility] Comment on above: Order Comment: Jeovany ballard Type: BLOOD SPECIMEN Ordering Facility: [facility] Address: [address] [place] [address] Performed By: #### 2 4321-2 #### [facility] CLIA [id number] [address] STATES OF [facility] Creatinine [Mass/Vol] 0.73 mg/dL Normal 0.58-0.96 [facility] Comment on above: Order Comment: Jeovany ballard Type: BLOOD SPECIMEN Ordering Facility: [facility] Address: [address] [place] [address] Performed By: #### 2 4321-2 #### [facility] CLIA [id number] [address] Creatinine and Glomerular filtration rate.predicted panel (S/P/Bld) 97 mL/min/1.73m??? Normal >=60 [facility] Comment on above: Order Comment: Jeovany nellie Type: BLOOD SPECIMEN Ordering Facility: [facility] Address: [address] [place] [address] Result Comment: Marla mated Glomerular Filtration Rate (eGFR) is calculated using the 2020 CKD-EPI creatinine equation. This equation utilizes serum creatinine, sex, and age as parameters. The creatinine assay has traceable calibration to isotope dilution-mass spectrometry. Refer to KDIGO guidelines for clinical interpretation. In patients with unstable renal function, e.g. those with acute kidney injury, the eGFR may not accurately reflect actual GFR. Performed By: #### 2 4321-2 #### [facility] CLIA [id number] [address] [place] [address] [place] Glucose [Mass/Vol] 96 mg/dL Normal 74-99 [facility] Comment on above: Order Comment: Martineztyson ballard Type: BLOOD SPECIMEN Ordering Facility: [facility] Address: [address] [place] [address] Result Comment: The [place] Diabetes Association (ADA) provides guidance for cutoff values for fasting glucose and random glucose. The ADA defines fasting as no caloric intake for at least 8 hours. Fasting plasma glucose results between 100 to 125 mg/dL indicate increased risk for diabetes (prediabetes). Fasting plasma glucose results greater than or equal to 126 mg/dL meet the criteria for diagnosis of diabetes. In the absence of unequivocal hyperglycemia, results should be confirmed by repeat testing. In a patient with classic symptoms of hyperglycemia or hyperglycemic crisis, random plasma glucose results greater than or equal to 200 mg/dL meet the criteria for diagnosis of diabetes. Reference: Standards of Medical Care in Diabetes 2016, [place] Diabetes Association. Diabetes Care. 2016.39(Suppl 1). Performed By: #### 2 4321-2 #### [facility] CLIA [id number] [address] Potassium [Moles/Vol] 3.9 mmol/L Normal 3.7-5.1 [facility] Comment on above: Order Comment: Speci men Type: BLOOD SPECIMEN Ordering Facility: [facility] Address: [address] [place] [address] Performed By: #### 2 4321-2 #### [facility] CLIA [id number] [address] Sodium [Moles/Vol] 139 mmol/L Normal 136-144 [facility] Comment on above: Order Comment: Speci men Type: BLOOD SPECIMEN Ordering Facility: [facility] Address: [address] [place] [address] Performed By: #### 2 4321-2 #### [facility] CLIA [id number] [address] Urea nitrogen [Mass/Vol] 9 mg/dL Normal 7-21 [facility] Comment on above: Order Comment: Speci men Type: BLOOD SPECIMEN Ordering Facility: [facility] Address: [address] [place] [address] Performed By: #### 2 4321-2 #### [facility] CLIA [id number] [address] CBC panel Auto (Bld)on 10-31 Erythrocyte distribution width (RBC) [Ratio] 13.7 % Normal 11.5-15.0 [facility] Comment on above: Order Comment: Speci men Type: BLOOD SPECIMEN Ordering Facility: [facility] Address: [address] [place] [address] Performed By: #### 5 8410-2 #### [facility] CLIA [id number] [address] Hematocrit (Bld) [Volume fraction] 35.1 % Low 36.0-46.0 [facility] Comment on above: Order Comment: Speci men Type: BLOOD SPECIMEN Ordering Facility: [facility] Address: [address] [place] [address] Performed By: #### 5 8410-2 #### [facility] CLIA [id number] [address] Hemoglobin (Bld) [Mass/Vol] 11.6 g/dL Normal 11.5-15.5 [facility] Comment on above: Order Comment: Speci men Type: BLOOD SPECIMEN Ordering Facility: [facility] Address: [address] [place] [address] Performed By: #### 5 8410-2 #### [facility] CLIA [id number] [address] MCH (RBC) [Entitic mass] 30.8 pg Normal 26.0-34.0 [facility] Comment on above: Order Comment: Speci men Type: BLOOD SPECIMEN Ordering Facility: [facility] Address: [address] [place] [address] Performed By: #### 5 8410-2 #### [facility] CLIA [id number] [address] OF [facility] MCHC (RBC) [Mass/Vol] 33.0 g/dL Normal 30.5-36.0 [facility] Comment on above: Order Comment: Speci men Type: BLOOD SPECIMEN Ordering Facility: [facility] Address: [address] [place] [address] Performed By: #### 5 8410-2 #### [facility] CLIA [id number] [address] MCV (RBC) [Entitic vol] 93.1 fL Normal 80.0-100.0 [facility] Comment on above: Order Comment: Speci men Type: BLOOD SPECIMEN Ordering Facility: [facility] Address: [address] [place] [address] Performed By: #### 5 8410-2 #### [facility] CLIA [id number] [address] OF [place] Nucleated RBC (Bld) [#/Vol] 10*3/uL Normal <0.01 [facility] Comment on above: Order Comment: Speci men Type: BLOOD SPECIMEN Ordering Facility: [facility] Address: [address] [place] [address] Performed By: #### 5 8410-2 #### [facility] CLIA [id number] [address] OF [place] Platelet mean volume (Bld) [Entitic vol] 10.8 fL Normal 9.0-12.7 [facility] Comment on above: Order Comment: Speci men Type: BLOOD SPECIMEN Ordering Facility: [facility] Address: [address] [place] [address] Performed By: #### 5 8410-2 #### [facility] CLIA [id number] [address] OF [place] Platelets (Bld) [#/Vol] 213 10*3/uL Normal 150-400 [facility] Comment on above: Order Comment: Speci men Type: BLOOD SPECIMEN Ordering Facility: [facility] Address: [address] [place] [address] Performed By: #### 5 8410-2 #### [facility] CLIA [id number] [address] OF [place] RBC (Bld) [#/Vol] 3.77 10*6/uL Low 3.90-5.20 [facility] Comment on above: Order Comment: Speci men Type: BLOOD SPECIMEN Ordering Facility: [facility] Address: [address] [place] [address] Performed By: #### 5 8410-2 #### [facility] CLIA [id number] [address] WBC (Bld) [#/Vol] 8.64 10*3/uL Normal 3.70-11.00 [facility] Comment on above: Order Comment: Jeovany ballard Type: BLOOD SPECIMEN Ordering Facility: [facility] Address: [facility] [place] [address] Performed By: #### 5 8410-2 #### [facility] CLIA [id number] [address] CNDSon 11-01-2023 CNDS HNO ID: [id number] Author: GAB CAIN MD Service: General Surgery Author Type: Resident Type: Discharge Summary Filed: 11/04/2023 08:27 Note Text: Attestation signed by Jennifer Ludwig MD at 11/04/2023 9:25 AM Attending Note I evaluated the patient and personally participated in the harrington components. I agree with the resident's findings and plan as documented and have discussed the case and management of the patient's care with the resident. Signature: Jennifer Ludwig MD Date: 11/04/2023 Time: 9:25 AM DISCHARGE SUMMARY PATIENT NAME: Jessy Saglado Spanish Code Status: Not on file Highest Readmission Risk Score: 12 The 30 day readmissions risk score is derived from an internally validated risk model which evaluates patient level characteristics, utilization history, medication orders and lab results up until the day of discharge. Patients with a score of 40 or above are considered highest risk for readmission. Specific patient level drivers will be listed at the bottom of the summary. Admission Information Admission Information ADMIT DATE: 10/30/2023 DISCHARGE DATE: 11/01/2023 MY DOCTORS AND MEDICAL TEAM: My Main Hospital Doctor: Tran Porter MD Primary Care Provider: Lala Zendejas MD, My Medical Team Members: Treatment Team: Attending Provider: Tran Porter MD MY CONDITION AT DISCHARGE: Stable REASON I WAS IN THE HOSPITAL: Lap adrenalectomy SUMMARY OF WHAT HAPPENED WHILE I WAS IN THE HOSPITAL: You came into the hospital on 10/29 for a scheduled laparoscopic adrenalectomy. You were taken to the OR and you tolerated the procedure well. Post operatively, you were admitted to the [facility] for observation. Your pain was well controlled. You tolerated a regular diet. You were ambulating independently. Endocrinology was consulted and recommended a home steroid dose which was sent to your pharmacy. At this time you were dicharged home in stable condition. OTHER PROBLEMS/DIAGNOSIS: Principal Problem: Adrenal adenoma, left Active Problems: Adrenal mass (HCC) Resolved Problems: * No resolved hospital problems. * OPERATIONS PERFORMED WHILE IN THE HOSPITAL: Lap adrenalectomy IMPORTANT TEST/PROCEDURES: No procedures performed TEST RESULTS NOT AVAILABLE AT THIS TIME: No pending results Discharge Disposition Discharge Disposition: Home With Self Care Activity When You Leave the Hospital Lifting is restricted to: 10-15lbs for 4-6 weeks Diet Instructions Resume your pre-hospital diet For Pain When You Leave the Hospital Use acetaminophen (Tylenol) as recommended on the bottle Use ibuprofen (Motrin, Advil) as recommended on the bottle Use the dispensed medication (see prescription) Wound/Surgical Site Care Steri strips can get wet. Let them fall off or remove in: 7-10 days Call Your Doctor If There is an unusual odor from the wound area There is severe pain at the operative site You have a severe headache You have lightheadedness, fainting, or confusion You have persistent nausea/vomiting over 24 hours You have persistent or heavy bleeding You have redness, swelling, pus or drainage from the wound You have swollen glands or cold and clammy skin Your temperature is greater than 101F Additional Provider to Provider Information: No notes on file Treatment Team: Attending Provider: Tran Porter MD Consulting: Dianne Toribio MD FOLLOW-UP APPOINTMENTS ALREADY SCHEDULED WITH A [facility] PROVIDER: Future Appointments Date Time Provider Department Center 11/13/2023 10:30 AM Tran Porter MD AGGENS3 [facility] 03/22/2024 2:00 PM Tiffany Owusu APRN.RADIO OPERATOR [facility] [employer] [facility] ALLERGIES Allergen Reactions Augmentin [Amoxicil* Swelling Allergy to potassium clavulanate Percocet [Oxycodone* Swelling, Itching Swells all over. DISCHARGE MEDICATION: Medication List START taking these medications traMADol 50 mg tablet Commonly known as: ULTRAM Take 1 tablet by mouth every 4 hours as needed for pain for up to 3 days. CONTINUE taking these medications albuterol HFA 90 mcg/actuation inhaler Commonly known as: PROVENTIL HFA, VENTOLIN HFA BIOTIN (BULK) MISC Cholecalciferol (Vitamin D3) 50 mcg (2,000 unit) Cap CRESTOR ORAL estradiol 0.01 % (0.1 mg/gram) vaginal cream Commonly known as: ESTRACE Use 1 g vaginally two times a week. Apply twice weekly to the vaginal opening. ibuprofen 600 mg tablet Commonly known as: MOTRIN Take 1 tablet by mouth every 6 hours as needed for pain. imiquimod 5 % cream Commonly known as: ALDARA metFORMIN 500 mg tablet Commonly known as: GLUCOPHAGE MULTIVITAMIN 50 PLUS ORAL VITAMIN C 1,000 mg tablet Generic drug: Ascorbic Acid ASK your doctor about these medications hydrocortisone 10 mg tabl (more content not included)... Normal [facility] CONSULTon 11-01-2023 CONSULT HNO ID: [id number] Author: NERI BAKER MD Service: Endocrinology Author Type: Physician Type: Consults Filed: 11/01/2023 12:51 Note Text: INITIAL CONSULT ENDOCRINOLOGY SERVICE DATE: 11/01/2023 SERVICE TIME: 12:18 PM Requesting Provider: Tran Porter MD Opinion/Advice Regarding: Management of hypotension s/p adrenalectomy Service: Endocrinology Consult Service Subjective HPI: Ms. Jessy Alegre is a 58 year old female with a history of enlarging left adrenal adenoma of 3 cm. Pre-operative adrenal hormone levels were within normal limits. She has been following with endocrinology Dr. Mendoza in [place]. The decision was made to proceed with surgical management, she had left laparoscopic adrenalectomy 10/29. Post operatively she has had intermittent BP readings in the 80's (asymptomatic for the most part). She states she has had some low blood pressures in the past following surgeries. PAST MEDICAL HISTORY Diagnosis Date Abnormal glandular Papanicolaou smear of cervix 05/04/2005 Abn. Pap smear (cervix) Adenoma of left adrenal gland Anesthesia complication hypotension Colon polyps COPD (chronic obstructive pulmonary disease) (HCC) Cystocele, midline HLD (hyperlipidemia) Other and unspecified hyperlipidemia 05/04/2006 not on medication Prediabetes Skin cancer Vaginal vault prolapse PAST SURGICAL HISTORY Procedure Laterality Date ABDOMINAL SURGERY HX APPENDECTOMY 11/2006 BREAST AUGMENTATION WITH IMPLANT Bilateral 2007 BREAST SURGERY HX COLONOSCOPY 10/06/2014 COLONOSCOPY FLX DX W/COLLJ SPEC WHEN PFRMD 03/07/2021 nl biopsies. repeat in 5 years per DP based on family history COLPOSCOPY CERVIX UPPER/ADJACENT VAGINA 2000 Colposcopy CONIZATION CERVIX W/WO DANDC RPR ELTRD EXC 1997 LEEP-Cervix DILATION AND CURETTAGE DXAND/THER NONOBSTETRIC 1989 Dilation AND curettage FOOT SURGERY HX Left 2017 FOOT SURGERY HX Left 2019 LAPAROSCOPIC COLPOPEXY 05/2023 lysis of adhesions LIG/TRNSXJ FLP TUBE ABDL/VAG APPR UNI/BI 1988 Tubal ligation PAST SURGICAL HISTORY OF 12/01/2006 Novasure PAST SURGICAL HISTORY OF 2007 bladder repair mesh PAST SURGICAL HISTORY OF 2021 reconstruction right nasal defect with a modified rhomboid flap REMOVAL GALLBLADDER 2019 [facility] SURGERY 2022 skin cancer removed SKIN BIOPSY HX TONSILLECTOMY HX 1988 VAGINAL HYSTERECTOMY UTERUS 250 GM/< 02/01/2015 LSO [...] Uncle Diabetes Maternal Uncle Diabetes Maternal Uncle Social History Tobacco Use Smoking status: Every Day Packs/day: 0.50 Years: 18.00 Additional pack years: 0.00 Total pack years: 9.00 Types: Cigarettes Smokeless tobacco: Never Tobacco comments: Cut back to 1/2 to 1/4 packs per day Vaping Use Vaping Use: Never used Substance Use Topics Alcohol use: Yes Comment: rare occassion Drug use: No MEDICATIONS: ibuprofen (MOTRIN) 600 mg tablet, Take 1 tablet by mouth every 6 hours as needed for pain., Disp: 30 tablet, Rfl: 1 albuterol HFA (PROVENTIL HFA, VENTOLIN HFA) 90 mcg/actuation inhaler, Inhale 2 Puffs as instructed every 4 hours as needed., Disp: , Rfl: estradiol (ESTRACE) 0.01 % (0.1 mg/gram) vaginal cream, Use 1 g vaginally two times a week. Apply twice weekly to the vaginal opening., Disp: 42.5 g, Rfl: 3 BIOTIN, BULK, MISC, Take 1 tablet by mouth once daily., Disp: , Rfl: multivit with minerals/lutein (MULTIVITAMIN 50 PLUS ORAL), Take 1 tablet by mouth once daily., Disp: , Rfl: Ascorbic Acid (VITAMIN C) 1,000 mg tablet, Take 1,000 mg by mouth once daily., Disp: , Rfl: metFORMIN (GLUCOPHAGE) 500 mg tablet, Take 500 mg by mouth twice daily with meals., Disp: , Rfl: , 10/28/2023 rosuvastatin calcium (CRESTOR ORAL), Take 5 mg by mouth daily at bedtime., Disp: , Rfl: Cholecalciferol, Vitamin D3, 2,000 unit cap, EQL VITAMIN D3 2000 UNIT CAPS, Disp: , Rfl: imiquimod (ALDARA) 5 % cream, Apply to affected areas twice daily for 4 weeks, Disp: , Rfl: Current Facility-Administered Medications Medication Dose Route Frequency albuterol HFA 90 mcg/actuation 2 Puff (PROVENTIL HFA, VENTOLIN HFA) 2 Puff INHALATION q 4 H PRN ondansetron 4 mg tab(s) (ZOFRAN) 4 mg ORAL q 6 H PRN Or ondansetron (PF) 4 mg injection (ZOFRAN) 4 mg INTRAVENOUS q 6 H PRN NaCl 0.9% iv flush bag 20 mL INTRAVENOUS PRN ipratropium-albuterol 3 mL nebulizer solution (DUONEB) 3 mL INHALATION q 6 H PRN traMADol 25-50 mg tab(s) (ULTRAM) 25-50 mg ORAL q 6 H PRN acetaminophen 1,000 mg (more content not included)... [facility] 24 Cortisol [Mass/Vol] 10.7 ug/dL Normal 4.8-19.5 [facility] Comment on above: Order Comment: Speci men Type: BLOOD SPECIMEN Ordering Facility: [facility] Address: [address] [place] [address] Result Comment: Prov ided reference range is from 6-10 AM sample collection time. Cortisol Reference Range: 6-10 AM = 4.8-19.5 ug/dL, 4-8 PM = 2.5-11.9 ug/dL Performed By: #### 2 143-6 #### [facility] CLIA [id number] 1 [place] [address] [place] Basic metabolic 2000 panelon 10-31-2023 Anion gap [Moles/Vol] 8 mmol/L Normal 8-15 [facility] Comment on above: Order Comment: Speci men Type: BLOOD SPECIMEN Ordering Facility: [facility] Address: [address] [place] [address] Performed By: #### 2 4321-2 #### [facility] CLIA [id number] 1 [place] [address] [place] Calcium [Mass/Vol] 8.5 mg/dL Normal 8.5-10.2 [facility] Comment on above: Order Comment: Speci men Type: BLOOD SPECIMEN Ordering Facility: [facility] Address: [address] [place] [address] Performed By: #### 2 4321-2 #### [facility] CLIA [id number] 1 [place] [address] [place] Chloride [Moles/Vol] 103 mmol/L Normal 98-107 [facility] Comment on above: Order Comment: Speci men Type: BLOOD SPECIMEN Ordering Facility: [facility] Address: [address] [place] [address] Performed By: #### 2 4321-2 #### [facility] CLIA [id number] 1 [place] [address] [place] CO2 [Moles/Vol] 23 mmol/L Normal 22-30 [facility] Comment on above: Order Comment: Jeovany ballard Type: BLOOD SPECIMEN Ordering Facility: [facility] Address: [address] [place] [address] Performed By: #### 2 4321-2 #### [facility] CLIA [id number] [address] [place] Creatinine [Mass/Vol] 0.66 mg/dL Normal 0.58-0.96 [facility] Comment on above: Order Comment: Jeovany nellie Type: BLOOD SPECIMEN Ordering Facility: [facility] Address: [address] [place] [address] Performed By: #### 2 4321-2 #### [facility] CLIA [id number] [address] Creatinine and Glomerular filtration rate.predicted panel (S/P/Bld) 103 mL/min/1.73m??? Normal >=60 [facility] Comment on above: Order Comment: Jeovany ballard Type: BLOOD SPECIMEN Ordering Facility: [facility] Address: [address] [place] [address] Result Comment: Marla mated Glomerular Filtration Rate (eGFR) is calculated using the 2020 CKD-EPI creatinine equation. This equation utilizes serum creatinine, sex, and age as parameters. The creatinine assay has traceable calibration to isotope dilution-mass spectrometry. Refer to KDIGO guidelines for clinical interpretation. In patients with unstable renal function, e.g. those with acute kidney injury, the eGFR may not accurately reflect actual GFR. Performed By: #### 2 4321-2 #### [facility] CLIA [id number] [address] [place] Glucose [Mass/Vol] 129 mg/dL High 74-99 [facility] Comment on above: Order Comment: Jeovany nellie Type: BLOOD SPECIMEN Ordering Facility: [facility] Address: [address] [place] [address] Result Comment: The [place] Diabetes Association (ADA) provides guidance for cutoff values for fasting glucose and random glucose. The ADA defines fasting as no caloric intake for at least 8 hours. Fasting plasma glucose results between 100 to 125 mg/dL indicate increased risk for diabetes (prediabetes). Fasting plasma glucose results greater than or equal to 126 mg/dL meet the criteria for diagnosis of diabetes. In the absence of unequivocal hyperglycemia, results should be confirmed by repeat testing. In a patient with classic symptoms of hyperglycemia or hyperglycemic crisis, random plasma glucose results greater than or equal to 200 mg/dL meet the criteria for diagnosis of diabetes. Reference: Standards of Medical Care in Diabetes 2016, [place] Diabetes Association. Diabetes Care. 2016.39(Suppl 1). Performed By: #### 2 4321-2 #### [facility] CLIA [id number] [address] Potassium [Moles/Vol] 4.4 mmol/L Normal 3.7-5.1 [facility] Comment on above: Order Comment: Jeovany ballard Type: BLOOD SPECIMEN Ordering Facility: [facility] Address: [address] [place] [address] Performed By: #### 2 4321-2 #### [facility] CLIA [id number] [address] Sodium [Moles/Vol] 134 mmol/L Low 136-144 [facility] Comment on above: Order Comment: Jeovany ballard Type: BLOOD SPECIMEN Ordering Facility: [facility] Address: [address] [place] [address] Performed By: #### 2 4321-2 #### [facility] CLIA [id number] [address] Urea nitrogen [Mass/Vol] 9 mg/dL Normal 7-21 [facility] Comment on above: Order Comment: Martinezi nellie Type: BLOOD SPECIMEN Ordering Facility: [facility] Address: [address] [place] [address] Performed By: #### 2 4321-2 #### [facility] CLIA [id number] [address] CBC panel Auto (Bld)on 10-30 Erythrocyte distribution width (RBC) [Ratio] 13.4 % Normal 11.5-15.0 [facility] Comment on above: Order Comment: Martinezi men Type: BLOOD SPECIMEN Ordering Facility: [facility] Address: [address] [place] [address] Performed By: #### 5 8410-2 #### [facility] CLIA [id number] [address] Hematocrit (Bld) [Volume fraction] 37.1 % Normal 36.0-46.0 [facility] Comment on above: Order Comment: Speci men Type: BLOOD SPECIMEN Ordering Facility: [facility] Address: [address] [place] [address] Performed By: #### 5 8410-2 #### [facility] CLIA [id number] [address] OF [facility] Hemoglobin (Bld) [Mass/Vol] 12.5 g/dL Normal 11.5-15.5 [facility] Comment on above: Order Comment: Speci men Type: BLOOD SPECIMEN Ordering Facility: [facility] Address: [address] [place] [address] Performed By: #### 5 8410-2 #### [facility] CLIA [id number] [address] MCH (RBC) [Entitic mass] 31.3 pg Normal 26.0-34.0 [facility] Comment on above: Order Comment: Speci men Type: BLOOD SPECIMEN Ordering Facility: [facility] Address: [address] [place] [address] Performed By: #### 5 8410-2 #### [facility] CLIA [id number] [address] [place] MCHC (RBC) [Mass/Vol] 33.7 g/dL Normal 30.5-36.0 [facility] Comment on above: Order Comment: Speci men Type: BLOOD SPECIMEN Ordering Facility: [facility] Address: [address] [place] [address] Performed By: #### 5 8410-2 #### [facility] CLIA [id number] [address] MCV (RBC) [Entitic vol] 92.8 fL Normal 80.0-100.0 [facility] Comment on above: Order Comment: Speci men Type: BLOOD SPECIMEN Ordering Facility: [facility] Address: [address] [place] [address] Performed By: #### 5 8410-2 #### [facility] CLIA [id number] [address] [place] Nucleated RBC (Bld) [#/Vol] 10*3/uL Normal <0.01 [facility] Comment on above: Order Comment: Speci men Type: BLOOD SPECIMEN Ordering Facility: [facility] Address: [address] [place] [address] Performed By: #### 5 8410-2 #### [facility] CLIA [id number] [address] [place] Platelet mean volume (Bld) [Entitic vol] 10.4 fL Normal 9.0-12.7 [facility] Comment on above: Order Comment: Speci men Type: BLOOD SPECIMEN Ordering Facility: [facility] Address: [address] [place] [address] Performed By: #### 5 8410-2 #### [facility] CLIA [id number] [address] [place] Platelets (Bld) [#/Vol] 236 10*3/uL Normal 150-400 [facility] Comment on above: Order Comment: Speci men Type: BLOOD SPECIMEN Ordering Facility: [facility] Address: [address] [place] [address] Performed By: #### 5 8410-2 #### [facility] CLIA [id number] [address] [place] RBC (Bld) [#/Vol] 4.00 10*6/uL Normal 3.90-5.20 [facility] Comment on above: Order Comment: Speci men Type: BLOOD SPECIMEN Ordering Facility: [facility] Address: [address] [place] [address] Performed By: #### 5 8410-2 #### [facility] CLIA [id number] [address] [place] WBC (Bld) [#/Vol] 13.98 10*3/uL High 3.70-11.00 [facility] Comment on above: Order Comment: Speci men Type: BLOOD SPECIMEN Ordering Facility: [facility] Address: [address] [place] [address] Performed By: #### 5 8410-2 #### [facility] CLIA [id number] [address] [place] ECG COMPLETEon 10-31-2023 ECG COMPLETE Ventricular Rate : 4 8 BPM Atrial Rate : 48 BPM P-R Interval : 128 ms QRS Duration : 94 ms Q-T Interval : 496 ms QTC Calculation(Bazett) : 443 ms Calculated P Cliff : 45 degrees Calculated R Cliff : 55 degrees Calculated T Cliff : 61 degrees SINUS BRADYCARDIA LOW VOLTAGE QRS BORDERLINE ECG NO PREVIOUS ECGS AVAILABLE Confirmed by MD MONTAGUE ANUBHAV ([id number]) on 10/31/2023 1:11:54 PM NAME : JESSY ALEGRE PID : [id number] : 1965 Gender : Female Race : ORD : [id number] Procedure Date : Oct 31 2023 00:24:05 Edit Date : Oct 31 2023 13:11:58 Diagnosis: SINUS BRADYCARDIA LOW VOLTAGE QRS BORDERLINE ECG NO PREVIOUS ECGS AVAILABLE Confirmed by MD MONTAGUE ANUBHAV ([id number]) on 10/31/2023 1:11:54 PM Test Reason : Arrhythmia Location : [address] : [place] [address] Overread By : MD MONTAGUE ANUBHAV Edited By : MD MONTAGUE ANUBHAV Referred By : TRAN PORTER Acquired by : MATT ROY [facility] HIGH SENSITIVITY TROPONIN To n 10-31-2023 Troponin T.cardiac High sensitivity method [Mass/Vol] <6 Normal <12 [facility] Comment on above: Order Comment: Speci men Type: BLOOD SPECIMEN Ordering Facility: [facility] Address: [address] [place] [address] Performed By: #### H STNT #### [facility] CLIA [id number] [address] [place] ANES POSTPROC EVALon 024 ANES POSTPROC EVAL HNO ID: [id number] Author: MAGDALENA STERN MD Service: Anesthesiology Author Type: Physician Type: Anesthesia Postprocedure Evaluation Filed: 10/30/2023 15:32 Note Text: POST ANESTHESIA EVALUATION NOTE : 1965 Procedure Summary Date: 10/30/23 Room / Location: [address] OR Anesthesia Start: 1133 Anesthesia Stop: 1437 Procedure: LAPAROSCOPIC LEFT ADRENALECTOMY. (Left: Abdomen) Diagnosis: Adrenal mass (HCC) (Adrenal mass (HCC) [E27.8]) Surgeons: Tran Porter MD Responsible Provider: Magdalena Stern MD Anesthesia Type: general ASA Status: 3 Anesthesia Type: general Airway Type: ETT Last Vitals Vitals Value Taken Time BP 98/68 10/30/23 1515 Temp 36 ?C (96.8 ?F) 10/30/23 1432 Pulse 86 10/30/23 1529 Resp 16 10/30/23 1529 SpO2 99 % 10/30/23 1529 Vitals shown include unfiled device data. Post Anesthesia Patient Status Anticipated Disposition: inpatient floor planned admission. Neurological Status: aware and responsive. Pulmonary Status: breathing comfortably on supplemental oxygen Airway Control: returned to baseline unsupported. Cardiovascular Status: stable. Pain Management: clinically adequate Postoperative Hydration: acceptable. Intraoperative Events: no significant anesthesia events Post Operative Nausea/Vomiting Status: no significant post operative nausea or vomiting Recommendation: further care per PACU/ICU/floor team. Anesthesia Observations No Documentation SIGNATURE: Magdalena Stern MD PATIENT NAME: Jessy Alegre DATE: October 30, 2023 TIME: 3:30 PM CSN: [id number] Normal [facility] ANES PRE-OPon 10-30-2023 ANES PRE-OP HNO ID: [id number] Author: YUSEF NGO MD Service: Anesthesiology Author Type: Anesthesiologist Type: Anesthesia Preprocedure Evaluation Filed: 10/30/2023 10:33 Note Text: ANESTHESIOLOGY DAY OF SURGERY NOTE : 1965 Procedure Information Date/Time: 10/30/23 1130 Procedure: LAPAROSCOPIC LEFT ADRENALECTOMY. (Left: Abdomen) Location: [facility] Surgeons: Tran Porter MD Estimated body mass index is 24.37 kg/m? as calculated from the following: Height as of 10/23/23: 162.6 cm (5' 4). Weight as of 10/23/23: 64.4 kg (142 lb). Most recent hematocrit and potassium results: Hematocrit 44.7 04/13/2023 Potassium 4.2 12/15/2007 Relevant Problems CARDIO (+) Migraine headache (+) Pelvic congestion syndrome NEURO-PSYCH (+) Migraine headache PULMONARY (+) Chronic obstructive pulmonary disease (HCC) I - PHYSICAL EVALUATION AIRWAY Patient intubated: No. Tracheostomy tube not present Mallampati: II. TM distance: >3 FB. Neck ROM: full ROM without neurological symptoms. Mouth opening: adequate. Short neck: no. Thick neck: no DENTAL Dental findings: teeth intact. II - ANESTHESIA PLAN ASA Score: 3 Anesthetic Plan: general Airway type: ETT NPO Status: adequate Beta Samantha Monitoring Plan Monitoring plan: standard ASA and invasive hemodynamic monitoring. Monitoring method: arterial Line Post Procedure Analgesic Plan Postoperative analgesic plan: parenteral or oral opioids, multimodal analgesia and per surgical service. Informed Consent Anesthetic risks, benefits, alternatives, personnel and consent discussed: yes. Patient / Responsible Constitution Party agrees to proceed: yes Patient / Surrogate agrees to blood products: Yes Vitals Value Taken Time BP 116/73 10/30/23 0959 Pulse 54 10/30/23 0959 Resp 16 10/30/23 0959 Temp 36.4 ?C (97.5 ?F) 10/30/23 0959 SpO2 98 % 10/30/23 0959 Facility-Administered Medications as of 10/30/2023 Medication Dose Route Frequency lidocaine (PF) 10 mg/mL (1 %) 1-2 mg injection (XYLOCAINE) 0.1-0.2 mL INTRADERMAL PRN lactated ringers iv infusion 5-30 mL/hr INTRAVENOUS CONTINUOUS NaCl 0.9% iv flush bag 20 mL INTRAVENOUS PRN Outpatient Medications as of 10/30/2023 Medication Sig imiquimod (ALDARA) 5 % cream Apply to affected areas twice daily for 4 weeks ibuprofen (MOTRIN) 600 mg tablet Take 1 tablet by mouth every 6 hours as needed for pain. albuterol HFA (PROVENTIL HFA, VENTOLIN HFA) 90 mcg/actuation inhaler Inhale 2 Puffs as instructed every 4 hours as needed. estradiol (ESTRACE) 0.01 % (0.1 mg/gram) vaginal cream Use 1 g vaginally two times a week. Apply twice weekly to the vaginal opening. BIOTIN, BULK, MISC Take 1 tablet by mouth once daily. multivit with minerals/lutein (MULTIVITAMIN 50 PLUS ORAL) Take 1 tablet by mouth once daily. Ascorbic Acid (VITAMIN C) 1,000 mg tablet Take 1,000 mg by mouth once daily. metFORMIN (GLUCOPHAGE) 500 mg tablet Take 500 mg by mouth twice daily with meals. rosuvastatin calcium (CRESTOR ORAL) Take 5 mg by mouth daily at bedtime. Cholecalciferol, Vitamin D3, 2,000 unit cap EQL VITAMIN D3 2000 UNIT CAPS I have interviewed and examined the patient. I have reviewed the medical record and/or the pre-anesthesia evaluation, pertinent labs, and test results. This contains updated information obtained within 48 hours of Surgery/Procedure. SIGNATURE: Yusef Ngo MD PATIENT NAME: Jessy Alegre DATE: October 30, 2023 TIME: 10:32 AM CSN: [id number] [facility] BRIEF OP NOTon 10-30-2023 BRIEF OP NOT HNO ID: [id number] Author: TRAN PORTER MD Service: General Surgery Author Type: Resident Type: Brief Op Note Filed: 10/30/2023 15:25 Note Text: Attestation signed by Tran Porter MD at 10/30/2023 3:25 PM Attestation: I was present for the critical and harrington portions of the surgery and I was immediately available to provide assistance. Tran Porter MD BRIEF OPERATIVE / PROCEDURE NOTE LOG ID: [id number] SURGERY/PROCEDURE DATE: 10/30/2023 INCISION/PROCEDURE START TIME: 12:28 PM INCISION CLOSE/PROCEDURE END TIME: 2:25 PM SURGEON(S)/PROCEDURAL IST(S) AND CENTRAL OFFICE EQUIPMENT ENGINEER(S): Surgeon(s) and Role: * Tran Poretr MD - Primary * Sukhjinder Porter MD - Assisting * Zach Dinh DO - Resident - Assisting No Additional Staff SURGERY/PROCEDURE(S): Left Laparoscopic adrenalectomy ANESTHESIA: General FINDINGS: 4 incisions on left lateral flank. Adrenal gland removed ESTIMATED BLOOD LOSS: 10 mls SPECIMENS: Left adrenal gland COMPLICATIONS: None CLOSURE TECHNIQUE: Primary PRE-OP/PRE-PROCEDURE DIAGNOSIS: Adrenal adenoma POST-OP/POST-PROCEDUR E DIAGNOSIS: Same as Preop SIGNATURE: Zach Dinh DO PATIENT NAME: Jessy Alegre DATE: October 30, 2023 TIME: 2:43 PM Normal [facility] HISTORY PHYSICALon HISTORY PHYSICAL HNO ID: [id number] Author: TRAN PORTER MD Service: General Surgery Author Type: Resident Type: H&P Filed: 10/30/2023 11:36 Note Text: Attestation signed by Tran Porter MD at 10/30/2023 11:36 AM Attending Note I personally saw and examined the patient. I reviewed the resident's note. I agree with the resident's assessment and plan unless otherwise noted. Signature: Tran Porter MD Date: 10/30/2023 Time: 11:36 AM UPDATED HISTORY AND PHYSICAL EXAMINATION SERVICE DATE: 10/30/2023 SERVICE TIME: 11:10AM PHYSICAL EXAM MUST BE COMPLETED ON ADMISSION The History and Physical (completed in the past 30 days) has been reviewed and the patient has been examined. The contents accurately reflect the patient's condition with the following additions or revisions since the HANDP was completed. Examination indicates no changes. This HANDP can be found in the Electronic Medical Record dated 10/22. SIGNATURE: Zach Dinh DO PATIENT NAME: Jessy Alegre DATE: October 30, 2023 TIME: 11:10 AM [facility] NURSING PROGon 10-30-2023 NURSING PROG HNO ID: [id number] Author: NADEEM THAO RN Service: ? Author Type: Registered Nurse Type: Nursing Progress Note Filed: 10/30/2023 23:48 Note Text: This RN paged surgical team due to patient's heart rate of 42. Order for STAT EKG received from . [facility] NURSING PROG HNO ID: [id number] Author: NADEEM THAO RN Service: ? Author Type: Registered Nurse Type: Nursing Progress Note Filed: 10/30/2023 21:52 Note Text: Patient reported to this RN that she is experiencing left rib pain. Patient educated that pain possibly associated with gas pain from surgery. Patient was educated that ambulating can help relieve pain. Patient ambulated in hallway and reporting decreased pain on left ribs. [facility] OPERATIVE NOon 10-30-2023 OPERATIVE NO HNO ID: [id number] Author: TRAN PORTER MD Service: General Surgery Author Type: Physician Type: Operative Report Filed: 10/30/2023 16:16 Note Text: OPERATIVE/PROCEDURE REPORT LOG ID: [id number] SURGERY/PROCEDURE DATE: 10/30/2023 INCISION/PROCEDURE START TIME: 12:28 PM INCISION CLOSE/PROCEDURE END TIME: 2:25 PM SURGEON(S)/PROCEDURAL IST(S) AND CENTRAL OFFICE EQUIPMENT ENGINEER(S): Surgeon(s) and Role: * Tran Porter MD - Primary * Sukhjinder Porter MD - Assisting * Zach Dinh DO - Resident - Assisting No Additional Staff SURGERY/PROCEDURE(S): Laparoscopic left adrenalectomy INDICATION: This is a 58 yo female with PMH s/f: left sided adrenal adenoma, asthma, prediabetes, and COPD. She was referred by her sales porter for surgical evaluation of enlarging left adrenal mass. ANESTHESIA: General SURGERY/PROCEDURE DETAILS: After informed consent was obtained, the patient was taken to the operating room and positioned supine. After general anesthesia was administered, and the patient was repositioned right lateral decubitus with all pressure points padded. Sterile prep and drape was completed in standard fashion. Access to the abdomen was gained via Veress entry at Roblero's point. Pneumoperitoneum was established while monitoring insufflation pressures to ensure free flow of insufflation. Four 11 mm trocars were then placed under laparoscopic visualization (left subcostal) and atraumatic entry was confirmed. Diagnostic laparoscopy did not reveal any addition pathology. Allowing gravity to retract the spleen medially we then incised the lateral attachments of the spleen to the abdominal wall. We continued this inferiorly to also mobilize the splenic flexure of the colon until the medial border of the adrenal gland was visualized. We then dissected carefully to identify the left renal vein. With these two landmarks exposed we carefully dissected the left renal vein until we identified the left adrenal vein entering the renal vein. This was encircled, clipped, and divided. We then proceeded to divide the medial, posterior, lateral and superior attachments of the adrenal with Harmonic and LigaSure, ensuring hemostasis. The adrenal was then placed in an [place] bag. The surgical bed was irrigated and inspected for hemostasis which was achieved. The spleen was then allowed to roll back laterally to it's normal anatomic position. The specimen was then passed off the field via widening of the 10 mm port. The specimen extraction site was then closed with Lyndon-Severino using 0 Vicryl sutures. The additional 11 mm sites were closed with 0-vicryl from an open approach. All skin sites were then closed with 4-0 vicryl interrupted sutures and steri dressing was applied. All surgical counts were correct. Dr. Sukhjinder Porter did scrub and assist throughout the procedure due to no other qualified assistance available for complex case. PRE-OP/PRE-PROCEDURE DIAGNOSIS: Left adrenal mass POST-OP/POST-PROCEDUR E DIAGNOSIS: Same as Preop ESTIMATED BLOOD LOSS: <5 mls SPECIMENS: left adrenal IMPLANTABLE DEVICES: NONE DRAINS: None COMPLICATIONS: None CLOSURE TECHNIQUE: Primary PARTICIPATION IN SURGERY/PROCEDURE: I/primary surgeon/proceduralist performed the procedure with assistance. SIGNATURE: Tran Porter MD PATIENT NAME: Jessy Alegre DATE: October 30, 2023 TIME: 3:47 PM [facility] SURGICAL PATHOLOGYon 024 CASE REPORT [facility] Comment on above: Order Comment: Speci nellie Type: BLOOD SPECIMEN Ordering Facility: [facility] Address: [address] [place] [address] Result Comment: Surg ical Pathology Report Case: [id number] Authorizing Provider: Tran Porter MD Collected: 10/30/2023 02:06 PM Ordering Location: [facility] Received: 11/02/2023 01:10 PM Pathologist: Magdalena Andrea MD Specimen: Adrenal Gland, Left, Resection, left adrenal gland Performed By: #### 2 4321-2 #### [facility] CLIA [id number] [address] [place] [address] CLINICAL HISTORY Normal [facility] Comment on above: Order Comment: Jeovany ballard Type: BLOOD SPECIMEN Ordering Facility: [facility] Address: [address] [place] [address] Result Comment: Pre- op diagnosis: Adrenal mass (HCC) [E27.8] Performed By: #### 2 4321-2 #### [facility] CLIA [id number] [address] DIAGNOSIS COMMENT No malignant feature s are identified. The case was reviewed by Dr. Kaia Lopez, who agrees with this assessment. [facility] Comment on above: Order Comment: Speci men Type: BLOOD SPECIMEN Ordering Facility: [facility] Address: [address] [place] [address] Performed By: #### 2 4321-2 #### [facility] CLIA [id number] [address] FINAL DIAGNOSIS Normal [facility] Comment on above: Order Comment: Speci men Type: BLOOD SPECIMEN Ordering Facility: [facility] Address: [address] [place] [address] Result Comment: A. A drenal gland, left, adrenalectomy: - Compatible with adrenocortical adenoma, (see comment). Performed By: #### 2 4321-2 #### [facility] CLIA [id number] [address] [place] [address] FINAL PERFORMING LAB Normal [facility] Comment on above: Order Comment: Speci men Type: BLOOD SPECIMEN Ordering Facility: [facility] Address: [address] [place] [address] Result Comment: Diag nostic interpretation performed at [facility], [address] [place] [address] CLIA# [id number] [employer] Operator: Philip Angeles M.D. Performed By: #### 2 4321-2 #### [facility] CLIA [id number] [address] [place] [address] GROSS DESCRIPTION Normal [facility] Comment on above: Order Comment: Speci men Type: BLOOD SPECIMEN Ordering Facility: [facility] Address: [address] [place] [address] Result Comment: A. A drenal Gland, Left, Resection Received in formalin labeled as left adrenal gland is a specimen consisting of an adrenal gland measuring 5.5 x 3.0 x 1.3 cm and weighing 12 g. The normal adrenal outline is present, but the external surface has a slight knobby appearance and on cross-section,. Sectioning reveals a minimal medullary component which is replaced by yellow solid area measuring 3.0 x 1.5 x 1.0 cm. A photograph is taken after sectioning. Roundsman sections are submitted as follows: A1-A5 insurance service representative sections of solid area A6-uninvolved area of adrenal parenchyma Gross examination performed at [facility], [address] [place] [address] CLIA#[id number] [facility] November 02, 2023 2:25 PM Performed By: #### 2 4321-2 #### [facility] CLIA [id number] [address] [place] [id number] [place] HISTORY PHYSICALon HISTORY PHYSICAL HNO ID: [id number] Author: GINA MCGILL APRN.RADIO OPERATOR GROUND Service: ? Author Type: Nurse Practitioner Type: H&P Filed: 10/23/2023 10:23 Note Text: HISTORY AND PHYSICAL EXAMINATION SERVICE DATE: 10/22/2023 SERVICE TIME: 10:22 AM PRIMARY CARE PHYSICIAN: Lala Zendejas MD, MD Implantable Devices: mesh for bladder repair Patient denies blood thinners The Following Tests/Procedures Have Been Initiated: No labs ordered per surgeon in [facility] Assessment/Plan Diagnosis: Adrenal mass (HCC) [E27.8] PLAN Planned Procedure: Procedure(s): LAPAROSCOPIC LEFT ADRENALECTOMY. (Left) I spent a total of 40 minutes on the date of the service which included preparing to see the patient, [id number] patient care, completing clinical documentation, obtaining and/or reviewing separately obtained history, performing a medically appropriate examination, and counseling and educating the patient/family/caregi jamee. Assessment Patient has the following medical conditions which may affect david-operative course: Chronic obstructive pulmonary disease (HCC) Albuterol as needed -rarely using. Denies hospitalization or ED visit in last year due to breathing issues. Preop examination see note for medical conditions which may affect david-operative course that were addressed at today's visit. Hyperlipidemia, unspecified Statin Instructed to continue Migraine headache 3 times yearly Without aura Controlled with Excedrin migraine Nicotine dependence, uncomplicated 9 pack years Currently smoking 1/2 ppd Encouraged to cut back prior to surgery and avoid morning of surgery Prediabetes Metformin- Instructed to hold DOS Unsure of last A1C -done 2 weeks ago per PCP and told good Does not check sugars at home Poison cordelia Patient has poison cordelia clarita to RUE, right chest and posterior neck. Instructed to call surgeon office if worsening or not improved closer to surgery. Sandoval Activity Status Index: METS: Participate in strenuous sport, such as swimming, singles tennis, football, basketball, or skiing (7.50 METs) DASI Score: 7.5 Patient denies any chest pain or undue shortness of breath with the above physical activity. ARISCAT Score: Age: 51-80 Preoperative SpO2: >=96% Respiratory infection in the last month: No Preoperative anemia: No Surgical incision: upper abdominal Duration of surgery: >3 hrs Emergency procedure: No ARISCAT Score: 41 ANESTHESIA FINDINGS: Intubation History: No history of difficult intubation Significant Anesthesia Considerations: blood pressure drops after anesthesia potential slow emergence Airway History: No history of difficult airway I - PHYSICAL EVALUATION AIRWAY Patient intubated: No. DENTAL Dental findings: teeth intact. II - ANESTHESIA PLAN Anesthetic Plan: general Beta Samantha Monitoring Plan Post Procedure Analgesic Plan Prepared for Surgery: CONSULTS: The following consults have been initiated at this time: primary care/internal medicine (in [facility]). Planned Anesthetic: general The Following Tests/Procedures Have Been Initiated: No orders of the defined types were placed in this encounter. REASON FOR VISIT: Jessy Alegre is a 58 year old female who is scheduled for at the request of Dr. Tran Porter for. My final recommendation will be communicated back to the requesting physician by way of shared medical record or letter. Subjective The patient has the following: ACTIVE PROBLEM LIST Umbilical Hernia Without Mention of Obstruction Or Gangrene Llq Pain Overactive Bladder Pelvic Congestion Syndrome Vaginal Vault Prolapse Preop Examination Chronic Obstructive Pulmonary Disease (Hcc) Nicotine Dependence, Uncomplicated Hyperlipidemia, Unspecified Palpitations Prediabetes Migraine Headache Poison Cordelia COVID-19 Immunization Status Overdue - Covid-19 Vaccine () Overdue since 01/02/2023 02/04/2021 Imm Admin: COVID-19 original vaccine, age 12+ yr, monovalent (PFIZER-BIONTECH - PURPLE TOP) 01/14/2021 Imm Admin: COVID-19 original vaccine, age 12+ yr, monovalent (PFIZER-BIONTECH - PURPLE TOP) CHIEF COMPLAINT: The reason for this visit is to perform a comprehensive review of the patient's past medical history, assess their current health status and obtain any additional testing required based on anesthesia guidelines. We will also identify any potential anesthesia problems or contraindications to the planned procedure. HPI: Patient is a 58 year old female who presents for pre surgical testing. She has h/o a left adrenal mass which has been growing in size over the last year. She denies any symptoms. Follows with endocrine. After discussion with the surgeon patient agrees to surgical intervention. REVIEW OF SYSTEMS: General: Negative for: unintentional weight change, malaise and fever. Neurological: Positive for: headaches. Negative for: seizures and strokes. Respirato (more content not included)... Normal [facility] CNCOon 09-10-2023 CNCO Letter Text Normal [facility] ALDOSTERONE BLDon 08-31-2023 Aldosterone [Mass/Vol] 10.7 ng/dL 0.0 - <35.4 [facility] Comment on above: The reference interv al for serum/plasma aldosterone is based on a normal sodium intake and upright position. High sodium intake may suppress aldosterone and low sodium intake may increase aldosterone. The supine reference interval is <23.7 ng/dL. A ratio of aldosterone in ng/dL to direct renin in pg/mL greater than or equal to 3.8 is a positive screening test result for primary aldosteronism, when aldosterone is greater than or equal to 15 ng/dL. ALDOSTERONE/DIRECT RENIN RAT IOon 08-31-2023 Aldosterone [Mass/Vol] 10.7 ng/dL 0.0 - <35.4 [facility] Comment on above: The reference interv al for serum/plasma aldosterone is based on a normal sodium intake and upright position. High sodium intake may suppress aldosterone and low sodium intake may increase aldosterone. The supine reference interval is <23.7 ng/dL. A ratio of aldosterone in ng/dL to direct renin in pg/mL greater than or equal to 3.8 is a positive screening test result for primary aldosteronism, when aldosterone is greater than or equal to 15 ng/dL. Aldosterone/Renin Act Rat 0.5 NINF - 3.8 [facility] Comment on above: A ratio of aldostero ne in ng/dL to direct renin in pg/mL greater than or equal to 3.8 is a positive screening test result for primary aldosteronism, when aldosterone is greater than or equal to 15 ng/dL. Direct Renin 21.3 pg/mL 3.6 - 81.6 pg/mL [facility] Comment on above: The reference interv al for direct renin is based on an upright position. The supine reference intervals are: Age <41 years: 3.2-33.2 pg/mL Age >=41 years: 2.5-45.1 pg/mL A ratio of aldosterone in ng/dL to direct renin in pg/mL greater than or equal to 3.8 is a positive screening test result for primary aldosteronism, when aldosterone is greater than or equal to 15 ng/dL. Patient Upright or Supine Upright [facility] Aldosterone [Mass/Vol]on Interpretation and review of laboratory results Normal [facility] ALDOSTERONE/DIRECT RENIN RAT IOon 08-28-2023 LUCILA RENIN RATIO 0.5 Normal <3.8 [facility] Comment on above: Order Comment: Spectyson ballard Type: BLOOD SPECIMEN Ordering Facility: [facility] Address: [address] [place] [address] Result Comment: A ra akbar of aldosterone in ng/dL to direct renin in pg/mL greater than or equal to 3.8 is a positive screening test result for primary aldosteronism, when aldosterone is greater than or equal to 15 ng/dL. Performed By: #### A LDREN #### [facility] CLIA [id number] [address] [place] [address] [place] Aldosterone [Mass/Vol] 10.7 ng/dL Normal 0.0-<35.4 [facility] Comment on above: Order Comment: Jeovany ballard Type: BLOOD SPECIMEN Ordering Facility: [facility] Address: [address] [place] [address] Result Comment: The reference interval for serum/plasma aldosterone is based on a normal sodium intake and upright position. High sodium intake may suppress aldosterone and low sodium intake may increase aldosterone. The supine reference interval is <23.7 ng/dL. A ratio of aldosterone in ng/dL to direct renin in pg/mL greater than or equal to 3.8 is a positive screening test result for primary aldosteronism, when aldosterone is greater than or equal to 15 ng/dL. Performed By: #### A LDREN #### [facility] CLIA [id number] [address] [place] [address] [place] Performed By: #### 1 763-2 #### [facility] CLIA [id number] [address] [place] [address] [place] DIRECT RENIN 21.3 pg/mL Normal 3.6-81.6 [facility] Comment on above: Order Comment: Jeovany ballard Type: BLOOD SPECIMEN Ordering Facility: [facility] Address: [address] [place] [address] Result Comment: The reference interval for direct renin is based on an upright position. The supine reference intervals are: Age <41 years: 3.2-33.2 pg/mL Age >=41 years: 2.5-45.1 pg/mL A ratio of aldosterone in ng/dL to direct renin in pg/mL greater than or equal to 3.8 is a positive screening test result for primary aldosteronism, when aldosterone is greater than or equal to 15 ng/dL. Performed By: #### A OVI #### [facility] CLIA [id number] [address] [place] [address] [place] PATIENT UPRIGHT OR SUPINE Upright Normal [facility] Comment on above: Order Comment: Jeovany ballard Type: BLOOD SPECIMEN Ordering Facility: [facility] Address: [address] [place] [address] Performed By: #### A OVI #### [facility] CLIA [id number] [address] [place] [address] [place] CNOVon 08-28-2023 CNOV Office Visit (AGGENS3) JESSY ALEGRE ([id number]) 1965 F Date Time Provider Department 08/28/23 10:00 AM TRAN PORTER During your visit today, we recorded the following information about you: Pulse Blood pressure Weight Height 75/minute 112/75 67.6 kg 1.626 m Minnie Brice MA 08/28/2023 9:56 AM Signed We sincerely appreciate the opportunity to participate in your care. If there are any opportunities for us to improve your experience please let us know. Many patients receive surveys after their surgical care is completed with our office and we understand our patients have a choice in selecting their healthcare. Thank you for taking the time and effort to complete your survey (if you receive one.) All of us strive to ALWAYS provide the best care possible in ALL WAYS. Thank you! Tran Fernandez MD, MD 09/07/2023 2:38 PM Signed Jessy Alegre is a 58 year old White female who presents with complaints of enlarging adrenal adenoma Consultation requested by Dr. Bar Mendoza for an opinion regarding adrenal mass. My final recommendations will be communicated back to the requesting physician by way of shared Medical record or letter to requesting physician via US mail. HPI: This is a 58 yo female with PMH s/f: left sided adrenal adenoma, asthma, prediabetes, and COPD. She was referred today by her sales porter for surgical evaluation of enlarging left adrenal mass. Patient presents today with her sister. She endorses some intermittent symptoms of flushing/palpitations . Has had recent lab work at [facility] with endocrinology. Denies any abdominal pain. No prior issues with HTN or electrolyte derangements. PSH s/f: appendectomy, cholecystectomy, tubal ligation, bilateral breast reconstruction, bladder sling, tonsillectomy, hysterectomy, foot surgery. She denies any issues with prior anesthesia FMH s/f: thyroid disease (mother - Graves), DM, CAD. No known FMH of endocrine tumors. Pert EMR, outside imaging: Test Name Value Interpretation Reference Range Facility Catecholamines, 24 UR on 07-24-2023 Dopamine, Urine 89 ug/L Normal Undefined [facility] Dopamine,U,24HR 223 ug/24 hr Normal 0-510 [facility] Epineph.,U,24HR < 8 Normal 0-20 [facility] Epinephrine, U < 3 Normal Undefined [facility] Norepin.,U,24HR 60 ug/24 hr Normal 0-135 [facility] Norepinephrin,U 24 ug/L Normal Undefined [facility] Cortisol, 24 HR UR Free on 07-24-2023 CORTISOL,F/24hr 25 ug/24 hr Normal 6-42 [facility] CORTISOL,U FREE 10 ug/L Normal Undefined [facility] Metanephrine Frac 24 HR UR on 07-24-2023 Metaneph,UR 24H 140 ug/24 hr Normal 36-209 [facility] Metanephrines,U 56 ug/L Normal Undefined [facility] Normetan,UR 24h 365 ug/24 hr Normal 131-612 [facility] Normetanephrine 146 ug/L Normal Undefined [facility] DHEA Sulfate on 07-15-2023 DHEA SULFATE 31.6 ug/dL Normal 29.4-220.5 [facility] Comment on above: Order Comment: N PAST MEDICAL HISTORY Diagnosis Date Abnormal glandular Papanicolaou smear of cervix 05/04/2005 Abn. Pap smear (cervix) Adenoma of left adrenal gland Colon polyps COPD (chronic obstructive pulmonary disease) (HCC) Cystocele, midline Other and unspecified hyperlipidemia 05/04/2006 not on medication Prediabetes Skin cancer Vaginal vault prolapse PAST SURGICAL HISTORY Procedure Laterality Date ABDOMINAL SURGERY HX APPENDECTOMY 11/2006 BREAST AUGMENTATION WITH IMPLANT 2006 BREAST SURGERY HX COLONOSCOPY 10/06/2014 COLONOSCOPY FLX DX W/COLLJ SPEC WHEN PFRMD 03/07/2021 nl biopsies. repeat in 5 years per DP based on family history COLPOSCOPY CERVIX UPPER/ADJACENT VAGINA 2000 Colposcopy CONIZATION CERVIX W/WO DANDC RPR ELTRD EXC 1997 [facility] LEEP-Cervix DILATION AND CURETTAGE DXAND/THER NONOBSTETRIC [...] 1993 vein stripping RLE, X 2 procedures Social History Tobacco Use Smoking status: Every Day Packs/day: 1.00 Years: 18.00 Additional pack years: 0.00 Total pack years: 18.00 Types: Cigarettes Smokeless tobacco: Never Tobacco comments: Cut back to 1/2 to 1/4 packs per day Vaping Use Vaping Use: Never used Substance Use Topics Alcohol use: Yes Comment: rare occassion Drug use: No FAMILY HISTORY Problem Relation Age of Onset other (graves d (more content not included)... Normal [facility] No Panel InformationOrdered By: Bar Mendoza on 07-14-2023 Dehydroepiandrosterone Sulfate 31.6 ug/dL 29.4-220.5 [facility] Comment on above: Performed at: [address] [id number] Director: Armond Heart PhD, Phone: [phone] ANES POSTPROC EVALon 024 ANES POSTPROC EVAL HNO ID: [id number] Author: BENY KEARNS MD Service: Anesthesiology Author Type: Physician Type: Anesthesia Postprocedure Evaluation Filed: 05/19/2023 08:18 Note Text: POST ANESTHESIA EVALUATION NOTE : 1965 Procedure Summary Date: 05/18/23 Room / Location: [place] [address] [place] [address] OR Anesthesia Start: 803 Anesthesia Stop: 1251 Procedures: COLPOPEXY LAPAROSCOPIC LYSIS OF ADHESIONS (Pelvis) CYSTOSCOPY Diagnosis: Vaginal vault prolapse Cystocele, midline Rectocele (Vaginal vault prolapse [N81.9]) (Cystocele, midline [N81.11]) (Rectocele [N81.6]) Surgeons: Cecy Braxton MD Responsible Provider: Beny Kearns MD Anesthesia Type: general ASA Status: 2 Anesthesia Type: general Airway Type: ETT Last Vitals Vitals Value Taken Time BP 98/68 05/18/23 1535 Temp 36.1 ?C (97 ?F) 05/18/23 1515 HR SpO2 68 05/18/23 1536 Resp 13 05/18/23 1537 SpO2 96 % 05/18/23 1536 Vitals shown include unfiled device data. Post Anesthesia Patient Status Patient Evaluation: PACU. PACU/ICU Patient Condition: stable. Anticipated Disposition: phase 2 then home. Neurological Status: aware and responsive. Pulmonary Status: breathing comfortably on room air Airway Control: returned to baseline unsupported. Cardiovascular Status: stable. Pain Management: clinically adequate Postoperative Hydration: acceptable. Intraoperative Events: no significant anesthesia events Post Operative Nausea/Vomiting Status: no significant post operative nausea or vomiting Recommendation: continue current plan of care. Anesthesia Observations No Documentation SIGNATURE: Beny Kearns MD PATIENT NAME: Jessy Alegre DATE: May 19, 2023 TIME: 8:18 AM CSN: [id number] [facility] ALLIED HEALTHon 05-18-2023 ALLIED HEALTH HNO ID: [id number] Author: DEENA ORTIZ Chaplain Service: ? Author Type: Dem[employer]ator [employer] Type: Allied Health Filed: 05/18/2023 07:15 Note Text: SPIRITUAL CARE PROGRESS NOTE SERVICE DATE: 05/18/2023 SERVICE TIME: 7:07 AM Pre-surgery Patient request for prayer, prayer given To contact the Spiritual Care Department: Please call [phone]. SIGNATURE: Chaplain Joelle PATIENT NAME: Jessy Alegre DATE: May 18, 2023 TIME: 7:14 AM PAGER/CONTACT #: [phone] [facility] ANES PRE-OPon 05-18-2023 ANES PRE-OP HNO ID: [id number] Author: BENY KEARNS MD Service: Anesthesiology Author Type: Physician Type: Anesthesia Preprocedure Evaluation Filed: 05/18/2023 07:29 Note Text: ANESTHESIOLOGY DAY OF SURGERY NOTE : 1965 Procedure Information Date/Time: 05/18/23 0800 Procedures: COLPOPEXY LAPAROSCOPIC (Pelvis) POSTERIOR COLPORRHAPHY W/ REPAIR RECTOCELE AND PERINEORRHAPHY (Vagina ) INSERTION STENT URETERAL (Bilateral: Bladder) Location: [facility] OR / [facility] OR Surgeons: Cecy Braxton MD Estimated body mass index is 25.58 kg/m? as calculated from the following: Height as of 05/11/23: 162.6 cm (5' 4). Weight as of 05/11/23: 67.6 kg (149 lb). Most recent hematocrit and potassium results: Hematocrit 44.7 04/13/2023 Potassium 4.2 12/15/2007 Relevant Problems CARDIO (+) Pelvic congestion syndrome PULMONARY (+) Chronic obstructive pulmonary disease (HCC) I - PHYSICAL EVALUATION AIRWAY Patient intubated: No. Tracheostomy tube not present Mallampati: II. TM distance: >3 FB. Neck ROM: full ROM without neurological symptoms. Mouth opening: adequate. Short neck: no. Thick neck: no DENTAL Dental findings: teeth intact. II - ANESTHESIA PLAN ASA Score: 2 Anesthetic Plan: general Airway type: ETT The patient is a current smoker. NPO Status: adequate Beta Samantha Monitoring Plan Monitoring plan: standard ASA. Post Procedure Analgesic Plan Postoperative analgesic plan: multimodal analgesia. Informed Consent Anesthetic risks, benefits, alternatives, personnel and consent discussed: yes. Patient / Responsible Constitution Party agrees to proceed: yes Patient / Surrogate agrees to blood products: Yes Potential Anesthesia issues that may suggest increased risk of complications or contraindication to planned procedure: none. Vitals Value Taken Time BP 115/78 05/18/23656 Pulse 73 05/18/23656 Resp 16 05/18/23656 Temp 36.7 ?C (98.1 ?F) 05/18/23656 SpO2 94 % 05/18/23656 Facility-Administered Medications as of 05/18/2023 Medication Dose Route Frequency - [COMPLETED] celecoxib 200 mg cap(s) (CeleBREX) 200 mg ORAL Pre-Op Once - [COMPLETED] phenazopyridine 200 mg tab(s) (PYRIDIUM) 200 mg ORAL Pre-Op Once - [COMPLETED] acetaminophen 1,000 mg tab(s) (TYLENOL) 1,000 mg ORAL Pre-Op Once - cefOXitin 2 g in NaCl 0.9% 100 mL Vial-Bag (MEFOXIN) 2 g INTRAVENOUS q2h - lidocaine 10 mg/mL (1 %) 1-2 mg injection (XYLOCAINE) 0.1-0.2 mL INTRADERMAL PRN - lactated ringers iv infusion 5-30 mL/hr INTRAVENOUS CONTINUOUS - NaCl 0.9% iv flush bag 20 mL INTRAVENOUS PRN Outpatient Medications as of 05/18/2023 Medication Sig - BIOTIN, BULK, MISC Take 1 tablet by mouth once daily. - multivit with minerals/lutein (MULTIVITAMIN 50 PLUS ORAL) Take 1 tablet by mouth once daily. - Ascorbic Acid (VITAMIN C) 1,000 mg tablet Take 1,000 mg by mouth once daily. - Cholecalciferol, Vitamin D3, 2,000 unit cap EQL VITAMIN D3 2000 UNIT CAPS - nicotine (NICODERM) 21 mg/24 hr apply 1 (ONE) patch EVERY 24 HOURS, do not smoke with the patch (Patient not taking: Reported on 05/08/2023) - amitriptyline (ELAVIL) 25 mg tablet Take 25 mg by mouth daily at bedtime. - albuterol HFA (PROVENTIL HFA, VENTOLIN HFA) 90 mcg/actuation inhaler Inhale 2 Puffs as instructed every 4 hours as needed. - metFORMIN (GLUCOPHAGE) 500 mg tablet Take 500 mg by mouth twice daily with meals. - rosuvastatin calcium (CRESTOR ORAL) Take 5 mg by mouth daily at bedtime. I have interviewed and examined the patient. I have reviewed the medical record and/or the pre-anesthesia evaluation, pertinent labs, and test results. This contains updated information obtained within 48 hours of Surgery/Procedure. SIGNATURE: Beny Kearns MD PATIENT NAME: Jessy Alegre DATE: May 18, 2023 TIME: 7:26 AM CSN: [id number] [facility] BRIEF OP NOTon 05-18-2023 BRIEF OP NOT HNO ID: [id number] Author: EUSEBIA FLAHERTY DO Service: Urogynecology Author Type: Resident Type: Brief Op Note Filed: 05/18/2023 12:51 Note Text: BRIEF OPERATIVE / PROCEDURE NOTE LOG ID: [id number] SURGERY/PROCEDURE DATE: 05/18/2023 INCISION/PROCEDURE START TIME: 8:58 AM INCISION CLOSE/PROCEDURE END TIME: 12:29 PM SURGEON(S)/PROCEDURAL IST(S) AND CENTRAL OFFICE EQUIPMENT ENGINEER(S): Surgeon(s) and Role: * Cecy Braxton MD - Primary * Eusebia Flaherty DO - Resident - Assisting * Olivia Galindo DO - Resident - Assisting No Additional Staff SURGERY/PROCEDURE(S): Laparoscopic sacrocolpopexy, lysis of adhesions, cystoscopy ANESTHESIA: General FINDINGS: -Stage II vaginal vault prolapse, cystocele, rectocele -Surgically absent uterus -Bowel adhesions to the left pelvic side wall and cul-de-sac -Unable to visualize left adnexa due to adhesions -Right fallopian tube present with several paratubal cysts, normal appearing right ovary -Brisk bilateral ureteral jets and no bladder injury or sutures on cystoscopy ESTIMATED BLOOD LOSS: 70mL SPECIMENS: None COMPLICATIONS: None DRAINS: marin catheter in place, plan for retrograde void trial in PACU CLOSURE TECHNIQUE: Primary PRE-OP/PRE-PROCEDURE DIAGNOSIS: Vaginal vault prolapse, cystocele, rectocele POST-OP/POST-PROCEDUR E DIAGNOSIS: Same as Preop SIGNATURE: Eusebia Flaherty DO PATIENT NAME: Jessy Alegre DATE: May 18, 2023 TIME: 12:48 PM Normal [facility] NURSING PROGon 05-18-2023 NURSING PROG HNO ID: [id number] Author: LALA HAQ, ADRIENNE Service: Nursing Author Type: Registered Nurse Type: Nursing Progress Note Filed: 05/18/2023 16:14 Note Text: 300cc instilled into marin catheter. Catheter discontinued. Pt up to restroom and able to void 200cc. OK for discharge. Normal [facility] OPERATIVE NOon 05-18-2023 OPERATIVE NO HNO ID: [id number] Author: CECY BRAXTON MD Service: Urogynecology Author Type: Physician Type: Operative Report Filed: 05/18/2023 13:24 Note Text: OPERATIVE/PROCEDURE REPORT LOG ID: [id number] Surgery/Procedure Date: 05/18/2023 Incision/Procedure Start Time: 8:58 AM Incision Close/Procedure End Time: 12:29 PM Surgeon(s)/Procedural ist(s) and Motorcoach Driver(s): Surgeon(s) and Role: * Cecy Braxton MD - Primary * Eusebia Flaherty DO - Resident - Assisting * Olivia Galindo DO - Resident - Assisting No Additional Staff SURGERY/PROCEDURE(S): Laparoscopic Sacrocolpopexy with mesh Cystoscopy Lysis of adhesions Urethral dilation ANESTHESIA: General FINDINGS: Adhesions of left pelvic sidewall. Normal cystoscopy. Normal right fallopian tube and ovary. ESTIMATED BLOOD LOSS: 50mL UOP: 350mL SPECIMENS: None COMPLICATIONS: None CLOSURE TECHNIQUE: Primary PRE-OP/PRE-PROCEDURE DIAGNOSIS: cystocele, vaginal vault prolapse, rectocele POST-OP/POST-PROCEDUR E DIAGNOSIS: Same as Preop Indications: The patient is a 57 year old presented for consultation for stage II prolapse. She desired surgical management. She was counseled about all the risks, benefits, alternatives, complications, indications, and personnel of the procedures performed which she accepted. An informed consent was signed. Procedure Details: The patient was taken to the operating room where a surgical time-out and safety checklist were performed. The patient was then given prophylactic antibiotics and sequential compression devices were applied bilaterally. She underwent general anesthesia without any difficulty. She was positioned in the dorsal lithotomy position using yellowfin stirrups, making sure that her lower extremities were not overly extended or flexed. The patient was positioned on the table with a soft pad beneath her. A second IV was placed. Her arms were padded and tucked at her sides. A soft safety belt was placed across her chest. She was prepped and draped in the normal sterile fashion. A final time out was performed. A Marin catheter was inserted and the bladder was drained of urine. Marquette vaginal manipulator placed Abdominal entry and lysis of adhesions A 5mm incision was made at Roblero's point. Veress needle was placed and the abdomen was insufflated. A 5mm optiview port with laparoscope was then used to directly enter the abdomen. The site of entry was inspected for evidence of injury and there was none. Then a 10mm incision was made through the umbilicus under direct visualization and carried down to the rectus fascia. The balloon of the Kii port was insufflated with 20cc of air. Two additional 5mm ports were placed 1/3 the distance between the ASIS and the umbilicus. A 8mm port was placed in midline 1/2 the distance between the pubic symphysis and the umbilicus. The abdomen was inspected and there were adhesions between the bowel and left pelvic sidewall requiring 20 minutes of adhesiolysis. The bowel adhesions were taken down sharply and bluntly, using minimal cautery. Great care was taken to avoid injury to the ureter and bowels. Once the adhesions were taken down inspection revealed no other gross abnormalities. Sacrocolpopexy The bladder was backfilled with irrigation fluid to better delineate the bladder borders. It was dissected off of the anterior vagina. The dissection was taken down to the level of the trigone. Next, attention was turned to the posterior vagina. The rectum was carefully dissected off of the posterior vagina roughly half way down the vagina. A rectal exam confirmed no injury to the rectum. A 4 cm incision was made through the peritoneum overlying the sacral promonotory. The dissection was carried down to the longitudinal ligament of the spine. Meticulous care was taken to maintain hemostasis and to identify the left common iliac vein and the right common iliac artery. The middle sacral artery and vein were identified and sealed with the EnSeal Trio. A 4x4 cm area was cleared. The peritoneal dissection was then continued to the level of the right uterosacral ligament. The anterior arm of the Restorelle Y mesh was then sutured to the anterior vagina and cervix using numerous 2-0 PDS sutures. The excess mesh was excised and removed from the abdomen. The posterior arm of the Restorelle Y mesh was sutured to the posterior vagina using interrupted sutures of 2-0 PDS sutures. The mesh stem was then folded back on itself and anchored to the sacrum using the Protack device. Special care was taken to make sure that the mesh stem laid flat so that forces were equally distributed across the vaginal apex and surface. The mesh was then retroperitonealized using an interrrupted figure of 8 sutures of 2-0 Monocryl starting at the sacrum and ending at the bladder flap.Throughout this dissection, we had excellent visualization of the ureters. Cystoscopy and Ure (more content not included)... Normal [facility] HISTORY PHYSICALon HISTORY PHYSICAL HNO ID: [id number] Author: BRAN DOCKERY APRN.RADIO OPERATOR GROUND Service: ? Author Type: Nurse Practitioner Type: H&P Filed: 05/11/2023 10:01 Note Text: HISTORY AND PHYSICAL EXAMINATION SERVICE DATE: 05/11/2023 SERVICE TIME: 10:01 AM PRIMARY CARE PHYSICIAN: Lala Zendejas MD, MD Assessment Patient has the following medical conditions which may affect david-operative course: Vaginal vault prolapse Surgery scheduled with Dr. Braxton on 05/18/2023 Preop examination Patient has the following medical conditions which may affect david-operative course addressed in assessment and plan today. Chronic obstructive pulmonary disease (HCC) Albuterol as needed. Uses rescue inhaler rarely, last use 4 months ago. Denies hospitalization or pneumonia in the last 6 months. Instructed to use inhaler as prescribed and bring DOS. Nicotine dependence, uncomplicated 18 pack years, instructed to avoid smoking morning of surgery Hyperlipidemia, unspecified Statin, continue as prescribed Prediabetes No results found for: HBA1C Metformin - instructed to hold morning of surgery Sandoval Activity Status Index: METS: Climb a flight of stairs or walk up a hill (5.50 METs) DASI Score: 5.5 Patient denies any chest pain or undue shortness of breath with the above physical activity. ARISCAT Score: Age: 51-80 Preoperative SpO2: >=96% Respiratory infection in the last month: No Preoperative anemia: No Surgical incision: peripheral Duration of surgery: >3 hrs Emergency procedure: No ARISCAT Score: 26 ANESTHESIA FINDINGS: Intubation History: No history of difficult intubation. No abnormal airway history Significant Anesthesia Considerations: none Airway History: No history of difficult airway No abnormal airway history I - PHYSICAL EVALUATION AIRWAY Patient intubated: No. DENTAL Dental findings: missing tooth/teeth and teeth intact. II - ANESTHESIA PLAN Anesthetic Plan: general Beta Samantha Monitoring Plan Post Procedure Analgesic Plan REASON FOR VISIT: Jessy Alegre is a 57 year old female who is scheduled for Procedure(s): COLPOPEXY LAPAROSCOPIC (N/A) POSTERIOR COLPORRHAPHY W/ REPAIR RECTOCELE AND PERINEORRHAPHY (N/A) INSERTION STENT URETERAL (Bilateral) at the request of Dr. Cecy Braxton for routine HANDP. My final recommendation will be communicated back to the requesting physician by way of shared medical record or letter. The reason for this visit is to perform a comprehensive review of the patient's past medical history, assess their current health status and obtain any additional testing required based on anesthesia guidelines. We will also identify any potential anesthesia problems or contraindications to the planned procedure. Subjective The patient has the following: ACTIVE PROBLEM LIST Umbilical Hernia Without Mention of Obstruction Or Gangrene Llq Pain Overactive Bladder Pelvic Congestion Syndrome Vaginal Vault Prolapse Preop Examination Chronic Obstructive Pulmonary Disease (Hcc) Nicotine Dependence, Uncomplicated Hyperlipidemia, Unspecified Palpitations Prediabetes COVID-19 Immunization Status Overdue - Covid-19 Vaccine () Overdue since 01/02/2023 02/04/2021 Imm Admin: COVID-19 original vaccine, age 12+ yr, monovalent (PFIZER-BIONTECH - PURPLE TOP) 01/14/2021 Imm Admin: COVID-19 original vaccine, age 12+ yr, monovalent (PFIZER-BIONTECH - PURPLE TOP) CHIEF COMPLAINT: Vaginal vault prolapse HPI: Patient is a 57 year old female here for a preoperative exam. Pt had a bladder surgery with mesh in 2007. Pt complains of vaginal prolapse since 2014 following hysterectomy. She reports RICHAR with coughing, laughing and sneezing, urinary urgency and frequency and incomplete bladder emptying. Denies dysuria or hematuria. Pt discussed with surgeon and agrees to surgical intervention. REVIEW OF SYSTEMS: General: Negative for: unintentional weight change, malaise and fever. Neurological: Positive for: headaches. Negative for: seizures and strokes. Respiratory: Positive for: COPD and tobacco use. Negative for: asthma, URI < 2 weeks and obstructive sleep apnea. Cardiovascular: Positive for: hyperlipidemia Negative for: arrhythmia, CAD, chest pain, CHF, DVT/PE and hypertension. GI: Negative for: abdominal pain, GERD, nausea and vomiting. : See HPI. Positive for: urgency. Negative for: dysuria, hematuria, hesitancy and renal failure. CUSTOMER SUPPORT COORDINATOR: Negative for abnormal vaginal bleeding, abnormal vaginal discharge. Endocrine: Negative for: diabetes mellitus, hyperthyroidism and hypothyroidism. Hematology: Negative for: anemia, factor V Leiden, von Willebrand disease and chronic anti-coagulation/plat elet meds. Oncology: No history of CA metastasis, chemo within 30 days, or radiotherapy within 90 days. No history of oncological symptoms or problems. Psych: Negative for: anxiety and depression. Musculoske (more content not included)... Normal [facility] Absolute lymphocyte countOrd ered By: Lala Zendejas on 04-07-2023 Lymphocytes Auto (Unsp spec) [#/Vol] 2.41 10*3/uL 0.83-4.51 [facility] Basophil percentageOrdered B y: Lala Zendejas on 04-07-2023 Basophil percentage 0 SEEN /hpf 0-5 [facility] Basophils/100 WBC (Bld) 0.7 % 0-1 [facility] Bilirubin [Mass/Vol] 0.60 mg/dL 0.20-1.00 [facility] Comment on above: For patients on eltr ombopag therapy, use of Dimension Edelstein TBIL is not recommended. Chloride [Moles/Vol] 104 mmol/L 98-107 [facility] Cholesterol [Mass/Vol] 142 mg/dL <200 [facility] Comment on above: <200 mg/dL Desirable 200-240 mg/dL Borderline >240 mg/dL High Risk Eosinophils/100 WBC (Bld) 0.3 % 0-5 [facility] Glucose [Mass/Vol] 86 mg/dL 74-106 [facility] Neutrophils (Bld) [#/Vol] 4.6 10*3/uL 2.0-7.7 [facility] Neutrophils/100 WBC (Bld) 61.2 % 47-70 [facility] Potassium [Moles/Vol] 4.3 mmol/L 3.5-5.1 [facility] Protein [Mass/Vol] 7.9 g/dL 6.4-8.2 [facility] Sodium [Moles/Vol] 137 mmol/L 136-145 [facility] Triglyceride [Mass/Vol] 131 mg/dL <199 [facility] Comment on above: The drugs N-Acetylcy steine and Metamizole may falsely depress this assay.Serum Triglycerides Reference Interval Normal <150 mg/dL Borderline high 150 - 199 mg/dL High 200 - 499 mg/dL Very High > or = 500 mg/dL WBC (Bld) [#/Vol] 7.6 10*3/uL 4.4-11.0 [facility] Bilirubin Test strip Ql (U)O rdered By: Lala Zendejas on 04-07-2023 Bilirubin Ql (U) Negative Negative [facility] Blood erythrocytes count (nu mber/volume)Ordered By: Lala Zendejas on 04-07-2023 RBC (Bld) [#/Vol] 5.27 10*6/uL 4.2-5.4 [facility] Blood hemoglobin measurement (mass/volume)Ordered By: Lala Zendejas on 04-07-2023 Hemoglobin (Bld) [Mass/Vol] 16.0 g/dL 12.0-15.0 [facility] Blood lymphocytes/100 leukoc ytesOrdered By: Lala Zendejas on 04-07-2023 Lymphocytes/100 WBC (Bld) 31.9 % 19-41 [facility] Blood monocytes/100 leukocyt esOrdered By: Lala Zendejas on 04-07-2023 Monocytes/100 WBC (Bld) 5.8 % 0-10 [facility] Blood platelet mean volumeOr dered By: Lala Zendejas on 04-07-2023 Platelet mean volume (Bld) [Entitic vol] 10.2 fL 6.2-12.0 [facility] Determination of erythrocyte mean corpuscular volume (MCV)Ordered By: Lala Zendejas on 04-07-2023 MCV (RBC) [Entitic vol] 93.0 fL 81-99 [facility] Erythrocyte sedimentation ra teOrdered By: Lala Zendejas on 04-07-2023 ESR (Bld) [Velocity] 18 mm/h 0-30 [facility] Hematocrit Auto (Bld) [Volum e fraction]Ordered By: Lala Zendejas on 04-07-2023 Hematocrit (Bld) [Volume fraction] 49.0 % 37-47 [facility] Ketones Test strip Ql (U)Ord ered By: Lala Zendejas on 04-07-2023 Ketones Ql (U) Negative Negative [facility] Laboratory - Chemistry and C hemistry - challengeOrdered By: Lala Zendejas on 04-07-2023 ALP [Catalytic activity/Vol] 71 U/L 45-117 [facility] ALT [Catalytic activity/Vol] 25 U/L 13-56 [facility] CO2 [Moles/Vol] 27.0 mmol/L 21.0-32.0 [facility] Globulin (S) [Mass/Vol] 3.9 g/dL 2.2-4.2 [facility] Urea nitrogen/Creatinine [Mass ratio] 11.9 mg/mg 10-20 [facility] - Hematology and Cell countsOrdered By: Lala Zendejas on 04-07-2023 Erythrocyte distribution width (RBC) [Entitic vol] 45.9 fL 35.1-43.9 [facility] Erythrocyte distribution width (RBC) [Ratio] 13.2 % 11.6-14.6 [facility] Immature granulocytes/100 WBC (Bld) 0.100 % 0.0-0.9 [facility] Comment on above: IG% - Immature Granu locytes (promyelocytes, myelocytes and metamyelocytes) > 1% indicates that a LEFT SHIFT is Present. MCH (RBC) [Entitic mass] 30.4 pg 27.0-32.0 [facility] Nucleated RBC/100 WBC (Bld) [Ratio] 0 % 0-5 [facility] MCHC Auto (RBC) [Mass/Vol]Or dered By: Lala Zendejas on 04-07-2023 MCHC (RBC) [Mass/Vol] 32.7 g/dL 32-36 [facility] Mucus LM Ql (Urine sed)Order ed By: Lala Zendejas on 04-07-2023 Mucus Ql (Urine sed) 0 SEEN /hpf [facility] Nitrite Test strip Ql (U)Ord ered By: Lala Zendejas on 04-07-2023 Nitrite Ql (U) Negative Negative [facility] No Panel InformationOrdered By: Lala Zendejas on 04-07-2023 Estimated GFR (MDRD) Amer 81 mL/min >60 [facility] Comment on above: GFR Calc Estimated GFR (MDRD) Non-Af Amer 67 mL/min >60 [facility] Comment on above: Non- GFR Calc Vitamin D 25-Hydroxy 36.9 ng/mL [facility] Comment on above: Vitamin D 25(OH) Sta tus Range Deficiency <20 ng/mL (50nmol/L) Insufficiency 20 - 30 ng/mL (50 - 75 nmol/L) Sufficiency 30 - 100 ng/mL (75 - 250 nmol/L) Toxicity >100 ng/mL (>250 nmol/L) Platelets bldOrdered By: Alpesh Zendejas on 04-07-2023 Platelets (Bld) [#/Vol] 316 10*3/uL 150-450 [facility] Protein Test strip Ql (U)Ord ered By: Lala Zendejas on 04-07-2023 Protein Ql (U) Negative Negative [facility] Serum or plasma albumin vitor urement (mass/volume)Ordered By: Lala Zendejas on 04-07-2023 Albumin [Mass/Vol] 4.0 g/dL 3.2-5.0 [facility] Serum or plasma albumin/glob ulin mass ratioOrdered By: Lala Zendejas on 04-07-2023 Albumin/Globulin [Mass ratio] 1.0 {ratio} 0.9-2.4 [facility] Serum or plasma calcium vitor urement (mass/volume)Ordered By: Lala Zendejas on 04-07-2023 Calcium [Mass/Vol] 8.8 mg/dL 8.5-10.1 [facility] Serum or plasma cholesterol in HDL measurement (mass/volume)Ordered By: Lala Zendejas on 04-07-2023 Cholesterol in HDL [Mass/Vol] 32 mg/dL >40 [facility] Comment on above: The drugs N-Acetylcy steine and Metamizole may falsely depress this assay. Reference Range HDL <40 mg/dL Low HDL Cholesterol HDL >or= 60 mg/dL High HDL Cholesterol Serum or plasma cholesterol in VLDL measurement (mass/volume)Ordered By: Lala Zendejas on 04-07-2023 Cholesterol in VLDL [Mass/Vol] 26 mg/dL 5-40 [facility] Serum or plasma creatinine m easurement (mass/volume)Ordered By: Lala Zendejas on 04-07-2023 Creatinine [Mass/Vol] 0.92 mg/dL 0.55-1.02 [facility] Comment on above: The validity of the calculated GFR & GFRAA in patients over 70 years has not been determined. Clinical correlation is essential. Serum or plasma low density lipoprotein (LDL) cholesterol measurement (mass/volume)Ordered By: Lala Zendejas on 04-07-2023 Cholesterol in LDL [Mass/Vol] 84 mg/dL 0-130 [facility] Serum or plasma urea nitroge n measurement (mass/volume)Ordered By: Lala Zendejas on 04-07-2023 Urea nitrogen [Mass/Vol] 11 mg/dL 7-18 [facility] Squamous epithelial cells de tection in urine sediment by light microscopyOrdered By: Lala Zendejas on 04-07-2023 Epithelial cells.squamous LM Ql (Urine sed) 0 SEEN /hpf 5-10 [facility] Thin prep Papanicolaou smear with manual screeningOrdered By: Lala Zendejas on 04-07-2023 Thin prep Papanicolaou smear with manual screening 16 U/L 15-37 [facility] Thin prep Papanicolaou smear with manual screening 6 5-15 [facility] Urine blood detectionOrdered By: Lala Zendejas on 04-07-2023 RBC Ql (U) Negative Negative [facility] RBC Ql (U) 0 SEEN /hpf 0-5 [facility] Urine clarityOrdered By: Alpesh Zendejas on 04-07-2023 Clarity (U) Clear Clear [facility] Urine color determinationOrd ered By: Lala Zendejas on 04-07-2023 Color (U) Yellow Yellow [facility] Urine glucose detectionOrder ed By: Lala Zendejas on 04-07-2023 Glucose Ql (U) Normal mg/dl Normal [facility] Urine leukocyte esterase det ection by dipstickOrdered By: Lala Zendejas on 04-07-2023 Leukocyte esterase Test strip Ql (U) Negative Negative [facility] Urine pHOrdered By: Lala alvarenga on 04-07-2023 pH (U) 6.5 [pH] 5.0 - 8.0 [facility] Urine sediment bacteria coun t by microscopy (number/high power field)Ordered By: Lala Zendejas on 04-07-2023 Bacteria LM.HPF (Urine sed) [#/Area] 0 /[HPF] None Seen [facility] Urine specific gravity measu rementOrdered By: Lala Zendejas on 04-07-2023 Specific gravity (U) [Rel density] 1.010 1.002-1.03 0 [facility] Urobilinogen Auto test strip Ql (U)Ordered By: Lala Zendejas on 04-07-2023 Urobilinogen Ql (U) Normal mg/dl Normal [facility] Whole blood hemoglobin A1c/t otal hemoglobin ratio (mass fraction)Ordered By: Lala Zendejas on 04-07-2023 HbA1c (Bld) [Mass fraction] 5.6 % 3.8-5.6 [facility] Comment on above: Normal < 5.7 % Predi abetic 5.7 - 6.4 % Diabetic >or= 6.5 % Please note range changes. Absolute lymphocyte countOrd ered By: Lala Zendejas on 12-03-2022 Lymphocytes Auto (Unsp spec) [#/Vol] 2.16 10*3/uL 0.83-4.51 [facility] Basophil percentageOrdered B y: Lala Zendejas on 12-03-2022 Basophils/100 WBC (Bld) 0.8 % 0-1 [facility] Bilirubin [Mass/Vol] 0.70 mg/dL 0.20-1.00 [facility] Comment on above: For patients on eltr ombopag therapy, use of Dimension Edelstein TBIL is not recommended. Chloride [Moles/Vol] 105 mmol/L 98-107 [facility] Cholesterol [Mass/Vol] 126 mg/dL <200 [facility] Comment on above: <200 mg/dL Desirable 200-240 mg/dL Borderline >240 mg/dL High Risk Eosinophils/100 WBC (Bld) 0.4 % 0-5 [facility] Glucose [Mass/Vol] 95 mg/dL 74-106 [facility] Neutrophils (Bld) [#/Vol] 4.9 10*3/uL 2.0-7.7 [facility] Neutrophils/100 WBC (Bld) 64.6 % 47-70 [facility] Potassium [Moles/Vol] 4.0 mmol/L 3.5-5.1 [facility] Protein [Mass/Vol] 7.5 g/dL 6.4-8.2 [facility] Sodium [Moles/Vol] 135 mmol/L 136-145 [facility] Triglyceride [Mass/Vol] 124 mg/dL <199 [facility] Comment on above: The drugs N-Acetylcy steine and Metamizole may falsely depress this assay.Serum Triglycerides Reference Interval Normal <150 mg/dL Borderline high 150 - 199 mg/dL High 200 - 499 mg/dL Very High > or = 500 mg/dL WBC (Bld) [#/Vol] 7.6 10*3/uL 4.4-11.0 [facility] Blood erythrocytes count (nu mber/volume)Ordered By: Lala Zendejas on 12-03-2022 RBC (Bld) [#/Vol] 5.26 10*6/uL 4.2-5.4 [facility] Blood hemoglobin measurement (mass/volume)Ordered By: Lala Zendejas on 12-03-2022 Hemoglobin (Bld) [Mass/Vol] 16.0 g/dL 12.0-15.0 [facility] Blood lymphocytes/100 leukoc ytesOrdered By: Lala Zendejas on 12-03-2022 Lymphocytes/100 WBC (Bld) 28.4 % 19-41 [facility] Blood monocytes/100 leukocyt esOrdered By: Lala Zendejas on 12-03-2022 Monocytes/100 WBC (Bld) 5.5 % 0-10 [facility] Blood platelet mean volumeOr dered By: Lala Zendejas on 12-03-2022 Platelet mean volume (Bld) [Entitic vol] 10.4 fL 6.2-12.0 [facility] Determination of erythrocyte mean corpuscular volume (MCV)Ordered By: Lala Zendejas on 12-03-2022 MCV (RBC) [Entitic vol] 92.2 fL 81-99 [facility] Hematocrit Auto (Bld) [Volum e fraction]Ordered By: Lala Zendejas on 12-03-2022 Hematocrit (Bld) [Volume fraction] 48.5 % 37-47 [facility] - Chemistry and C hemistry - challengeOrdered By: Lala Zendejas on 12-03-2022 ALP [Catalytic activity/Vol] 70 U/L 45-117 [facility] ALT [Catalytic activity/Vol] 24 U/L 13-56 [facility] CO2 [Moles/Vol] 24.0 mmol/L 21.0-32.0 [facility] Globulin (S) [Mass/Vol] 3.6 g/dL 2.2-4.2 [facility] Magnesium [Mass/Vol] 2.1 mg/dL 1.6-2.6 [facility] Urea nitrogen/Creatinine [Mass ratio] 9.0 mg/mg 10-20 [facility] - Hematology and Cell countsOrdered By: Lala Zendejas on 12-03-2022 Erythrocyte distribution width (RBC) [Entitic vol] 48.0 fL 35.1-43.9 [facility] Erythrocyte distribution width (RBC) [Ratio] 14.1 % 11.6-14.6 [facility] Immature granulocytes/100 WBC (Bld) 0.300 % 0.0-0.9 [facility] Comment on above: IG% - Immature Granu locytes (promyelocytes, myelocytes and metamyelocytes) > 1% indicates that a LEFT SHIFT is Present. MCH (RBC) [Entitic mass] 30.4 pg 27.0-32.0 [facility] Nucleated RBC/100 WBC (Bld) [Ratio] 0 % 0-5 [facility] MCHC Auto (RBC) [Mass/Vol]Or dered By: Lala Zendejas on 12-03-2022 MCHC (RBC) [Mass/Vol] 33.0 g/dL 32-36 [facility] No Panel InformationOrdered By: Lala Zendejas on 12-03-2022 Estimated GFR (MDRD) Amer 85 mL/min >60 [facility] Comment on above: GFR Calc Estimated GFR (MDRD) Non-Af Amer 70 mL/min >60 [facility] Comment on above: Non- GFR Calc Vitamin D 25-Hydroxy 71.3 ng/mL [facility] Comment on above: Vitamin D 25(OH) Sta tus Range Deficiency <20 ng/mL (50nmol/L) Insufficiency 20 - 30 ng/mL (50 - 75 nmol/L) Sufficiency 30 - 100 ng/mL (75 - 250 nmol/L) Toxicity >100 ng/mL (>250 nmol/L) Platelets bldOrdered By: Alpesh Zendejas on 12-03-2022 Platelets (Bld) [#/Vol] 323 10*3/uL 150-450 [facility] Serum or plasma albumin vitor urement (mass/volume)Ordered By: Lala Zendejas on 12-03-2022 Albumin [Mass/Vol] 3.9 g/dL 3.2-5.0 [facility] Serum or plasma albumin/glob ulin mass ratioOrdered By: Lala Zendejas on 12-03-2022 Albumin/Globulin [Mass ratio] 1.1 {ratio} 0.9-2.4 [facility] Serum or plasma calcium vitor urement (mass/volume)Ordered By: Laal Zendejas on 12-03-2022 Calcium [Mass/Vol] 8.9 mg/dL 8.5-10.1 [facility] Serum or plasma cholesterol in HDL measurement (mass/volume)Ordered By: Lala Zendejas on 12-03-2022 Cholesterol in HDL [Mass/Vol] 31 mg/dL >40 [facility] Comment on above: The drugs N-Acetylcy steine and Metamizole may falsely depress this assay. Reference Range HDL <40 mg/dL Low HDL Cholesterol HDL >or= 60 mg/dL High HDL Cholesterol Serum or plasma cholesterol in VLDL measurement (mass/volume)Ordered By: Lala Zendejas on 12-03-2022 Cholesterol in VLDL [Mass/Vol] 25 mg/dL 5-40 [facility] Serum or plasma creatinine m easurement (mass/volume)Ordered By: Lala Zendejas on 12-03-2022 Creatinine [Mass/Vol] 0.89 mg/dL 0.55-1.02 [facility] Comment on above: The validity of the calculated GFR & GFRAA in patients over 70 years has not been determined. Clinical correlation is essential. Serum or plasma low density lipoprotein (LDL) cholesterol measurement (mass/volume)Ordered By: Lala Zendejas on 12-03-2022 Cholesterol in LDL [Mass/Vol] 70 mg/dL 0-130 [facility] Serum or plasma urea nitroge n measurement (mass/volume)Ordered By: Lala Zendejas on 12-03-2022 Urea nitrogen [Mass/Vol] 8 mg/dL 7-18 [facility] Thin prep Papanicolaou smear with manual screeningOrdered By: Lala Zendejas on 12-03-2022 Thin prep Papanicolaou smear with manual screening 20 U/L 15-37 [facility] Thin prep Papanicolaou smear with manual screening 6 5-15 [facility] Whole blood hemoglobin A1c/t otal hemoglobin ratio (mass fraction)Ordered By: Lala Zendejas on 12-03-2022 HbA1c (Bld) [Mass fraction] 5.6 % 3.8-5.6 [facility] Comment on above: Normal < 5.7 % Predi abetic 5.7 - 6.4 % Diabetic >or= 6.5 % Please note range changes. Absolute lymphocyte countOrd ered By: Lala Zendejas on 11-07-2022 Lymphocytes Auto (Unsp spec) [#/Vol] 2.43 10*3/uL 0.83-4.51 [facility] Basophil percentageOrdered B y: Lala Zendejas on 11-07-2022 Basophils/100 WBC (Bld) 0.6 % 0-1 [facility] Bilirubin [Mass/Vol] 0.50 mg/dL 0.20-1.00 [facility] Comment on above: For patients on eltr ombopag therapy, use of Dimension Edelstein TBIL is not recommended. Chloride [Moles/Vol] 108 mmol/L 98-107 [facility] Cholesterol [Mass/Vol] 135 mg/dL <200 [facility] Comment on above: <200 mg/dL Desirable 200-240 mg/dL Borderline >240 mg/dL High Risk Eosinophils/100 WBC (Bld) 0.9 % 0-5 [facility] Glucose [Mass/Vol] 88 mg/dL 74-106 [facility] Neutrophils (Bld) [#/Vol] 5.1 10*3/uL 2.0-7.7 [facility] Neutrophils/100 WBC (Bld) 63.7 % 47-70 [facility] Potassium [Moles/Vol] 4.0 mmol/L 3.5-5.1 [facility] Protein [Mass/Vol] 7.8 g/dL 6.4-8.2 [facility] Sodium [Moles/Vol] 138 mmol/L 136-145 [facility] Triglyceride [Mass/Vol] 175 mg/dL <199 [facility] Comment on above: The drugs N-Acetylcy steine and Metamizole may falsely depress this assay.Serum Triglycerides Reference Interval Normal <150 mg/dL Borderline high 150 - 199 mg/dL High 200 - 499 mg/dL Very High > or = 500 mg/dL WBC (Bld) [#/Vol] 8.0 10*3/uL 4.4-11.0 [facility] Blood erythrocytes count (nu mber/volume)Ordered By: Lala Zendejas on 11-07-2022 RBC (Bld) [#/Vol] 5.59 10*6/uL 4.2-5.4 [facility] Blood hemoglobin measurement (mass/volume)Ordered By: Lala Zendejas on 11-07-2022 Hemoglobin (Bld) [Mass/Vol] 16.7 g/dL 12.0-15.0 [facility] Blood lymphocytes/100 leukoc ytesOrdered By: Lala Zendejas on 11-07-2022 Lymphocytes/100 WBC (Bld) 30.4 % 19-41 [facility] Blood monocytes/100 leukocyt esOrdered By: Lala Zendejas on 11-07-2022 Monocytes/100 WBC (Bld) 4.3 % 0-10 [facility] Blood platelet mean volumeOr dered By: Lala Zendejas on 11-07-2022 Platelet mean volume (Bld) [Entitic vol] 10.4 fL 6.2-12.0 [facility] Determination of erythrocyte mean corpuscular volume (MCV)Ordered By: Lala Zendejas on 11-07-2022 MCV (RBC) [Entitic vol] 91.1 fL 81-99 [facility] Hematocrit Auto (Bld) [Volum e fraction]Ordered By: Lala Zendejas on 11-07-2022 Hematocrit (Bld) [Volume fraction] 50.9 % 37-47 [facility] Iron measurement (mass/mass) Ordered By: Lala Zendejas on 11-07-2022 Iron (Unsp spec) [Mass/Mass] 80 ug/dL 50-170 [facility] Laboratory - Chemistry and C hemistry - challengeOrdered By: Lala Zendejas on 11-07-2022 ALP [Catalytic activity/Vol] 77 U/L 45-117 [facility] ALT [Catalytic activity/Vol] 25 U/L 13-56 [facility] CO2 [Moles/Vol] 26.0 mmol/L 21.0-32.0 [facility] Globulin (S) [Mass/Vol] 3.7 g/dL 2.2-4.2 [facility] Magnesium [Mass/Vol] 2.1 mg/dL 1.6-2.6 [facility] Transferrin [Mass/Vol] 292 mg/dL 192-364 [facility] Comment on above: Performed at: [address] [id number] Director: Armond Heart PhD, Phone: [phone] Urea nitrogen/Creatinine [Mass ratio] 12.1 mg/mg 10-20 [facility] Laboratory - Hematology and Cell countsOrdered By: Lala Zendejas on 11-07-2022 Erythrocyte distribution width (RBC) [Entitic vol] 45.4 fL 35.1-43.9 [facility] Erythrocyte distribution width (RBC) [Ratio] 13.3 % 11.6-14.6 [facility] Immature granulocytes/100 WBC (Bld) 0.100 % 0.0-0.9 [facility] Comment on above: IG% - Immature Granu locytes (promyelocytes, myelocytes and metamyelocytes) > 1% indicates that a LEFT SHIFT is Present. MCH (RBC) [Entitic mass] 29.9 pg 27.0-32.0 [facility] Nucleated RBC/100 WBC (Bld) [Ratio] 0 % 0-5 [facility] MCHC Auto (RBC) [Mass/Vol]Or dered By: Lala Zendejas on 11-07-2022 MCHC (RBC) [Mass/Vol] 32.8 g/dL 32-36 [facility] No Panel InformationOrdered By: Lala Zendejas on 11-07-2022 Estimated GFR (MDRD) Amer 92 mL/min >60 [facility] Comment on above: GFR Calc Estimated GFR (MDRD) Non-Af Amer 76 mL/min >60 [facility] Comment on above: Non- GFR Calc Thyroid Stimulating Hormone (TSH) 1.92 uIU/mL 0.358-3.74 [facility] Total Iron Binding Capacity 398 ug/dL 250-450 [facility] Vitamin D 25-Hydroxy 69.3 ng/mL [facility] Comment on above: Vitamin D 25(OH) Sta tus Range Deficiency <20 ng/mL (50nmol/L) Insufficiency 20 - 30 ng/mL (50 - 75 nmol/L) Sufficiency 30 - 100 ng/mL (75 - 250 nmol/L) Toxicity >100 ng/mL (>250 nmol/L) Platelets bldOrdered By: Alpesh Zendejas on 11-07-2022 Platelets (Bld) [#/Vol] 295 10*3/uL 150-450 [facility] Serum or plasma albumin vitor urement (mass/volume)Ordered By: Lala Zendejas on 11-07-2022 Albumin [Mass/Vol] 4.1 g/dL 3.2-5.0 [facility] Serum or plasma albumin/glob ulin mass ratioOrdered By: Lala Zendejas on 11-07-2022 Albumin/Globulin [Mass ratio] 1.1 {ratio} 0.9-2.4 [facility] Serum or plasma calcium vitor urement (mass/volume)Ordered By: Lala Zendejas on 11-07-2022 Calcium [Mass/Vol] 9.0 mg/dL 8.5-10.1 [facility] Serum or plasma cholesterol in HDL measurement (mass/volume)Ordered By: Lala Zendejas on 11-07-2022 Cholesterol in HDL [Mass/Vol] 27 mg/dL >40 [facility] Comment on above: The drugs N-Acetylcy steine and Metamizole may falsely depress this assay. Reference Range HDL <40 mg/dL Low HDL Cholesterol HDL >or= 60 mg/dL High HDL Cholesterol Serum or plasma cholesterol in VLDL measurement (mass/volume)Ordered By: Lala Zendejas on 11-07-2022 Cholesterol in VLDL [Mass/Vol] 35 mg/dL 5-40 [facility] Serum or plasma creatinine m easurement (mass/volume)Ordered By: Lala Zendejas on 11-07-2022 Creatinine [Mass/Vol] 0.83 mg/dL 0.55-1.02 [facility] Comment on above: The validity of the calculated GFR & GFRAA in patients over 70 years has not been determined. Clinical correlation is essential. Serum or plasma ferritin jamarcus surement (mass/volume)Ordered By: Lala Zendejas on 11-07-2022 Ferritin [Mass/Vol] 54 ng/mL 8-252 [facility] Serum or plasma iron saturat ion measurement (mass fraction)Ordered By: Lala Zendejas on 11-07-2022 Iron saturation [Mass fraction] 20.1 % 15.0-55.0 [facility] Serum or plasma low density lipoprotein (LDL) cholesterol measurement (mass/volume)Ordered By: Lala Zendejas on 11-07-2022 Cholesterol in LDL [Mass/Vol] 73 mg/dL 0-130 [facility] Serum or plasma urea nitroge n measurement (mass/volume)Ordered By: Lala Zendejas on 11-07-2022 Urea nitrogen [Mass/Vol] 10 mg/dL 7-18 [facility] Thin prep Papanicolaou smear with manual screeningOrdered By: Lala Zendejas on 11-07-2022 Thin prep Papanicolaou smear with manual screening 19 U/L 15-37 [facility] Thin prep Papanicolaou smear with manual screening 4 5-15 [facility] Whole blood hemoglobin A1c/t otal hemoglobin ratio (mass fraction)Ordered By: Lala Zendejas on 11-07-2022 HbA1c (Bld) [Mass fraction] 5.6 % 3.8-5.6 [facility] Comment on above: Normal < 5.7 % Predi abetic 5.7 - 6.4 % Diabetic >or= 6.5 % Please note range changes. Absolute lymphocyte countOrd ered By: Dr. Zendejas on 07-24-2022 Lymphocytes Auto (Unsp spec) [#/Vol] 2.51 10*3/uL 0.83-4.51 [facility] Basophil percentageOrdered B y: Dr. Zendejas on 07-24-2022 Basophil percentage 0 SEEN /hpf 0-5 [facility] Basophils/100 WBC (Bld) 0.5 % 0-1 [facility] Bilirubin [Mass/Vol] 0.30 mg/dL 0.20-1.00 [facility] Comment on above: For patients on eltr ombopag therapy, use of Dimension Edelstein TBIL is not recommended. Chloride [Moles/Vol] 103 mmol/L 98-107 [facility] Cholesterol [Mass/Vol] 155 mg/dL <200 [facility] Comment on above: <200 mg/dL Desirable 200-240 mg/dL Borderline >240 mg/dL High Risk Eosinophils/100 WBC (Bld) 1.4 % 0-5 [facility] Glucose [Mass/Vol] 91 mg/dL 74-106 [facility] Neutrophils (Bld) [#/Vol] 6.0 10*3/uL 2.0-7.7 [facility] Neutrophils/100 WBC (Bld) 65.2 % 47-70 [facility] Potassium [Moles/Vol] 4.1 mmol/L 3.5-5.1 [facility] Protein [Mass/Vol] 7.3 g/dL 6.4-8.2 [facility] Sodium [Moles/Vol] 137 mmol/L 136-145 [facility] Triglyceride [Mass/Vol] 166 mg/dL <199 [facility] Comment on above: The drugs N-Acetylcy steine and Metamizole may falsely depress this assay.Serum Triglycerides Reference Interval Normal <150 mg/dL Borderline high 150 - 199 mg/dL High 200 - 499 mg/dL Very High > or = 500 mg/dL WBC (Bld) [#/Vol] 9.2 10*3/uL 4.4-11.0 [facility] Bilirubin Test strip Ql (U)O rdered By: Dr. Zendejas on 07-24-2022 Bilirubin Ql (U) Negative Negative [facility] Blood erythrocytes count (nu mber/volume)Ordered By: Dr. Zendejas on 07-24-2022 RBC (Bld) [#/Vol] 4.73 10*6/uL 4.2-5.4 [facility] Blood hemoglobin measurement (mass/volume)Ordered By: Dr. Zendejas on 07-24-2022 Hemoglobin (Bld) [Mass/Vol] 14.4 g/dL 12.0-15.0 [facility] Blood lymphocytes/100 leukoc ytesOrdered By: Dr. Zendejas on 07-24-2022 Lymphocytes/100 WBC (Bld) 27.3 % 19-41 [facility] Blood monocytes/100 leukocyt esOrdered By: Dr. Zendejas on 07-24-2022 Monocytes/100 WBC (Bld) 5.3 % 0-10 [facility] Blood platelet mean volumeOr dered By: Dr. Zendejas on 07-24-2022 Platelet mean volume (Bld) [Entitic vol] 10.2 fL 6.2-12.0 [facility] Determination of erythrocyte mean corpuscular volume (MCV)Ordered By: Dr. Zendejas on 07-24-2022 MCV (RBC) [Entitic vol] 91.5 fL 81-99 [facility] Hematocrit Auto (Bld) [Volum e fraction]Ordered By: Dr. Zendejas on 07-24-2022 Hematocrit (Bld) [Volume fraction] 43.3 % 37-47 [facility] Ketones Test strip Ql (U)Ord ered By: Dr. Zendejas on 07-24-2022 Ketones Ql (U) Negative Negative [facility] Laboratory - Chemistry and C hemistry - challengeOrdered By: Dr. Zendejas on 07-24-2022 ALP [Catalytic activity/Vol] 87 U/L 45-117 [facility] ALT [Catalytic activity/Vol] 40 U/L 13-56 [facility] CO2 [Moles/Vol] 26.0 mmol/L 21.0-32.0 [facility] Globulin (S) [Mass/Vol] 3.5 g/dL 2.2-4.2 [facility] Urea nitrogen/Creatinine [Mass ratio] 16.6 mg/mg 10-20 [facility] - Hematology and Cell countsOrdered By: Dr. Zendejas on 07-24-2022 Erythrocyte distribution width (RBC) [Entitic vol] 46.7 fL 35.1-43.9 [facility] Erythrocyte distribution width (RBC) [Ratio] 13.8 % 11.6-14.6 [facility] Immature granulocytes/100 WBC (Bld) 0.300 % 0.0-0.9 [facility] Comment on above: IG% - Immature Granu locytes (promyelocytes, myelocytes and metamyelocytes) > 1% indicates that a LEFT SHIFT is Present. MCH (RBC) [Entitic mass] 30.4 pg 27.0-32.0 [facility] Nucleated RBC/100 WBC (Bld) [Ratio] 0 % 0-5 [facility] MCHC Auto (RBC) [Mass/Vol]Or dered By: Dr. Zendejas on 07-24-2022 MCHC (RBC) [Mass/Vol] 33.3 g/dL 32-36 [facility] Mucus LM Ql (Urine sed)Order ed By: Dr. Zendejas on 07-24-2022 Mucus Ql (Urine sed) 0 SEEN /hpf [facility] Nitrite Test strip Ql (U)Ord ered By: Dr. Zendejas on 07-24-2022 Nitrite Ql (U) Negative Negative [facility] No Panel InformationOrdered By: Dr. Zendejas on 07-24-2022 Estimated GFR (MDRD) Amer 107 mL/min >60 [facility] Comment on above: GFR Calc Estimated GFR (MDRD) Non-Af Amer 89 mL/min >60 [facility] Comment on above: Non- GFR Calc Vitamin D 25-Hydroxy 55.6 ng/mL [facility] Comment on above: Vitamin D 25(OH) Sta tus Range Deficiency <20 ng/mL (50nmol/L) Insufficiency 20 - 30 ng/mL (50 - 75 nmol/L) Sufficiency 30 - 100 ng/mL (75 - 250 nmol/L) Toxicity >100 ng/mL (>250 nmol/L) Platelets bldOrdered By: Dr. Zendejas on 07-24-2022 Platelets (Bld) [#/Vol] 290 10*3/uL 150-450 [facility] Protein Test strip Ql (U)Ord ered By: Dr. Zendejas on 07-24-2022 Protein Ql (U) Negative Negative [facility] Serum or plasma albumin vitor urement (mass/volume)Ordered By: Dr. Zendejas on 07-24-2022 Albumin [Mass/Vol] 3.8 g/dL 3.2-5.0 [facility] Serum or plasma albumin/glob ulin mass ratioOrdered By: Dr. Zendejas on 07-24-2022 Albumin/Globulin [Mass ratio] 1.1 {ratio} 0.9-2.4 [facility] Serum or plasma calcium vitor urement (mass/volume)Ordered By: Dr. Zendejas on 07-24-2022 Calcium [Mass/Vol] 9.0 mg/dL 8.5-10.1 [facility] Serum or plasma cholesterol in HDL measurement (mass/volume)Ordered By: Dr. Zendejas on 07-24-2022 Cholesterol in HDL [Mass/Vol] 27 mg/dL >40 [facility] Comment on above: The drugs N-Acetylcy steine and Metamizole may falsely depress this assay. Reference Range HDL <40 mg/dL Low HDL Cholesterol HDL >or= 60 mg/dL High HDL Cholesterol Serum or plasma cholesterol in VLDL measurement (mass/volume)Ordered By: Dr. Zendejas on 07-24-2022 Cholesterol in VLDL [Mass/Vol] 33 mg/dL 5-40 [facility] Serum or plasma creatinine m easurement (mass/volume)Ordered By: Dr. Zendejas on 07-24-2022 Creatinine [Mass/Vol] 0.72 mg/dL 0.55-1.02 [facility] Comment on above: The validity of the calculated GFR & GFRAA in patients over 70 years has not been determined. Clinical correlation is essential. Serum or plasma low density lipoprotein (LDL) cholesterol measurement (mass/volume)Ordered By: Dr. Zendejas on 07-24-2022 Cholesterol in LDL [Mass/Vol] 95 mg/dL 0-130 [facility] Serum or plasma urea nitroge n measurement (mass/volume)Ordered By: Dr. Zendejas on 07-24-2022 Urea nitrogen [Mass/Vol] 12 mg/dL 7-18 [facility] Squamous epithelial cells de tection in urine sediment by light microscopyOrdered By: Dr. Zendejas on 07-24-2022 Epithelial cells.squamous LM Ql (Urine sed) 0-5 SEEN /hpf 5-10 [facility] Thin prep Papanicolaou smear with manual screeningOrdered By: Dr. Zendejas on 07-24-2022 Thin prep Papanicolaou smear with manual screening 26 U/L 15-37 [facility] Thin prep Papanicolaou smear with manual screening 8 5-15 [facility] Urine blood detectionOrdered By: Dr. Zendejas on 07-24-2022 RBC Ql (U) Negative Negative [facility] RBC Ql (U) 0 SEEN /hpf 0-5 [facility] Urine clarityOrdered By: Dr. Zendejas on 07-24-2022 Clarity (U) Clear Clear [facility] Urine color determinationOrd ered By: Dr. Zendejas on 07-24-2022 Color (U) Yellow Yellow [facility] Urine glucose detectionOrder ed By: Dr. Zendejas on 07-24-2022 Glucose Ql (U) Normal mg/dl Normal [facility] Urine leukocyte esterase det ection by dipstickOrdered By: Dr. Zendejas on 07-24-2022 Leukocyte esterase Test strip Ql (U) Negative Negative [facility] Urine pHOrdered By: Dr. Nika norris on 07-24-2022 pH (U) 6.0 [pH] 5.0 - 8.0 [facility] Urine sediment bacteria coun t by microscopy (number/high power field)Ordered By: Dr. Zendejas on 07-24-2022 Bacteria LM.HPF (Urine sed) [#/Area] 0 /[HPF] None Seen [facility] Urine specific gravity measu rementOrdered By: Dr. Zendejas on 07-24-2022 Specific gravity (U) [Rel density] 1.010 1.002-1.03 0 [facility] Urobilinogen Auto test strip Ql (U)Ordered By: Dr. Zendejas on 07-24-2022 Urobilinogen Ql (U) Normal mg/dl Normal [facility] Whole blood hemoglobin A1c/t otal hemoglobin ratio (mass fraction)Ordered By: Dr. Zendejas on 07-24-2022 HbA1c (Bld) [Mass fraction] 5.8 % 3.8-5.6 [facility] Comment on above: Normal < 5.7 % Predi abetic 5.7 - 6.4 % Diabetic >or= 6.5 % Please note range changes. Absolute lymphocyte countOrd ered By: Dr. Zendejas on 02-21-2022 Lymphocytes Auto (Unsp spec) [#/Vol] 2.72 10*3/uL 0.83-4.51 [facility] Basophil percentageOrdered B y: Dr. Zendejas on 02-21-2022 Basophils/100 WBC (Bld) 0.5 % 0-1 [facility] Bilirubin [Mass/Vol] 0.40 mg/dL 0.20-1.00 [facility] Comment on above: For patients on eltr ombopag therapy, use of Dimension Edelstein TBIL is not recommended. Chloride [Moles/Vol] 107 mmol/L 98-107 [facility] Cholesterol [Mass/Vol] 165 mg/dL <200 [facility] Comment on above: <200 mg/dL Desirable 200-240 mg/dL Borderline >240 mg/dL High Risk Eosinophils/100 WBC (Bld) 1.4 % 0-5 [facility] Glucose [Mass/Vol] 104 mg/dL 74-106 [facility] Comment on above: Fasting Glucose resu lt from 100 to 125 mg/dL suggests IMPAIRED HOMEOSTASIS per A.D.A. criteria. Neutrophils (Bld) [#/Vol] 6.4 10*3/uL 2.0-7.7 [facility] Neutrophils/100 WBC (Bld) 65.8 % 47-70 [facility] Potassium [Moles/Vol] 4.0 mmol/L 3.5-5.1 [facility] Protein [Mass/Vol] 7.7 g/dL 6.4-8.2 [facility] Sodium [Moles/Vol] 140 mmol/L 136-145 [facility] Triglyceride [Mass/Vol] 167 mg/dL <199 [facility] Comment on above: The drugs N-Acetylcy steine and Metamizole may falsely depress this assay.Serum Triglycerides Reference Interval Normal <150 mg/dL Borderline high 150 - 199 mg/dL High 200 - 499 mg/dL Very High > or = 500 mg/dL WBC (Bld) [#/Vol] 9.8 10*3/uL 4.4-11.0 [facility] Blood erythrocytes count (nu mber/volume)Ordered By: Dr. Zendejas on 02-21-2022 RBC (Bld) [#/Vol] 4.75 10*6/uL 4.2-5.4 [facility] Blood hemoglobin measurement (mass/volume)Ordered By: Dr. Zendejas on 02-21-2022 Hemoglobin (Bld) [Mass/Vol] 14.6 g/dL 12.0-15.0 [facility] Blood lymphocytes/100 leukoc ytesOrdered By: Dr. Zendejas on 02-21-2022 Lymphocytes/100 WBC (Bld) 27.8 % 19-41 [facility] Blood monocytes/100 leukocyt esOrdered By: Dr. Zendejas on 02-21-2022 Monocytes/100 WBC (Bld) 4.2 % 0-10 [facility] Blood platelet mean volumeOr dered By: Dr. Zendejas on 02-21-2022 Platelet mean volume (Bld) [Entitic vol] 10.7 fL 6.2-12.0 [facility] Determination of erythrocyte mean corpuscular volume (MCV)Ordered By: Dr. Zendejas on 02-21-2022 MCV (RBC) [Entitic vol] 91.6 fL 81-99 [facility] Hematocrit Auto (Bld) [Volum e fraction]Ordered By: Dr. Zendejas on 02-21-2022 Hematocrit (Bld) [Volume fraction] 43.5 % 37-47 [facility] Laboratory - Chemistry and C hemistry - challengeOrdered By: Dr. Zendejas on 02-21-2022 ALP [Catalytic activity/Vol] 80 U/L 45-117 [facility] ALT [Catalytic activity/Vol] 29 U/L 13-56 [facility] CO2 [Moles/Vol] 25.0 mmol/L 21.0-32.0 [facility] Globulin (S) [Mass/Vol] 3.6 g/dL 2.2-4.2 [facility] Urea nitrogen/Creatinine [Mass ratio] 13.1 mg/mg 10-20 [facility] - Hematology and Cell countsOrdered By: Dr. Zendejas on 02-21-2022 Erythrocyte distribution width (RBC) [Entitic vol] 44.9 fL 35.1-43.9 [facility] Erythrocyte distribution width (RBC) [Ratio] 13.2 % 11.6-14.6 [facility] Immature granulocytes/100 WBC (Bld) 0.300 % 0.0-0.9 [facility] Comment on above: IG% - Immature Granu locytes (promyelocytes, myelocytes and metamyelocytes) > 1% indicates that a LEFT SHIFT is Present. MCH (RBC) [Entitic mass] 30.7 pg 27.0-32.0 [facility] Nucleated RBC/100 WBC (Bld) [Ratio] 0 % 0-5 [facility] MCHC Auto (RBC) [Mass/Vol]Or dered By: Dr. Zendejas on 02-21-2022 MCHC (RBC) [Mass/Vol] 33.6 g/dL 32-36 [facility] No Panel InformationOrdered By: Dr. Zendejas on 02-21-2022 Estimated GFR (MDRD) Amer 91 mL/min >60 [facility] Comment on above: GFR Calc Estimated GFR (MDRD) Non-Af Amer 75 mL/min >60 [facility] Comment on above: Non- GFR Calc Vitamin D 25-Hydroxy 47.3 ng/mL [facility] Comment on above: Vitamin D 25(OH) Sta tus Range Deficiency <20 ng/mL (50nmol/L) Insufficiency 20 - 30 ng/mL (50 - 75 nmol/L) Sufficiency 30 - 100 ng/mL (75 - 250 nmol/L) Toxicity >100 ng/mL (>250 nmol/L) Platelets bldOrdered By: Dr. Zendejas on 02-21-2022 Platelets (Bld) [#/Vol] 293 10*3/uL 150-450 [facility] Serum or plasma albumin vitor urement (mass/volume)Ordered By: Dr. Zendejas on 02-21-2022 Albumin [Mass/Vol] 4.1 g/dL 3.2-5.0 [facility] Serum or plasma albumin/glob ulin mass ratioOrdered By: Dr. Zendejas on 02-21-2022 Albumin/Globulin [Mass ratio] 1.1 {ratio} 0.9-2.4 [facility] Serum or plasma calcium vitor urement (mass/volume)Ordered By: Dr. Zendejas on 02-21-2022 Calcium [Mass/Vol] 9.3 mg/dL 8.5-10.1 [facility] Serum or plasma cholesterol in HDL measurement (mass/volume)Ordered By: Dr. Zendejas on 02-21-2022 Cholesterol in HDL [Mass/Vol] 29 mg/dL >40 [facility] Comment on above: The drugs N-Acetylcy steine and Metamizole may falsely depress this assay. Reference Range HDL <40 mg/dL Low HDL Cholesterol HDL >or= 60 mg/dL High HDL Cholesterol Serum or plasma cholesterol in VLDL measurement (mass/volume)Ordered By: Dr. Zendejas on 02-21-2022 Cholesterol in VLDL [Mass/Vol] 33 mg/dL 5-40 [facility] Serum or plasma creatinine m easurement (mass/volume)Ordered By: Dr. Zendejas on 02-21-2022 Creatinine [Mass/Vol] 0.84 mg/dL 0.55-1.02 [facility] Comment on above: The validity of the calculated GFR & GFRAA in patients over 70 years has not been determined. Clinical correlation is essential. Serum or plasma low density lipoprotein (LDL) cholesterol measurement (mass/volume)Ordered By: Dr. Zendejas on 02-21-2022 Cholesterol in LDL [Mass/Vol] 103 mg/dL 0-130 [facility] Serum or plasma urea nitroge n measurement (mass/volume)Ordered By: Dr. Zendejas on 02-21-2022 Urea nitrogen [Mass/Vol] 11 mg/dL 7-18 [facility] Thin prep Papanicolaou smear with manual screeningOrdered By: Dr. Zendejas on 02-21-2022 Thin prep Papanicolaou smear with manual screening 20 U/L 15-37 [facility] Thin prep Papanicolaou smear with manual screening 8 5-15 [facility] Whole blood hemoglobin A1c/t otal hemoglobin ratio (mass fraction)Ordered By: Dr. Zendejas on 02-21-2022 HbA1c (Bld) [Mass fraction] 6.0 % 3.8-5.6 [facility] Comment on above: Normal < 5.7 % Predi abetic 5.7 - 6.4 % Diabetic >or= 6.5 % Please note range changes. OPERATIVE REPORTon 2 Ordered by an unspecified provider. [facility] Absolute lymphocyte counton 10-21-2021 Lymphocytes Auto (Unsp spec) [#/Vol] 2.98 10*3/uL 0.83-4.51 [facility] Work Phone: Basophil percentageon 2021 Basophil percentage 0-5 SEEN /hpf 0-5 [facility] Work Phone: Basophils/100 WBC (Bld) 0.6 % 0-1 [facility] Work Phone: Bilirubin [Mass/Vol] 0.20 mg/dL 0.20-1.00 [facility] Work Phone: Comment on above: For patients on eltr ombopag therapy, use of Dimension Edelstein TBIL is not recommended. Chloride [Moles/Vol] 107 mmol/L 98-107 [facility] Work Phone: Cholesterol [Mass/Vol] 124 mg/dL <200 [facility] Work Phone: Comment on above: <200 mg/dL Desirable 200-240 mg/dL Borderline >240 mg/dL High Risk Eosinophils/100 WBC (Bld) 1.5 % 0-5 [facility] Work Phone: Glucose [Mass/Vol] 107 mg/dL 74-106 [facility] Work Phone: Comment on above: Fasting Glucose resu lt from 100 to 125 mg/dL suggests IMPAIRED HOMEOSTASIS per A.D.A. criteria. Neutrophils (Bld) [#/Vol] 5.7 10*3/uL 2.0-7.7 [facility] Work Phone: Neutrophils/100 WBC (Bld) 61.0 % 47-70 [facility] Work Phone: Potassium [Moles/Vol] 3.8 mmol/L 3.5-5.1 [facility] Work Phone: Protein [Mass/Vol] 7.4 g/dL 6.4-8.2 [facility] Work Phone: Sodium [Moles/Vol] 138 mmol/L 136-145 [facility] Work Phone: Triglyceride [Mass/Vol] 117 mg/dL <199 [facility] Work Phone: Comment on above: The drugs N-Acetylcy steine and Metamizole may falsely depress this assay.Serum Triglycerides Reference Interval Normal <150 mg/dL Borderline high 150 - 199 mg/dL High 200 - 499 mg/dL Very High > or = 500 mg/dL WBC (Bld) [#/Vol] 9.4 10*3/uL 4.4-11.0 [facility] Work Phone: Bilirubin Test strip Ql (U)o n 10-21-2021 Bilirubin Ql (U) Negative Negative [facility] Work Phone: Blood erythrocytes count (nu mber/volume)on 10-21-2021 RBC (Bld) [#/Vol] 4.51 10*6/uL 4.2-5.4 [facility] Work Phone: Blood hemoglobin measurement (mass/volume)on 10-21-2021 Hemoglobin (Bld) [Mass/Vol] 13.9 g/dL 12.0-15.0 [facility] Work Phone: Blood lymphocytes/100 leukoc yteson 10-21-2021 Lymphocytes/100 WBC (Bld) 31.7 % 19-41 [facility] Work Phone: Blood monocytes/100 leukocyt eson 10-21-2021 Monocytes/100 WBC (Bld) 4.8 % 0-10 [facility] Work Phone: Blood platelet mean volumeon 10-21-2021 Platelet mean volume (Bld) [Entitic vol] 10.9 fL 6.2-12.0 [facility] Work Phone: Determination of erythrocyte mean corpuscular volume (MCV)on 10-21-2021 MCV (RBC) [Entitic vol] 92.7 fL 81-99 [facility] Work Phone: Hematocrit Auto (Bld) [Volum e fraction]on 10-21-2021 Hematocrit (Bld) [Volume fraction] 41.8 % 37-47 [facility] Work Phone: Ketones Test strip Ql (U)on 10-21-2021 Ketones Ql (U) Negative Negative [facility] Work Phone: Laboratory - Chemistry and C hemistry - challengeon 10-21-2021 ALP [Catalytic activity/Vol] 81 U/L 45-117 [facility] Work Phone: ALT [Catalytic activity/Vol] 28 U/L 13-56 [facility] Work Phone: CO2 [Moles/Vol] 27.0 mmol/L 21.0-32.0 [facility] Work Phone: Globulin (S) [Mass/Vol] 3.6 g/dL 2.2-4.2 [facility] Work Phone: Urea nitrogen/Creatinine [Mass ratio] 14.0 mg/mg 10-20 [facility] Work Phone: Laboratory - Hematology and Cell countson 10-21-2021 Erythrocyte distribution width (RBC) [Entitic vol] 46.5 fL 35.1-43.9 [facility] Work Phone: Erythrocyte distribution width (RBC) [Ratio] 13.6 % 11.6-14.6 [facility] Work Phone: Immature granulocytes/100 WBC (Bld) 0.400 % 0.0-0.9 [facility] Work Phone: Comment on above: IG% - Immature Granu locytes (promyelocytes, myelocytes and metamyelocytes) > 1% indicates that a LEFT SHIFT is Present. MCH (RBC) [Entitic mass] 30.8 pg 27.0-32.0 [facility] Work Phone: Nucleated RBC/100 WBC (Bld) [Ratio] 0 % 0-5 [facility] Work Phone: MCHC Auto (RBC) [Mass/Vol]on 10-21-2021 MCHC (RBC) [Mass/Vol] 33.3 g/dL 32-36 [facility] Work Phone: Mucus LM Ql (Urine sed)on Mucus Ql (Urine sed) 0 SEEN /hpf [facility] Work Phone: Nitrite Test strip Ql (U)on 10-21-2021 Nitrite Ql (U) Negative Negative [facility] Work Phone: No Panel Informationon 10-21 Estimated GFR (MDRD) Amer 98 mL/min >60 [facility] Work Phone: Comment on above: GFR Calc Estimated GFR (MDRD) Non-Af Amer 81 mL/min >60 [facility] Work Phone: Comment on above: Non- GFR Calc Vitamin D 25-Hydroxy 58.8 ng/mL [facility] Work Phone: Comment on above: Vitamin D 25(OH) Sta tus Range Deficiency <20 ng/mL (50nmol/L) Insufficiency 20 - 30 ng/mL (50 - 75 nmol/L) Sufficiency 30 - 100 ng/mL (75 - 250 nmol/L) Toxicity >100 ng/mL (>250 nmol/L) Platelets bldon 10-21-2021 Platelets (Bld) [#/Vol] 278 10*3/uL 150-450 [facility] Work Phone: Protein Test strip Ql (U)on 10-21-2021 Protein Ql (U) Negative Negative [facility] Work Phone: Serum or plasma albumin vitor urement (mass/volume)on 10-21-2021 Albumin [Mass/Vol] 3.8 g/dL 3.2-5.0 [facility] Work Phone: Serum or plasma albumin/glob ulin mass ratioon 10-21-2021 Albumin/Globulin [Mass ratio] 1.1 {ratio} 0.9-2.4 [facility] Work Phone: Serum or plasma calcium vitor urement (mass/volume)on 10-21-2021 Calcium [Mass/Vol] 9.2 mg/dL 8.5-10.1 [facility] Work Phone: Serum or plasma cholesterol in HDL measurement (mass/volume)on 10-21-2021 Cholesterol in HDL [Mass/Vol] 31 mg/dL >40 [facility] Work Phone: Comment on above: The drugs N-Acetylcy steine and Metamizole may falsely depress this assay. Reference Range HDL <40 mg/dL Low HDL Cholesterol HDL >or= 60 mg/dL High HDL Cholesterol Serum or plasma cholesterol in VLDL measurement (mass/volume)on 10-21-2021 Cholesterol in VLDL [Mass/Vol] 23 mg/dL 5-40 [facility] Work Phone: Serum or plasma creatinine m easurement (mass/volume)on 10-21-2021 Creatinine [Mass/Vol] 0.79 mg/dL 0.55-1.02 [facility] Work Phone: Comment on above: The validity of the calculated GFR & GFRAA in patients over 70 years has not been determined. Clinical correlation is essential. Serum or plasma low density lipoprotein (LDL) cholesterol measurement (mass/volume)on 10-21-2021 Cholesterol in LDL [Mass/Vol] 70 mg/dL 0-130 [facility] Work Phone: Serum or plasma urea nitroge n measurement (mass/volume)on 10-21-2021 Urea nitrogen [Mass/Vol] 11 mg/dL 7-18 [facility] Work Phone: Squamous epithelial cells de tection in urine sediment by light microscopyon 10-21-2021 Epithelial cells.squamous LM Ql (Urine sed) 5-10 SEEN /hpf 5-10 [facility] Work Phone: Thin prep Papanicolaou smear with manual screeningon 10-21-2021 Thin prep Papanicolaou smear with manual screening 14 U/L 15-37 [facility] Work Phone: Thin prep Papanicolaou smear with manual screening 4 5-15 [facility] Work Phone: Urine blood detectionon -2 -2021 RBC Ql (U) Negative Negative [facility] Work Phone: RBC Ql (U) 0 SEEN /hpf 0-5 [facility] Work Phone: Urine clarityon 10-21-2021 Clarity (U) Sl. Cloudy Clear [facility] Work Phone: Urine color determinationon 10-21-2021 Color (U) Straw Yellow [facility] Work Phone: Urine glucose detectionon Glucose Ql (U) Normal mg/dl Normal [facility] Work Phone: Urine leukocyte esterase det ection by dipstickon 10-21-2021 Leukocyte esterase Test strip Ql (U) Negative Negative [facility] Work Phone: Urine pHon 10-21-2021 pH (U) 6.0 [pH] 5.0 - 8.0 [facility] Work Phone: Urine sediment bacteria coun t by microscopy (number/high power field)on 10-21-2021 Bacteria LM.HPF (Urine sed) [#/Area] 3 /[HPF] None Seen [facility] Work Phone: Urine specific gravity measu rementon 10-21-2021 Specific gravity (U) [Rel density] 1.020 1.002-1.03 0 [facility] Work Phone: Urobilinogen Auto test strip Ql (U)on 10-21-2021 Urobilinogen Ql (U) Normal mg/dl Normal [facility] Work Phone: Whole blood hemoglobin A1c/t otal hemoglobin ratio (mass fraction)on 10-21-2021 HbA1c (Bld) [Mass fraction] 5.7 % 3.8-5.6 [facility] Work Phone: Comment on above: Normal < 5.7 % Predi abetic 5.7 - 6.4 % Diabetic >or= 6.5 % Please note range changes. Absolute lymphocyte counton 06-19-2021 Lymphocytes Auto (Unsp spec) [#/Vol] 2.93 10*3/uL 0.83-4.51 [facility] Work Phone: Basophil percentageon 2021 Basophil percentage 0 SEEN /hpf [facility] Work Phone: Basophils/100 WBC (Bld) 0.5 % 0-1 [facility] Work Phone: Bilirubin [Mass/Vol] 0.50 mg/dL 0.20-1.00 [facility] Work Phone: Comment on above: For patients on eltr ombopag therapy, use of Dimension Edelstein TBIL is not recommended. Chloride [Moles/Vol] 104 mmol/L 98-107 [facility] Work Phone: Cholesterol [Mass/Vol] 149 mg/dL <200 [facility] Work Phone: Comment on above: <200 mg/dL Desirable 200-240 mg/dL Borderline >240 mg/dL High Risk Eosinophils/100 WBC (Bld) 2.6 % 0-5 [facility] Work Phone: Glucose [Mass/Vol] 92 mg/dL 74-106 [facility] Work Phone: Neutrophils (Bld) [#/Vol] 4.6 10*3/uL 2.0-7.7 [facility] Work Phone: Neutrophils/100 WBC (Bld) 55.6 % 47-70 [facility] Work Phone: Potassium [Moles/Vol] 4.2 mmol/L 3.5-5.1 [facility] Work Phone: Protein [Mass/Vol] 8.0 g/dL 6.4-8.2 [facility] Work Phone: Sodium [Moles/Vol] 136 mmol/L 136-145 [facility] Work Phone: Triglyceride [Mass/Vol] 146 mg/dL [facility] Work Phone: Comment on above: The drugs N-Acetylcy steine and Metamizole may falsely depress this assay.Serum Triglycerides Reference Interval Normal <150 mg/dL Borderline high 150 - 199 mg/dL High 200 - 499 mg/dL Very High > or = 500 mg/dL WBC (Bld) [#/Vol] 8.2 10*3/uL 4.4-11.0 [facility] Work Phone: Bilirubin Test strip Ql (U)o n 06-19-2021 Bilirubin Ql (U) Negative Negative [facility] Work Phone: Blood erythrocytes count (nu mber/volume)on 06-19-2021 RBC (Bld) [#/Vol] 4.91 10*6/uL 4.2-5.4 [facility] Work Phone: Blood hemoglobin measurement (mass/volume)on 06-19-2021 Hemoglobin (Bld) [Mass/Vol] 15.2 g/dL 12.0-15.0 [facility] Work Phone: Blood lymphocytes/100 leukoc yteson 06-19-2021 Lymphocytes/100 WBC (Bld) 35.9 % 19-41 [facility] Work Phone: Blood monocytes/100 leukocyt eson 06-19-2021 Monocytes/100 WBC (Bld) 5.0 % 0-10 [facility] Work Phone: Blood platelet mean volumeon 06-19-2021 Platelet mean volume (Bld) [Entitic vol] 10.7 fL 6.2-12.0 [facility] Work Phone: Determination of erythrocyte mean corpuscular volume (MCV)on 06-19-2021 MCV (RBC) [Entitic vol] 89.6 fL 81-99 [facility] Work Phone: Hematocrit Auto (Bld) [Volum e fraction]on 06-19-2021 Hematocrit (Bld) [Volume fraction] 44.0 % 37-47 [facility] Work Phone: Ketones Test strip Ql (U)on 06-19-2021 Ketones Ql (U) Negative Negative [facility] Work Phone: Laboratory - Chemistry and C hemistry - challengeon 06-19-2021 ALP [Catalytic activity/Vol] 86 U/L 45-117 [facility] Work Phone: ALT [Catalytic activity/Vol] 30 U/L 13-56 [facility] Work Phone: CO2 [Moles/Vol] 25.0 mmol/L 21.0-32.0 [facility] Work Phone: Globulin (S) [Mass/Vol] 4.0 g/dL 2.2-4.2 [facility] Work Phone: Urea nitrogen/Creatinine [Mass ratio] 15.4 mg/mg 10-20 [facility] Work Phone: Laboratory - Hematology and Cell countson 06-19-2021 Erythrocyte distribution width (RBC) [Entitic vol] 43.2 fL 35.1-43.9 [facility] Work Phone: Erythrocyte distribution width (RBC) [Ratio] 13.2 % 11.6-14.6 [facility] Work Phone: Immature granulocytes/100 WBC (Bld) 0.400 % 0.0-0.9 [facility] Work Phone: Comment on above: IG% - Immature Granu locytes (promyelocytes, myelocytes and metamyelocytes) > 1% indicates that a LEFT SHIFT is Present. MCH (RBC) [Entitic mass] 31.0 pg 27.0-32.0 [facility] Work Phone: Nucleated RBC/100 WBC (Bld) [Ratio] 0 % 0-5 [facility] Work Phone: MCHC Auto (RBC) [Mass/Vol]on 06-19-2021 MCHC (RBC) [Mass/Vol] 34.5 g/dL 32-36 [facility] Work Phone: Mucus LM Ql (Urine sed)on Mucus Ql (Urine sed) 0 SEEN /hpf [facility] Work Phone: Nitrite Test strip Ql (U)on 06-19-2021 Nitrite Ql (U) Negative Negative [facility] Work Phone: No Panel Informationon 06-19 Estimated GFR (MDRD) Amer 99 mL/min >60 [facility] Work Phone: Comment on above: GFR Calc Estimated GFR (MDRD) Non-Af Amer 82 mL/min >60 [facility] Work Phone: Comment on above: Non- GFR Calc Vitamin D 25-Hydroxy 60.1 ng/mL [facility] Work Phone: Comment on above: Vitamin D 25(OH) Sta tus Range Deficiency <20 ng/mL (50nmol/L) Insufficiency 20 - 30 ng/mL (50 - 75 nmol/L) Sufficiency 30 - 100 ng/mL (75 - 250 nmol/L) Toxicity >100 ng/mL (>250 nmol/L) Platelets bldon 06-19-2021 Platelets (Bld) [#/Vol] 294 10*3/uL 150-450 [facility] Work Phone: Protein Test strip Ql (U)on 06-19-2021 Protein Ql (U) Negative Negative [facility] Work Phone: Serum or plasma albumin vitor urement (mass/volume)on 06-19-2021 Albumin [Mass/Vol] 4.0 g/dL 3.2-5.0 [facility] Work Phone: Serum or plasma albumin/glob ulin mass ratioon 06-19-2021 Albumin/Globulin [Mass ratio] 1.0 {ratio} 0.9-2.4 [facility] Work Phone: Serum or plasma calcium vitor urement (mass/volume)on 06-19-2021 Calcium [Mass/Vol] 9.3 mg/dL 8.5-10.1 [facility] Work Phone: Serum or plasma cholesterol in HDL measurement (mass/volume)on 06-19-2021 Cholesterol in HDL [Mass/Vol] 31 mg/dL [facility] Work Phone: Comment on above: The drugs N-Acetylcy steine and Metamizole may falsely depress this assay. Reference Range HDL <40 mg/dL Low HDL Cholesterol HDL >or= 60 mg/dL High HDL Cholesterol Serum or plasma cholesterol in VLDL measurement (mass/volume)on 06-19-2021 Cholesterol in VLDL [Mass/Vol] 29 mg/dL 5-40 [facility] Work Phone: Serum or plasma creatinine m easurement (mass/volume)on 06-19-2021 Creatinine [Mass/Vol] 0.78 mg/dL 0.55-1.02 [facility] Work Phone: Comment on above: The validity of the calculated GFR & GFRAA in patients over 70 years has not been determined. Clinical correlation is essential. Serum or plasma low density lipoprotein (LDL) cholesterol measurement (mass/volume)on 06-19-2021 Cholesterol in LDL [Mass/Vol] 89 mg/dL 0-130 [facility] Work Phone: Serum or plasma urea nitroge n measurement (mass/volume)on 06-19-2021 Urea nitrogen [Mass/Vol] 12 mg/dL 7-18 [facility] Work Phone: Squamous epithelial cells de tection in urine sediment by light microscopyon 06-19-2021 Epithelial cells.squamous LM Ql (Urine sed) 0-5 SEEN /hpf [facility] Work Phone: Thin prep Papanicolaou smear with manual screeningon 06-19-2021 Thin prep Papanicolaou smear with manual screening 25 U/L 15-37 [facility] Work Phone: Thin prep Papanicolaou smear with manual screening 7 5-15 [facility] Work Phone: Urine blood detectionon 06-04 RBC Ql (U) Negative Negative [facility] Work Phone: RBC Ql (U) 0 SEEN /hpf [facility] Work Phone: Urine clarityon 06-19-2021 Clarity (U) Clear Clear [facility] Work Phone: Urine color determinationon 06-19-2021 Color (U) Yellow Yellow [facility] Work Phone: Urine glucose detectionon Glucose Ql (U) Normal mg/dl Normal [facility] Work Phone: Urine leukocyte esterase det ection by dipstickon 06-19-2021 Leukocyte esterase Test strip Ql (U) Negative Negative [facility] Work Phone: Urine pHon 06-19-2021 pH (U) 5.0 [pH] [facility] Work Phone: Urine sediment bacteria coun t by microscopy (number/high power field)on 06-19-2021 Bacteria LM.HPF (Urine sed) [#/Area] 0 /[HPF] None Seen [facility] Work Phone: Urine specific gravity measu rementon 06-19-2021 Specific gravity (U) [Rel density] 1.010 [facility] Work Phone: Urobilinogen Auto test strip Ql (U)on 06-19-2021 Urobilinogen Ql (U) Normal mg/dl Normal [facility] Work Phone: Whole blood hemoglobin A1c/t otal hemoglobin ratio (mass fraction)on 06-19-2021 HbA1c (Bld) [Mass fraction] 5.8 % 3.8-5.6 [facility] Work Phone: Comment on above: Normal < 5.7 % Predi abetic 5.7 - 6.4 % Diabetic >or= 6.5 % Please note range changes. MRI ANKLE W/O CONTRAST RIGHT on 01-29-2021 MRI ANKLE W/O CONTRAST RIGHT ORIGINAL EXAMINATION: MRI OF THE RIGHT ANKLE WITHOUT CONTRAST01/28/2021 2:22 pm TECHNIQUE: Multiplanar multisequence MRI of the right ankle was performed without the administration of intravenous contrast. COMPARISON: None HISTORY: ORDERING SYSTEM PROVIDED HISTORY: Reason for Exam: Tarsal tunnel syndrome, right lower limb. Burning and sharp pain on medial side of ankle for 3 months. FINDINGS: TENDONS: The extensor tendons are intact and demonstrate a normal course. The flexor tendons are intact and demonstrate a normal course. Fluid mildly distends the sheath of the tibialis posterior and flexor digitorum longus tendons. The peroneal tendons are intact and demonstrate a normal course. The Achilles tendon is intact. The plantar aponeurosis is intact. LIGAMENTS: The anterior talofibular ligament is poorly visualized and likely torn. The calcaneofibular ligament is thickened, suggesting a remote sprain. The posterior talofibular ligaments is intact. The anterior and posterior tibiofibular ligaments are intact. Loss of the normal fibrofatty striation of the deep fibers of the deltoid ligament. The superficial fibers of the deltoid ligament are intact. The spring ligament is intact. JOINTS: There is no dislocation. There is no joint effusion. The articular cartilage of the ankle joint is normal. There is no osteochondral defect in the talar dome. OSSEOUS STRUCTURES: The bone marrow signal is normal. There is remote appearing nondisplaced avulsion fracture of the lateral malleolus. There is no marrow replacing lesion. SOFT TISSUES: There is no muscle atrophy or tear. The sinus tarsi is normal with preservation of fat signal. A 1.6 cm ganglion cyst arising from the sinus tarsi. IMPRESSION: 1. Mild tenosynovitis of the posterior tibialis and flexor digitorum longus tendons. 2. Remote avulsion fracture of the lateral malleolus with a suspected tear of the anterior talofibular ligament. Remote sprain of calcaneofibular ligament. 3. Remote sprain of the deep fibers of the deltoid ligament. I have personally reviewed the images of this examination and agree with the resident's findings and interpretation. Interpreted by: Jair Muñoz Preliminary Report By: Matty Robb Electronically signed By Jair Toni Dictated Date: 01/29/2021 9:28:22 AM Prelim Date: 01/29/2021 10:56:34 AM Sign Date: 01/29/2021 4:59:16 PM Ordering Provider: TRENTON England [facility] ([place]) MRI BREAST W/O CONTRAST PATRIA Cantu 06-12-2020 MRI BREAST W/O CONTRAST BILATERAL ORIGINAL FROM: [facility] [address] [place] [address] PROCEDURE FOR: JESSY ALEGRE [address] [place] [address] Home: PID#: [id number] Exam#: [id number] : 1965 Age: 54 TO: JENNIFER ALDRICH PA-C [address] [place], [place] [address] Fax: NO FAX #[phone] BREAST MRI OF BOTH BREASTS- WITH AUGMENTATION: 06/12/2020 CLINICAL: IMPLANT INTEGRITY. Comparison is made to exams dated: 05/18/2020 mammogram and 05/18/2020 ultrasound - [facility]. Axial T2, sagittal T2, and coronal images were obtained with a dedicated breast coil. Bilateral retropectoral silicone implants are present and appear intact. There is no evidence of intracapsular or extracapsular rupture. Multiple radial folds are seen in both implants. There is no david-implant fluid. IMPRESSION: BENIGN Bilateral implants are intact. Clinical follow up for the patient's pain is recommended. Return to annual mammogram screening schedule is recommended.(06/13/19) DENISE BASHIR MD da/:06/12/2020 16:35:07 Geodetic Advisor(s): RT ELPIIDO (MR), [facility] MRI BI-RADS: 2 Benign Normal [facility] ([place]) Lab Report: CORTISOL SERUMon 11-03-2016 Cortisol 27.90 ug/dL High 3.09-22.40 [facility] Work Phone: Office Visit: Follow upon Documentation of current medications (procedure) Done Invalid Interpretation Code [facility] Work Phone: Fall risk assessment No Invalid Interpretation Code [facility] Work Phone: Smoking cessation education (procedure) yes Invalid Interpretation Code [facility] Work Phone: Tobacco smoking status NHIS Never Invalid Interpretation Code [facility] Work Phone: Tobacco use [facility] Current every day smoker Invalid Interpretation Code [facility] Work Phone: Lab Report: Thyroid Peroxida se ABon 07-24-2016 thyroid microsomal antibody 15 Invalid Interpretation Code 0-34 [facility] Work Phone: Lab Report: Free T3on 2016 Triiodothyronine (T3) free 2.9 pg/mL Invalid Interpretation Code 2.18-3.98 [facility] Work Phone: Lab Report: T4 Free Directon 07-22-2016 Thyroxine (T4) free 0.95 ng/dL Invalid Interpretation Code 0.76-1.46 [facility] Work Phone: Lab Report: Thyroid Stim Hor kev (TSH)on 07-22-2016 Thyroid stimulating hormone (TSH) 3.12 u[iU]/mL Invalid Interpretation Code 0.358-3.74 [facility] Work Phone: Office Visit: New patient co ruth 07-21-2016 Adolescent depression screening assessment Adolescent depression screening assessment Invalid Interpretation Code [facility] Work Phone: Adult depression screening assessment Adult depression screening assessment Invalid Interpretation Code [facility] Work Phone: Office Visit: New patient co ruth 07-03-2015 Breast Mammogram screening Normal Bilateral Invalid Interpretation Code [facility] Work Phone: Office Visit: New patient co marizathyroidon 07-03-2014 Colonoscopy (procedure) Colonoscopy (procedure) Invalid Interpretation Code [facility] Work Phone: Vital Signs Date Time Vital Sign Value Performing Clinician Facility 11-16-2024 13:45-0400 Body height 162.[address] Lala Zendejas MD Work Phone: [facility] 11-16-2024 13:45-0400 Body mass index (BMI) [Ratio] 23.1 kg/m2 Dr. Lala Zendejas MD Work Phone: [facility] 11-16-2024 13:45-0400 Body weight 61.[address] Lala Zendejas MD Work Phone: [facility] 11-16-2024 13:45-0400 Diastolic blood pressure 69 mm[Hg] Dr. Lala Zendejas MD Work Phone: [facility] 11-16-2024 13:45-0400 Respiratory rate 16 /min Dr. Lala Zendejas MD Work Phone: [facility] 11-16-2024 13:45-0400 Systolic blood pressure 112 mm[Hg] Dr. Lala Zendejas MD Work Phone: [facility] 03-22-2024 13:47-0500 Body height 162 cm Tiffany Owusu APRN.[employer] Work Phone: [facility] 03-22-2024 13:47-0500 Body mass index (BMI) [Ratio] 23.61 kg/m2 Tiffany Owusu APRN.[employer] Work Phone: [facility] 03-22-2024 13:47-0500 Body weight 61.96 kg Tiffany Owusu APRN.[employer] Work Phone: [facility] 03-22-2024 13:47-0500 Diastolic blood pressure 64 mm[Hg] Tiffany Owusu APRN.[employer] Work Phone: [facility] 03-22-2024 13:47-0500 Systolic blood pressure 120 mm[Hg] Tiffany Owusu APRN.[employer] Work Phone: [facility] 01-18-2024 11:27-0400 Respiratory rate 16 /min Reginaldo España MD Work Phone: [facility] 01-18-2024 10:57-0400 Heart rate 58 /min Reginaldo España MD Work Phone: [facility] 01-18-2024 10:57-0400 SaO2% (BldA) [Mass fraction] 96 % Reginaldo España MD Work Phone: [facility] 01-18-2024 10:55-0400 Diastolic blood pressure 58 mm[Hg] Reginaldo España MD Work Phone: [facility] 01-18-2024 10:55-0400 Systolic blood pressure 117 mm[Hg] Reginaldo España MD Work Phone: [facility] 01-18-2024 09:37-0400 Body mass index (BMI) [Ratio] 22.67 kg/m2 Reginaldo España MD Work Phone: [facility] 01-18-2024 09:37-0400 Body temperature 97.11 [degF] Reginaldo España MD Work Phone: [facility] 01-18-2024 09:37-0400 Body weight 59.9 kg Reginaldo España MD Work Phone: [facility] 01-13-2024 09:15-0400 Body height 162.6 cm Reginaldo España MD Work Phone: [facility] 01-13-2024 09:15-0400 Body mass index (BMI) [Ratio] 22.66 kg/m2 Reginaldo España MD Work Phone: [facility] 01-13-2024 09:15-0400 Body weight 59.88 kg Reginaldo España MD Work Phone: [facility] 01-13-2024 09:15-0400 Diastolic blood pressure 65 mm[Hg] Reginaldo España MD Work Phone: [facility] 01-13-2024 09:15-0400 Heart rate 63 /min Reginaldo España MD Work Phone: [facility] 01-13-2024 09:15-0400 Systolic blood pressure 94 mm[Hg] Reginaldo España MD Work Phone: [facility] 11-13-2023 10:08-0400 Body height 162.6 cm Tran Porter MD Work Phone: [facility] 11-13-2023 10:08-0400 Body mass index (BMI) [Ratio] 24.2 kg/m2 Tran Porter MD Work Phone: [facility] 11-13-2023 10:08-0400 Body weight 63.96 kg Tran Porter MD Work Phone: [facility] 11-13-2023 10:08-0400 Diastolic blood pressure 82 mm[Hg] Tran Porter MD Work Phone: [facility] 11-13-2023 10:08-0400 Heart rate 87 /min Tran Porter MD Work Phone: [facility] 11-13-2023 10:08-0400 Systolic blood pressure 120 mm[Hg] Tran Porter MD Work Phone: [facility] 10-23-2023 10:12-0400 Body height 162.[address] 1 [facility] 10-23-2023 10:12-0400 Body mass index (BMI) [Ratio] 24.37 kg/m2 Pst 1 [facility] 10-23-2023 10:12-0400 Body temperature 97.9 [degF] Pst 1 [facility] 10-23-2023 10:12-0400 Body weight 64.41 kg [address] 1 [facility] 10-23-2023 10:12-0400 Diastolic blood pressure 63 mm[Hg] Pst 1 [facility] 10-23-2023 10:12-0400 Heart rate 66 /min Pst 1 [facility] 10-23-2023 10:12-0400 Respiratory rate 16 /min Pst 1 [facility] 10-23-2023 10:12-0400 SaO2% (BldA) [Mass fraction] 97 % Pst 1 [facility] 10-23-2023 10:12-0400 Systolic blood pressure 94 mm[Hg] Pst 1 [facility] 09-30-2023 10:36-0400 Diastolic blood pressure 64 mm[Hg] Cecy Braxton MD Work Phone: [facility] 09-30-2023 10:36-0400 Systolic blood pressure 102 mm[Hg] Cecy Braxton MD Work Phone: [facility] 08-28-2023 09:52-0400 Body height 162.6 cm Tran Porter MD Work Phone: [facility] 08-28-2023 09:52-0400 Body mass index (BMI) [Ratio] 25.58 kg/m2 Tran Porter MD Work Phone: [facility] 08-28-2023 09:52-0400 Body weight 67.59 kg Tran Porter MD Work Phone: [facility] 08-28-2023 09:52-0400 Diastolic blood pressure 75 mm[Hg] Tran Porter MD Work Phone: [facility] 08-28-2023 09:52-0400 Heart rate 75 /min Tran Porter MD Work Phone: [facility] 08-28-2023 09:52-0400 Systolic blood pressure 112 mm[Hg] Tran Porter MD Work Phone: [facility] 07-14-2023 08:59-0400 Body height 165.[address] Lala Zendejas Work Phone: [facility] 07-14-2023 08:59-0400 Body mass index (BMI) [Ratio] 24.8 kg/m2 Dr. Lala Zendejas Work Phone: [facility] 07-14-2023 08:59-0400 Body temperature 98.6 [degF] Dr. Lala Zendejas Work Phone: [facility] 07-14-2023 08:59-0400 Body weight 67.[address] Lala Zendejas Work Phone: [facility] 07-14-2023 08:59-0400 Diastolic blood pressure 76 mm[Hg] Dr. Lala Zendejas Work Phone: [facility] 07-14-2023 08:59-0400 Heart rate 78 /min Dr. Lala Zendejas Work Phone: [facility] 07-14-2023 08:59-0400 Respiratory rate 16 /min Dr. Lala Zendejas Work Phone: [facility] 07-14-2023 08:59-0400 SaO2% (BldA) [Mass fraction] 99 % Dr. Lala Zendejas Work Phone: [facility] 07-14-2023 08:59-0400 Systolic blood pressure 110 mm[Hg] Dr. Lala Zendejsa Work Phone: [facility] 07-01-2023 10:42-0500 Body temperature 97.5 [degF] Cecy Braxton MD Work Phone: [facility] 07-01-2023 10:42-0500 Body weight 66.2 kg Cecy Braxton MD Work Phone: [facility] 07-01-2023 10:42-0500 Diastolic blood pressure 68 mm[Hg] Cecy Braxton MD Work Phone: [facility] 07-01-2023 10:42-0500 Heart rate 69 /min Cecy Braxton MD Work Phone: [facility] 07-01-2023 10:42-0500 SaO2% (BldA) [Mass fraction] 99 % Cecy Braxton MD Work Phone: [facility] 07-01-2023 10:42-0500 Systolic blood pressure 111 mm[Hg] Cecy Braxton MD Work Phone: [facility] 03-19-2023 13:46-0500 Body height 162.6 cm Tiffany Owusu APRN.RADIO OPERATOR GROUND Work Phone: [facility] 03-19-2023 13:46-0500 Body weight 67.13 kg Tiffany Owusu APRN.RADIO OPERATOR GROUND Work Phone: [facility] 03-19-2023 13:46-0500 Diastolic blood pressure 62 mm[Hg] Tiffany Owusu APRN.RADIO OPERATOR GROUND Work Phone: [facility] 03-19-2023 13:46-0500 Systolic blood pressure 108 mm[Hg] Tiffany Owusu APRN.CNP Work Phone: [facility] 02-27-2023 11:30-0400 Body height 165.[address] Lala Zendejas Work Phone: [facility] 02-27-2023 11:30-0400 Body mass index (BMI) [Ratio] 24.5 kg/m2 Dr. Lala Zendejas Work Phone: [facility] 02-27-2023 11:30-0400 Body temperature 98.3 [degF] Dr. Lala Zendejas Work Phone: [facility] 02-27-2023 11:30-0400 Body weight 66.[address] Lala Zendejas Work Phone: [facility] 02-27-2023 11:30-0400 Diastolic blood pressure 70 mm[Hg] Dr. Lala Zendejas Work Phone: [facility] 02-27-2023 11:30-0400 Heart rate 63 /min Dr. Lala Zendejas Work Phone: [facility] 02-27-2023 11:30-0400 Respiratory rate 17 /min Dr. Lala Zendejas Work Phone: [facility] 02-27-2023 11:30-0400 SaO2% (BldA) [Mass fraction] 97 % Dr. Lala Zendejas Work Phone: [facility] 02-27-2023 11:30-0400 Systolic blood pressure 117 mm[Hg] Dr. Lala Zendejas Work Phone: [facility] 12-27-2021 10:09-0400 Body height 162.56 cm [place] Work Phone: 12-27-2021 10:09-0400 Body mass index (BMI) [Ratio] 26.4 kg/m2 [facility] Work Phone: 12-27-2021 10:09-0400 Body temperature 97.2 [degF] [facility] Work Phone: 12-27-2021 10:09-0400 Body weight 69.76 kg [place] Work Phone: 12-27-2021 10:09-0400 Diastolic blood pressure 74 mm[Hg] [facility] Work Phone: 12-27-2021 10:09-0400 Heart rate 76 /min [place] Work Phone: 12-27-2021 10:09-0400 Respiratory rate 18 /min [facility] Work Phone: 12-27-2021 10:09-0400 SaO2% (BldA) [Mass fraction] 98 % [facility] Work Phone: 12-27-2021 10:09-0400 Systolic blood pressure 111 mm[Hg] [facility] Work Phone: 12-10-2021 13:30-0400 Body temperature 97.2 [degF] [address] 12-10-2021 13:30-0400 Diastolic blood pressure 70 mm[Hg] [address] 12-10-2021 13:30-0400 Heart rate 65 /min [address] 12-10-2021 13:30-0400 Respiratory rate 16 /min [address] 12-10-2021 13:30-0400 SaO2% (BldA) [Mass fraction] 98 % [address] 12-10-2021 13:30-0400 Systolic blood pressure 120 mm[Hg] [address] 12-10-2021 10:30-0400 Body height [address] 12-10-2021 10:30-0400 Body mass index (BMI) [Ratio] 28.34 kg/m2 [address] 12-10-2021 10:300400 Body weight 72.[address] 10-22-2016 10:0400 BMI (Body Mass Index) 24.89 kg/m2 Lynette Padron NP [facility] Work Phone: 10-22-2016 10:01-0400 Body Temperature 98 [degF] Lynette Padron NP [facility] Work Phone: 10-22-2016 10:01-0400 Body Temperature 98.01 [degF] Lynette Padron NP [facility] Work Phone: 10-22-2016 10:01-0400 BP Diastolic 83 mm[Hg] Lynette Padron NP [facility] Work Phone: 10-22-2016 10:-0400 BP Systolic 130 mm[Hg] Lynette Padron NP [facility] Work Phone: 10-22-2016 10:-0400 BSA (Body Surface Area) 1.71 m2 Lynette Padron NP [facility] Work Phone: 10-22-2016 10:-0400 Height 162.56 cm Lynette Padron NP [facility] Work Phone: 10-22-2016 10:01-0400 Pulse (Heart Rate) 78 /min Lynette Padron NP [facility] Work Phone: 10-22-2016 10:01-0400 Pulse Oximetry 97 % Lynette Padron NP [facility] Work Phone: 10-22-2016 10:01-0400 Respiratory Rate 16 /min Lynette Padron NP [facility] Work Phone: 10-22-2016 10:01-0400 Weight 65.77 kg Lynette Padron NP [facility] Work Phone: Encounters Encounter Date Encounter Type Care Provider Facility Start: 02-24-2025 ambulatory Lala Portillo y:[facility] Start: 12-02-2024 End: 12-02-[address] Lala Zendejas MD Work Phone: -cat Scan [facility] Start: 12-02-2024 End: 12-02-[address] Joan Bass MD -[facility] Work Phone: Start: 12-02-2024 End: 12-02-2024 ambulatory Lala Zendejas Facility:[facility] Start: 11-16-2024 End: 11-16-[address] Joan Bass MD -[facility] Work Phone: Start: 11-16-2024 End: 11-16-[address] Lala Zendejas MD Work Phone: -[facility] Start: 11-14-2024 ambulatory Lala Zendejas Facilit y:[facility] Start: 11-08-2024 End: 11-08-[address] Lala Zendejas MD Work Phone: -[facility] Start: 11-08-2024 End: 11-08-[address] Lala Zendejas MD -[facility] Start: 11-08-2024 End: 11-08-2024 ambulatory Lala Zendejas Facility:[facility] Start: 10-25-2024 End: 10-25-[address] Lala Zendejas MD Work Phone: -Physical Therapy Start: 10-25-2024 End: 10-25-2024 Discharged Recurring Tiffany Owusu GEOSPATIAL SYSTEMS INTEGRATOR-C -Physical Therapy Work Phone: Start: 10-25-2024 Registered Recurring Tiffany Owusu GEOSPATIAL SYSTEMS INTEGRATOR- C -Physical Therapy Work Phone: Start: 09-27-2024 End: 10-18-2024 Telephone encounter Tiffany Owusu APRN.RADIO OPERATOR GROUND Work Phone: OB/Gynecology Start: 09-07-2024 Non-patient / Non-visit Dr. Philip iqbal MD -[facility] Start: 09-07-2024 End: 09-07-[address] Lala Zendejas MD Work Phone: [facility] Work Phone: Start: 09-07-2024 End: 09-07-2024 Patient encounter procedure Shashi Kimbrough GEOSPATIAL SYSTEMS INTEGRATOR-C -Cardiovascular Services Work Phone: Start: 09-07-2024 End: 09-07-2024 ambulatory Shashi Kimbrough GEOSPATIAL SYSTEMS INTEGRATOR Facility:[facility] Start: 05-12-2024 End: 05-12-2024 ambulatory Lala Zendejas Facility:[facility] Start: 05-11-2024 End: 05-11-2024 ambulatory Lala Zendejas Facility:[facility] Start: 03-22-2024 End: 03-22-2024 ambulatory TIFFANY OWUSU Facility:[facility] Start: 03-22-2024 End: 03-22-2024 Patient encounter procedure Tiffany Owusu APRN.RADIO OPERATOR GROUND Work Phone: OB/Gynecology Comment on above: Encounter for gyneco logical examination with abnormal finding (Primary Dx); Mixed incontinence urge and stress; Cystocele, midline; History of bladder suspension procedure Start: 03-22-2024 End: 03-22-2024 Patient encounter status Tiffany Owusu APRN.RADIO OPERATOR GROUND Work Phone: [facility] Work Phone: Start: 01-18-2024 End: 01-18-2024 ambulatory REGINALDO ESPAÑA Facility:[facility] Start: 01-18-2024 End: 01-18-2024 Subsequent hospital visit by physician Reginaldo España MD Work Phone: Ambulatory Surgery Comment on above: Esophageal dysphagia [R13.19] Start: 01-13-2024 End: 01-13-2024 ambulatory REGINALDO ESPAÑA Facility:[facility] Start: 01-13-2024 End: 01-13-2024 Patient encounter procedure Reginaldo España MD Work Phone: General Surgery Comment on above: Esophageal dysphagia (Primary Dx) Start: 01-03-2024 End: 01-03-2024 Refill Cecy Braxton MD Work Phone: CUSTOMER SUPPORT COORDINATOR [facility] Comment on above: Refill Request Start: 11-13-2023 End: 11-13-2023 Patient encounter procedure Tran Porter MD Work Phone: [facility] Comment on above: Adrenal mass (HCC) ( Primary Dx) Start: 11-13-2023 End: 11-13-2023 ambulatory TRAN PORTER Facility:[facility] Start: 11-02-2023 Telephone encounter Tran frias MD Work Phone: [facility] Comment on above: Patient Update Start: 11-01-2023 Refill Neir bowman MD Work Phone: [facility] Start: 10-30-2023 End: 11-01-2023 Evaluation and management of inpatient TRAN PORTER Facility:[facility] Start: 10-23-2023 End: 10-23-2023 Admission to establishment [facility] 1 Pre Surgical Testing Start: 10-23-2023 End: 10-23-2023 Preprocedural examination done Pst [address] [place] [address] Start: 10-23-2023 End: 10-23-2023 ambulatory TRAN PORTER Pre Surgical Testing Comment on above: Chronic obstructive pulmonary disease, unspecified COPD type (HCC) (Primary Dx); Preop examination; Hyperlipidemia, unspecified hyperlipidemia type; Migraine without aura and without status migrainosus, not intractable; Cigarette nicotine dependence without complication; Prediabetes; Poison cordelia Start: 09-30-2023 End: 09-30-2023 Patient encounter procedure Cecy Braxton MD Work Phone: CUSTOMER SUPPORT COORDINATOR [facility] Comment on above: Cystocele, midline ( Primary Dx); Rectocele; Mixed stress and urge urinary incontinence Start: 09-10-2023 Orders Only Tran salgado MD Work Phone: [facility] Comment on above: Adrenal mass (HCC) ( Primary Dx) Start: 08-28-2023 End: 08-28-2023 Patient encounter procedure Tran Porter MD Work Phone: [facility] Comment on above: Adrenal mass 1 cm to 4 cm in diameter (HCC) (Primary Dx); Disorder of adrenal gland (HCC) Start: 08-28-2023 End: 08-28-2023 ambulatory LALA ZENDEJAS [facility] Start: 07-16-2023 End: 07-16-[address] Lala Zendejas Work Phone: [facility] Work Phone: Start: 07-16-2023 End: 07-16-[address] Lala Zendejas Work Phone: [facility]-Laboratory, Specimen Work Phone: Start: 07-14-2023 End: 07-14-[address] Lala Zendejas Work Phone: [facility] Work Phone: Start: 07-14-2023 End: 07-14-[address] Lala Zendejas Work Phone: [facility] Work Phone: Start: 07-01-2023 End: 07-01-2023 Patient encounter procedure Cecy Braxton MD Work Phone: CUSTOMER SUPPORT COORDINATOR UR[facility] Comment on above: Cystocele, midline ( Primary Dx); Rectocele; Vaginal vault prolapse; Mixed stress and urge urinary incontinence; Vaginal atrophy Start: 06-09-2023 End: 06-09-[address] Lala Zendejas Work Phone: [facility] Work Phone: Start: 06-09-2023 End: 06-09-[address] Lala Zendejas Work Phone: [facility] Work Phone: Start: 05-18-2023 End: 05-18-2023 ambulatory LALA ZENDEJAS Facility:[facility] Start: 05-11-2023 End: 05-11-2023 ambulatory LALA ZENDEJAS Facility:[facility] Start: 05-07-2023 Preprocedural examin ation done Cecy Braxton MD Work Phone: [facility] Work Phone: Start: 05-07-2023 Encounter for other preprocedural examination LALA ZENDEJAS [facility] Start: 05-06-2023 End: 05-06-[address] Lala Zendejas Work Phone: [facility] Work Phone: Start: 05-06-2023 End: 05-06-[address] Lala Zendejas Work Phone: [facility]-Cat Scan, [facility] Work Phone: Start: 04-07-2023 End: 04-07-[address] Lala Zendejas Work Phone: [facility] Work Phone: Start: 04-07-2023 End: 04-07-[address] Lala Zendejas Work Phone: [facility] Start: 03-19-2023 End: 03-19-2023 Patient encounter procedure Tiffany Owusu APRN.RADIO OPERATOR GROUND Work Phone: OB/Gynecology Comment on above: Encounter for gyneco logical examination with abnormal finding (Primary Dx); Encounter for screening mammogram for breast cancer; Screen for STD (sexually transmitted disease); Cystocele, midline; Rectocele Start: 03-19-2023 End: 03-19-2023 Patient encounter status Tiffany Owusu APRN.RADIO OPERATOR GROUND Work Phone: [facility] Work Phone: Start: 02-27-2023 End: 02-27-[address] Lala Zendejas Work Phone: [facility] Work Phone: Start: 12-03-2022 End: 12-03-2022 ambulatory [facility] Work Phone: Start: 12-03-2022 End: 12-03-2022 Patient encounter procedure [facility] Start: 11-07-2022 End: 11-07-2022 [facility] Work [facility] Start: 08-14-2022 End: 08-14-2022 Patient encounter procedure [facility]-Cat Scan, [facility] Work Phone: Start: 08-06-2022 Non-patient / Non-visit Dr. Megan Zendejas Work Phone: [facility] Start: 08-05-2022 End: 08-05-[address] Lala Zendejas Work Phone: [facility] Work Phone: Start: 08-05-2022 End: 08-05-[address] Lala Zendejas Work Phone: [facility]-Pulmonary Services/Neurology Start: 07-24-2022 End: 07-24-2022 ambulatory [facility] Work Phone: Start: 07-24-2022 End: 07-24-2022 Patient encounter procedure [facility] Start: 05-19-2022 End: 05-19-2022 ambulatory [facility] Work Phone: Start: 05-19-2022 End: 05-19-2022 Patient encounter procedure [facility]-Outpatient Breast Imaging Start: 04-18-2022 End: 04-18-2022 ambulatory [facility] Work Phone: Start: 04-18-2022 End: 04-18-2022 [facility] Start: 02-21-2022 End: 02-21-2022 [facility] Start: 12-27-2021 End: 12-27-2021 Emergency department patient visit [facility]-Emergency Department Start: 12-10-2021 End: 12-10-2021 Subsequent hospital visit by physician María Elena Lindsey MD Work Phone: [facility] Comment on above: Arrived Start: 10-21-2021 End: 10-21-2021 Patient encounter procedure [facility]-Laboratory, [facility] Start: 07-10-2021 End: 07-10-2021 Patient encounter procedure [facility]-Cat Scan, [facility] Start: 06-19-2021 End: 06-19-2021 Patient encounter procedure [facility] Procedures Date Procedure Procedure Detail Performing Clinician Start: 12-02-2024 CT of abdomen and pelvis without contrast Dr. Lala Zendejas MD Work Phone: Start: 11-08-2024 Vitamin D, 25-hydroxy measurement Dr. Megan Zendejas MD Work Phone: Comment on above: Vitamin D StatusDeficiency: <20 ng/mL (5 0nmol/L)Insufficiency: 20-30 ng/mL (50-75 nmol/L)Sufficiency: 30-100 ng/mL (75-250 nmol/L)Toxicity: >100 ng/mL (>250 nmol/L) Start: 01-18-2024 Esophagogastroduodenoscopy transoral diagnostic Reginaldo España MD Work Phone: Start: 06-09-2023 MRI of brain with contrast Dr. Lala livingston Work Phone: Start: 05-06-2023 CT of abdomen with contrast Dr. Lala alvarenga Work Phone: Start: 08-14-2022 CT of chest Start: 05-19-2022 Screening mammography Start: 04-18-2022 Plain chest X-ray Start: 12-27-2021 Plain chest X-ray Start: 12-10-2021 OPERATIVE REPORT Physician Generic Start: 07-10-2021 CT of abdomen with contrast Start: 03-07-2021 Colonoscopy Tiffany Owusu APRN.CNP Work Phone: Start: 10-22-2016 End: 11-03-2016 Acth stimulation panel Lynette Padron NP Work Phone: Start: 07-21-2016 End: 2016 Thyroid stimulating hormone (TSH) Lynette Padron NP Work Phone: Start: 07-21-2016 End: 07-24-2016 Thyroperoxidase antibody Lynette Botellomagdalena GEOSPATIAL SYSTEMS INTEGRATOR Work Phone: Start: 07-21-2016 End: 2016 Thyroxine (T4) free Lynette Botellomagdalena GEOSPATIAL SYSTEMS INTEGRATOR Work Phone: Start: 07-21-2016 End: 2016 Triiodothyronine (T3) free Lynette Botelloche calixto GEOSPATIAL SYSTEMS INTEGRATOR Work Phone: H/O: surgery History of bladd er suspension procedure Tiffany Owusu APRN.RADIO OPERATOR GROUND Work Phone: H/O: surgery History of adren al surgery Dr. Lala Zendejas MD Work Phone: Plan of Treatment Date Care Activity Detail Author Start: 10-31-2026 Diabetes Screening Diabetes Screening [facility] Start: 03-07-2026 Colonoscopy Colonoscopy [facility] Start: 03-07-2026 Colorectal Cancer Screening Colorectal Cancer Screening [facility] Start: 03-07-2026 Screening for malignant neoplasm of colon [facility] Start: 03-24-2025 End: 03-24-2025 Patient encounter procedure 03/24/2025 9:30 AM EST Office Visit OB/Gynecology [address] [place] [address] Tiffany Owusu APRN.RADIO OPERATOR GROUND [address] [place] [address] Annual OB/Gynecology Comment on above: Annual Start: 01-02-2025 Influenza vaccination Influenza Vaccine (Season Ended) [facility] Start: 03-22-2024 End: 03-22-2024 Patient encounter procedure 03/22/2024 2:00 PM EST Office Visit OB/Gynecology [address] [place] [address] Tiffany Owusu APRN.RADIO OPERATOR GROUND [address] [place] [address] Annual OB/Gynecology Comment on above: Annual Start: 01-18-2024 End: 01-18-2024 Patient encounter procedure 01/18/2024 10:15 AM EDT Appointment Ambulatory Surgery [address] [place] [address] Reginaldo España MD [address] [place] [address] EGD Ambulatory Surgery Comment on above: EGD Start: 01-03-2024 Covid-19 Vaccine ( season) Covid-19 Vaccine () [facility] Start: 01-03-2024 Covid-19 Vaccine () Covid-19 Vaccine () [facility] Start: 01-03-2024 Influenza vaccination [facility] Start: 11-13-2023 End: 11-13-2023 Patient encounter procedure 11/13/2023 10:30 AM EDT Office Visit [facility] [address] [facility] 3rd Floor [place], [place] [id number] Tran Porter MD [address] [place], [place] [id number] POV [facility] Comment on above: POV Start: 10-30-2023 End: 10-30-2023 Admission to [facility] Comment on above: LAPAROSCOPIC LEFT ADRENALECTOMY. Start: 10-30-2023 End: 10-30-2023 Laparoscopy adrenalectomy prtl/compl tabdl [facility] Start: 10-30-2023 Subsequent hospital visit by physician [facility] Comment on above: Adrenal mass (HCC) [E27.8] Start: 10-24-2023 DTaP/Tdap/Td vaccine (3 - Td or Tdap) DTaP/Tdap/Td vaccine (3 - Td or Tdap) [facility] Start: 10-24-2023 Urine microalbumin profile DTaP,Tdap,Td Vaccine (3 - Td or Tdap) [facility] Start: 10-23-2023 End: 10-23-2023 ambulatory 10/23/2023 10:00 AM EDT PAT Pre Surgical Testing [address] [place] [address] LAPAROSCOPIC LEFT ADRENALECTOMY. Pre Surgical Testing Comment on above: LAPAROSCOPIC LEFT ADRENALECTOMY. Start: 09-30-2023 End: 09-30-2023 Patient encounter procedure 09/30/2023 10:30 AM EDT Office Visit CUSTOMER SUPPORT COORDINATOR [facility] [address] [facility] [address] [place] [address] Cecy Braxton MD [address] [facility] [address] [place] [address] post op CUSTOMER SUPPORT COORDINATOR [facility]OL [facility] Comment on above: post op Start: 07-16-2023 Catecholamines, fractionation measurement, urine [facility] Start: 07-16-2023 Cortisol Free [Mass/volume] in 24 hour Urine [facility] Start: 05-04-2023 Behavioral Health Screening Behavioral Health Screening [facility] Start: 05-04-2023 Depression Assessment Depression Assessment [facility] Start: 02-27-2023 Evaluation of diagnostic study results [facility] Start: 01-02-2023 Covid-19 Vaccine ( season) Covid-19 Vaccine ( season) [facility] Start: 01-02-2023 Influenza vaccination Influenza Vaccine (#1) [facility] Start: 05-04-2022 Depression Assessment Depression Assessment [facility] Start: 01-02-2022 Influenza vaccination Flu vaccine (#1) [facility] Start: 12-27-2021 [facility] Work Phone: Start: 07-05-2021 COVID-19 Vaccine (3 - Booster for Pfizer series) COVID-19 Vaccine (3 - Booster for Pfizer series) [facility] Start: 06-15-2020 Mammography Mammogram Screening [facility] Start: 06-15-2020 Screening for malignant neoplasm of breast Mammogram Screening [facility] Start: 07-22-2017 Screening for malignant neoplasm of breast Breast cancer screen [facility] Start: 07-22-2017 Shingles vaccine (1 of 2) Shingles vaccine (1 of 2) [facility] Start: 07-22-2017 Shingrix Vaccine (1 of 2) Shingrix Vaccine (1 of 2) [facility] Start: 10-22-2016 End: 11-03-2016 Acth stimulation panel ACTH stimulation panel; for adrenal insufficiency. [facility] Work Phone: Start: 08-25-2016 End: 08-25-2016 Ct abdomen w/o & w/dye CT Abdomen [facility] Work Phone: Start: 07-21-2016 End: 2016 Thyroid stimulating hormone (TSH) *TSH [facility] Work Phone: Start: 07-21-2016 End: 07-24-2016 Thyroperoxidase antibody *TPO Thyroid Peroxidase Antibodies [facility] Work Phone: Start: 07-21-2016 End: 2016 Thyroxine (T4) free *T4 free [facility] Work Phone: Start: 07-21-2016 End: 2016 Triiodothyronine (T3) free *T3-Free [facility] Work Phone: Start: 01-01-2014 HPV Testing HPV Testing [facility] Start: 01-01-2014 Pap Testing Pap Testing [facility] Start: 01-01-2014 Screening for malignant neoplasm of cervix [facility] Start: 07-22-2012 Cologuard (FIT-DNA) Cologuard (FIT-DNA) [facility] Start: 07-22-[address] Colonography [facility] Start: 07-22-2012 Diabetes Screening Diabetes Screening [facility] Start: 07-22-2012 Fecal Occult Blood Fecal Occult Blood [facility] Start: 07-22-2012 Lipid 1996 panel - Serum or Plasma Lipid Screening [facility] Start: 07-22-2012 Lipid panel Lipid Screening [facility] Start: 07-22-2012 Screening for malignant neoplasm of colon [facility] Start: 07-22-2012 Sigmoidoscopy Sigmoidoscopy [facility] Start: 07-22-2002 Diabetes screen Diabetes screen [facility] Start: 07-22-1997 Zoledronic acid therapy Alpha-1 Antitrypsin Deficiency Screening [facility] Start: 07-22-1986 Hepatitis B Vaccine (1 of 3 - 19+ 3-dose series) Hepatitis B Vaccine (1 of 3 - 19+ 3-dose series) [facility] Start: 07-22-1986 Pneumococcal Vaccine: 50+ (1 of 2 - PCV) Pneumococcal Vaccine: 50+ (1 of 2 - PCV) [facility] Start: 07-22-1985 Annual PCP Team Chronic Disease Visit Annual PCP Team Chronic Disease Visit [facility] Start: 07-22-1985 Anxiety Screening Anxiety Screening [facility] Start: 07-22-1985 Depression Screening Depression Screening [facility] Start: 07-22-1985 Hepatitis C screening [facility] Start: 07-22-1985 Hepatitis C Screening Hepatitis C Screening [facility] Start: 07-22-1985 HIV Screening HIV Screening [facility] Start: 07-22-1985 HIV screening HIV Screening [facility] Start: 07-22-1985 Spirometry Spirometry [facility] Start: 07-22-1982 HIV screening HIV screen [facility] Start: 1979 Depression Screen Depression Screen [facility] Start: 07-22-1977 Lipid panel Lipids [facility] Start: 07-22-1973 Pneumococcal 0-64 years Vaccine (1 - PCV) Pneumococcal 0-64 years Vaccine (1 - PCV) [facility] Start: 07-22-1973 Pneumococcal vaccination [facility] Start: 1965 Hepatitis B Vaccine (1 of 3 - 3-dose series) Hepatitis B Vaccine (1 of 3 - 3-dose series) [facility] 24 hour urine dopami ne output measurement [facility] 24 hour urine metadrenaline output [facility] Chlamydia trachomatis+Neisseria gonorrhoeae DNA [Presence] in Unspecified specimen by JAMIE with probe detection GONORRHEA/CHLAMYDIA NAAT Lab Routine Screen for STD (sexually transmitted disease) 03/19/2023 2:55 PM EST [facility] Work Phone: Cortisol Free [Mass/volume] in Urine [facility] CT Abdomen and Pelvi s W contrast IV [facility] DOPamine [Mass/volum e] in Urine [facility] End: 01-12-2025 EGD DIAGNOSTIC EGD DIAGNOSTIC Endoscopy Routine Esophageal dysphagia 1 Occurrences starting 01/13/2024 until 01/12/2025 [facility] Work Phone: Comment on above: 1 Occurrences starting 01/13/2024 until 01/12/2025 EPINEPHrine [Mass/ti me] in 24 hour Urine [facility] EPINEPHrine [Mass/vo lume] in Urine [facility] H&P for surgery H&P FOR SURGERY Procedures Routine Adrenal mass (HCC) Ordered: 09/10/2023 [facility] Work Phone: Comment on above: Ordered: 09/10/2023 End: 12-10-2021 INITIATE PACU OXYGEN THERAPY PROTOCOL Initiate PACU Oxygen Therapy Protocol Respiratory Care Routine Continuous until discontinued starting 12/10/2021 [employer] Work Phone: Comment on above: Continuous until discontinued starting 0 12/10/2021 End: 12-10-2021 Intermittent pulse oximetry Pulse Oximetry Spot Check Respiratory Care Routine One Time for 1 Occurrences starting 12/10/2021 until 12/10/2021 [employer] Work Phone: Comment on above: One Time for 1 Occurrences starting 01/2022 until 12/10/2021 Laparoscopy adrenale ctomy prtl/compl tabdl LAPAROSCOPIC ADRENALECTOMY Adrenal mass (HCC) [place] OR Metanephrine [Mass/volume] in Urine [facility] Nasal Cannula Oxygen Nasal Cannu la Oxygen Respiratory Care Routine As Needed until discontinued starting 12/10/2021 [employer] Work Phone: Comment on above: As Needed until discontinued starting Nasal Cannula Oxygen Nasal Cannu la Oxygen Respiratory Care Routine As Needed until discontinued starting 12/10/2021 [employer] Work Phone: Comment on above: As Needed until discontinued starting Nonrebreather mask oxygen Nonreb reather mask oxygen Respiratory Care Routine As Needed until discontinued starting 12/10/2021 [employer] Work Phone: Comment on above: As Needed until discontinued starting Nonrebreather mask oxygen Nonreb reather mask oxygen Respiratory Care Routine As Needed until discontinued starting 12/10/2021 [employer] Work Phone: Comment on above: As Needed until discontinued starting Norepinephrine [Mass/volume] in Urine [facility] Norepinephrine measurement [facility] Normetanephrine [Mass/time] in 24 hour Urine [facility] Oxygen therapy [[facility] Data Set] Initiate Oxygen Therapy Protocol Respiratory Care Routine As Needed until discontinued starting 12/10/2021 [employer] Work Phone: Comment on above: As Needed until discontinued starting Patient Education Coronavirus Di sease 2019 (COVID-19): Caring for Yourself or Others ED Pleurisy [facility] Work Phone: Patient referral [facility] Work Phone: End: 12-10-2021 , urine LAB , urine LAB Lab STAT One Time for 1 Occurrences starting 12/10/2021 until 12/10/2021 [facility] Work Phone: Comment on above: One Time for 1 Occurrences starting 01/2022 until 12/10/2021 Spirometry panel Incentive sanjeev metry Respiratory Care Routine Q1H PRN until discontinued starting 12/10/2021 [facility] Work Phone: Comment on above: Q1H PRN until discontinued starting 01/2022 SURGICAL PATHOLOGY [facility] Work Phone: Comment on above: Release Upon Ordering for 1 Occurrences starting 01/18/2024 Urine normetadrenali ne level [facility] Immunizations Immunization Date Immunization Notes Care Provider Marely dubon 03-21-2021 influenza virus vaccine, unspecified formulation Tiffany Owusu APRN.[facility] Work Phone: [facility] 10-23-2013 tetanus toxoid, redu celine diphtheria toxoid, and acellular pertussis vaccine, adsorbed [facility] Payers Date Payer Category Payer Self-pay [id number] 2022 Medicaid [id number] 2015 Unknown [id number] 2015 Unknown [id number] Unknown [id number] 2.16.8 [id number] Unknown [id number] 2.16.8 [id number] Unknown [id number] 2.16.8 [id number] Unknown [id number] 2.16.8 [id number] Unknown [id number] 2.16.8 [id number] Unknown [id number] 2.16.8 [id number] Unknown [id number] 2.16.8 [id number] Unknown [id number] 2.16.8 [id number] Unknown [id number] 2.16.8 [id number] Unknown [id number] 2.16.8 [id number] Unknown [id number] 2.16.8 [id number] Social History Date Type Detail Facility Start: 04-03-2020 End: 02-27-2023 Tobacco smoking status AKIS Unknown if ever smoked [facility] Start: 01-27-2020 Cigarettes [facility] Start: 1965 Sex Assigned At Female W [facility] Start: 12-10-2021 End: 11-07-2023 Tobacco smoking status AKIS Smokes tobacco daily [facility] Start: 05-04-2001 History of tobacco use Cigarette Smo ker [facility] Work Phone: Start: 12-10-2021 End: 03-04-2023 Cigarettes smoked current (pack per day) - Reported 0.5 [facility] Work Phone: Start: 12-10-2021 End: 03-22-2024 Tobacco use and exposure Smokeless tobacco non-user [facility] Work Phone: Start: 12-10-2021 Alcohol intake Ex-drinker (finding) [facility] Work Phone: Start: 12-10-2021 Tobacco Comment working on quitting [facility] Work Phone: Start: 1965 Sex Assigned At Not on file [facility] Work Phone: Start: 11-30-2021 End: 12-10-2021 Exposure to SARS-CoV-2 (event) Not sure [facility] Work Phone: Start: 03-19-2023 End: 03-22-2024 Alcohol intake Current drinker of alcohol (finding) [facility] Start: 03-04-2023 End: 03-19-2023 Tobacco use panel [facility] National Score (1-10 0), lower number is lower risk 71 [facility] Start: 12-06-2014 Alcohol Comment Socially [facility] Start: 03-21-2021 Gender identity Identifies as female gender (finding) [facility] Start: 03-21-2021 Sexual orientation Heterosexual (fin ding) [facility] Start: 05-11-2023 Tobacco Comment Cut back to 1/ 2 to 1/4 packs per day [facility] Start: 05-08-2023 Alcohol Comment rare occassion [facility] Medical Equipment Procedure Code Equipment Code Equipment Origin al Text Equipment Identifier Dates Total cholecystectomy with exploration of common bile duct CLIP,PUNEET ERWIN FDA Start: 01-30-2020 Total cholecystectomy with exploration of common bile duct CLIP,PUNEET ERWIN FDA Start: 01-30-2020 Total cholecystectomy with exploration of common bile duct CLIP,HEMAMAURI ERWIN FDA Start: 01-30-2020 Total cholecystectomy with exploration of common bile duct CLIP,HEMAMAURI ERWIN FDA Start: 01-30-2020 Total cholecystectomy with exploration of common bile duct CLIP,HEMAMAURI ERWIN FDA Start: 01-30-2020 Total cholecystectomy with exploration of common bile duct CLIP,HEMAMAURI ERWIN FDA Start: 01-30-2020 Total cholecystectomy with exploration of common bile duct CLIP,HEMAMAURI ERWIN FDA Start: 01-30-2020 Total cholecystectomy with exploration of common bile duct CLIP,HEMAMAURI ERWIN FDA Start: 01-30-2020 Total cholecystectomy with exploration of common bile duct CLIP,PUNEET ERWIN FDA Start: 01-30-2020 Total cholecystectomy with exploration of common bile duct CLIP,PUNEET ERWIN FDA Start: 01-30-2020 Total cholecystectomy with exploration of common bile duct CLIP,PUNEET ERWIN FDA Start: 01-30-2020 Total cholecystectomy with exploration of common bile duct CLIP,PUNEET ERWIN FDA Start: 01-30-2020 Total cholecystectomy with exploration of common bile duct CLIP,PUNEET ERWIN FDA Start: 01-30-2020 Total cholecystectomy with exploration of common bile duct CLIP,PUNEET ERWIN FDA Start: 01-30-2020 Total cholecystectomy with exploration of common bile duct CLIP,PUNEET ERWIN FDA Start: 01-30-2020 Total cholecystectomy with exploration of common bile duct CLIP,PUNEET ERWIN FDA Start: 01-30-2020 Total cholecystectomy with exploration of common bile duct CLIP,PUNEET ERWIN FDA Start: 01-30-2020 Total cholecystectomy with exploration of common bile duct CLIP,PUNEET ERWIN FDA Start: 01-30-2020 Mesh Restorelle Y Smartmesh 1.8mm 24x4cm Surgical Large Macropore Tailore - [id number] Start: 05-18-2023 Functional Status Date Assessment Result Facility 11-01-2023 Are you deaf, or do you have serious difficulty hearing No 11/01/2023 1:52 PM Esme Auguste RN [facility] 11-01-2023 Are you blind, or do you have serious difficulty seeing, even when wearing glasses No 11/01/2023 1:52 PM Esme Auguste RN [facility] 11-01-2023 Do you have serious difficulty walking or climbing stairs No 11/01/2023 1:52 PM Esme Auguste RN [facility] 11-01-2023 Do you have difficul ty dressing or bathing No 11/01/2023 1:52 PM Esme Auguste RN [facility] 11-01-2023 Because of a physica l, mental, or emotional condition, do you have difficulty doing errands alone such as visiting a physician's office or shopping No 11/01/2023 1:52 PM Esme Auguste RN No [facility] Mental Status Date Assessment Result Facility 11-01-2023 Because of a physica l, mental, or emotional condition, do you have serious difficulty concentrating, remembering, or making decisions No 11/01/2023 1:52 PM Esme Auguste RN No [facility] 12-27-2021 Cognitive function Level Of Cons ciousness Awake;Alert;Appropriate;Fol lows Commands [facility] Work Phone: Clinical Notes 03-07-2021 to 12-14-2024 Note Date & Type Note Facility 12-14-2024 Discharge summary Note Date/Time December 14, 2024 12:37pm [facility] [address] [place] [address] / REHABILITATION SERVICES DISCHARGE SUMMARY MR#: [id number] Acct: [id number] Name: JESSY ALEGRE Rep #: [id number] : 1965 59 From: Page Vargas Referring Dr.: CLOTILDE Owusu Status: REG [facility] Insurance: [facility] SELF PAY INSURANCE Patient Information Patient Information: JESSY ALEGRE was seen in my office for initial evaluation on 09/27/24. The following Plan of Care was established for this patient: POC Established Initial Frequency: 1x/Week Initial Duration: 2 Months Anticipated Interventions Patient/Client Instruction: Educate patient on: Condition and Plan of Care For the Purpose of:: To improve muscle performance and motor function, To improve health and function and To improve self management Therapeutic Exercise to Include: Strength training, Coordination and Neuromotor development For the Purpose of:: To improve muscle performance and motor function and To improve self management Manual Therapy Techniques to Include: Trigger point massage For the Purpose of:: To improve muscle performance and motor function, To improve health and function and To improve self management Last Seen Last Seen: This patient was last seen in our office 10/25/24. Pertinent comments regardingtheir Physical therapy will appear below: Spoke with patient by phone. She was was last seen 10/25/24. She has a lot going on now and unable to continue with PT services. She states she is stillnoticing improvement and is able to hold her urine better than before. She is being discharged from PT. At this point I will be discontinuing this patient from physical therapy. I would be happy to see this patient again in the future if found appropriate by the physician. Thank you! Page Vargas <Electronically signed by Page Vargas> 12/14/24 1237 CC: CLOTILDE Owusu; Dr. Lala Zendejas MD ~ MG Signed [facility] Work Phone: 1(632) 421-489008-13-2025 Discharge summary [facility] [address] [place] [address] / REHABILITATION SERVICES DISCHARGE SUMMARY MR#: [id number] Acct: [id number] Name: JESSY ALEGRE Rep #: [id number] : 1965 59 From: Page Vargas Referring Dr.: CLOTILDE Owusu Status: REG R Insurance: [facility] SELF PAY INSURANCE Patient Information Patient Information: JESSY ALEGRE was seen in my office for initial evaluation on 09/27/24. The following Plan of Care was established for this patient: POC Established Initial Frequency: 1x/Week Initial Duration: 2 Months Anticipated Interventions Patient/Client Instruction: Educate patient on: Condition and Plan of Care For the Purpose of:: To improve muscle performance and motor function, To improve health and function and To improve self management Therapeutic Exercise to Include: Strength training, Coordination and Neuromotor development For the Purpose of:: To improve muscle performance and motor function and To improve self management Manual Therapy Techniques to Include: Trigger point massage For the Purpose of:: To improve muscle performance and motor function, To improve health and function and To improve self management Last Seen Last Seen: This patient was last seen in our office 10/25/24. Pertinent comments regardingtheir Physical therapy will appear below: Spoke with patient by phone. She was was last seen 10/25/24. She has a lot going on now and unableto continue with PT services. She states she is stillnoticing improvement and is able to hold her urine better than before. She is being discharged from PT. At this point I will be discontinuing this patient from physical therapy. I would be happy to see this patient again in the future if found appropriate by the physician. Thank you! Page Vargas 12/14/24 1237 CC: CLOTILDE Owusu; Dr. Lala Zendejas MD ~ MG Signed [facility]08-01-2025 Radiology Diagnostic study note [facility] Imaging Services [address] [place], [place] [address] Abdomen/Pelvis without Cont MR#: [id number] Acct: [id number] Name: JESSY ALEGRE Rep #: [id number] : 1965 F 59 From: Faisal Atwood MD PCP: Dr. Lala Zendejas MD Status: RE G CLI Study:Abdomen/Pelvis without Cont Date of Exa m: 12/02/24 Exam# [id number] Ordering Dr: Joan Bass MD PROCEDURE: ABDOMEN/PELVIS WITHOUT CONT 12/02/2024 REASON FOR EXAM: LEFT SIDE ABDOMINAL PAIN Prior cholecystectomy and appendectomy. Prior adrenal resection. TECHNIQUE: ABDOMEN/PELVIS WITHOUT CONT Noncontrast technique limits evaluation of the abdominal and pelvic viscera. Coronal and Sagittal reconstruction series were provided. One or more dose reduction techniques were used (e.g., Automated exposure control, adjustment of the mA and/or kV according to patient size, use of iterative reconstruction technique). RADIATION DOSE SUMMARY: CTDlvol: 6.33 mGy DLP: 299.09 mGycm COMPARISON: Prior study dated November 07, 2023. FINDINGS: Lung bases: Unremarkable. Bilateral breast implants. Minimal anterior pericardial thickening. Liver: Normal size. No obvious mass. Gallbladder: Surgically absent. Spleen: Normal size. Pancreas: Normal size. No surrounding inflammation. Adrenals: Prior left adrenal resection. Kidneys: No urolithiasis. No hydronephrosis. Bladder: Unremarkable Reproductive Organs: Prior hysterectomy. Adnexal regions are unremarkable. Bowel: Unremarkable Appendix: Prior appendectomy. Lymph nodes: Unremarkable. Vasculature: Mild diffuse atherosclerotic calcifications are noted. Peritoneum / Retroperitoneum: Unremarkable Bones: No acute abnormality is seen. CT/Abdomen/Pelvis without Cont IMPRESSION: Stable examination. No acute abnormality is present. Minimal anterior pericardial thickening. Reading Location: [id number] CC: Dr. Lala Zendejas MD; Dr. Joan Bass MD ~ Electric[employer] Equipment: Signed [facility]07-16-2025 Evaluation note* Diagnosis Onset Date Resolution Status Admit Date Left sided abdominal pain acute November 16, 2024 1:30pm [facility] Work Phone: 1(478) 985-498705-27-2025 Telephone encounter Note* Telephone Encounter - Karma Rodriguez RN - 09/27/2024 10:30 AM EDT Scan on 09/27/2024 by ProviderKatelynn PA-C: Consultation - PT/OT/Speech See attached pelvic floor PT initial evaluation from [facility]. ADRIENNE Urban RN [facility]05-27-2025 Miscellaneous Notes* Telephone Encounter - Karma Rodriguez RN - 09/27/2024 10:30 AM EDT Scan on 09/27/2024 by Provider, ORIANA Pace: Consultation - PT/OT/Speech See attached pelvic floor PT initial evaluation from [facility]. ADRIENNE Urban RN [facility] NoteHNO ID: [id number] Author: TIFFANY OWUSU APRN.[employer] Service: ? Author Type: Nurse Practitioner Type: Progress Notes Filed: 03/22/2024 14:50 Note Text: Candlemaker offered: Patient declines. Jessy is a 58 year old who presents for an annual gynecologic exam with complaint of continued stress and urge incontinence. 09/30/2023 Lap sacraocolpopexy with mesh Dr Ervin. Defecation improved but RICHAR continues. Dr. Ervin recommended PFT but she is unable to travel the distance to therapy. Postmenopausal: Hysterectomy, right ovary sparing HRT use: No oral. 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 Pap smear (cervix) Adenoma of left adrenal gland Anesthesia complication hypotension Colon polyps COPD (chronic obstructive pulmonary disease) (HCC) Cystocele, midline HLD (hyperlipidemia) Other and unspecified hyperlipidemia 05/04/2006 not on medication Prediabetes Skin cancer Vaginal vault prolapse PAST SURGICAL HISTORY Procedure Laterality Date ABDOMINAL SURGERY HX ADRENALECTOMY Left 10/30/2023 APPENDECTOMY 11/2006 BREAST AUGMENTATION WITH IMPLANT Bilateral 2007 BREAST SURGERY HX COLONOSCOPY 10/06/2014 COLONOSCOPY FLX DX W/COLLJ SPEC WHEN PFRMD 03/07/2021 nl biopsies. repeat in 5 years per DP based on family history COLPOSCOPY CERVIX UPPER/ADJACENT VAGINA 2000 Colposcopy CONIZATION CERVIX W/WO DANDC RPR ELTRD EXC 1997 LEEP-Cervix DILATION AND CURETTAGE DXAND/THER NONOBSTETRIC 1989 Dilation AND curettage FOOT SURGERY HX Left 2018 FOOT SURGERY HX Left 2020 LAPAROSCOPIC COLPOPEXY 05/2023 lysis of adhesions LIG/TRNSXJ FLP TUBE ABDL/VAG APPR UNI/BI 1988 Tubal ligation PAST SURGICAL HISTORY OF 12/01/2006 Novasure PAST SURGICAL HISTORY OF 2007 bladder repair mesh PAST SURGICAL HISTORY OF 2021 reconstruction right nasal defect with a modified rhomboid flap REMOVAL GALLBLADDER 2019 [facility] 2022 skin cancer removed SKIN BIOPSY HX TONSILLECTOMY HX 1988 VAGINAL HYSTERECTOMY UTERUS 250 GM/< 02/01/2015 LSO [...] History Tobacco Use Smoking status: Every Day Current packs/day: 0.50 Average packs/day: 0.5 packs/day for 18.0 years (9.0 ttl pk-yrs) Types: Cigarettes Smokeless tobacco: Never Tobacco comments: Cut back to 1/2 to 1/4 packs per day Vaping Use Vaping status: Never Used Substance Use Topics Alcohol use: Yes Comment: rare occassion Drug use: No REVIEW OF SYSTEMS Abdomen: No abdominal pain, nausea, vomiting, diarrhea, or constipation. No bloating, early satiety, indigestion, or increased flatulence. Bladder: No dysuria, gross hematuria, urinary frequency, urinary urgency. Continues to have stress and urge incontinence after surgery 09/2023. Breast: No breast lumps, nipple d/c, overlying skin changes, redness or skin retraction Allergies and current medication updated:Yes SENSITIVE EXAM: The sensitive examination was discussed with the Patient or Patient's Authorized Roundsman. As applicable, any other physician, advance practice provider, medical student, or other health professional student that will be observing or involved in the sensitive examination for educational or training purposes was discussed with the Patient or Authorized Roundsman. The Patient or Authorized Roundsman has agreed to proceed with the sensitive examination. (Sensitive examination includes inspection and/or palpation of the breasts, pelvis, prostate and anorectal regions). EXAM: BP 120/64 Ht 5' 3.78 (1.62m) Wt 136 lb 9.6 oz (62.0kg) LMP 11/30/2006 BMI 23.61 kg/(m2). GENERAL: pleasant, female in no apparent distress HEENT: Normocephalic, atraumatic, mucus membranes moist, and no lesions NECK: Supple, full range of motion, no ngoc (more content not included)... [facility]11-19-2024 History of Present illness Narrative* Tiffany Owusu APRN.[employer] - 03/22/2024 1:42 PM EST Candlemaker offered: Patient declines. Jessy is a 58 year old who presents for an annual gynecologic exam with complaint of continuedstress and urge incontinence. 09/30/2023 Lap [address]raocol[address]opexy with mesh Dr Ervin. Defecation improved but RICHAR continues. Dr. Ervin recommended PFT but she is unable to travel the distance to therapy. Postmenopausal: Hysterectomy, right ovary sparing HRT use: No oral. 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 Pap smear (cervix) Adenoma of left adrenal gland Anesthesia complication hypotension Colon polyps COPD (chronic obstructive pulmonary disease) (HCC) Cystocele, midline HLD (hyperlipidemia) Other and unspecified hyperlipidemia 05/04/2006 not on medication Prediabetes Skin cancer Vaginal vault prolapse PAST SURGICAL HISTORY Procedure Laterality Date ABDOMINAL SURGERY HX ADRENALECTOMY Left 10/30/2023 APPENDECTOMY 11/2006 BREAST AUGMENTATION WITH IMPLANT Bilateral 2007 BREAST SURGERY HX COLONOSCOPY 10/06/2014 COLONOSCOPY FLX DX W/COLLJ SPEC WHEN PFRMD 03/07/2021 nl biopsies. repeat in 5 years per DP based on family history COLPOSCOPY CERVIX UPPER/ADJACENT VAGINA 2000 Colposcopy CONIZATION CERVIX W/WO D&C RPR ELTRD EXC 1997 LEEP-Cervix DILATION & CURETTAGE DX&/THER NONOBSTETRIC 1989 Dilation & curettage FOOT SURGERY HX Left 2018 FOOT SURGERY HX Left 2020 LAPAROSCOPIC COLPOPEXY 05/2023 lysis of adhesions LIG/TRNSXJ FLP TUBE ABDL/VAG APPR UNI/BI 1988 Tubal ligation PAST SURGICAL HISTORY OF 12/01/2006 [place] PAST SURGICAL HISTORY OF 2007 bladder repair mesh PAST SURGICAL HISTORY OF 2021 reconstruction right nasal defect with a modified rhomboid flap REMOVAL GALLBLADDER 2019 [facility] COSMETIC SURGERY 2022 skin cancer removed SKIN BIOPSY HX TONSILLECTOMY HX 1988 VAGINAL HYSTERECTOMY UTERUS 250 GM/< 02/01/2015 LSO [...] History Tobacco Use Smoking status: Every Day Current packs/day: 0.50 Average packs/day: 0.5 packs/day for 18.0 years (9.0 ttl pk-yrs) Types: Cigarettes Smokeless tobacco: Never Tobacco comments: Cut back to 1/2 to 1/4 packs per day Vaping Use Vaping status: Never Used Substance Use Topics Alcohol use: Yes Comment: rare occassion Drug use: No REVIEW OF SYSTEMS Abdomen: No abdominal pain, nausea, vomiting, diarrhea, or constipation. No bloating, early satiety, indigestion, or increased flatulence. Bladder: No dysuria, gross hematuria, urinary frequency, urinary urgency. Continues to have stress and urge incontinence after surgery 09/2023. Breast: No breast lumps, nipple d/c, overlying skin changes, redness or skin retraction Allergies and current medication updated:Yes SENSITIVE EXAM: The sensitive examination was discussed with the Patient or Patient's Authorized Roundsman. As applicable, any other physician, advance practice provider, medical student, or other health professional student that will be observing or involved in the sensitive examination for educational or training purposes was discussed with the Patient or Authorized Roundsman. The Patient or Authorized Roundsman has agreed to proceed with the sensitive examination. (Sensitive examination includes inspection and/or palpation of the breasts, pelvis, prostate and anorectal regions). EXAM: BP 120/64 Ht 5' 3.78 (1.62m) Wt 136 lb 9.6 oz (62.0kg) LMP 11/30/2006 BMI 23.61 kg/(m^2). GENERAL: pleasant, female in no apparent distress HEENT: Normocephalic, atraumatic, mucus membranes moist, and no lesions NECK: Supple, full range of motion, no adenopathy, and thyroid normal DERMATOLOGY: Normal, without lesions, non-icteric, and non-hirsute BREAST: soft, non-tender, symmetric, no dominant mass, normal nipple-areolar complex, no lymphadenopathy, and no nipple discharge CHEST: Normal inspiratory effort ABDOMEN: soft, non-tender, and no masses PELVIC: external genitalia normal, normal Bartholin's glands, urethra, Dunseith's glands, no vulvar lesions, physiologic discharge present, normal appearing perineal body and perianal region, cervix surgically absent, cystocele 1st degree BIMANUAL: no adnexal masses, non-tender, and uterus surgically absent RECTOVAGINAL: deferred. NEURO: alert and oriented x3,exam grossly non-focal EXTREMITIES: normal ASSESSMENT/PLAN: 1) Health maintenance: Pap/HPV screening no longer needed Mammogram up to date. Ordered by PCP and completed at [facility]. Nutrition, exercise and routine health maintenance exams reviewed. Smoking cessation - encouraged to stop smoking Calcium/Vitamin D supplementation information provided. Colon cancer screening: up to date with screening 2. Mixed incontinence urge and stress - ICD9: 788.33, ICD10: N39.46 - CONSULT TO PHYSICAL THERAPY - prefers [facility]. Order printed and given to patient. 3. Cystocele, midline - ICD9: 618.01, ICD10: N81.11 - 1st degree - CONSULT TO PHYSICAL THERAPY 4. History of bladder suspension procedure - ICD9: V15.29, V13.09, ICD10: Z98.890, Z87.448 - see above - CONSULT TO PHYSICAL THERAPY 5) Follow up one year or sooner as needed Tiffany Owusu APRN.[employer]IO [employer]PERATOR [employer]OUND [facility]* Savana Pappas RN - 01/18/2024 11:07 AM EDT pt arrived to phase 2 awake/ resting on left side. Sister at bedside. SR up x 2, call light in reach. Savana Pappas RN [facility] Nurse Note* Savana Pappas RN - 01/18/2024 11:07 AM EDT pt arrived to phase 2 awake/ resting on left side. Sister at bedside. SR up x 2, call light in reach. Savana Pappas RN documented [facility] encounter[facility] Note* Discharge Instr - Nursing - Savana Pappas RN - 01/18/2024 11:03 AM EDT The patient received a copy of EGD discharge instructions that contain information for how to contact the physician who performed the procedure and when to seek medical care. [facility] Miscellaneous Notes* Discharge Instr - Nursing - Savana Pappas RN - 01/18/2024 11:03 AM EDT The patient received a copy of EGD discharge instructions that contain information for how to contact the physician who performed the procedure and when to seek medical care. documented [facility] History and physical note * Reginaldo España MD - 01/18/2024 10:15 AM EDT HISTORY AND PHYSICAL Jessy S Spanish 1965 REFERRING PHYSICIAN: Lala Zendejas MD, MD CHIEF COMPLAINT: Consult (Dysphagia - months) HPI: The patient is a 58 year old female referred for endoscopy. Jessy notes no history of colon complaints. The patient notes the following upper complaints: Jessy denies abdominal pain.. Jessy denies heartburn. Jessy notes dysphagia. Jessy denies a history of ulcers/ peptic ulcer disease. Jessy has undergone prior endoscopy. The patient is being seen by me today at the request of Dr. Lala Zendejas MD, MD for my opinion and advice regarding Esophageal dysphagia (primary encounter diagnosis). PAST MEDICAL HISTORY PAST MEDICAL HISTORY 05/04/2005: Abnormal glandular Papanicolaou smear of cervix Comment: Abn. Pap smear (cervix) No date: Adenoma of left adrenal gland No date: Anesthesia complication Comment: hypotension No date: Colon polyps No date: COPD (chronic obstructive pulmonary disease) (HCC) No date: Cystocele, midline No date: HLD (hyperlipidemia) 05/04/2006: Other and unspecified hyperlipidemia Comment: not on medication No date: Prediabetes No date: Skin cancer No date: Vaginal vault prolapse PAST SURGICAL HISTORY PAST SURGICAL HISTORY No date: ABDOMINAL SURGERY HX 10/30/2023: ADRENALECTOMY; Left 11/2006: APPENDECTOMY 2007: BREAST AUGMENTATION WITH IMPLANT; Bilateral No date: BREAST SURGERY HX 10/06/2014: COLONOSCOPY 03/07/2021: COLONOSCOPY FLX DX W/COLLJ SPEC WHEN PFRMD Comment: nl biopsies. repeat in 5 years per DP based on family history 2000: COLPOSCOPY CERVIX UPPER/ADJACENT VAGINA Comment: Colposcopy 1997: CONIZATION CERVIX W/WO D&C RPR ELTRD EXC Comment: LEEP-Cervix 1989: DILATION & CURETTAGE DX&/THER NONOBSTETRIC Comment: Dilation & curettage 2018: FOOT SURGERY HX; Left 2020: FOOT SURGERY HX; Left 05/2023: LAPAROSCOPIC COLPOPEXY Comment: lysis of adhesions 1988: LIG/TRNSXJ FLP TUBE ABDL/VAG APPR UNI/BI Comment: Tubal ligation 12/01/2006: PAST SURGICAL HISTORY OF Comment: Laureano 2007: PAST SURGICAL HISTORY OF Comment: bladder repair mesh 2021: PAST SURGICAL HISTORY OF Comment: reconstruction right nasal defect with a modified rhomboid flap 2020: REMOVAL GALLBLADDER 2022: SHX COSMETIC SURGERY Comment: skin cancer removed No date: SKIN BIOPSY HX 1988: TONSILLECTOMY HX 02/01/2015: VAGINAL HYSTERECTOMY UTERUS 250 GM/< Comment: LSO 1992: VASCULAR SURGERY PROCEDURE Comment: vein stripping RLE, X 2 procedures CURRENT MEDICATIONS Current Outpatient Medications Medication Sig omeprazole (PRILOSEC) 20 mg capsule Take 20 mg by mouth once daily. rosuvastatin (CRESTOR) 5 mg tablet Take 5 mg by mouth once daily. estradiol (ESTRACE) 0.01 % (0.1 mg/gram) vaginal cream Use 1 (ONE) gram vaginally TWICE A WEEK imiquimod (ALDARA) 5 % cream Apply to affected areas twice daily for 4 weeks ibuprofen (MOTRIN) 600 mg tablet Take 1 tablet by mouth every 6 hours as needed for pain. albuterol HFA (PROVENTIL HFA, VENTOLIN HFA) 90 mcg/actuation inhaler Inhale 2 Puffs as instructed every 4 hours as needed. BIOTIN, BULK, MISC Take 1 tablet by mouth once daily. multivit with minerals/lutein (MULTIVITAMIN 50 PLUS ORAL) Take 1 tablet by mouth once daily. Ascorbic Acid (VITAMIN C) 1,000 mg tablet Take 1,000 mg by mouth once daily. metFORMIN (GLUCOPHAGE) 500 mg tablet Take 500 mg by mouth twice daily with meals. Cholecalciferol, Vitamin D3, 2,000 unit cap EQL VITAMIN D3 2000 UNIT CAPS No current facility-administered medications for this visit. ALLERGIES: Augmentin [Amoxicillin-Pot Clavulanate] and Percocet [Oxycodone-Acetaminophen] PERSONAL HISTORY: SOCIAL HISTORY Social History Tobacco Use Smoking status: Every Day Current packs/day: 0.50 Average packs/day: 0.5 packs/day for 18.0 years (9.0 ttl pk-yrs) Types: Cigarettes Smokeless tobacco: Never Tobacco comments: Cut back to 1/2 to 1/4 packs per day Vaping Use Vaping status: Never Used Substance Use Topics Alcohol use: Yes Comment: rare occassion Drug use: No FAMILY HISTORY: FAMILY HISTORY FAMILY HISTORY Problem Relation Age of Onset other (graves disease) Mother other (rheumatoid arthritis) Mother Diabetes Father No Known Problems Sister No Known Problems Maternal Grandmother Lung Cancer Maternal Grandfather Dementia Paternal Grandmother No Known Problems Daughter No Known Problems Son Diabetes Maternal Aunt Diabetes Maternal Aunt Diabetes Maternal Uncle Diabetes Maternal Uncle Diabetes Maternal Uncle Diabetes Maternal Uncle REVIEW OF SYMPTOMS: negative except as noted above PHYSICAL EXAMINATION: General: The patient is 58 year old female, well nourished, well hydrated in no acute distress. Thepatient is oriented to time, place, and person. VITALS: Blood pressure 94/65, pulse 63, height 162.6 cm (5' 4), weight 59.9 kg (132 lb), last menstrual period 11/30/2006. Body mass index is 22.66 kg/m . HEENT: Normal cephalic, ataumatic, pupils are equally round, sclera are anicteric, mucous membranesare moist, oropharynx is clear. Neck has no masses, asymmetry or lymphadenopathy. Thyroid is unremarkable. Respiratory: Clear to auscultation and percussion. Normal respiratory excursion and pattern. Cardiac: Examination is regular rate and rhythm. Abdominal exam: Soft, nontender, with no palpable masses. No hepatosplenomegaly. No palpable hernias. Rectal exam: exam deferred Extremities: no clubbing, cyanosis or edema. No adenopathy. Other: LABORATORY VALUES: As Noted RADIOLOGIC STUDIES: As Noted Assessment IMPRESSION: Esophageal dysphagia (primary encounter diagnosis) PLAN: I plan to perform upper endoscopy. We discussed the risks and benefits of the planned endoscopy. I have informed the patient that complications can occur including failure to complete the endoscopy and perforation. The patient had the opportunity to ask questions concerning the planned endoscopy. My staff has also explained the procedure to the patient in understandable terms and has given the patient printed material concerning the procedure. The patient freely consents to surgery. Diagnoses: (R13.19) Esophageal dysphagia (primary encounter diagnosis) A letter was sent to Dr. Lala Zendejas MD, MD indicating the above finding for this patient. Return to Clinic: The patient is instructed to follow-up with me 1 week post operatively. Reginaldo España III, MD UPDATED HISTORY AND PHYSICAL EXAMINATION SERVICE DATE: 01/18/2024 SERVICE TIME: 10:43 AM SENSITIVE EXAMINATION CONSENT: The sensitive examination was discussed with the Patient or Patient's Authorized Roundsman. Asapplicable, any other physician, advance practice provider, medical student, or other health professional student that will be observing or involved in the sensitive examination for educational or training purposes was discussed with the Patient or Authorized Roundsman. The Patient or Authorized Roundsman has agreed to proceed with the sensitive examination. (Sensitive examination includes inspection and/or palpation of the breasts, pelvis, prostate and anorectal regions) PHYSICAL EXAM MUST BE COMPLETED ON ADMISSION The History and Physical (completed in the past 30 days) has been reviewed and the patient has beenexamined. The contents accurately reflect the patient's condition with the following additions or revisions since the H&P was completed. Examination indicates no changes. This H&P can be found in the attached. SIGNATURE: Reginaldo España III, MD PATIENT NAME: Jessy Alegre DATE: January 18, 2024 TIME: 10:43 AM [facility]09-[facility] History and physical note* Reginaldo España MD - 01/18/2024 10:15 AM EDT HISTORY AND PHYSICAL Jessy S Spanish 1965 REFERRING PHYSICIAN: Lala Zendejas MD, MD CHIEF COMPLAINT: Consult (Dysphagia - months) HPI: The patient is a 58 year old female referred for endoscopy. Jessy notes no history of colon complaints. The patient notes the following upper complaints: Jessy denies abdominal pain.. Jessy denies heartburn. Jessy notes dysphagia. Jessy denies a history of ulcers/ peptic ulcer disease. Jessy has undergone prior endoscopy. The patient is being seen by me today at the request of Dr. Lala Zendejas MD, MD for my opinion and advice regarding Esophageal dysphagia (primary encounter diagnosis). PAST MEDICAL HISTORY PAST MEDICAL HISTORY 05/04/2005: Abnormal glandular Papanicolaou smear of cervix Comment: Abn. Pap smear (cervix) No date: Adenoma of left adrenal gland No date: Anesthesia complication Comment: hypotension No date: Colon polyps No date: COPD (chronic obstructive pulmonary disease) (HCC) No date: Cystocele, midline No date: HLD (hyperlipidemia) 05/04/2006: Other and unspecified hyperlipidemia Comment: not on medication No date: Prediabetes No date: Skin cancer No date: Vaginal vault prolapse PAST SURGICAL HISTORY PAST SURGICAL HISTORY No date: ABDOMINAL SURGERY HX 10/30/2023: ADRENALECTOMY; Left 11/2006: APPENDECTOMY 2007: BREAST AUGMENTATION WITH IMPLANT; Bilateral No date: BREAST SURGERY HX 10/06/2014: COLONOSCOPY 03/07/2021: COLONOSCOPY FLX DX W/COLLJ SPEC WHEN PFRMD Comment: nl biopsies. repeat in 5 years per DP based on family history 2000: COLPOSCOPY CERVIX UPPER/ADJACENT VAGINA Comment: Colposcopy 1997: CONIZATION CERVIX W/WO D&C RPR ELTRD EXC Comment: LEEP-Cervix 1989: DILATION & CURETTAGE DX&/THER NONOBSTETRIC Comment: Dilation & curettage 2018: FOOT SURGERY HX; Left 2019: FOOT SURGERY HX; Left 05/2023: LAPAROSCOPIC COLPOPEXY Comment: lysis of adhesions 1989: LIG/TRNSXJ FLP TUBE ABDL/VAG APPR UNI/BI Comment: Tubal ligation 12/01/2006: PAST SURGICAL HISTORY OF Comment: Laureano 2007: PAST SURGICAL HISTORY OF Comment: bladder repair mesh 2021: PAST SURGICAL HISTORY OF Comment: reconstruction right nasal defect with a modified rhomboid flap 2020: REMOVAL GALLBLADDER 2022: SHX COSMETIC SURGERY Comment: skin cancer removed No date: SKIN BIOPSY HX 1988: TONSILLECTOMY HX 02/01/2015: VAGINAL HYSTERECTOMY UTERUS 250 GM/< Comment: LSO 1992: VASCULAR SURGERY PROCEDURE Comment: vein stripping RLE, X 2 procedures CURRENT MEDICATIONS Current Outpatient Medications Medication Sig omeprazole (PRILOSEC) 20 mg capsule Take 20 mg by mouth once daily. rosuvastatin (CRESTOR) 5 mg tablet Take 5 mg by mouth once daily. estradiol (ESTRACE) 0.01 % (0.1 mg/gram) vaginal cream Use 1 (ONE) gram vaginally TWICE A WEEK imiquimod (ALDARA) 5 % cream Apply to affected areas twice daily for 4 weeks ibuprofen (MOTRIN) 600 mg tablet Take 1 tablet by mouth every 6 hours as needed for pain. albuterol HFA (PROVENTIL HFA, VENTOLIN HFA) 90 mcg/actuation inhaler Inhale 2 Puffs as instructed every 4 hours as needed. BIOTIN, BULK, MISC Take 1 tablet by mouth once daily. multivit with minerals/lutein (MULTIVITAMIN 50 PLUS ORAL) Take 1 tablet by mouth once daily. Ascorbic Acid (VITAMIN C) 1,000 mg tablet Take 1,000 mg by mouth once daily. metFORMIN (GLUCOPHAGE) 500 mg tablet Take 500 mg by mouth twice daily with meals. Cholecalciferol, Vitamin D3, 2,000 unit cap EQL VITAMIN D3 2000 UNIT CAPS No current facility-administered medications for this visit. ALLERGIES: Augmentin [Amoxicillin-Pot Clavulanate] and Percocet [Oxycodone-Acetaminophen] PERSONAL HISTORY: SOCIAL HISTORY Social History Tobacco Use Smoking status: Every Day Current packs/day: 0.50 Average packs/day: 0.5 packs/day for 18.0 years (9.0 ttl pk-yrs) Types: Cigarettes Smokeless tobacco: Never Tobacco comments: Cut back to 1/2 to 1/4 packs per day Vaping Use Vaping status: Never Used Substance Use Topics Alcohol use: Yes Comment: rare occassion Drug use: No FAMILY HISTORY: FAMILY HISTORY FAMILY HISTORY Problem Relation Age of Onset other (graves disease) Mother other (rheumatoid arthritis) Mother Diabetes Father No Known Problems Sister No Known Problems Maternal Grandmother Lung Cancer Maternal Grandfather Dementia Paternal Grandmother No Known Problems Daughter No Known Problems Son Diabetes Maternal Aunt Diabetes Maternal Aunt Diabetes Maternal Uncle Diabetes Maternal Uncle Diabetes Maternal Uncle Diabetes Maternal Uncle REVIEW OF SYMPTOMS: negative except as noted above PHYSICAL EXAMINATION: General: The patient is 58 year old female, well nourished, well hydrated in no acute distress. Thepatient is oriented to time, place, and person. VITALS: Blood pressure 94/65, pulse 63, height 162.6 cm (5' 4), weight 59.9 kg (132 lb), last menstrual period 11/30/2006. Body mass index is 22.66 kg/m . HEENT: Normal cephalic, ataumatic, pupils are equally round, sclera are anicteric, mucous membranesare moist, oropharynx is clear. Neck has no masses, asymmetry or lymphadenopathy. Thyroid is unremarkable. Respiratory: Clear to auscultation and percussion. Normal respiratory excursion and pattern. Cardiac: Examination is regular rate and rhythm. Abdominal exam: Soft, nontender, with no palpable masses. No hepatosplenomegaly. No palpable hernias. Rectal exam: exam deferred Extremities: no clubbing, cyanosis or edema. No adenopathy. Other: LABORATORY VALUES: As Noted RADIOLOGIC STUDIES: As Noted Assessment IMPRESSION: Esophageal dysphagia (primary encounter diagnosis) PLAN: I plan to perform upper endoscopy. We discussed the risks and benefits of the planned endoscopy. I have informed the patient that complications can occur including failure to complete the endoscopy and perforation. The patient had the opportunity to ask questions concerning the planned endoscopy. My staff has also explained the procedure to the patient in understandable terms and has given the patient printed material concerning the procedure. The patient freely consents to surgery. Diagnoses: (R13.19) Esophageal dysphagia (primary encounter diagnosis) A letter was sent to Dr. Lala Zendejas MD, MD indicating the above finding for this patient. Return to Clinic: The patient is instructed to follow-up with me 1 week post operatively. Reginaldo España III, MD UPDATED HISTORY AND PHYSICAL EXAMINATION SERVICE DATE: 01/18/2024 SERVICE TIME: 10:43 AM SENSITIVE EXAMINATION CONSENT: The sensitive examination was discussed with the Patient or Patient's Authorized Roundsman. Asapplicable, any other physician, advance practice provider, medical student, or other health professional student that will be observing or involved in the sensitive examination for educational or training purposes was discussed with the Patient or Authorized Roundsman. The Patient or Authorized Roundsman has agreed to proceed with the sensitive examination. (Sensitive examination includes inspection and/or palpation of the breasts, pelvis, prostate and anorectal regions) PHYSICAL EXAM MUST BE COMPLETED ON ADMISSION The History and Physical (completed in the past 30 days) has been reviewed and the patient has beenexamined. The contents accurately reflect the patient's condition with the following additions or revisions since the H&P was completed. Examination indicates no changes. This H&P can be found in the attached. SIGNATURE: Reginaldo España III, MD PATIENT NAME: Jessy Salgado Spanish DATE: January 18, 2024 TIME: 10:43 AM [facility] NoteHNO ID: [id number] Author: REGINALDO ESPAÑA MD Service: ? Author Type: Physician Type: Progress Notes Filed: 01/13/2024 09:46 Note Text: HISTORY AND PHYSICAL Jessy S Spanish 1965 REFERRING PHYSICIAN: Lala Zendejas MD, MD CHIEF COMPLAINT: Consult (Dysphagia - months) HPI: The patient is a 58 year old female referred for endoscopy. Jessy notes no history of colon complaints. The patient notes the following upper complaints: Jessy denies abdominal pain.. Jessy denies heartburn. Jessy notes dysphagia. Jessy denies a history of ulcers/ peptic ulcer disease. Jessy has undergone prior endoscopy. The patient is being seen by me today at the request of Dr. Lala Zendejas MD, MD for my opinion and advice regarding Esophageal dysphagia (primary encounter diagnosis). PAST MEDICAL HISTORY 05/04/2005: Abnormal glandular Papanicolaou smear of cervix Comment: Abn. Pap smear (cervix) No date: Adenoma of left adrenal gland No date: Anesthesia complication Comment: hypotension No date: Colon polyps No date: COPD (chronic obstructive pulmonary disease) (HCC) No date: Cystocele, midline No date: HLD (hyperlipidemia) 05/04/2006: Other and unspecified hyperlipidemia Comment: not on medication No date: Prediabetes No date: Skin cancer No date: Vaginal vault prolapse PAST SURGICAL HISTORY No date: ABDOMINAL SURGERY HX 10/30/2023: ADRENALECTOMY; Left 11/2006: APPENDECTOMY 2007: BREAST AUGMENTATION WITH IMPLANT; Bilateral No date: BREAST SURGERY HX 10/06/2014: COLONOSCOPY 03/07/2021: COLONOSCOPY FLX DX W/COLLJ SPEC WHEN PFRMD Comment: nl biopsies. repeat in 5 years per DP based on family history 2000: COLPOSCOPY CERVIX UPPER/ADJACENT VAGINA Comment: Colposcopy 1997: CONIZATION CERVIX W/WO DANDC RPR ELTRD EXC Comment: LEEP-Cervix 1989: DILATION AND CURETTAGE DXAND/THER NONOBSTETRIC Comment: Dilation AND curettage 2018: FOOT SURGERY HX; Left 2019: FOOT SURGERY HX; Left 05/2023: LAPAROSCOPIC COLPOPEXY Comment: lysis of adhesions 1988: LIG/TRNSXJ FLP TUBE ABDL/VAG APPR UNI/BI Comment: Tubal ligation 12/01/2006: PAST SURGICAL HISTORY OF Comment: Laureano 2007: PAST SURGICAL HISTORY OF Comment: bladder repair mesh 2021: PAST SURGICAL HISTORY OF Comment: reconstruction right nasal defect with a modified rhomboid flap 2020: REMOVAL GALLBLADDER 2022: SHX COSMETIC SURGERY Comment: skin cancer removed No date: SKIN BIOPSY HX 1988: TONSILLECTOMY HX 02/01/2015: VAGINAL HYSTERECTOMY UTERUS 250 GM/< Comment: LSO 1992: VASCULAR SURGERY PROCEDURE Comment: vein stripping RLE, X 2 procedures Current Outpatient Medications Medication Sig omeprazole (PRILOSEC) 20 mg capsule Take 20 mg by mouth once daily. rosuvastatin (CRESTOR) 5 mg tablet Take 5 mg by mouth once daily. estradiol (ESTRACE) 0.01 % (0.1 mg/gram) vaginal cream Use 1 (ONE) gram vaginally TWICE A WEEK imiquimod (ALDARA) 5 % cream Apply to affected areas twice daily for 4 weeks ibuprofen (MOTRIN) 600 mg tablet Take 1 tablet by mouth every 6 hours as needed for pain. albuterol HFA (PROVENTIL HFA, VENTOLIN HFA) 90 mcg/actuation inhaler Inhale 2 Puffs as instructed every 4 hours as needed. BIOTIN, BULK, MISC Take 1 tablet by mouth once daily. multivit with minerals/lutein (MULTIVITAMIN 50 PLUS ORAL) Take 1 tablet by mouth once daily. Ascorbic Acid (VITAMIN C) 1,000 mg tablet Take 1,000 mg by mouth once daily. metFORMIN (GLUCOPHAGE) 500 mg tablet Take 500 mg by mouth twice daily with meals. Cholecalciferol, Vitamin D3, 2,000 unit cap EQL VITAMIN D3 2000 UNIT CAPS No current facility-administered medications for this visit. ALLERGIES: Augmentin [Amoxicillin-Pot Clavulanate] and Percocet [Oxycodone-Acetaminophen] PERSONAL HISTORY: Social History Tobacco Use Smoking status: Every Day Current packs/day: 0.50 Average packs/day: 0.5 packs/day for 18.0 years (9.0 ttl pk-yrs) Types: Cigarettes Smokeless tobacco: Never Tobacco comments: Cut back to 1/2 to 1/4 packs per day Vaping Use Vaping status: Never Used Substance Use Topics Alcohol use: Yes Comment: rare occassion Drug use: No FAMILY HISTORY: FAMILY HISTORY Problem Relation Age of Onset other (graves disease) Mother other (rheumatoid arthritis) Mother Diabetes Father No Known Problems Sister No Known Problems Maternal Grandmother Lung Cancer Maternal Grandfather Dementia Paternal Grandmother No Known Problems Daughter No Known Problems Son Diabetes Maternal Aunt Diabetes Maternal Aunt Diabetes Maternal Uncle Diabetes Maternal Uncle Diabetes Maternal Uncle Diabetes Maternal Uncle REVIEW OF SYMPTOMS: negative except as noted above PHYSICAL EXAMINATION: General: The patient is 58 year old female, well nourished, well hydrated in no acute distress. The patient is oriented to time, place, and person. VITALS: Blood pressure 94/65, pulse 63, height 162.6 cm (5' 4), weight 59.9 kg (more content not included)...[facility]09-11-2024 History of Present illness Narrative* Reginaldo España MD - 01/13/2024 9:23 AM EDT HISTORY AND PHYSICAL Jessy S Spanish 1965 REFERRING PHYSICIAN: Lala Zendejas MD, MD CHIEF COMPLAINT: Consult (Dysphagia - months) HPI: The patient is a 58 year old female referred for endoscopy. Jessy notes no history of colon complaints. The patient notes the following upper complaints: Jessy denies abdominal pain.. Jessy denies heartburn. Jessy notes dysphagia. Jessy denies a history of ulcers/ peptic ulcer disease. Jessy has undergone prior endoscopy. The patient is being seen by me today at the request of Dr. Lala Zendejas MD, MD for my opinion and advice regarding Esophageal dysphagia (primary encounter diagnosis). PAST MEDICAL HISTORY 05/04/2005: Abnormal glandular Papanicolaou smear of cervix Comment: Abn. Pap smear (cervix) No date: Adenoma of left adrenal gland No date: Anesthesia complication Comment: hypotension No date: Colon polyps No date: COPD (chronic obstructive pulmonary disease) (HCC) No date: Cystocele, midline No date: HLD (hyperlipidemia) 05/04/2006: Other and unspecified hyperlipidemia Comment: not on medication No date: Prediabetes No date: Skin cancer No date: Vaginal vault prolapse PAST SURGICAL HISTORY No date: ABDOMINAL SURGERY HX 10/30/2023: ADRENALECTOMY; Left 11/2006: APPENDECTOMY 2007: BREAST AUGMENTATION WITH IMPLANT; Bilateral No date: BREAST SURGERY HX 10/06/2014: COLONOSCOPY 03/07/2021: COLONOSCOPY FLX DX W/COLLJ SPEC WHEN PFRMD Comment: nl biopsies. repeat in 5 years per DP based on family history 2000: COLPOSCOPY CERVIX UPPER/ADJACENT VAGINA Comment: Colposcopy 1997: CONIZATION CERVIX W/WO D&C RPR ELTRD EXC Comment: LEEP-Cervix 1989: DILATION & CURETTAGE DX&/THER NONOBSTETRIC Comment: Dilation & curettage 2018: FOOT SURGERY HX; Left 2019: FOOT SURGERY HX; Left 05/2023: LAPAROSCOPIC COLPOPEXY Comment: lysis of adhesions 1988: LIG/TRNSXJ FLP TUBE ABDL/VAG APPR UNI/BI Comment: Tubal ligation 12/01/2006: PAST SURGICAL HISTORY OF Comment: [place] 2007: PAST SURGICAL HISTORY OF Comment: bladder repair mesh 2021: PAST SURGICAL HISTORY OF Comment: reconstruction right nasal defect with a modified rhomboid flap 2020: REMOVAL GALLBLADDER 2022: SHX COSMETIC SURGERY Comment: skin cancer removed No date: SKIN BIOPSY HX 1988: TONSILLECTOMY HX 02/01/2015: VAGINAL HYSTERECTOMY UTERUS 250 GM/< Comment: LSO 1992: VASCULAR SURGERY PROCEDURE Comment: vein stripping RLE, X 2 procedures Current Outpatient Medications Medication Sig omeprazole (PRILOSEC) 20 mg capsule Take 20 mg by mouth once daily. rosuvastatin (CRESTOR) 5 mg tablet Take 5 mg by mouth once daily. estradiol (ESTRACE) 0.01 % (0.1 mg/gram) vaginal cream Use 1 (ONE) gram vaginally TWICE A WEEK imiquimod (ALDARA) 5 % cream Apply to affected areas twice daily for 4 weeks ibuprofen (MOTRIN) 600 mg tablet Take 1 tablet by mouth every 6 hours as needed for pain. albuterol HFA (PROVENTIL HFA, VENTOLIN HFA) 90 mcg/actuation inhaler Inhale 2 Puffs as instructed every 4 hours as needed. BIOTIN, BULK, MISC Take 1 tablet by mouth once daily. multivit with minerals/lutein (MULTIVITAMIN 50 PLUS ORAL) Take 1 tablet by mouth once daily. Ascorbic Acid (VITAMIN C) 1,000 mg tablet Take 1,000 mg by mouth once daily. metFORMIN (GLUCOPHAGE) 500 mg tablet Take 500 mg by mouth twice daily with meals. Cholecalciferol, Vitamin D3, 2,000 unit cap EQL VITAMIN D3 2000 UNIT CAPS No current facility-administered medications for this visit. ALLERGIES: Augmentin [Amoxicillin-Pot Clavulanate] and Percocet [Oxycodone-Acetaminophen] PERSONAL HISTORY: Social History Tobacco Use Smoking status: Every Day Current packs/day: 0.50 Average packs/day: 0.5 packs/day for 18.0 years (9.0 ttl pk-yrs) Types: Cigarettes Smokeless tobacco: Never Tobacco comments: Cut back to 1/2 to 1/4 packs per day Vaping Use Vaping status: Never Used Substance Use Topics Alcohol use: Yes Comment: rare occassion Drug use: No FAMILY HISTORY: FAMILY HISTORY Problem Relation Age of Onset other (graves disease) Mother other (rheumatoid arthritis) Mother Diabetes Father No Known Problems Sister No Known Problems Maternal Grandmother Lung Cancer Maternal Grandfather Dementia Paternal Grandmother No Known Problems Daughter No Known Problems Son Diabetes Maternal Aunt Diabetes Maternal Aunt Diabetes Maternal Uncle Diabetes Maternal Uncle Diabetes Maternal Uncle Diabetes Maternal Uncle REVIEW OF SYMPTOMS: negative except as noted above PHYSICAL EXAMINATION: General: The patient is 58 year old female, well nourished, well hydrated in no acute distress. Thepatient is oriented to time, place, and person. VITALS: Blood pressure 94/65, pulse 63, height 162.6 cm (5' 4), weight 59.9 kg (132 lb), last menstrual period 11/30/2006. Body mass index is 22.66 kg/m . HEENT: Normal cephalic, ataumatic, pupils are equally round, sclera are anicteric, mucous membranesare moist, oropharynx is clear. Neck has no masses, asymmetry or lymphadenopathy. Thyroid is unremarkable. Respiratory: Clear to auscultation and percussion. Normal respiratory excursion and pattern. Cardiac: Examination is regular rate and rhythm. Abdominal exam: Soft, nontender, with no palpable masses. No hepatosplenomegaly. No palpable hernias. Rectal exam: exam deferred Extremities: no clubbing, cyanosis or edema. No adenopathy. Other: LABORATORY VALUES: As Noted RADIOLOGIC STUDIES: As Noted Assessment IMPRESSION: Esophageal dysphagia (primary encounter diagnosis) PLAN: I plan to perform upper endoscopy. We discussed the risks and benefits of the planned endoscopy. I have informed the patient that complications can occur including failure to complete the endoscopy and perforation. The patient had the opportunity to ask questions concerning the planned endoscopy. My staff has also explained the procedure to the patient in understandable terms and has given the patient printed material concerning the procedure. The patient freely consents to surgery. Diagnoses: (R13.19) Esophageal dysphagia (primary encounter diagnosis) A letter was sent to Dr. Lala Zendejas MD, MD indicating the above finding for this patient. Return to Clinic: The patient is instructed to follow-up with me 1 week post operatively. Reginaldo España III, MD [facility] NoteHNO ID: [id number] Author: TRAN PORTER MD Service: ? Author Type: Physician Type: Progress Notes Filed: 11/23/2023 08:00 Note Text: Postoperative Follow Up Visit November 13, 2023 HPI: This is a post operative visit. This is a 58 yo female with PMH s/f: left sided adrenal adenoma, asthma, prediabetes, and COPD. Presents today s/p: Laparoscopic left adrenalectomy on 10/30/23. FINAL DIAGNOSIS A. Adrenal gland, left, adrenalectomy: - Compatible with adrenocortical adenoma, (see comment). No malignant features are identified. Postoperative course: patient had some hypotension and bradycardia inpatient and was seen by inpatient endocrinology. She was started on empiric steroids, but had to discontinue early in course due to reactive symptoms. BP wnl today. Denies dizziness/lightheadedness episodes. Feeling well, but having incisional pain/costal pain. She reports pain at surgical sites - states that this mostly started last week. She presented to OSH ER and underwent CT - was told everything looked okay, had some residual postoperative pneumoperitoneum. Tolerating diet and having bowel function. Also notes some numbness along left periumbilical hemiabdomen. PAST MEDICAL HISTORY Diagnosis Date Abnormal glandular Papanicolaou smear of cervix 05/04/2005 Abn. Pap smear (cervix) Adenoma of left adrenal gland Anesthesia complication hypotension Colon polyps COPD (chronic obstructive pulmonary disease) (HCC) Cystocele, midline HLD (hyperlipidemia) Other and unspecified hyperlipidemia 05/04/2006 not on medication Prediabetes Skin cancer Vaginal vault prolapse PAST SURGICAL HISTORY Procedure Laterality Date ABDOMINAL SURGERY HX APPENDECTOMY 11/2006 BREAST AUGMENTATION WITH IMPLANT Bilateral 2006 BREAST SURGERY HX COLONOSCOPY 10/06/2014 COLONOSCOPY FLX DX W/COLLJ SPEC WHEN PFRMD 03/07/2021 nl biopsies. repeat in 5 years per DP based on family history COLPOSCOPY CERVIX UPPER/ADJACENT VAGINA 2000 Colposcopy CONIZATION CERVIX W/WO DANDC RPR ELTRD EXC 1997 LEEP-Cervix DILATION AND CURETTAGE DXAND/THER NONOBSTETRIC 1989 Dilation AND curettage FOOT SURGERY HX Left 2018 FOOT SURGERY HX Left 2020 LAPAROSCOPIC COLPOPEXY 05/2023 lysis of adhesions LIG/TRNSXJ FLP TUBE ABDL/VAG APPR UNI/BI 1988 Tubal ligation PAST SURGICAL HISTORY OF 12/01/2006 [place] PAST SURGICAL HISTORY OF 2007 bladder repair mesh PAST SURGICAL HISTORY OF 2021 reconstruction right nasal defect with a modified rhomboid flap REMOVAL GALLBLADDER 2019 [facility] COSMETIC SURGERY 2022 skin cancer removed SKIN BIOPSY HX TONSILLECTOMY HX 1988 VAGINAL HYSTERECTOMY UTERUS 250 GM/< 02/01/2015 LSO [...] Uncle Diabetes Maternal Uncle Diabetes Maternal Uncle Social History Tobacco Use Smoking status: Every Day Packs/day: 0.50 Years: 18.00 Additional pack years: 0.00 Total pack years: 9.00 Types: Cigarettes Smokeless tobacco: Never Tobacco comments: Cut back to 1/2 to 1/4 packs per day Vaping Use Vaping Use: Never used Substance Use Topics Alcohol use: Yes Comment: rare occassion Drug use: No Current Outpatient Medications Medication Sig hydrocortisone (CORTEF) 10 mg tablet Take 20 mg (two tablets) BID for 2 days then reduce to 10 mg (one tablet) BID after that imiquimod (ALDARA) 5 % cream Apply to affected areas twice daily for 4 weeks ibuprofen (MOTRIN) 600 mg tablet Take 1 tablet by mouth every 6 hours as needed for pain. albuterol HFA (PROVENTIL HFA, VENTOLIN HFA) 90 mcg/actuation inhaler Inhale 2 Puffs as instructed every 4 hours as needed. estradiol (ESTRACE) 0.01 % (0.1 mg/gram) vaginal cream Use 1 g vaginally two times a week. Apply twice weekly to the vaginal opening. BIOTIN, BULK, MISC Take 1 tablet by mouth once daily. multivit with minerals/lutein (MULTIVITAMIN 50 PLUS ORAL) Take 1 tablet by mouth once daily. Ascorbic Acid (VITAMIN C) 1,000 mg tablet Take 1,000 mg by mouth once daily. metFORMIN (GLUCOPHAGE) 500 mg tablet Take 500 mg by mouth twice daily with meals. rosuvastatin calcium (CRESTOR ORAL) Take 5 mg by mouth daily at bedtime. Cholecalciferol, Vitamin D3, 2,000 unit cap EQL VITAMIN D3 2000 UNIT CAPS No current facility-administered medications for this visit. ALLERGIES Allergen Reactions Augmentin [Amoxicil* Swelling Allergy to potassium clavulanate Percocet [Oxycodone* Swelling, Itching Swells all over. REVIEW OF SYSTEMS: GENERAL: No weight l (more content not included)...[facility] 07-12-2024 History of Present illness Narrative* Tran Porter MD - 11/13/2023 10:24 AM EDT Postoperative Follow Up Visit November 13, 2023 HPI: This is a post operative visit. This is a 58 yo female with PMH s/f: left sided adrenal adenoma, asthma, prediabetes, and COPD. Presents today s/p: Laparoscopic left adrenalectomy on 10/30/23. FINAL DIAGNOSIS A. Adrenal gland, left, adrenalectomy: - Compatible with adrenocortical adenoma, (see comment). No malignant features are identified. Postoperative course: patient had some hypotension and bradycardia inpatient and was seen by inpatient endocrinology. She was started on empiric steroids, but had to discontinue early in course due to reactive symptoms. BP wnl today. Denies dizziness/lightheadedness episodes. Feeling well, but having incisional pain/costal pain. She reports pain at surgical sites - states that this mostly started last week. She presented to OSH ER and underwent CT - was told everything looked okay, had some residual postoperative pneumoperitoneum. Tolerating diet and having bowel function. Also notes some numbness along left periumbilical hemiabdomen. PAST MEDICAL HISTORY Diagnosis Date Abnormal glandular Papanicolaou smear of cervix 05/04/2005 Abn. Pap smear (cervix) Adenoma of left adrenal gland Anesthesia complication hypotension Colon polyps COPD (chronic obstructive pulmonary disease) (HCC) Cystocele, midline HLD (hyperlipidemia) Other and unspecified hyperlipidemia 05/04/2006 not on medication Prediabetes Skin cancer Vaginal vault prolapse PAST SURGICAL HISTORY Procedure Laterality Date ABDOMINAL SURGERY HX APPENDECTOMY 11/2006 BREAST AUGMENTATION WITH IMPLANT Bilateral 2006 BREAST SURGERY HX COLONOSCOPY 10/06/2014 COLONOSCOPY FLX DX W/COLLJ SPEC WHEN PFRMD 03/07/2021 nl biopsies. repeat in 5 years per DP based on family history COLPOSCOPY CERVIX UPPER/ADJACENT VAGINA 2000 Colposcopy CONIZATION CERVIX W/WO D&C RPR ELTRD EXC 1998 LEEP-Cervix DILATION & CURETTAGE DX&/THER NONOBSTETRIC 1989 Dilation & curettage FOOT SURGERY HX Left 2018 FOOT SURGERY HX Left 2020 LAPAROSCOPIC COLPOPEXY 05/2023 lysis of adhesions LIG/TRNSXJ FLP TUBE ABDL/VAG APPR UNI/BI 1988 Tubal ligation PAST SURGICAL HISTORY OF 12/01/2006 [place] PAST SURGICAL HISTORY OF 2007 bladder repair mesh PAST SURGICAL HISTORY OF 2021 reconstruction right nasal defect with a modified rhomboid flap REMOVAL GALLBLADDER 2019 [facility] COSMETIC SURGERY 2022 skin cancer removed SKIN BIOPSY HX TONSILLECTOMY HX 1988 VAGINAL HYSTERECTOMY UTERUS 250 GM/< 02/01/2015 LSO [...] Uncle Diabetes Maternal Uncle Diabetes Maternal Uncle Social History Tobacco Use Smoking status: Every Day Packs/day: 0.50 Years: 18.00 Additional pack years: 0.00 Total pack years: 9.00 Types: Cigarettes Smokeless tobacco: Never Tobacco comments: Cut back to 1/2 to 1/4 packs per day Vaping Use Vaping Use: Never used Substance Use Topics Alcohol use: Yes Comment: rare occassion Drug use: No Current Outpatient Medications Medication Sig hydrocortisone (CORTEF) 10 mg tablet Take 20 mg (two tablets) BID for 2 days then reduce to 10 mg (one tablet) BID after that imiquimod (ALDARA) 5 % cream Apply to affected areas twice daily for 4 weeks ibuprofen (MOTRIN) 600 mg tablet Take 1 tablet by mouth every 6 hours as needed for pain. albuterol HFA (PROVENTIL HFA, VENTOLIN HFA) 90 mcg/actuation inhaler Inhale 2 Puffs as instructed every 4 hours as needed. estradiol (ESTRACE) 0.01 % (0.1 mg/gram) vaginal cream Use 1 g vaginally two times a week. Apply twice weekly to the vaginal opening. BIOTIN, BULK, MISC Take 1 tablet by mouth once daily. multivit with minerals/lutein (MULTIVITAMIN 50 PLUS ORAL) Take 1 tablet by mouth once daily. Ascorbic Acid (VITAMIN C) 1,000 mg tablet Take 1,000 mg by mouth once daily. metFORMIN (GLUCOPHAGE) 500 mg tablet Take 500 mg by mouth twice daily with meals. rosuvastatin calcium (CRESTOR ORAL) Take 5 mg by mouth daily at bedtime. Cholecalciferol, Vitamin D3, 2,000 unit cap EQL VITAMIN D3 2000 UNIT CAPS No current facility-administered medications for this visit. ALLERGIES Allergen Reactions Augmentin [Amoxicil* Swelling Allergy to potassium clavulanate Percocet [Oxycodone* Swelling, Itching Swells all over. REVIEW OF SYSTEMS: GENERAL: No weight loss, malaise or fevers GI: Negative for nausea , vomiting, diarrhea, constipation, and signs of jaundice Positive for incisional pain PHYSICAL EXAM: BP 120/82 Pulse 87 Ht 5' 4 (1.63m) Wt 141 lb (64.0kg) LMP 11/30/2006 BMI 24.19 kg/(m^2). GENERAL APPEARANCE: Well appearing, alert, in no acute distress, well-hydrated, well nourished.. ABDOMEN: soft, ND, incisions c/d/I, no erythema/fluctuance/drainage NEURO: Alert, oriented x3, speech clear and articulate, and CARTER DATA: Diagnostic tests reviewed for today's visit: Pathology report reviewed ASSESSMENT / PLAN She is healing well - incisions c/d/I. Has had some incisional pain - states that this is most noticeable at night sometimes wakes her from sleep. Limited non-narcotic pain script sent to pharmacy and discussed with patient. Surgical pathology was reviewed with her again. Discussed expected postoperative course. She plans to follow up with her sales porter and will follow up with our office asneeded; however, she was encouraged to call with questions/concerns. Tran Porter MD documented in this [facility]07-12-2024 Instructions* Patient Instructions* Minnie Brice MA - 11/13/2023 10:19 AM EDT We sincerely appreciate the opportunity to participate in your care. If there are any opportunitiesfor us to improve your experience please let us know. Many patients receive surveys after their surgical care is completed with our office and we understand our patients have a choice in selecting their healthcare. Thank you for taking the time and effort to complete your survey (if you receive one.) All of us strive to ALWAYS provide the best care possible in ALL WAYS. Thank you! Tran Porter MD [facility] Telephone encounter Note * Telephone Encounter - Carolynn Fraga - 11/02/2023 2:42 PM EDT The patient called states her body is swelling up, she is light headed, and dizzy wanted to know ifthis was normal after Surgery. The patient just want to her PCP and her vitals were ok but her blood pressure is 108/72. Carolynn Fraga [facility]07-01-20[facility] Miscellaneous Notes* Telephone Encounter - Carolynn Fraga - 11/02/2023 2:42 PM EDT The patient called states her body is swelling up, she is light headed, and dizzy wanted to know ifthis was normal after Surgery. The patient just want to her PCP and her vitals were ok but her blood pressure is 108/72. Carolynn Fraga [facility] Telephone encounter Note * Telephone Encounter - Neri Baker MD - 11/01/2023 10:09 AM EDT Will start on hydrocortisone following hospital stay for adrenalectomy. The following prescription(s) have been transmitted electronically to the patient's pharmacy. Requested Prescriptions Signed Prescriptions Disp Refills hydrocortisone (CORTEF) 10 mg tablet 60 tablet 1 Sig: Take 20 mg (two tablets) BID for 2 days then reduce to 10 mg (one tablet) BID after that Authorizing Provider: NERI BAKER MD [facility]06-30-[facility] Miscellaneous Notes* Telephone Encounter - Neri Baker MD - 11/01/2023 10:09 AM EDT Will start on hydrocortisone following hospital stay for adrenalectomy. The following prescription(s) have been transmitted electronically to the patient's pharmacy. Requested Prescriptions Signed Prescriptions Disp Refills hydrocortisone (CORTEF) 10 mg tablet 60 tablet 1 Sig: Take 20 mg (two tablets) BID for 2 days then reduce to 10 mg (one tablet) BID after that Authorizing Provider: NERI BAKER MD documented in [facility]06-[facility]24 NoteHNO ID: [id number] Author: GAB CAIN MD Service: General Surgery Author Type: Resident Type: Progress Notes Filed: 11/01/2023 09:15 Note Text: Attestation signed by Jennifer Ludwig MD at 11/01/2023 12:53 PM Attending Note I evaluated the patient and personally participated in the harrington components. I agree with the resident's findings and plan with the following revisions and/or additions: Some hypotensive episodes however again pt completely asymptomatic Pain better controlled with toradol Labs wnl Discharge home today with endo recs of hydrocortisone Signature: Jennifer Ludwig MD Date: 11/01/2023 Time: 12:52 PM [facility] ([facility]) Progress Note SERVICE DATE: November 01, 2023 [facility] General [facility] ([facility]) Service Pager: For questions or concerns Mon-Thu 6a-5p please page [phone]. After 5pm and on Weekends and Holidays, please page [phone]. SUBJECTIVE: POD2 from L Lap adrenalectomy. Patent is ambulating independently. Reports doing well overall. Pain is better controlled with medication. Denies any nausea or vomiting. Tolerating a diet. Continues to have soft BP but no light headedness, dizziness, CP or SOB noted. OBJECTIVE: Vitals: Temp (24hrs), Av.4 ?C (97.6 ?F), Min:36.4 ?C (97.5 ?F), Max:36.6 ?C (97.8 ?F) BP 88/51 Pulse (!) 54 Temp 36.4 ?C (97.5 ?F) (Oral) Resp 16 Ht 162.6 cm (5' 4) Wt 64 kg (141 lb 1.5 oz) LMP 11/30/2006 SpO2 94% BMI 24.22 kg/m? O2 Therapy: Room Air IANDO: Date 10/31/23 07 - 11/01/23 0659 11/01/23 0700 - 11/02/23 0659 Shift 9200-9441 2047-2085 0069-9663 24 Hour Total 9792-8509 4767-1172 0295-3205 24 Hour Total INTAKE PO 977 543 5829 PO 528 566 9222 Shift Total 964 530 0473 OUTPUT Urine Urine Not Saved. 3 x 2 x 1 x 6 x Shift Total Weight (kg) 64.9 64.9 64 64 64 64 64 64 MEDICATIONS: Current Facility-Administered Medications Medication Dose Route Frequency keTORolac 15 mg injection (Toradol) 15 mg INTRAVENOUS q 6 H rosuvastatin 5 mg tab(s) (CRESTOR) 5 mg ORAL AT BEDTIME dextrose 15 gram/32 mL 15 g (TRUEPLUS) 15 g ORAL PRN Or glucagon 1 mg injection 1 mg INTRAMUSCULAR PRN Or dextrose 10% iv bolus 12.5 g INTRAVENOUS PRN insulin lispro injection (rapid acting) (ADMElog) SUBCUTANEOUS w MEALS albuterol HFA 90 mcg/actuation 2 Puff (PROVENTIL HFA, VENTOLIN HFA) 2 Puff INHALATION q 4 H PRN ondansetron 4 mg tab(s) (ZOFRAN) 4 mg ORAL q 6 H PRN Or ondansetron (PF) 4 mg injection (ZOFRAN) 4 mg INTRAVENOUS q 6 H PRN NaCl 0.9% iv flush bag 20 mL INTRAVENOUS PRN ipratropium-albuterol 3 mL nebulizer solution (DUONEB) 3 mL INHALATION q 6 H PRN traMADol 25-50 mg tab(s) (ULTRAM) 25-50 mg ORAL q 6 H PRN acetaminophen 1,000 mg tab(s) (TYLENOL) 1,000 mg ORAL q 6 H Labs: Recent Labs 11/01/23 0340 10/31/23 0225 NA 139 134* K 3.9 4.4 CHLOR 107 103 CO2 23 23 BUN 9 9 CREAT 0.73 0.66 GLUC 96 129* ANION 9 8 CA 8.3* 8.5 WBC 8.64 13.98* HB 11.6 12.5 HCT 35.1* 37.1 PLT 213 236 Physical Exam: GENERAL: resting comfortably, in no acute distress HEENT: normocephalic, atraumatic, EOMI NECK: trachea midline, no JVD LUNGS: Unlabored breathing, equal chest rise bilaterally CARDIAC: Regular rate, warm extremities, good perfusion throughout ABDOMEN: Soft, mild TTP surrounding incision, non distended, no rebound or guarding, incisions C/D/I with steri strip over top EXTREMITIES: CARTER, No deformities, No edema SKIN: Skin color, texture, turgor normal, No rashes or lesions NEURO: AANDOx3, CN II-XII grossly intact PSYCH: normal mood and affect ASSESSMENT AND PLAN: Assessment Active Hospital Problems Diagnosis Date Noted Adrenal adenoma, left 10/30/2023 Adrenal mass (HCC) 10/30/2023 Assessment: This is a 58 yo female with PMH s/f: left sided adrenal adenoma, asthma, prediabetes, and COPD. She was referred by her sales porter for surgical evaluation of enlarging left adrenal mass. Now S/P Lap L adrenalectomy. Hospital Course/Operations/Procedures: 10/30/2023 Procedure(s): LAPAROSCOPIC LEFT ADRENALECTOMY. Plan: - Regular diet - Pain and nausea control PRN - Daily labs - Patient remain bradycardic with HR of 54 and hypotensive at 88/51. Endocrinology consulted yesterday. Patient remains asymptomatic. Will reach out to endo this AM to discuss benefit of stress dose hydrocortisone 100 mg IV x1 and then 50 mg IV Q6h versus DC and follow up given no other abnormalities and patients has a history of lower BP readings. Discussed with attending: Dr. Porter Follow up needs: TBD SIGNATURE: Gab Cain MD PATIENT NAME: Jessy Salgado Spanish DATE: November 01, 2023 TIME: 9:06 AM Pager: see below [facility] General Surgery ([facility]) Service Pager: For questions or con (more content not included)...[facility] 10-31-2023 NoteHNO ID: [id number] Author: NERI BAKER MD Service: Endocrinology Author Type: Physician Type: Plan of Care Filed: 10/31/2023 15:25 Note Text: BRIEF ENDOCRINOLOGY CONSULT NOTE SERVICE DATE: 10/31/2023 SERVICE TIME: Jessy is a 58 year old female who presented with an enlarging left adrenal mass, s/p left adrenalectomy 10/30/23. Today has been hypotensive. I/We were consulted for evaluation of hypotension in this setting. Per the chart patient mentioned she has had post-op hypotension in the past Pre-op cortisol normal RECOMMENDATIONS/PLAN BP readings better this afternoon. I am physically not at the hospital until tomorrow AM. If BP stable surgery team may wish to let her go home this afternoon / evening. If further hypotension can message me or start on stress dose hydrocortisone 100 mg IV x1 and then 50 mg IV Q6h overnight SIGNATURE: Neri Baker MD PATIENT NAME: Jessy Alegre DATE: October 31, 2023 TIME: 3:12 [facility]06-29-2024 NoteHNO ID: [id number] Author: GAB CAIN MD Service: General Surgery Author Type: Resident Type: Progress Notes Filed: 10/31/2023 08:25 Note Text: Attestation signed by Jennifer Ludwig MD at 10/31/2023 1:48 PM Attending Note I evaluated the patient and personally participated in the harrington components. I agree with the resident's findings and plan with the following revisions and/or additions: Hypotension episodes however denies any dizziness or lightheaded Labs normal, not tachycardic Consult endocrinology regarding BP Add Toradol for pain control Signature: Jennifer Ludwig MD Date: 10/31/2023 Time: 1:36 PM Elective General Surgery (Green Surgery) Progress Note SERVICE DATE: October 31, 2023 Elective General Surgery (Green Surgery) Service Pager: For questions or concerns Mon-Thu 6a-5p please page [phone]. After 5pm and on Weekends and Holidays, please page [phone]. SUBJECTIVE: POD1 from L Lap adrenalectomy. Patent is ambulating independently. Reports doing well overall. Pain is better controlled with medication. Denies any nausea or vomiting. Reports feeling hungry. OBJECTIVE: Vitals: Temp (24hrs), Av.3 ?C (97.3 ?F), Min:36 ?C (96.8 ?F), Max:36.4 ?C (97.5 ?F) BP 88/50 Pulse (!) 49 Temp 36.3 ?C (97.4 ?F) (Oral) Resp 16 Ht 162.6 cm (5' 4) Wt 64.9 kg (143 lb) LMP 11/30/2006 SpO2 95% BMI 24.55 kg/m? O2 Therapy: Room Air IANDO: Date 10/30/23699 - 10/31/2365810/31/23699 - 11/01/23658 Shift 7070-5935 6766-9409 1041-1219 24 Hour Total 0247-1294 7650-6753 4317-3260 24 Hour Total INTAKE IV 2700 2700 Volume (mL) (lactated ringers iv infusion) 700 700 Volume (mL) (lactated ringers iv infusion) 1999 1999 Shift Total 2700 2700 OUTPUT Urine 75 867 113 0789 Void (ml) 578 691 1437 OR Urine Output 75 75 Blood 50 50 Estimated Blood loss 50 50 Shift Total 125 124 984 5531 Weight (kg) 64.9 64.9 64.9 64.9 64.9 64.9 64.9 MEDICATIONS: Current Facility-Administered Medications Medication Dose Route Frequency albuterol HFA 90 mcg/actuation 2 Puff (PROVENTIL HFA, VENTOLIN HFA) 2 Puff INHALATION q 4 H PRN ondansetron 4 mg tab(s) (ZOFRAN) 4 mg ORAL q 6 H PRN Or ondansetron (PF) 4 mg injection (ZOFRAN) 4 mg INTRAVENOUS q 6 H PRN NaCl 0.9% iv flush bag 20 mL INTRAVENOUS PRN ipratropium-albuterol 3 mL nebulizer solution (DUONEB) 3 mL INHALATION q 6 H PRN traMADol 25-50 mg tab(s) (ULTRAM) 25-50 mg ORAL q 6 H PRN acetaminophen 1,000 mg tab(s) (TYLENOL) 1,000 mg ORAL q 6 H Labs: Recent Labs 10/31/23 0225 NA 134* K 4.4 CHLOR 103 CO2 23 BUN 9 CREAT 0.66 GLUC 129* ANION 8 CA 8.5 WBC 13.98* HB 12.5 HCT 37.1 PLT 236 Physical Exam: GENERAL: resting comfortably, in no acute distress HEENT: normocephalic, atraumatic, EOMI NECK: trachea midline, no JVD LUNGS: Unlabored breathing, equal chest rise bilaterally CARDIAC: Regular rate, warm extremities, good perfusion throughout ABDOMEN: Soft, mild TTP surrounding incision, non distended, no rebound or guarding, incisions C/D/I EXTREMITIES: CARTER, No deformities, No edema SKIN: Skin color, texture, turgor normal, No rashes or lesions NEURO: AANDOx3, CN II-XII grossly intact PSYCH: normal mood and affect ASSESSMENT AND PLAN: Assessment Active Hospital Problems Diagnosis Date Noted Adrenal adenoma, left 10/30/2023 Adrenal mass (HCC) 10/30/2023 Assessment: This is a 58 yo female with PMH s/f: left sided adrenal adenoma, asthma, prediabetes, and COPD. She was referred by her sales porter for surgical evaluation of enlarging left adrenal mass. Now S/P Lap L adrenalectomy. Hospital Course/Operations/Procedures: 10/30/2023 Procedure(s): LAPAROSCOPIC LEFT ADRENALECTOMY. Plan: - Regular diet - Pain and nausea control PRN - Daily labs - Bradycardia overnight. EKG obtained without significant findings. Currently on telemetry. - Hypotension this AM - 88/50. Patient remains asymptomatic and tolerating a diet. HR 58. AM labs WNL. Troponin ordered and pending. Patient tends to run low, and reports lower BP readings after surgeries. Will reassess throughout day. If patient remains asymptomatic, can still plan on DC this evening. Discussed with attending: Dr. Porter Follow up needs: TBD SIGNATURE: Gab Cain MD PATIENT NAME: Jessy Alegre DATE: October 31, 2023 TIME: 8:19 AM Pager: see below Elective General Surgery (Green Surgery) Service Pager: For questions or concerns Mon-Fri 6a-5p please page [phone]. After 5pm and on Weekends and Holidays, please page [phone] if in ICU or [phone] if on RNF.[facility]06-28-2024 NoteHNO ID: [id number] Author: JAD PACHECO APRN.DATA WAREHOUSE ANALYST Service: Anesthesiology Author Type: Nurse Cash Sales Audit Clerk Type: Anesthesia Procedure Notes Filed: 10/30/2023 12:22 Note Text: ANESTHESIOLOGY PROCEDURE NOTE Gastric Tube General Information Procedure Start Time/Medication Administration: 10/30/2023 12:10 PM Procedure End Time: 10/30/2023 12:10 PM Patient location during procedure: OR Timeout Performed Pre-procedure: timeout performed Consent Obtained: Yes Patient identity confirmed: patient and arm band Indication: gastric decompression Staffing DATA WAREHOUSE ANALYST: Jad Pacheco APRN.DATA WAREHOUSE ANALYST Performed by: KALYN Procedure Details Type: Orogastric tube Cortrak monitor used: No Size: 18 Fr cm Distance Advanced: 40 cm Initial Auscultation Appears Confirmatory: Yes Successful Placement: yes Post-Procedure Details SIGNATURE: Jad Pacheco APRN.CRNA PATIENT NAME: Jessy Alegre DATE: October 30, 2023 TIME: 12:21 PM CSN: [id number] Desert Island [facility]06-28-[facility] NoteHNO ID: [id number] Author: JAD PACHECO APRN.CRNA Service: Anesthesiology Author Type: Nurse Cash Sales Audit Clerk Type: Anesthesia Procedure Notes Filed: 10/30/2023 12:31 Note Text: ANESTHESIOLOGY PROCEDURE NOTE PIV General Information Procedure Start Time/Medication Administration: 10/30/2023 12:12 PM Procedure End Time: 10/30/2023 12:13 PM Patient Location: OR Staffing DATA WAREHOUSE ANALYST: Jad Pacheco APRN.DATA WAREHOUSE ANALYST Performed by: KALYN Preparation Sterility Preparation: hand hygiene performed prior to procedure, sterile gloves, drapes, and procedure tray, gown used during line insertion, surgical cap used, mask used, sterile drape used during line insertion, skin prep agent completely dried prior to procedure Site Prep: Chloraprep Procedure Details Indication: need for IV access Needle Size/Type: 16 gauge angiocath Orientation: Right Location: Hand Imaging Guidance Used: No SIGNATURE: Jad Pacheco APRN.CRNA PATIENT NAME: Jessy Alegre DATE: October 30, 2023 TIME: 12:21 PM CSN: [id number] Desert Island Hospital06-28-2024 NoteHNO ID: [id number] Author: JAD PACHECO APRN.CRNA Service: Anesthesiology Author Type: Nurse Cash Sales Audit Clerk Type: Anesthesia Procedure Notes Filed: 10/30/2023 12:32 Note Text: ANESTHESIOLOGY PROCEDURE NOTE Airway General Information Procedure Start Time/Medication Administration: 10/30/2023 12:07 PM Procedure End Time: 10/30/2023 12:10 PM Patient location during procedure: OR Timeout Performed Pre-procedure: timeout performed Consent Obtained: Yes Patient identity confirmed: arm band and patient Staffing DATA WAREHOUSE ANALYST: Jad Pacheco APRN.DATA WAREHOUSE ANALYST Performed by: KALYN Indications and Patient Condition Indications for airway management: anesthesia Preoxygenated: yes anesthesia circuit Patient position: sniffing Method: asleep Difficult Mask: No Final Airway Details Final airway type: endotracheal airway Final Endotracheal Airway: ETT Cuffed: yes Successful intubation technique: direct laryngoscopy Devices used: intubating stylet Endotracheal tube insertion site: oral Blade: Agustín Blade size: #4 ETT size (mm): 7.5 Measured from: lips Measurement (cm): 21 Placement verified by: chest auscultation and capnometry Cormack-Lehane Classification: grade I - full view of glottis Number of attempts at approach: 1 Failed airway: no Unrecognized esophageal intubation: no Airway not difficult SIGNATURE: Jad Pacheco APRN.CRNA PATIENT NAME: Jessy Alegre DATE: October 30, 2023 TIME: 12:20 PM CSN: [id number] Desert Island Hospital06-28-2024 NoteHNO ID: [id number] Author: YUSEF NGO MD Service: Anesthesiology Author Type: Anesthesiologist Type: Anesthesia Procedure Notes Filed: 10/30/2023 12:00 Note Text: ANESTHESIOLOGY PROCEDURE NOTE A-Line General Information Procedure Start Time/Medication Administration: 10/30/2023 11:44 AM Procedure End Time: 10/30/2023 11:49 AM Patient location during procedure: OR Timeout Performed Pre-procedure: timeout performed Indications: continuous blood pressure monitoring Staffing Anesthesiologist: Yusef Ngo MD Performed by: anesthesiologist Preparation Sterility Preparation: hand hygiene performed prior to procedure, surgical cap used, mask used, skin prep agent completely dried prior to procedure Site Prep: alcohol Procedure Details Catheter Type: arterial line Catheter Size: 20 G Catheter Length: 1.25 in Micropuncture Kit Used: No Guidewire Used: No Laterality: left Site: radial artery Ultrasound Guided: Yes Image in Chart: No Sites: potential access sites evaluated, selected vessel patent, concurrent real time ultrasound visualization of vascular needle entry Vessel: target vessel identified Line Secured: Tegaderm and tape Events Events: patient tolerated procedure well with no complications SIGNATURE: Yusef Ngo MD PATIENT NAME: Jessy Alegre DATE: October 30, 2023 TIME: 11:59 AM CSN: [id number] Desert Island Hospital06-21-2024 Instructions * Patient Instructions* Gina Mcgill APRN.RADIO OPERATOR GROUND - 10/23/2023 10:14 AM EDT PATIENT PREOPERATIVE INSTRUCTIONS Tran Porter MD has scheduled you for your procedure at this surgery center: [facility]: [phone], [address] [phone] Please read below carefully for your personalized instructions. Date of Surgery:10/30/2023 Arrival Time for Surgery: Your surgeon's office will provide you with your arrival time for surgery if they have not done so already. If you do not have your arrival time for surgery by the afternoon the day before your surgery you can call the surgeon's office. If you are scheduled for a Thursday surgery you can call the Thursday before. -Please be aware that emergency situations arise, which may delay or change your surgical time. If this happens, your surgeon's office will notify you as soon as possible and regret any inconvenience. Dietary Restrictions: - No solid food after midnight. - Between midnight and four hours prior to your surgery time, you may have 12 ounces of clear liquids (water, apple juice, carbonated beverages, Gatorade, black coffee or tea) unless your surgeon specifies otherwise Medications: Pre-Surgery Med Instructions Medication Instructions ibuprofen (MOTRIN) 600 mg tablet Stop 7 days before surgery albuterol HFA (PROVENTIL HFA, VENTOLIN HFA) 90 mcg/actuation inhaler Use as needed and bring day ofsurgery estradiol (ESTRACE) 0.01 % (0.1 mg/gram) vaginal cream Continue until night before surgery BIOTIN, BULK, MISC Stop 7 days before surgery multivit with minerals/lutein (MULTIVITAMIN 50 PLUS ORAL) Stop 7 days before surgery Ascorbic Acid (VITAMIN C) 1,000 mg tablet Continue until night before surgery metFORMIN (GLUCOPHAGE) 500 mg tablet Continue until night before surgery rosuvastatin calcium (CRESTOR ORAL) Continue until night before surgery Cholecalciferol, Vitamin D3, 2,000 unit cap Continue until night before surgery Blood pressure medications See med list for instructions Take beta samantha day of surgery Do not take GOMEZ or ARB medications day of surgery Weight loss medications Sympathomimetics such as Adipex-P (Phentermine): Stop 4 days before surgery. Contrave (Naltrexone/Bupropion) Hold 2-3 days. Qsymia (Phentermine/Topiramate - Please contact your prescribing provider for Pre op directions. ( depending on the patients dose this medication may need tapered off. They should get pre op directions from their prescribing provider.) GLP-1 Agonists (oral and injectables) Hold 7 days. Blood Thinning Medications: - Stop NSAIDS (Ibuprofen, Advil, Aleve, Motrin, Celebrex, Mobic, etc.) 7 days before surgery, as directed by your surgeon. - You may take Tylenol (Acetaminophen) or any of your current prescribed pain medications that do not contain aspirin or NSAIDS as needed. - If you take any of the following blood thinners, please contact your surgeon and the physician who prescribes it for you in order to get perioperative instructions as soon as possible Blood thinners: Aspirin,Coumadin, Plavix, Eliquis, Pradaxa, Xarelto, Lovenox, Brilinta, Effient, Savaysa, etc. Supplements - Stop Vitamin E, fish oil, Ginko, Sherine's Wort, flax seed oil, multivitamins, CBD oil, marijuana and other over the counter herbals and dietary supplements 7 days before surgery. This would not apply to cancer patients who are prescribed Marinol or any other prescription form of marijuana or CBD. If you are taking Phentermine please hold 4 days prior to surgery. Diabetes Medications Do not take the morning of surgery; Trajenta, Metformin, Actos/Pioglitazone and Amaryl/Glimepiride. For the following Medications, please HOLD 2 DAYS PRIOR TO SURGERY: Glucotrol/Glipizide, Januvia/Sitagliptin, Glyburide, Prandin/Repaglinide, Starlix/Nateglinide, Symlin/Pramlintide, For the following Medications, please HOLD 3 DAYS PRIOR TO SURGERY: Canagliflozin/Invokana, Dapagliflozin/Farxiga ,Empagliflozin/Jardiance, Invokamet/canagliflozin and metformin, Xigduo XR/ dapagliglozin and metformin, Glyxambi/ empagliflozin and metformin, Syndardy/ empagliflozin and metformin For the following Medications, please HOLD 4 DAYS PRIOR TO SURGERY: Ertugliflozin/Steglatro For the following Medications, please HOLD 7 DAYS PRIOR TO SURGERY: GLP-1 AGONIST: Adlyxin (lixisenatide), Bydureon BCise (exenatide suspension), Byetta (exenatide), Mounjaro (tirzepatide), Ozempic (semaglutide injection), Rybelsus (semaglutide tablets), Tanzeum (albiglutide), Trulicity (dulaglutide), Victoza (liraglutide), Wegovy (semaglutide), Saxenda (liraglutide) Insulin Medication Instructions: Please follow up with the provider that manages your Insulin and how to prepare you for surgery. Pain medications Approved pain medications can be taken the morning of surgery with a sip of water. If you start any new medications after today's visit, please contact the surgeon's office. Important Reminders: - If you use CPAP/BIPAP, bring the machine with you to the hospital if you are scheduled to stay over night. - If you are prescribed inhalers for breathing, continue using them AND bring them to the surgery center. - Candy, mints, gum and tobacco products are NOT permitted the morning of surgery. - Hearing aids, dentures and glasses may be worn the morning of surgery. - NO jewelry, body piercings, makeup, hairpins or contacts are to be worn the day of surgery. - NO lotion, creams, powders or deodorants on the skin the day of surgery - You will need to have someone else (Family or friend) drive you home once discharged from the hospital. You cannot take a cab or Uber. You are not allowed to drive yourself home after surgery. -You will need an adult(over the age of 18) to stay with you for the first 24 hours post surgery oryour surgery may be cancelled. Please speak with your surgeon if this is an issue. Surgical scrub given day of PST. If you develop symptoms such as a fever, cold, or flu, or have other changes to your health within TWO DAYS of scheduled surgery or the morning of surgery, please contact the surgery center above. Personal Belongings: - Leave ALL valuables and money at home or with family members. - You will need a form of ID and insurance card to check in the morning of surgery. - You will have to wear a hospital gown during your stay but if you wish to bring undergarments forafter surgery you may. -If you do not have a copy of advance directives on file with us, please bring a copy with you on the day of surgery. If you already have an Advance Directive, please fax a copy to [phone] or email to for it to be added to your chart. If you do not have an Advance Directive, you can find the appropriate form and more information at [email or web address]. We recommend that youcomplete the Advance Directive form found on the website and bring it with you the day of your surgery. It can be witnessed and scanned into your chart that day. Please note-you should have a 72-hour period between getting your vaccine and date of surgery - If you have a stimulator, implant or pump that requires a remote please bring the remote with youday of surgery Gina Mcgill APRN.RADIO OPERATOR GROUND [facility] History and physical note * Gina Mcgill APRN.MARVIN - 10/23/2023 10:00 AM EDT HISTORY AND PHYSICAL EXAMINATION SERVICE DATE: 10/22/2023 SERVICE TIME: 10:22 AM PRIMARY CARE PHYSICIAN: Lala Zendejas MD, MD Implantable Devices: mesh for bladder repair Patient denies blood thinners The Following Tests/Procedures Have Been Initiated: No labs ordered per surgeon in [facility] Assessment/Plan Diagnosis: Adrenal mass (HCC) [E27.8] PLAN Planned Procedure: Procedure(s): LAPAROSCOPIC LEFT ADRENALECTOMY. (Left) I spent a total of 40 minutes on the date of the service which included preparing to see the patient, ijcl-[id number] patient care, completing clinical documentation, obtaining and/or reviewing separately obtained history, performing a medically appropriate examination, and counseling and educating the patient/family/caregiver. Assessment Patient has the following medical conditions which may affect david-operative course: Chronic obstructive pulmonary disease (HCC) Albuterol as needed -rarely using. Denies hospitalization or ED visit in last year due to breathing issues. Preop examination see note for medical conditions which may affect david-operative course that were addressed at today's visit. Hyperlipidemia, unspecified Statin Instructed to continue Migraine headache 3 times yearly Without aura Controlled with Excedrin migraine Nicotine dependence, uncomplicated 9 pack years Currently smoking 1/2 ppd Encouraged to cut back prior to surgery and avoid morning of surgery Prediabetes Metformin- Instructed to hold DOS Unsure of last A1C -done 2 weeks ago per PCP and told good Does not check sugars at home Poison cordelia Patient has poison cordelia clarita to RUE, right chest and posterior neck. Instructed to call surgeon office if worsening or not improved closer to surgery. [place] Activity Status Index: METS: Participate in strenuous sport, such as swimming, singles tennis, football, basketball, or skiing (7.50 METs) DASI Score: 7.5 Patient denies any chest pain or undue shortness of breath with the above physical activity. ARISCAT Score: Age: 51-80 Preoperative SpO2: >=96% Respiratory infection in the last month: No Preoperative anemia: No Surgical incision: upper abdominal Duration of surgery: >3 hrs Emergency procedure: No ARISCAT Score: 41 ANESTHESIA FINDINGS: Intubation History: No history of difficult intubation Significant Anesthesia Considerations: blood pressure drops after anesthesia potential slow emergence Airway History: No history of difficult airway I - PHYSICAL EVALUATION AIRWAY Patient intubated: No. DENTAL Dental findings: teeth intact. II - ANESTHESIA PLAN Anesthetic Plan: general Beta Samantha Monitoring Plan Post Procedure Analgesic Plan Prepared for Surgery: CONSULTS: The following consults have been initiated at this time: primary care/internal medicine (in [facility]). Planned Anesthetic: general The Following Tests/Procedures Have Been Initiated: No orders of the defined types were placed in this encounter. REASON FOR VISIT: Jessy Alegre is a 58 year old female who is scheduled for at the request of Dr. Tran Porter for. My final recommendation will be communicated back to the requesting physicianby way of shared medical record or letter. Subjective The patient has the following: ACTIVE PROBLEM LIST Umbilical Hernia Without Mention of Obstruction Or Gangrene Llq Pain Overactive Bladder Pelvic Congestion Syndrome Vaginal Vault Prolapse Preop Examination Chronic Obstructive Pulmonary Disease (Hcc) Nicotine Dependence, Uncomplicated Hyperlipidemia, Unspecified Palpitations Prediabetes Migraine Headache Poison Cordelia COVID-19 Immunization Status Overdue - Covid-19 Vaccine ( season) Overdue since 01/02/2023 02/04/2021 Imm Admin: COVID-19 original vaccine, age 12+ yr, monovalent (PFIZER- BIONTECH - PURPLE TOP) 01/14/2021 Imm Admin: COVID-19 original vaccine, age 12+ yr, monovalent (PFIZER- BIONTECH - PURPLE [facility]) CHIEF COMPLAINT: The reason for this visit is to perform a comprehensive review of the patient's past medical history, assess their current health status and obtain any additional testing required based on anesthesia guidelines. We will also identify any potential anesthesia problems or contraindications to the planned procedure. HPI: Patient is a 58 year old female who presents for pre surgical testing. She has h/o a left adrenal mass which has been growing in size over the last year. She denies any symptoms. Follows with endocrine. After discussion with the surgeon patient agrees to surgical intervention. REVIEW OF SYSTEMS: General: Negative for: unintentional weight change, malaise and fever. Neurological: Positive for: headaches. Negative for: seizures and strokes. Respiratory: Positive for: COPD. Negative for: asthma, pneumonia within 6 weeks, URI < 2 weeks and obstructive sleep apnea. Cardiovascular: Positive for: hyperlipidemia Negative for: atrial fibrillation, CAD, chest pain, CHF, DVT/PE and hypertension. GI: Negative for: abdominal pain, GERD, nausea and vomiting. : Negative for: dysuria, hematuria and renal failure. CUSTOMER SUPPORT COORDINATOR: Negative for: vaginal bleeding. Endocrine: + pre diabetes Negative for: diabetes mellitus, hyperthyroidism and hypothyroidism. Hematology: Negative for: anemia, factor V Leiden and von Willebrand disease. Oncology: No history of CA metastasis, chemo within 30 days, or radiotherapy within 90 days. No history of oncological symptoms or problems. Psych: Negative for: anxiety and depression. Musculoskeletal: Negative for: back pain and joint pain. Skin: Negative for lesions, rash and itching. Positive for: rash (has poison cordelia rash to back of neck, right upper arm and right chest.). PAST MEDICAL HISTORY Diagnosis Date Abnormal glandular Papanicolaou smear of cervix 05/04/2005 Abn. Pap smear (cervix) Adenoma of left adrenal gland Anesthesia complication hypotension Colon polyps COPD (chronic obstructive pulmonary disease) (HCC) Cystocele, midline HLD (hyperlipidemia) Other and unspecified hyperlipidemia 05/04/2006 not on medication Prediabetes Skin cancer Vaginal vault prolapse PAST SURGICAL HISTORY Procedure Laterality Date ABDOMINAL SURGERY HX APPENDECTOMY 11/2006 BREAST AUGMENTATION WITH IMPLANT Bilateral 2007 BREAST SURGERY HX COLONOSCOPY 10/06/2014 COLONOSCOPY FLX DX W/COLLJ SPEC WHEN PFRMD 03/07/2021 nl biopsies. repeat in 5 years per DP based on family history COLPOSCOPY CERVIX UPPER/ADJACENT VAGINA 2000 Colposcopy CONIZATION CERVIX W/WO D&C RPR ELTRD EXC 1997 LEEP-Cervix DILATION & CURETTAGE DX&/THER NONOBSTETRIC 1989 Dilation & curettage FOOT SURGERY HX Left 2018 FOOT SURGERY HX Left 2019 LAPAROSCOPIC COLPOPEXY 05/2023 lysis of adhesions LIG/TRNSXJ FLP TUBE ABDL/VAG APPR UNI/BI 1988 Tubal ligation PAST SURGICAL HISTORY OF 12/01/2006 Novasure PAST SURGICAL HISTORY OF 2007 bladder repair mesh PAST SURGICAL HISTORY OF 2021 reconstruction right nasal defect with a modified rhomboid flap REMOVAL GALLBLADDER 2019 [facility] 2022 skin cancer removed SKIN BIOPSY HX TONSILLECTOMY HX 1988 VAGINAL HYSTERECTOMY UTERUS 250 GM/< 02/01/2015 LSO [...] Uncle Diabetes Maternal Uncle Diabetes Maternal Uncle Social History Tobacco Use Smoking status: Every Day Packs/day: 0.50 Years: 18.00 Additional pack years: 0.00 Total pack years: 9.00 Types: Cigarettes Smokeless tobacco: Never Tobacco comments: Cut back to 1/2 to 1/4 packs per day Vaping Use Vaping Use: Never used Substance Use Topics Alcohol use: Yes Comment: rare occassion Drug use: No Prior to Admission medications as of 10/23/23 0957 Medication Sig Last Dose Taking ibuprofen (MOTRIN) 600 mg tablet Take 1 tablet by mouth every 6 hours as needed for pain. Taking Yes albuterol HFA (PROVENTIL HFA, VENTOLIN HFA) 90 mcg/actuation inhaler Inhale 2 Puffs as instructed every 4 hours as needed. Taking Yes estradiol (ESTRACE) 0.01 % (0.1 mg/gram) vaginal cream Use 1 g vaginally two times a week. Apply twice weekly to the vaginal opening. Taking Yes BIOTIN, BULK, MISC Take 1 tablet by mouth once daily. Taking Yes multivit with minerals/lutein (MULTIVITAMIN 50 PLUS ORAL) Take 1 tablet by mouth once daily. TakingYes Ascorbic Acid (VITAMIN C) 1,000 mg tablet Take 1,000 mg by mouth once daily. Taking Yes metFORMIN (GLUCOPHAGE) 500 mg tablet Take 500 mg by mouth twice daily with meals. Taking Yes rosuvastatin calcium (CRESTOR ORAL) Take 5 mg by mouth daily at bedtime. Taking Yes Cholecalciferol, Vitamin D3, 2,000 unit cap EQL VITAMIN D3 2000 UNIT CAPS Taking Yes imiquimod (ALDARA) 5 % cream Apply to affected areas twice daily for 4 weeks No medication comments found. ALLERGIES Allergen Reactions Augmentin [Amoxicil* Swelling Allergy to potassium clavulanate Percocet [Oxycodone* Swelling, Itching Swells all over. Objective PHYSICAL EXAM: General: alert and oriented and healthy appearance. Pertinent negatives noted - not distressed. Skin: Rash to RUE, posterior neck and right chest. . HEENT: pupils equal round. Cardiovascular: regular rate and rhythm, normal S1 and S2, no rub, murmurs, or gallop. Pulse characterized as regular. Respiratory: normal breath sounds, no wheezes or crackles. No chest wall deformity or tenderness. Abdomen: bowel sounds present. Extremities: no deformity, no edema or tenderness, no joint swelling or clubbing. Neurological: normal cognition and motor skills. Gait normal. No weakness or sensory deficit. PAIN ASSESSMENT: VITALS: BP 94/63 Pulse 66 Temp 97.9 Resp 16 Ht 5' 4 (1.63m) Wt 142 lb (64.4kg) SpO2 97% LMP 11/30/2006 BMI 24.36 kg/(m^2). Diagnostic tests reviewed for today's visit: Lab Value Units Date High Low HB No results within date range. HCT No results within date range. WBC No results within date range. PLT No results within date range. NA No results within date range. K No results within date range. GLUC No results within date range. BUN No results within date range. CREAT No results within date range. PTSEC No results within date range. INR No results within date range. APTT No results within date range. ALT No results within date range. AST No results within date range. TBILI No results within date range. TSH No results within date range. Lab Value Units Date High Low HCGQT No results within date range. UHCG No results within date range. HCG, BODY* No results within date range. Lab Value Units Date High Low ABORHD No results within date range. ABSCREEN No results within date range. No results found for: HBA1C No results found for this or any previous visit (from the past 8760 hour(s)). No results found for this or any previous visit (from the past 84256 hour(s)). Instructions Given to Patient: Instructions located in the after visit summary. Patient given verbal and written preop instructions and voices comprehension and compliance. SIGNATURE: Gina Mcgill APRN.MARVIN PATIENT NAME: Jessy Alegre DATE: October 22, 2023 TIME: 12:03 PM PAGER/CONTACT #: [facility]06-21-2024 History and physical note* Gina Mcgill APRN.CNP - 10/23/2023 10:00 AM EDT HISTORY AND PHYSICAL EXAMINATION SERVICE DATE: 10/22/2023 SERVICE TIME: 10:22 AM PRIMARY CARE PHYSICIAN: Lala Zendejas MD, MD Implantable Devices: mesh for bladder repair Patient denies blood thinners The Following Tests/Procedures Have Been Initiated: No labs ordered per surgeon in [facility] Assessment/Plan Diagnosis: Adrenal mass (HCC) [E27.8] PLAN Planned Procedure: Procedure(s): LAPAROSCOPIC LEFT ADRENALECTOMY. (Left) I spent a total of 40 minutes on the date of the service which included preparing to see the patient, [id number] patient care, completing clinical documentation, obtaining and/or reviewing separately obtained history, performing a medically appropriate examination, and counseling and educating the patient/family/caregiver. Assessment Patient has the following medical conditions which may affect david-operative course: Chronic obstructive pulmonary disease (HCC) Albuterol as needed -rarely using. Denies hospitalization or ED visit in last year due to breathing issues. Preop examination see note for medical conditions which may affect david-operative course that were addressed at today's visit. Hyperlipidemia, unspecified Statin Instructed to continue Migraine headache 3 times yearly Without aura Controlled with Excedrin migraine Nicotine dependence, uncomplicated 9 pack years Currently smoking 1/2 ppd Encouraged to cut back prior to surgery and avoid morning of surgery Prediabetes Metformin- Instructed to hold DOS Unsure of last A1C -done 2 weeks ago per PCP and told good Does not check sugars at home Poison cordelia Patient has poison cordelia clarita to RUE, right chest and posterior neck. Instructed to call surgeon office if worsening or not improved closer to surgery. [place] Activity Status Index: METS: Participate in strenuous sport, such as swimming, singles tennis, football, basketball, or skiing (7.50 METs) DASI Score: 7.5 Patient denies any chest pain or undue shortness of breath with the above physical activity. ARISCAT Score: Age: 51-80 Preoperative SpO2: >=96% Respiratory infection in the last month: No Preoperative anemia: No Surgical incision: upper abdominal Duration of surgery: >3 hrs Emergency procedure: No ARISCAT Score: 41 ANESTHESIA FINDINGS: Intubation History: No history of difficult intubation Significant Anesthesia Considerations: blood pressure drops after anesthesia potential slow emergence Airway History: No history of difficult airway I - PHYSICAL EVALUATION AIRWAY Patient intubated: No. DENTAL Dental findings: teeth intact. II - ANESTHESIA PLAN Anesthetic Plan: general Beta Samantha Monitoring Plan Post Procedure Analgesic Plan Prepared for Surgery: CONSULTS: The following consults have been initiated at this time: primary care/internal medicine (in [facility]). Planned Anesthetic: general The Following Tests/Procedures Have Been Initiated: No orders of the defined types were placed in this encounter. REASON FOR VISIT: Jessy Alegre is a 58 year old female who is scheduled for at the request of Dr. Tran Porter for. My final recommendation will be communicated back to the requesting physicianby way of shared medical record or letter. Subjective The patient has the following: ACTIVE PROBLEM LIST Umbilical Hernia Without Mention of Obstruction Or Gangrene Llq Pain Overactive Bladder Pelvic Congestion Syndrome Vaginal Vault Prolapse Preop Examination Chronic Obstructive Pulmonary Disease (Hcc) Nicotine Dependence, Uncomplicated Hyperlipidemia, Unspecified Palpitations Prediabetes Migraine Headache Poison Cordelia COVID-19 Immunization Status Overdue - Covid-19 Vaccine ( season) Overdue since 01/02/2023 02/04/2021 Imm Admin: COVID-19 original vaccine, age 12+ yr, monovalent (PFIZER- BIONTECH - PURPLE TOP) 01/14/2021 Imm Admin: COVID-19 original vaccine, age 12+ yr, monovalent (PFIZER- BIONTECH - PURPLE TOP) CHIEF COMPLAINT: The reason for this visit is to perform a comprehensive review of the patient's past medical history, assess their current health status and obtain any additional testing required based on anesthesia guidelines. We will also identify any potential anesthesia problems or contraindications to the planned procedure. HPI: Patient is a 58 year old female who presents for pre surgical testing. She has h/o a left adrenal mass which has been growing in size over the last year. She denies any symptoms. Follows with endocrine. After discussion with the surgeon patient agrees to surgical intervention. REVIEW OF SYSTEMS: General: Negative for: unintentional weight change, malaise and fever. Neurological: Positive for: headaches. Negative for: seizures and strokes. Respiratory: Positive for: COPD. Negative for: asthma, pneumonia within 6 weeks, URI < 2 weeks and obstructive sleep apnea. Cardiovascular: Positive for: hyperlipidemia Negative for: atrial fibrillation, CAD, chest pain, CHF, DVT/PE and hypertension. GI: Negative for: abdominal pain, GERD, nausea and vomiting. : Negative for: dysuria, hematuria and renal failure. CUSTOMER SUPPORT COORDINATOR: Negative for: vaginal bleeding. Endocrine: + pre diabetes Negative for: diabetes mellitus, hyperthyroidism and hypothyroidism. Hematology: Negative for: anemia, factor V Leiden and von Willebrand disease. Oncology: No history of CA metastasis, chemo within 30 days, or radiotherapy within 90 days. No history of oncological symptoms or problems. Psych: Negative for: anxiety and depression. Musculoskeletal: Negative for: back pain and joint pain. Skin: Negative for lesions, rash and itching. Positive for: rash (has poison cordelia rash to back of neck, right upper arm and right chest.). PAST MEDICAL HISTORY Diagnosis Date Abnormal glandular Papanicolaou smear of cervix 05/04/2005 Abn. Pap smear (cervix) Adenoma of left adrenal gland Anesthesia complication hypotension Colon polyps COPD (chronic obstructive pulmonary disease) (HCC) Cystocele, midline HLD (hyperlipidemia) Other and unspecified hyperlipidemia 05/04/2006 not on medication Prediabetes Skin cancer Vaginal vault prolapse PAST SURGICAL HISTORY Procedure Laterality Date ABDOMINAL SURGERY HX APPENDECTOMY 11/2006 BREAST AUGMENTATION WITH IMPLANT Bilateral 2007 BREAST SURGERY HX COLONOSCOPY 10/06/2014 COLONOSCOPY FLX DX W/COLLJ SPEC WHEN PFRMD 03/07/2021 nl biopsies. repeat in 5 years per DP based on family history COLPOSCOPY CERVIX UPPER/ADJACENT VAGINA 2000 Colposcopy CONIZATION CERVIX W/WO D&C RPR ELTRD EXC 1997 LEEP-Cervix DILATION & CURETTAGE DX&/THER NONOBSTETRIC 1989 Dilation & curettage FOOT SURGERY HX Left 2018 FOOT SURGERY HX Left 2020 LAPAROSCOPIC COLPOPEXY 05/2023 lysis of adhesions LIG/TRNSXJ FLP TUBE ABDL/VAG APPR UNI/BI 1988 Tubal ligation PAST SURGICAL HISTORY OF 12/01/2006 Novasure PAST SURGICAL HISTORY OF 2007 bladder repair mesh PAST SURGICAL HISTORY OF 2021 reconstruction right nasal defect with a modified rhomboid flap REMOVAL GALLBLADDER 2019 [facility] 2022 skin cancer removed SKIN BIOPSY HX TONSILLECTOMY HX 1988 VAGINAL HYSTERECTOMY UTERUS 250 GM/< 02/01/2015 LSO [...] Uncle Diabetes Maternal Uncle Diabetes Maternal Uncle Social History Tobacco Use Smoking status: Every Day Packs/day: 0.50 Years: 18.00 Additional pack years: 0.00 Total pack years: 9.00 Types: Cigarettes Smokeless tobacco: Never Tobacco comments: Cut back to 1/2 to 1/4 packs per day Vaping Use Vaping Use: Never used Substance Use Topics Alcohol use: Yes Comment: rare occassion Drug use: No Prior to Admission medications as of 10/23/23 0903 Medication Sig Last Dose Taking ibuprofen (MOTRIN) 600 mg tablet Take 1 tablet by mouth every 6 hours as needed for pain. Taking Yes albuterol HFA (PROVENTIL HFA, VENTOLIN HFA) 90 mcg/actuation inhaler Inhale 2 Puffs as instructed every 4 hours as needed. Taking Yes estradiol (ESTRACE) 0.01 % (0.1 mg/gram) vaginal cream Use 1 g vaginally two times a week. Apply twice weekly to the vaginal opening. Taking Yes BIOTIN, BULK, MISC Take 1 tablet by mouth once daily. Taking Yes multivit with minerals/lutein (MULTIVITAMIN 50 PLUS ORAL) Take 1 tablet by mouth once daily. TakingYes Ascorbic Acid (VITAMIN C) 1,000 mg tablet Take 1,000 mg by mouth once daily. Taking Yes metFORMIN (GLUCOPHAGE) 500 mg tablet Take 500 mg by mouth twice daily with meals. Taking Yes rosuvastatin calcium (CRESTOR ORAL) Take 5 mg by mouth daily at bedtime. Taking Yes Cholecalciferol, Vitamin D3, 2,000 unit cap EQL VITAMIN D3 2000 UNIT CAPS Taking Yes imiquimod (ALDARA) 5 % cream Apply to affected areas twice daily for 4 weeks No medication comments found. ALLERGIES Allergen Reactions Augmentin [Amoxicil* Swelling Allergy to potassium clavulanate Percocet [Oxycodone* Swelling, Itching Swells all over. Objective PHYSICAL EXAM: General: alert and oriented and healthy appearance. Pertinent negatives noted - not distressed. Skin: Rash to RUE, posterior neck and right chest. . HEENT: pupils equal round. Cardiovascular: regular rate and rhythm, normal S1 and S2, no rub, murmurs, or gallop. Pulse characterized as regular. Respiratory: normal breath sounds, no wheezes or crackles. No chest wall deformity or tenderness. Abdomen: bowel sounds present. Extremities: no deformity, no edema or tenderness, no joint swelling or clubbing. Neurological: normal cognition and motor skills. Gait normal. No weakness or sensory deficit. PAIN ASSESSMENT: VITALS: BP 94/63 Pulse 66 Temp 97.9 Resp 16 Ht 5' 4 (1.63m) Wt 142 lb (64.4kg) SpO2 97% LMP 11/30/2006 BMI 24.36 kg/(m^2). Diagnostic tests reviewed for today's visit: Lab Value Units Date High Low HB No results within date range. HCT No results within date range. WBC No results within date range. PLT No results within date range. NA No results within date range. K No results within date range. GLUC No results within date range. BUN No results within date range. CREAT No results within date range. PTSEC No results within date range. INR No results within date range. APTT No results within date range. ALT No results within date range. AST No results within date range. TBILI No results within date range. TSH No results within date range. Lab Value Units Date High Low HCGQT No results within date range. UHCG No results within date range. HCG, BODY* No results within date range. Lab Value Units Date High Low ABORHD No results within date range. ABSCREEN No results within date range. No results found for: HBA1C No results found for this or any previous visit (from the past 8760 hour(s)). No results found for this or any previous visit (from the past 33735 hour(s)). Instructions Given to Patient: Instructions located in the after visit summary. Patient given verbal and written preop instructions and voices comprehension and compliance. SIGNATURE: Gina Mcgill APRN.CNP PATIENT NAME: Jessy Alegre DATE: October 22, 2023 TIME: 12:03 PM PAGER/CONTACT #: [facility] History of Present illness Narrative* Cecy Braxton MD - 09/30/2023 10:30 AM EDT Female Pelvic Medicine & Reconstructive Surgery Post-Op Visit Jessy Alegre is a 58 year old year old female who presents for a 4 Month post-op check s/p SURGERY/PROCEDURE(S): Laparoscopic Sacrocolpopexy with mesh Cystoscopy Lysis of adhesions Urethral dilation . Post-op complications: yes Pt still having leaking. Has difficulty reaching the restroom in time ather home. It is not as much as prior to surgery. Bleeding: no Pain: no If you had pain related to your prolapse before surgery, has your pain resolved? Not Applicable Abnormal vaginal discharge: no Pathology: n/a [id number] Do you: Usually experience pressure in [...] a feeling of incomplete bladder emptying? Yes, somewhat bothersome (2) Ever have to push up on a bulge in the vaginal area with your fingers to start or complete urination? No (0) Feel you need to strain too hard to have a bowel movement? No (0) Feel you have not completely emptied your bowels at the end of a bowel movement? No (0) Usually lose stool beyond your control if your stool is well formed? No (0) Usually lose stool beyond your control if your stool is loose? Yes, somewhat bothersome (2) Usually lose gas from the rectum beyond [...] needing to go to the bathroom? Yes, moderately bothersome (3) Usually experience urine leakage related to coughing, sneezing or laughing? Yes, somewhat bothersome (2) Usually experience small amounts of urine leakage (that is, drops)? Yes, somewhat bothersome (2) Usually experience difficulty emptying your bladder? Yes, not at all bothersome (1) Usually experience pain or discomfort in the lower abdomen or genital region? No (0) Overall, how satisfied were you with your postoperative pain medication? Very satisfied With regard to your expectations before surgery, did you have the amount of pain you expected, morepain, or less pain? About the amount of pain I expected Was the preoperative teaching you had about pain expectations helpful? Yes Were the discharge instructions you received about pain medications helpful? Yes Candlemaker offered, exam chaperoned by Kathleen Hansen RN OBJECTIVE: LMP 11/30/2006 General Appearance: Appears stated age, comfortable, No acute distress Abdomen: Benign, soft, non-tender, no hernia, masses. Incisions healing well Pelvic examination: Vulva/Perineum: Normal development, no lesions Urethral Meatus:Normal location and size, no lesions Urethra: No masses, tenderness or scarring Bladder:No masses, no tenderness Vagina: Good vaginal support, suture material present, incision healing well, no evidence of mesh, and atrophic- improved w/ vaginal estrogen. Hymenal remnants posteriorly, which were present preop Cervix: surgically absent Uterus: surgical absent Adnexa:No masses, tenderness or nodularity ASSESMENT: Jessy Alegre is a 58 year old year old female who is post-op; stable post-operative course uncomplicated PLAN: XUAN Mostly OAB, discussed PFPT, bladder retraining, OAB meds, but at this time defers treatment given she is very busy and has adrenal surgery next month May revisit in the fall Pelvic floor weakness Recommend PFPT, defer at this time She asked about O-Shot - her friend had it, but discussed I don't do that shot and don't know the evidence behind it, so I can't comment or recommend it or not - Follow up at 1 year (maybe sooner if she has time in the fall to address XUAN) then can see primary OBGYN for usual annual exams. Cecy Braxton MD documented in [facility] encounterFort [facility]04[facility] History of Present illness Narrative* Tran Porter MD - 08/28/2023 10:00 AM EDT Jessy Alegre is a 58 year old White female who presents with complaints of enlarging adrenal adenoma Consultation requested by Dr. Bar Mendoza for an opinion regarding adrenal mass. My final recommendations will be communicated back to the requesting physician by way of shared Medical record or letterto requesting physician via US mail. HPI: This is a 58 yo female with PMH s/f: left sided adrenal adenoma, asthma, prediabetes, and COPD. Shewas referred today by her sales porter for surgical evaluation of enlarging left adrenal mass. Patient presents today with her sister. She endorses some intermittent symptoms of flushing/palpitations. Has had recent lab work at [facility] with endocrinology. Denies any abdominal pain. No prior issues with HTN or electrolyte derangements. PSH s/f: appendectomy, cholecystectomy, tubal ligation, bilateral breast reconstruction, bladder sling, tonsillectomy, hysterectomy, foot surgery. She denies any issues with prior anesthesia FMH s/f: thyroid disease (mother - Graves), DM, CAD. No known FMH of endocrine tumors. Pert EMR, outside imaging: Test Name Value Interpretation Reference Range Facility Catecholamines, 24 UR on 07-24-2023 Dopamine, Urine 89 ug/L Normal Undefined [facility] Dopamine,U,24HR 223 ug/24 hr Normal 0-510 [facility] Epineph.,U,24HR < 8 Normal 0-20 [facility] Epinephrine, U < 3 Normal Undefined [facility] Norepin.,U,24HR 60 ug/24 hr Normal 0-135 [facility] Norepinephrin,U 24 ug/L Normal Undefined [facility] Cortisol, 24 HR UR Free on 07-24-2023 CORTISOL,F/24hr 25 ug/24 hr Normal 6-42 [facility] CORTISOL,U FREE 10 ug/L Normal Undefined [facility] Metanephrine Frac 24 HR UR on 07-24-2023 Metaneph,UR 24H 140 ug/24 hr Normal 36-209 [facility] Metanephrines,U 56 ug/L Normal Undefined [facility] Normetan,UR 24h 365 ug/24 hr Normal 131-612 [facility] Normetanephrine 146 ug/L Normal Undefined [facility] DHEA Sulfate on 07-15-2023 DHEA SULFATE 31.6 ug/dL Normal 29.4-220.5 [facility] Comment on above: Order Comment: N PAST MEDICAL HISTORY Diagnosis Date Abnormal glandular Papanicolaou smear of cervix 05/04/2005 Abn. Pap smear (cervix) Adenoma of left adrenal gland Colon polyps COPD (chronic obstructive pulmonary disease) (HCC) Cystocele, midline Other and unspecified hyperlipidemia 05/04/2006 not on medication Prediabetes Skin cancer Vaginal vault prolapse PAST SURGICAL HISTORY Procedure Laterality Date ABDOMINAL SURGERY HX APPENDECTOMY 11/2006 BREAST AUGMENTATION WITH IMPLANT 2006 BREAST SURGERY HX COLONOSCOPY 10/06/2014 COLONOSCOPY FLX DX W/COLLJ SPEC WHEN PFRMD 03/07/2021 nl biopsies. repeat in 5 years per DP based on family history COLPOSCOPY CERVIX UPPER/ADJACENT VAGINA 2000 Colposcopy CONIZATION CERVIX W/WO D&C RPR ELTRD EXC 1997 [facility] LEEP-Cervix DILATION & CURETTAGE DX&/THER NONOBSTETRIC [...] 1993 vein stripping RLE, X 2 procedures Social History Tobacco Use Smoking status: Every Day Packs/day: 1.00 Years: 18.00 Additional pack years: 0.00 Total pack years: 18.00 Types: Cigarettes Smokeless tobacco: Never Tobacco comments: Cut back to 1/2 to 1/4 packs per day Vaping Use Vaping Use: Never used Substance Use Topics Alcohol use: Yes Comment: rare occassion Drug use: No FAMILY HISTORY Problem Relation Age of Onset other (graves disease) Mother other (rheumatoid arthritis) Mother Diabetes Father No Known Problems Sister No Known Problems Maternal Grandmother Lung Cancer Maternal Grandfather Dementia Paternal Grandmother No Known Problems Daughter No Known Problems Son Diabetes Maternal Aunt Diabetes Maternal Aunt Diabetes Maternal Uncle Diabetes Maternal Uncle Diabetes Maternal Uncle Diabetes Maternal Uncle ALLERGIES Allergen Reactions Augmentin [Amoxicil* Swelling Allergy to potassium clavulanate Percocet [Oxycodone* Swelling, Itching Swells all over. Current Outpatient Medications Medication Sig ibuprofen (MOTRIN) 600 mg tablet Take 1 tablet by mouth every 6 hours as needed for pain. albuterol HFA (PROVENTIL HFA, VENTOLIN HFA) 90 mcg/actuation inhaler Inhale 2 Puffs as instructed every 4 hours as needed. estradiol (ESTRACE) 0.01 % (0.1 mg/gram) vaginal cream Use 1 g vaginally two times a week. Apply twice weekly to the vaginal opening. BIOTIN, BULK, MISC Take 1 tablet by mouth once daily. multivit with minerals/lutein (MULTIVITAMIN 50 PLUS ORAL) Take 1 tablet by mouth once daily. Ascorbic Acid (VITAMIN C) 1,000 mg tablet Take 1,000 mg by mouth once daily. metFORMIN (GLUCOPHAGE) 500 mg tablet Take 500 mg by mouth twice daily with meals. rosuvastatin calcium (CRESTOR ORAL) Take 5 mg by mouth daily at bedtime. Cholecalciferol, Vitamin D3, 2,000 unit cap EQL VITAMIN D3 2000 UNIT CAPS No current facility-administered medications for this visit. REVIEW OF SYSTEMS: Review of Systems Constitutional: Negative for chills and fever. Gastrointestinal: Negative for abdominal pain and constipation. PHYSICAL EXAM: BP 112/75 (BP Site: Left Arm, BP Position: Sitting, BP Cuff Size: Large Adult) Pulse 75 Ht 162.6 cm (5' 4) Wt 67.6 kg (149 lb) LMP 11/30/2006 BMI 25.58 kg/m General Evaluation: NAD, alert/oriented, well nourished appearing Head: Normocephalic Neck: No JVD Chest: Symmetrical Abdomen: soft, ND, prior incision sites well healed Genitalia: Deferred Breast: Deferred Extremities: Normal ROM Constitutional: No acute distress Eyes: EOMI Ears, nose, mouth, and throat: Grossly WNL Respiratory/lungs: No acute distress or dyspnea Musculoskeletal: Ambulatory Skin: No jaundice Neurologic: CN grossly intact Psychiatric: Alert, Oriented Hematologic/lymphatic: No lymphedema Procedures: Diagnosis: Left adrenal mass Plan Assessment: This is a 58 yo female with PMH s/f: left sided adrenal adenoma, asthma, prediabetes, and COPD. Shewas referred today by her sales porter for surgical evaluation of enlarging left adrenal mass. Plan: Recent biochemical workup demonstrates likely nonfunctional adenoma. Prior imaging demonstrates progressive enlargement since initial diagnosis (doubled in size since initial diagnosis). Will complete workup with PAC/PRA.. Will obtain outside images for review. R/B/A of surgery discussed, and she would like to move forward with surgical planning: laparoscopic left adrenalectomy, possible open. Further information was provided, and she is pleased with the management plan. Smoking cessation counseling was also performed during today's visit. Tran Porter M.D. documented in this encounter[facility] NoteHNO ID: [id number] Author: TRAN PORTER MD Service: ? Author Type: Physician Type: Progress Notes Filed: 09/07/2023 14:38 Note Text: Jessy Alegre is a 58 year old White female who presents with complaints of enlarging adrenal adenoma Consultation requested by Dr. Bar Mendoza for an opinion regarding adrenal mass. My final recommendations will be communicated back to the requesting physician by way of shared Medical record or letter to requesting physician via US mail. HPI: This is a 58 yo female with PMH s/f: left sided adrenal adenoma, asthma, prediabetes, and COPD. She was referred today by her sales porter for surgical evaluation of enlarging left adrenal mass. Patient presents today with her sister. She endorses some intermittent symptoms of flushing/palpitations. Has had recent lab work at [facility] with endocrinology. Denies any abdominal pain. No prior issues with HTN or electrolyte derangements. PSH s/f: appendectomy, cholecystectomy, tubal ligation, bilateral breast reconstruction, bladder sling, tonsillectomy, hysterectomy, foot surgery. She denies any issues with prior anesthesia FMH s/f: thyroid disease (mother - Graves), DM, CAD. No known FMH of endocrine tumors. Pert EMR, outside imaging: Test Name Value Interpretation Reference Range Facility Catecholamines, 24 UR on 07-24-2023 Dopamine, Urine 89 ug/L Normal Undefined [facility] Dopamine,U,24HR 223 ug/24 hr Normal 0-510 [facility] Epineph.,U,24HR < 8 Normal 0-20 [facility] Epinephrine, U < 3 Normal Undefined [facility] Norepin.,U,24HR 60 ug/24 hr Normal 0-135 [facility] Norepinephrin,U 24 ug/L Normal Undefined [facility] Cortisol, 24 HR UR Free on 07-24-2023 CORTISOL,F/24hr 25 ug/24 hr Normal 6-42 [facility] CORTISOL,U FREE 10 ug/L Normal Undefined [facility] Metanephrine Frac 24 HR UR on 07-24-2023 Metaneph,UR 24H 140 ug/24 hr Normal 36-209 [facility] Metanephrines,U 56 ug/L Normal Undefined [facility] Normetan,UR 24h 365 ug/24 hr Normal 131-612 [facility] Normetanephrine 146 ug/L Normal Undefined [facility] DHEA Sulfate on 07-15-2023 DHEA SULFATE 31.6 ug/dL Normal 29.4-220.5 [facility] Comment on above: Order Comment: N PAST MEDICAL HISTORY Diagnosis Date Abnormal glandular Papanicolaou smear of cervix 05/04/2005 Abn. Pap smear (cervix) Adenoma of left adrenal gland Colon polyps COPD (chronic obstructive pulmonary disease) (HCC) Cystocele, midline Other and unspecified hyperlipidemia 05/04/2006 not on medication Prediabetes Skin cancer Vaginal vault prolapse PAST SURGICAL HISTORY Procedure Laterality Date ABDOMINAL SURGERY HX APPENDECTOMY 11/2006 BREAST AUGMENTATION WITH IMPLANT 2006 BREAST SURGERY HX COLONOSCOPY 10/06/2014 COLONOSCOPY FLX DX W/COLLJ SPEC WHEN PFRMD 03/07/2021 nl biopsies. repeat in 5 years per DP based on family history COLPOSCOPY CERVIX UPPER/ADJACENT VAGINA 2000 Colposcopy CONIZATION CERVIX W/WO DANDC RPR ELTRD EXC 1997 [facility] LEEP-Cervix DILATION AND CURETTAGE DXAND/THER NONOBSTETRIC [...] 1993 vein stripping RLE, X 2 procedures Social History Tobacco Use Smoking status: Every Day Packs/day: 1.00 Years: 18.00 Additional pack years: 0.00 Total pack years: 18.00 Types: Cigarettes Smokeless tobacco: Never Tobacco comments: Cut back to 1/2 to 1/4 packs per day Vaping Use Vaping Use: Never used Substance Use Topics Alcohol use: Yes Comment: rare occassion Drug use: No FAMILY HISTORY Problem Relation Age of Onset other (graves disease) Mother other (rheumatoid arthritis) Mother Diabetes Father No Known Problems Sister No Known Problems Maternal Grandmother Lung Cancer Maternal Grandfather Dementia Paternal Grandmother No Known Problems Daughter No Known Problems Son Diabetes Maternal Aunt Diabetes Maternal Aunt Diabetes Maternal Uncle Diabetes Maternal Uncle Diabetes Maternal Uncle Diabetes Maternal Uncle ALLERGIES Allergen Reactions Augmentin [Amoxicil* Swelling Allergy to potassium clavulanate Percocet [Oxycodone* Swelling, Itching Swells all over. Current Outpatient Medications Medication Sig ibuprofen (MOTRIN) 600 mg tablet Take 1 tablet by mouth every 6 hours as needed for pain. albuterol HFA (PROVENTIL HFA, VENTOLIN HFA) 90 mcg/actuation inhaler Inhale 2 Puffs as instructed every 4 hours as need (more content not included)...[facility]04-26-[facility]24 Instructions* Patient Instructions* Minnie Brice MA - 08/28/2023 9:56 AM EDT We sincerely appreciate the opportunity to participate in your care. If there are any opportunitiesfor us to improve your experience please let us know. Many patients receive surveys after their surgical care is completed with our office and we understand our patients have a choice in selecting their healthcare. Thank you for taking the time and effort to complete your survey (if you receive one.) All of us strive to ALWAYS provide the best care possible in ALL WAYS. Thank you! Tran Porter MD documented in this encounterFort [facility] Hospital02-28-[facility]24 History of Present illness Narrative* Cecy Braxton MD - 07/01/2023 11:00 AM EST Female Pelvic Medicine & Reconstructive Surgery Post-Op [...] have the amount of pain you expected, morepain, or less pain? About the amount of pain I expected Was the preoperative teaching you had about pain expectations helpful? Yes Were the discharge instructions you received about pain medications helpful? Yes Candlemaker offered:Patient accepts, visit chaperoned by Kathleen Hansen [...] estrogen. Cecy Braxton MD documented in this encounterFort [facility] Hospital01-15-2024 NoteHNO ID: [id number] Author: SABINO MARIA APRN.DATA WAREHOUSE ANALYST Service: Anesthesiology Author Type: Nurse Cash Sales Audit Clerk Type: Anesthesia Procedure Notes Filed: 05/18/2023 09:08 Note Text: ANESTHESIOLOGY PROCEDURE NOTE Airway General Information Procedure Start Time/Medication Administration: 05/18/2023 8:16 AM Procedure End Time: 05/18/2023 8:17 AM Patient location during procedure: OR Timeout Performed Pre-procedure: timeout performed Consent Obtained: Yes Patient identity confirmed: arm band and patient Staffing Anesthesiologist: Magdalena Stern MD DATA WAREHOUSE ANALYST: Sabino Maria APRN.DATA WAREHOUSE ANALYST Performed by: other anesthesia staff Indications [...] atraumatic, lips and teeth intact SIGNATURE: Sabino Maria APRN.DATA WAREHOUSE ANALYST PATIENT NAME: Jessy Salgado Spanish DATE: May 18, 2023 TIME: 9:05 AM CSN: [id number] [facility] History of Present illness Narrative* Tiffany Owusu APRN.RADIO OPERATOR GROUND - 03/19/2023 1:41 PM EST Candlemaker offered: Patient declines. Jessy is a 57 year old who presents for an annual gynecologic exam without complaints. Scheduled 05/15/2022 for repair of prolapse. Postmenopausal: Hysterectomy 2015 with LSO benign cause HRT use: Just started vaginal estrogen for surgery preparation. Had been using estrogen and testosterone pellet with last insertion 09/2022 History of abnormal pap: Yes LEEP 1997 Last mammogram: 2022 normal at [facility] History of abnormal mammogram: Sexually active: Yes History of STDS: HPV Patient concerns for STD exposure: No. 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 Operator History Comments: Sexual Activity: Never; No partner [...] CERVIX W/WO D&C RPR ELTRD EXC 1997 [facility] LEEP-Cervix DILATION & CURETTAGE DX&/THER NONOBSTETRIC [...] external genitalia normal, normal Bartholin's glands, urethra, Dunseith's glands, no vulvar lesions, physiologic discharge present, normal appearing perineal body and perianal region, cystocele,rectocele BIMANUAL: no adnexal masses, non-tender, and uterus [...] one year or sooner as needed Tiffany Owusu APRN.MARVIN documented in this encounterFort [facility] Hospital04-05-2023 Procedure [facility]09[facility] History of Present illness Narrative* Isabel Peterson RN - 12/10/2021 1:25 PM EDT Sister at bedside. Patient and sister state [...] understanding and states ready to go home. * Isabel Peterson RN - 12/10/2021 1:15 PM EDT Nitrobid ointment applied to nasal flap by Dr Lindsey. * Isabel Peterson RN - 12/10/2021 12:22 PM EDT Received patient from OR sleeping on oxygen.. Assessment completed. Belongings with her. documented in [facility] encounter[facility] Work Phone: 1(498) 258-144908-09-2022 Hospital Discharge instructions* Discharge Instructions* María Elena Lindsey MD - 12/10/2021 12:23 [...] your antibiotics as prescribed. documented in this encounterSUMMA Work Phone: 1(358) 305-325711-04-2021 History of Past illness Narrative* Problem Noted Date Diagnosed Date Resolved Date Family history of colon cancer 03/07/2021 03/07/2021 Diarrhea 03/07/2021 03/07/2021 documented as of this encounter (statuses as of 03/19/2023) [facility] History of Past illness Narrative* Problem Noted Date Diagnosed Date Resolved Date Family history of colon cancer 03/07/2021 03/07/2021 Diarrhea 03/07/2021 03/07/2021 documented as of this encounter (statuses as of 07/01/2023) [facility] noteNo assessment information availableWOhioHealth Van [facility] Work Phone: evaluation note* Diagnosis Encounter for gynecological examination with abnormal finding- Primary Routine gynecological examination Encounter for screening mammogram for breast cancer Screen for STD (sexually transmitted disease) Screening examination for venereal disease Cystocele, midline Rectocele Vaginal vault prolapse Unspecified prolapse of vaginal guerra Cystocele, midline Rectocele documented in this encounter [facility] Transportation[facility] note* Diagnosis Onset Date Resolution Status SOB (shortness of breath) ac benito Asthma with COPD with exacerbation [facility] Work Phone: evaluation note* Diagnosis Cystocele, midline- Primary Rectocele Vaginal vault prolapse Unspecified prolapse of vaginal guerra Mixed stress and urge urinary incontinence Mixed incontinence urge and stress (male)(female) Vaginal atrophy Postmenopausal atrophic vaginitis documented in this encounter [facility] note* Diagnosis Onset Date Resolution Status Adrenal adenoma [facility] Work Phone: evaluation note* Diagnosis Adrenal mass 1 cm to 4 cm in diameter (HCC)- Primary Disorder of adrenal gland (HCC) Unspecified disorder of adrenal glands documented in this encounter [facility] note* Diagnosis Adrenal mass (HCC)- Primary Unspecified disorder of adrenal glands documented in this encounter [facility] note* Diagnosis Cystocele, midline- Primary Rectocele Mixed stress and urge urinary incontinence Mixed incontinence urge and stress (male)(female) Adrenal mass (HCC) Unspecified disorder of adrenal glands documented in this encounter [facility] note* Diagnosis Chronic obstructive pulmonary disease, unspecified COPD type (HCC)- Primary Preop examination Preoperative examination, unspecified Hyperlipidemia, unspecified hyperlipidemia type Migraine without aura and without status migrainosus, not intractable Migraine without aura, without mention of intractable migraine without mention of status migrainosus Cigarette nicotine dependence without complication Tobacco use disorder Prediabetes Other abnormal glucose Poison cordelia Contact dermatitis and other eczema due to plants (except food) Adrenal mass (HCC) Unspecified disorder of adrenal glands * Assessment & Plan Note - Gina Mcgill APRN.CNP - 10/23/2023 10:22 AM EDT Associated Problem(s): Poison cordelia Patient has poison cordelia clarita to RUE, right chest and posterior neck. Instructed to call surgeon office if worsening or not improved closer to surgery. * Assessment & Plan Note - Gina Mcgill APRN.CNP - 10/23/2023 10:06 AM EDT Associated Problem(s): Prediabetes Metformin- Instructed to hold DOS Unsure of last A1C -done 2 weeks ago per PCP and told good Does not check sugars at home * Assessment & Plan Note - Gina Mcgill APRN.CNP - 10/23/2023 10:05 AM EDT Associated Problem(s): Nicotine dependence, uncomplicated 9 pack years Currently smoking 1/2 ppd Encouraged to cut back prior to surgery and avoid morning of surgery * Assessment & Plan Note - Gina Mcgill APRN.CNP - 10/23/2023 10:03 AM EDT Associated Problem(s): Migraine headache 3 times yearly Without aura Controlled with Excedrin migraine * Assessment & Plan Note - Gina Mcgill APRN.CNP - 10/23/2023 10:01 AM EDT Associated Problem(s): Hyperlipidemia, unspecified Statin Instructed to continue * Assessment & Plan Note - Gina Mcgill APRN.CNP - 10/23/2023 10:00 AM EDT Associated Problem(s): Preop examination see note for medical conditions which may affect david-operative course that were addressed at today's visit. * Assessment & Plan Note - Gina Mcgill APRN.CNP - 10/23/2023 10:00 AM EDT Associated Problem(s): Chronic obstructive pulmonary disease (HCC) Albuterol as needed -rarely using. Denies hospitalization or ED visit in last year due to breathing issues. documented [facility] this encounter [facility]* Diagnosis Adrenal insufficiency (HCC)- Primary Glucocorticoid deficiency documented [facility]* Diagnosis Adrenal mass (HCC)- Primary Unspecified disorder of adrenal glands documented in this encounter [facility]* Diagnosis Vaginal vault prolapse Unspecified prolapse of vaginal guerra Preop examination Preoperative examination, unspecified Chronic obstructive pulmonary disease, unspecified COPD type (HCC) Cigarette nicotine dependence without complication Tobacco use disorder Hyperlipidemia, unspecified hyperlipidemia type Prediabetes Other abnormal glucose Chronic obstructive pulmonary disease, unspecified COPD type (HCC)- Primary Preop examination Preoperative examination, unspecified Hyperlipidemia, unspecified hyperlipidemia type Migraine without aura and without status migrainosus, not intractable Migraine without aura, without mention of intractable migraine without mention of status migrainosus Cigarette nicotine dependence without complication Tobacco use disorder Prediabetes Other abnormal glucose Poison cordelia Contact dermatitis and other eczema due to plants (except food) Esophageal dysphagia- Primary Dysphagia, pharyngoesophageal phase documented in this encounter [facility]* Diagnosis Vaginal vault prolapse Unspecified prolapse of vaginal guerra Preop examination Preoperative examination, unspecified Chronic obstructive pulmonary disease, unspecified COPD type (HCC) Cigarette nicotine dependence without complication Tobacco use disorder Hyperlipidemia, unspecified hyperlipidemia type Prediabetes Other abnormal glucose Chronic obstructive pulmonary disease, unspecified COPD type (HCC)- Primary Preop examination Preoperative examination, unspecified Hyperlipidemia, unspecified hyperlipidemia type Migraine without aura and without status migrainosus, not intractable Migraine without aura, without mention of intractable migraine without mention of status migrainosus Cigarette nicotine dependence without complication Tobacco use disorder Prediabetes Other abnormal glucose Poison cordelia Contact dermatitis and other eczema due to plants (except food) Heartburn- Primary Esophageal dysphagia Dysphagia, pharyngoesophageal phase documented in this encounter [facility]* Diagnosis Vaginal vault prolapse Unspecified prolapse of vaginal guerra Preop examination Preoperative examination, unspecified Chronic obstructive pulmonary disease, unspecified COPD type (HCC) Cigarette nicotine dependence without complication Tobacco use disorder Hyperlipidemia, unspecified hyperlipidemia type Prediabetes Other abnormal glucose Chronic obstructive pulmonary disease, unspecified COPD type (HCC)- Primary Preop examination Preoperative examination, unspecified Hyperlipidemia, unspecified hyperlipidemia type Migraine without aura and without status migrainosus, not intractable Migraine without aura, without mention of intractable migraine without mention of status migrainosus Cigarette nicotine dependence without complication Tobacco use disorder Prediabetes Other abnormal glucose Poison cordelia Contact dermatitis and other eczema due to plants (except food) Encounter for gynecological examination with abnormal finding- Primary Routine gynecological examination Mixed incontinence urge and stress Mixed incontinence urge and stress (male)(female) Cystocele, midline History of bladder suspension procedure documented in this encounter [facility] for referral (narrative)* Outpatient Procedure (Routine) - Authorized Specialty Diagnoses / Procedures Referred By Petra davidson Referred To [facility] Diagnoses Esophageal dysphagia Procedures EGD DIAGNOSTIC ESOPHAGOGASTRODUODENOSC OPY TRANSORAL DIAGNOSTIC Reginaldo España MD [address] [place] [address] [place] [address] Referral ID Status Reason Start Date Expiration Date Visits Requested Visits Authorized [id number] Authorized Auto-Generat ed Referral 01/13/2024 01/12/2025 1 1 [facility] for referral (narrative)* Outpatient Procedure (Routine) - Closed Specialty Diagnoses / Procedures Referred By Petra davidson Referred To [facility] Diagnoses Esophageal dysphagia Procedures EGD DIAGNOSTIC ESOPHAGOGASTRODUODENOSC OPY TRANSORAL DIAGNOSTIC Reginaldo España MD [address] [place] [address] [facility] [place] [address] [place] [id number] Referral ID Status Reason Start Date Expiration Date V isits Requested Visits Authorized [id number] Closed Auto-Generate d Referral 01/13/2024 01/12/2025 1 1 [facility] (narrative)No reason for referral information availableWOhioHealth Van [facility] Work Phone: Reason for visit Narrative* Outpatient Procedure (Routine) - Closed Specialty Diagnoses / Procedures Referred By Contac t Referred To [facility] Diagnoses Esophageal dysphagia Procedures EGD DIAGNOSTIC ESOPHAGOGASTRODUODENOSC OPY TRANSORAL DIAGNOSTIC Reginaldo España MD [address] [place] [address] [facility] [place] [address] [place] [id number] Referral ID Status Reason Start Date Expiration Date V isits Requested Visits Authorized [id number] Closed Auto-Generate d Referral 01/13/2024 01/12/2025 1 1 [facility] Summary Purpose Family History No Family History Records Found Relationship Condition Age at Onset Recorded Date/T azra mother Asthma Unknown Diabetes mellitus Unknown Malignant neoplasm Unknown Disorder of thyroid Unknown father Coronary artery disease Unknown Relationship Condition Age at Onset Recorded Date/T azra mother Asthma Unknown Diabetes mellitus Unknown Malignant neoplasm Unknown Disorder of thyroid Unknown father Coronary artery disease Unknown Cerebrovascular accident (CVA) Unknown uncle Malignant neoplasm of colon Unknown aunt Malignant neoplasm of colon Unknown Advance Directives No Advanced Directives Records Found Advance Directive Response Recorded Date/ Time Advance Directives No January 2:35pm Living Will No January 27, 2020 2:03pm Power of Plaster And Stucco Worker No January 2:03pm Latest Code Status on File Code Status Date Activated Date Inactivated Comments Full Code 12/10/2021 10:25 AM Advance Directive Response Recorded Date/ Time Advance Directives No January 2:35pm Living Will No December 27 10:31am Power of Plaster And Stucco Worker No December 27 10:31am Advance Directive Response Recorded Date/ Time Advance Directives No January 1:35pm Living Will No December 27 9:31am Power of Plaster And Stucco Worker No December 27 022 9:31am Advance Directive Response Recorded Date/ Time Advance Directives No January 2:35pm Chief Complaint and Reason for Visit Chief Complaint DISORDERS OF THE ADR ENAL GLAND Chief Complaint chest pain Chief Complaint Cough Chief Complaint Cough SCREENING Chief Complaint Cough SCREENING COPD COPD Chief Complaint NICOTINE DEP EORDER Chief Complaint SINUS PRESSURE Reason for Visit SOB (shortness of br eath) Asthma with COPD with exacerbation Chief Complaint SINUS PRESSURE SPECIFIED DISORDERS OF ADRENAL GLAND Reason for Visit SOB (shortness of br eath) Asthma with COPD with exacerbation Chief Complaint SPECIFIED DISORDERS OF ADRENAL GLAND HEADACHE Adrenal Mass Reason for Visit Adrenal adenoma Chief Complaint SINUS PRESSURE SPECIFIED DISORDERS OF ADRENAL GLAND HEADACHE Reason for Visit SOB (shortness of br eath) Asthma with COPD with exacerbation Chief Complaint Admit Date Other specified soft tissue disorders 2024 1:37pm Chief Complaint Admit Date Other specified soft tissue disorders 2024 1:37pm MIXED RX HERE October 25, 2024 1:00 pm Chief Complaint Admit Date Other specified soft tissue disorders 2024 1:37pm MIXED RX HERE October 25, 2024 1:00 pm SPIGELIAN HERNIA November 16, 2024 1:30 pm Chief Complaint Admit Date Other specified soft tissue disorders 2024 1:37pm MIXED RX HERE October 25, 2024 1:00 pm SPIGELIAN HERNIA November 16, 2024 1:30 pm left side pain December 02, 2024 8:3 0am Reason for Visit Admit Date Left sided abdominal pain November 16 1:30pm Reason for Referral Specialty Diagnoses / Procedures Referred By Petra davidson Referred To Contact Physical Therapy Diagnoses Mixed incontinence urge and stress Cystocele, midline History of bladder suspension procedure Procedures CONSULT TO PHYSICAL THERAPY Tiffany Owusu, NICANOR.RADIO OPERATOR GROUND [address] [address] Referral ID Status Reason Start Date Expiration Date Visits Requested Visits Authorized [id number] Ref Not Required PCP Requested Referral 4 03/22/2025 1 1 Additional Source Comments INFORMATION SOURCE (unrecogn ized section and content) DATE CREATED AUTHOR 01/30/2021 [facility] ([place] DATE CREATED AUTHOR AUTHOR'S ORGANIZ ATION 11/25/2023 [facility] DATE CREATED AUTHOR AUTHOR'S ORGANIZ ATION 11/20/[address] [facility] DATE CREATED AUTHOR AUTHOR'S ORGANIZ ATION 02/17/2025 [place] Goals (unrecognized section and content) Goals may be documented in a n alternate sectionGoals may be documented in an alternate sectionGoals may be documented in an alternate sectionGoals may be documented in an alternate sectionGoals may be documented in an alternate sectionGoals may be documented in an alternate sectionGoals may be documented in an alternate sectionGoals may be documented in an alternate sectionGoals may be documented in an alternate sectionGoals may be documented in an alternate sectionGoals may be documented in an alternate sectionGoals may be documented in an alternate sectionGoals may be documented in an alternate sectionGoals may be documented in an alternate sectionGoals may be documented in an alternate sectionGoals may be documented in an alternate sectionGoals may be documented in an alternate sectionGoals may be documented in an alternate section Ordered Prescriptions (unrec ognized section and content) Prescription Sig Dispensed Refills Start Date End Da te nitroglycerin (NITRO-BID) 2 % ointment Place 0.5 inches onto the skin in the morning and 0.5 inches at noon and 0.5 inches in the evening and 0.5 inches before bedtime. 30 g 3 12/10/2021 doxycycline hyclate (VIBRA-TABS) 100 MG tablet Take 1 tablet by mouth in the morning and 1 tablet before bedtime. Do all this for 5 days. 10 tablet 0 12/10/2021 12/15/2021 ibuprofen (ADVIL;MOTRIN) 400 MG tablet Take 1 tablet by mouth every 6 hours as needed for Pain 60 tablet 1 12/10/2021 acetaminophen (TYLENOL) 500 MG tablet Take 1 tablet by mouth 4 times daily as needed for Pain 120 tablet 1 12/10/2021 Scheduled Active and Recently Administ ered Medications (unrecognized section and content) Medication Order 12/08/2021 12/09/2021 12/10/2021 acetaminophen (TYLENOL) tablet 1,000 mg (COMPLETED) 1,000 mg, Oral, ONCE, 1 dose, On Thu12/10/21 at 1045, Maximum dose of acetaminophen is 4000 mg from all sources in 24 hours. Do not administer if patient has taken tylenol <4 hours earlier. Do not give if contraindicated ie. 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 Recommend to repeat in 3-4 hours after initial dose if still intra-op., Pre-op (day of surgery) 1110 (Given by Other Clinician - Provider: Isabel Peterson RN)1140 (Stopped - Provider: Isabel Peterson RN) famotidine (PEPCID) tablet 20 mg (COMPLETED) 20 mg, Oral, ONCE, 1 dose, On Thu12/10/21 at 1045, Pre-op (day of surgery) 1039 (Given - Provid er: Sakina Baker RN) nitroglycerin (NITRO-BID) 2 % ointment 0.5 inch (COMPLETED) 0.5 inch, Topical, ONCE, 1 dose, On Thu12/10/21 at 1315 1315 (Given - Provid er: Isabel Peterson RN - Comment: applied to nasal flap by Dr Lindsey) sodium chloride flush 0.9 % injection 5-40 mL 5-40 mL, IntraVENous, EVERY 12 HOURS SCHEDULED (2 times per day), First dose on Thu12/10/21 at 1045, Until Discontinued, For Line Patency: Peripheral IV = 5 [...] = 20 mL/lumen, Pre-op (day of surgery) 1045 (Due)2100 (Due) sodium chloride flush 0.9 % injection 5-40 mL 5-40 mL, IntraVENous, EVERY 12 HOURS SCHEDULED (2 times per day), First dose on Thu12/10/21 at 2100, Until Discontinued, For Line Patency: Peripheral IV = 5 [...] Central Line = 20 mL/lumen, PACU only 2100 (Due) Continuous Medication Order 12/08/2021 12/09/2021 12/10/2021 lactated [...] 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
PACU only Care Teams (unrecognized sec tion and content) Team Status: Active Member Role Status Dates Dr. Lala Zendejas MD Family Provider Active Dr. Lala Zendejas MD Primary Care Provider Active Team Status: Inactive Member Role Status Dates Dr. Lala Zendejas MD Primary Care Pr ovider, Attending Provider, Referring Provider Active Team Status: Inactive Member Role Status Dates Dr. Lala Zendejas MD Primary Care Provider, Attend ing Provider Active Team Status: Inactive Member Role Status Dates Dr. Lala Zendejas MD Primary Care Provider Active Ame Burton GEOSPATIAL SYSTEMS INTEGRATORYrnC Attending Provider, Referr ing Provider Active Team Status: Active Member Role Status Dates Dr. Lala Zendejas MD Primary Care Pr ovider, Referring Provider, Other Provider Active Dr. Ramón Berger DO Attending Provider Active Band Singer Relationship Specialty Start Date End Date Lala Zendejas MD [address] [facility] [address] [place], [place] [id number] PCP - General Family Medicine 01/09/21 Team Status: Inactive Member Role Status Dates Dr. Lala Zendejas MD Primary Care Provider, Referr ing Provider Active Alex BELLE, PA Attending Provider Active Band Singer Relationship Specialty Start Date End Date Lala Zendejas MD [address] [facility] [address] [place], [place] [id number] PCP - General Family Medicine 01/09/21 Team Status: Inactive Member Role Status Dates Dr. Lala Zendejas MD Primary Care Provider, Referr ing Provider Active Dr. Bar Mendoza MD Attending Provider Active Team Status: Active Member Role Status Dates Dr. Lala Zendejas MD Primary Care Provider Active Dr. Bar Mendoza MD Attending Provider Active Team Status: Inactive Member Role Status Dates Dr. Lala Zendejas MD Primary Care Provider Active Dr. Bar Mendoza MD Attending Provider, Referring Provi mary jo Active Team Status: Inactive Member Role Status Dates Dr. Lala Zendejas MD Primary Care Provider Active Dr. Bar Mendoza MD Attending Provider Active Band Singer Relationship Specialty Start Date End Date Lala Zendejas MD [address] [facility] [address] [place], [place] [id number] PCP - General Family Medicine 01/09/21 Bar Mendoza MD [address] [place] [address] Endocrinology 08/10/23 Cecy Braxton MD [address] [place] [address] Welding Machine Operator/Tender 08/10/23 Band Singer Relationship Specialty Start Date End Date Lala Zendejas MD [address] [place] [address] PCP - General Family Medicine 01/09/21 Bar Mendoza MD [address] [place] [address] Endocrinology 08/10/23 Cecy Braxton MD [address] [place] [address] Welding Machine Operator/Tender 08/10/23 Band Singer Relationship Specialty Start Date End Date Lala Zendejas MD [address] [place] [address] PCP - General Family Medicine 01/09/21 Bar Mendoza MD [address] [place] [address] Endocrinology 08/10/23 Cecy Braxton MD [address] [place] [address] Welding Machine Operator/Tender 08/10/23 Band Singer Relationship Specialty Start Date End Date Lala Zendejas MD [address] [place] [address] PCP - General Family Medicine 01/09/21 Bar Mendoza MD [address] [place] [address] Endocrinology 08/10/23 Cecy Braxton MD [address] [place] [address] Welding Machine Operator/Tender 08/10/23 Band Singer Relationship Specialty Start Date End Date Lala Zendejas MD [address] [facility] [address] [place] [address] PCP - General Family Medicine 01/09/21 Bar Mendoza MD [address] [place] [address] Endocrinology 08/10/23 Cecy Braxton MD [address] [place] [address] Welding Machine Operator/Tender 08/10/23 Band Singer Relationship Specialty Start Date End Date Lala Zendejas MD [address] [facility] [address] [place] [address] PCP - General Family Medicine 01/09/21 Bar Mendoza MD [address] [place] [address] Endocrinology 08/10/23 Cecy Braxton MD [address] [facility] [address] [place] [address] Welding Machine Operator/Tender 08/10/23 Band Singer Relationship Specialty Start Date End Date Lala Zendejas MD [address] [facility] [address] [place] [address] PCP - General Family Medicine 01/09/21 Bar Mendoza MD [address] [place] [address] Endocrinology 08/10/23 Cecy Braxton MD [address] [place] [address] Welding Machine Operator/Tender 08/10/23 Band Singer Relationship Specialty Start Date End Date Lala Zendejas MD [address] [facility] [address] [place] [address] PCP - General Family Medicine 01/09/21 Bar Mendoza MD [address] [place] [address] Endocrinology 08/10/23 Cecy Braxton MD [address] [place] [address] Welding Machine Operator/Tender 08/10/23 Band Singer Relationship Specialty Start Date End Date Lala Zendejas MD [address] [facility] [address] [place] [address] PCP - General Family Medicine 01/09/21 Bar Mendoza MD [address] [place] [address] Endocrinology 08/10/23 Cecy Braxton MD [address] [place] [address] Welding Machine Operator/Tender 08/10/23 Band Singer Relationship Specialty Start Date End Date Lala Zendejas MD [address] [facility] [address] [place] [address] PCP - General Family Medicine 01/09/21 Bar Mendoza MD [address] [place], [place] [address] Endocrinology 08/10/23 Cecy Braxton MD [address] [address] Welding Machine Operator/Tender 08/10/23 Band Singer Relationship Specialty Start Date End Date Lala Zendejas MD [address] [facility] [address] [place] [address] PCP - General Family Medicine 01/09/21 Bar Mendoza MD [address] [place] [address] Endocrinology 08/10/23 Cecy Braxton MD [address] [address] Welding Machine Operator/Tender 08/10/23 Team Status: Active Member Role Status Dates Dr. Lala Zendejas MD Primary Care Provider Active Team Status: Inactive Member Role Status Dates Dr. Lala Zendejas MD Primary Care Provider Active Start: September 07, 2024 End: September 07, 2024 Shashi Kimbrough NP GEOSPATIAL SYSTEMS INTEGRATOR-C Attending Provider Active Start: September 07, 2024 End: September 07, 2024 Shashi Kimbrough NP GEOSPATIAL SYSTEMS INTEGRATOR-C Referring Provider Active Start: September 07, 2024 End: September 07, 2024 Team Status: Active Member Role Status Dates Dr. Lala Zendejas MD Primary Care Provider Active Start: September 07, 2024 Dr. Philip Elena MD Attending Provider Active S tart: September 07, 2024 Shashi Kimbrough GEOSPATIAL SYSTEMS INTEGRATOR, GEOSPATIAL SYSTEMS INTEGRATOR-C Referring Provider Active Start: September 07, 2024 Band Singer Relationship Specialty Start Date End Date Lala Zendejas MD [address] [place] [address] PCP - General Family Medicine 01/09/21 Bar Mendoza MD [address] [place] [address] Endocrinology 08/10/23 Cecy Braxton MD [address] [facility] [address] [place] [address] Welding Machine Operator/Tender 08/10/23 Team Status: Active Member Role/Relationship Status Dates Dr. Lala Zendejas MD Primary Care Provider Active Team Status: Inactive Member Role/Relationship Status Dates Dr. Lala Zendejas MD Primary Care Provider Active Start: September 07, 2024 End: September 07, 2024 Shashi Kimbrough GEOSPATIAL SYSTEMS INTEGRATOR, GEOSPATIAL SYSTEMS INTEGRATOR-C Attending Provider Active Start: September 07, 2024 End: September 07, 2024 Shashi Kimbrough GEOSPATIAL SYSTEMS INTEGRATOR, GEOSPATIAL SYSTEMS INTEGRATOR-C Referring Provider Active Start: September 07, 2024 End: September 07, 2024 Team Status: Active Member Role/Relationship Status Dates Dr. Lala Zendejas MD Primary Care Provider Active Start: September 07, 2024 Dr. Philip Elena MD Attending Provider Active S tart: September 07, 2024 Shashi Kimbrough GEOSPATIAL SYSTEMS INTEGRATOR, GEOSPATIAL SYSTEMS INTEGRATOR-C Referring Provider Active Start: September 07, 2024 Team Status: Active Member Role/Relationship Status Dates Dr. Lala Zendejas MD Primary Care Provider Active Start: October 25, 2024 Tiffany Owusu NP, GEOSPATIAL SYSTEMS INTEGRATOR-C Attending Provider Active S tart: October 25, 2024 Tiffany Owusu NP GEOSPATIAL SYSTEMS INTEGRATOR-C Referring Provider Active S tart: October 25, 2024 Team Status: Inactive Member Role/Relationship Status Dates Dr. Lala Zendejas MD Primary Care Provider Active Start: November 08, 2024 End: November 08, 2024 Dr. Lala Zendejas MD Attending Provider Active Start: November 08, 2024 End: November 08, 2024 Dr. Lala Zendejas MD Referring Provider Active Start: November 08, 2024 End: November 08, 2024 Team Status: Inactive Member Role/Relationship Status Dates Dr. Lala Zendejas MD Primary Care Provider Active Start: November 16, 2024 End: November 16, 2024 Dr. Lala Zendejas MD Referring Provider Active Start: November 16, 2024 End: November 16, 2024 Dr. Joan Bass MD Attending Provider Active Start: November 16, 2024 End: November 16, 2024 Team Status: Inactive Member Role/Relationship Status Dates Dr. Lala Zendejas MD Primary Care Provider Active Start: October 25, 2024 End: October 25, 2024 Tiffany Owusu NP GEOSPATIAL SYSTEMS INTEGRATOR-C Attending Provider Active S tart: October 25, 2024 End: October 25, 2024 Tiffany Owusu NP GEOSPATIAL SYSTEMS INTEGRATOR-C Referring Provider Active S tart: October 25, 2024 End: October 25, 2024 Team Status: Active Member Role/Relationship Status Dates Dr. Lala Zendejas MD Primary Care Provider Active Start: December 02, 2024 Dr. Joan Bass MD Attending Provider Active Start: December 02, 2024 Dr. Joan Bass MD Referring Provider Active Start: December 02, 2024 Team Status: Inactive Member Role/Relationship Status Dates Dr. Lala Zendejas MD Primary Care Provider Active Start: December 02, 2024 End: December 02, 2024 Dr. Joan Bass MD Attending Provider Active Start: December 02, 2024 End: December 02, 2024 Dr. Joan Bass MD Referring Provider Active Start: December 02, 2024 End: December 02, 2024 Source Comments (unrecognize d section and content) In the event this informatio n is protected by the Federal Confidentiality of Alcohol and Drug Abuse Patient Records regulations: The Federal rules restrict any use of the information to criminally investigate or prosecute any alcohol or drug abuse patient.[facility] the event this information is protected by the Federal Confidentiality of Alcohol and Drug Abuse Patient Records regulations: The Federal rules restrict any use of the information to criminally investigate or prosecute any alcohol or drug abuse patient.[facility] the event this information is protected by the Federal Confidentiality of Alcohol and Drug Abuse Patient Records regulations: The Federal rules restrict any use of the information to criminally investigate or prosecute any alcohol or drug abuse patient.[facility] the event this information is protected by the Federal Confidentiality of Alcohol and Drug Abuse Patient Records regulations: The Federal rules restrict any use of the information to criminally investigate or prosecute any alcohol or drug abuse patient.[facility] the event this information is protected by the Federal Confidentiality of Alcohol and Drug Abuse Patient Records regulations: The Federal rules restrict any use of the information to criminally investigate or prosecute any alcohol or drug abuse patient.[facility] the event this information is protected by the Federal Confidentiality of Alcohol and Drug Abuse Patient Records regulations: The Federal rules restrict any use of the information to criminally investigate or prosecute any alcohol or drug abuse patient.[facility] the event this information is protected by the Federal Confidentiality of Alcohol and Drug Abuse Patient Records regulations: The Federal rules restrict any use of the information to criminally investigate or prosecute any alcohol or drug abuse patient.[facility] the event this information is protected by the Federal Confidentiality of Alcohol and Drug Abuse Patient Records regulations: The Federal rules restrict any use of the information to criminally investigate or prosecute any alcohol or drug abuse patient.[facility] the event this information is protected by the Federal Confidentiality of Alcohol and Drug Abuse Patient Records regulations: The Federal rules restrict any use of the information to criminally investigate or prosecute any alcohol or drug abuse patient.[facility] the event this information is protected by the Federal Confidentiality of Alcohol and Drug Abuse Patient Records regulations: The Federal rules restrict any use of the information to criminally investigate or prosecute any alcohol or drug abuse patient.[facility] the event this information is protected by the Federal Confidentiality of Alcohol and Drug Abuse Patient Records regulations: The Federal rules restrict any use of the information to criminally investigate or prosecute any alcohol or drug abuse patient.[facility] the event this information is protected by the Federal Confidentiality of Alcohol and Drug Abuse Patient Records regulations: The Federal rules restrict any use of the information to criminally investigate or prosecute any alcohol or drug abuse patient.[facility] the event this information is protected by the Federal Confidentiality of Alcohol and Drug Abuse Patient Records regulations: The Federal rules restrict any use of the information to criminally investigate or prosecute any alcohol or drug abuse patient.[facility] the event this information is protected by the Federal Confidentiality of Alcohol and Drug Abuse Patient Records regulations: The Federal rules restrict any use of the information to criminally investigate or prosecute any alcohol or drug abuse patient.[facility] Reason for Visit (unrecogniz ed section and content) Reason Comments Well Woman Reason Comments Pre-Op Visit Reason Comments adrenal mass Reason Comments Patient Update Reason Comments Post Op Reason Comments Refill Request Reason Comments Consult Dysphagia - months Reason Comments Well Woman FOR RECORDS PERTAINING TO PATIENTS WHO ARE [...] BE BASED ON THE PRIMARY CLINICAL RECORDS. [facility]. provides no warranty or guarantee of the accuracy or completeness of information in this document.
--- NOTE | 2025-02-24 06:30 | BI_ITS ---
EXAM: SCRN MAMM (CAD)W/ROMULO BILAT DATE: 02/24/2025 CLINICAL HISTORY: F, Age 59 y/o , NEED FOR BREAST CANCER No family history. Bilateral breast implants. TECHNIQUE: Procedure Code: [id number] Modality: MG Procedure: SCRN MAMM (CAD)W/ROMULO BILAT COMPARISON: Prior exam(s) dated January 21, 2024.. FINDINGS: TISSUE DENSITY: There are scattered areas of fibroglandular density. Bilateral Breast Mammographic Findings: No significant masses, calcifications or other abnormalities are identified. Stable appearance of the bilateral breast implants. No suspicious masses, areas of developing architectural distortion, or suspicious calcifications. There has been no significant interval change. BI/SCRN MAMM (CAD)W/ROMULO BILAT IMPRESSION: Stable bilateral screening mammogram. OVERALL FINAL ASSESSMENT BI-RADS 2: BENIGN RECOMMENDATION: Routine annual follow-up in 1 Year Additional Recommendation none A letter with findings and recommendations will be mailed to the patient. Reading Location: [facility]
== END | disposition home or self-care (01) ==
PROVIDERS: PCP Family Medicine
DX: Z12.31 Encounter for screening mammogram for malignant neoplasm of breast (principal); F17.200 Nicotine dependence, unspecified, uncomplicated
CPT/HCPCS: 71271; 77063; 77067